=== PATIENT | male | born 1955 | race Caucasian/White ===

== ENCOUNTER 2018-04-05 23:41 | Inpatient (IN) ==
[2018-04-06] MEDS ORDERED: methylPREDNISolone 125 MG/2 ML VIAL IVP ONE
--- NOTE | 2018-04-06 00:08 | Emergency Department Note ---
Disposition Clinical Impression: Acute exacerbation of chronic obstructive airways disease Disposition: Admitted As Inpatient Condition: Serious Instructions: Chronic Obstructive Pulmonary Disease (ED) Referrals: Christiano Santacruz MD [Primary Care Provider] - Forms: ED Satisfaction Letter Time of Disposition: 01:20 SOB HPI - General Chief Complaint: ED Shortness of Breath/Dyspnea Stated Complaint: Sebas Time Seen by Provider: 04/05/18 23:52 Source: EMS Mode of arrival: EMS Limitations: physical limitation Nursing Notes Reviewed: Yes Vital Signs Reviewed: Yes - History of Present Illness Mr. Chase is a 62 yo male that presents for shortness of breath, brought in by EMS, with O2 saturation of 67% at home on room air. Improved to 98% on supplemental O2 and albuterol treatment. He notes worsening shortness of breath and increased mucus production for the past few weeks. Notes chills but denies checking for fever. Patient notes orthopnea with leaning back or attempting to lay down that has been worse the past few days. He notes in general he does not feel well. Notes history of COPD for which he takes inhalers. History of CHF, notes increased LE swelling, however states he is not on diuretics. States he has history of pneumonia a couple years ago. Denies vomiting, notes intermittent diarrhea, denies abdominal pain. Currently on nasal cannula saturation is in low 90's and patient tachypneic. - Related Data Home Medications Medication Instructions Recorded Confirmed Albuterol Neb [Proventil Neb] 2.5 mg IH Q4HR PRN 10/23/15 09/06/17 Atorvastatin [Lipitor] 40 mg PO DAILY 10/23/15 09/06/17 Carvedilol [Coreg] 6.25 mg PO BIDWM 10/23/15 09/06/17 Clopidogrel [Plavix] 75 mg PO DAILY 10/23/15 09/06/17 Insulin Glargine,Hum.rec.anlog 40 unit SQ DAILY 10/23/15 09/06/17 [Lantus Solostar] Insulin Glulisine [Apidra] 5 - 20 unit SQ TIDWM 10/23/15 09/06/17 Multivitamin [Multi-Day Vitamins] 1 each PO DAILY 10/23/15 09/06/17 Nitroglycerin [Nitrostat] 0.4 mg SL DAILY PRN 10/23/15 09/06/17 amLODIPine [Norvasc] 10 mg PO DAILY 10/23/15 09/06/17 Albuterol Sulfate [Ventolin Hfa] 2 puff IH Q4H PRN 04/05/17 09/06/17 Budesonide/Formoterol 160/4.5 2 puff IH BIDR 04/05/17 09/06/17 [Symbicort 160/4.5] Lidocaine 1 each TP DAILY 04/05/17 09/06/17 Acetaminophen [Non-Aspirin Extra 500 mg PO Q6HR PRN 04/22/17 09/06/17 Strength] Fluticasone Propionate Nasal 50 mcg NS DAILY PRN 04/22/17 09/06/17 [Flonase] [place]-3/Dha/Epa/Fish Oil [Fish Oil 1,000 mg PO DAILY 04/22/17 09/06/17 Conc 1,000 mg Softgel] Quinapril HCl [Accupril] 40 mg PO DAILY 04/22/17 09/06/17 Sertraline [Zoloft] 50 mg PO DAILY 04/22/17 09/06/17 OxyCODONE/APAP 5/325 [Percocet 1 tab PO BID PRN 09/06/17 09/06/17 5/325 MG] Allergies Allergy/AdvReac Type Severity Reaction Status Date / Time No Known Allergies Allergy Verified 09/06/17 10:09 All systems ED: reviewed and negative except as stated. Review of Systems: As Per HPI Constitutional: Reports: chills, weakness Eyes: Denies: vision change ENT ED: Reports: congestion Cardiovascular: Reports: orthopnea. Denies: chest pain Respiratory: Reports: cough, dyspnea, wheezes, sputum production. Denies: hemoptysis Gastrointestinal: Reports: diarrhea. Denies: abdominal pain, vomiting Genitourinary: Denies: dysuria Integumentary: Denies: rash Endocrine: Reports: fatigue Past Medical History - Past Medical History Attestation: Yes The following information was validated with the patient. Source: patient Medical history: Reports: COPD, coronary artery disease, diabetes, hyperlipidemia, hypertension, myocardial infarction Surgical history: Reports: angioplasty/stent, herniorrhaphy, vasectomy Psychiatric history: Reports: no psych history - Social History Smoking Status: Current every day smoker Smokeless Tobacco Status: No Alcohol use: Reports: occasionally Drug use: Reports: none Physical Exam - General Limitations: physical limitation General appearance: alert, in distress (tachypnea) - Head Head exam: atraumatic, normocephalic - Eye Eye exam: Present: normal appearance. Absent: scleral icterus, conjunctival injection - ENT ENT exam: normal exam, mucous membranes moist - Neck Neck exam: Present: normal inspection, full ROM - Chest Chest inspection: Present: normal inspection, symmetric chest wall rise - Respiratory Respiratory exam: Present: respiratory distress (tachypnea, requiring oxygen), wheezes (bilaterally) - Cardiovascular Cardiovascular exam: Present: regular rate, normal rhythm, +S1, +S2 - Abdominal Exam Abdominal exam: Present: soft, Non-Tender. Absent: guarding, rebound, rigidity - Extremities Exam Extremities exam: Present: pedal edema (2+ bilaterally). Absent: tenderness - Back Exam Back exam: Absent: tenderness - Neurological Exam Neurological exam: Present: alert, oriented X3 - Psychiatric Psychiatric exam: Present: agitated - Skin Skin exam: Present: warm, dry, intact, normal color. Absent: rash Course Vital Signs Temperature 98.8 F 04/05/18 23:45 Pulse Rate 81 04/05/18 23:45 Respiratory Rate 16 04/05/18 23:45 Blood Pressure 167/84 04/05/18 23:45 O2 Sat by Pulse Oximetry 91 04/05/18 23:45 Temperature 98.8 F 04/05/18 23:45 Pulse Rate 81 04/05/18 23:45 Respiratory Rate 16 04/05/18 23:45 Blood Pressure 167/84 04/05/18 23:45 O2 Sat by Pulse Oximetry 92 04/05/18 23:45 Oxygen Delivery Oxygen Delivery Nasal Cannula Shortness of Breath/Dyspnea - [facility] Narrative Medical decision making narrative: Patient with hypoxia and SEBAS without supplemental oxygen. Patient will likely need to be admitted as he is not on supplemental O2 at home and is currently requiring such. History of CHF, COPD. With response to albuterol by EMS and wheezing on exam, will treat with steroids. Check EKG, CXR, and labs. Overall labs normal. CXR read as negative, though not as well penetrated as previous CXR. Plan to admit for AECOPD. Spoke to hospitalist, Dr. Hansen, accepted patient and recommending starting patient on IV azithromycin. - Differential Diagnosis Likely: acute exacerbation of chronic obstructive airways disease, congestive heart failure, pneumonia - Medical Records Medical records reviewed: Yes I reviewed the patient's medical records. - Lab Data Lab results reviewed: Yes I reviewed the patient's lab results. Result diagrams: 04/06/18 00:22 04/06/18 00:04 Lab Results 04/06/18 04/06/18 04/06/18 Range/Units 00:04 00:22 00:22 WBC 9.5 (4.3-11.1) K/mcL RBC 5.66 H (4.19-5.50) M/mcL Hgb 15.2 (12.9-16.9) g/dL Hct 49.9 (37.5-50.1) % MCV 88.2 (83.0-100.0) fL MCH 26.9 L (28.0-33.3) pg MCHC 30.5 L (31.6-35.5) g/dL RDW 14.2 (11.5-14.5) % Plt Count 190 (140-400) K/mcL MPV 10.5 (9.4-12.4) fL Immature Gran % 0.5 (0-4) % Seg Neutrophils % 74.3 % Lymphocytes % 13.7 % Monocytes % 9.9 % Eosinophils % 1.2 % Basophils % 0.4 % Neutrophils # 7.1 (1.6-8.9) K/mcL Lymphocytes # 1.3 (0.6-4.6) K/mcL Monocytes # 0.9 (0.0-1.3) K/mcL Eosinophils # 0.1 (0.0-0.6) K/mcL Basophils # 0.0 (0.0-0.2) K/mcL Sodium 139 (136-145) mEq/L Potassium 4.4 (3.5-5.1) mEq/L Chloride 104 (98-107) mEq/L Carbon Dioxide 31 H (23-29) mEq/L BUN 17 (8-23) mg/dL Creatinine 1.06 (0.70-1.30) mg/dL Est GFR ( Amer) > 60 (> 60) Est GFR (Non-Af Amer) > 60 (> 60) BUN/Creatinine Ratio 16 (6-26) Glucose 179 H (70-105) mg/dL Calculated Osmolality 294 (280-300) Lactic Acid 0.6 (0.5-2.2) mmol/L Calcium 8.9 (8.6-10.3) mg/dL Troponin I < 0.03 (< 0.04) ng/mL - Radiology Data Radiology results reviewed: Yes I reviewed the patient's radiology results. - EKG Data EKG attestation: Yes I reviewed and interpreted this EKG. EKG shows normal: Reports: sinus rhythm Rate: Reports: normal Rhythm: Reports: NSR [place]/QRS: Reports: normal Interpretation: Reports: no acute changes. Denies: nonspecific ST-T wave changes
[2018-04-06 00:33] LABS: Basophils % 0.4 %; Eosinophils # 0.1 K/mcL (0.0-0.6); Eosinophils % 1.2 %; Hematocrit 49.9 % (37.5-50.1); Hemoglobin 15.2 g/dL (12.9-16.9); Immature Granulocytes % 0.5 % (0-4); Lymphocytes # 1.3 K/mcL (0.6-4.6); Lymphocytes % 13.7 %; Mean Corpuscular HGB Conc 30.5 g/dL (31.6-35.5); Mean Corpuscular Hemoglobin 26.9 pg (28.0-33.3); Mean Corpuscular Volume 88.2 fL (83.0-100.0); Mean Platelet Volume 10.5 fL (9.4-12.4); Monocytes # 0.9 K/mcL (0.0-1.3); Monocytes % 9.9 %; Neutrophils # 7.1 K/mcL (1.6-8.9); Platelet Count 190 K/mcL (140-400); Red Blood Count 5.66 M/mcL (4.19-5.50); Red Cell Distribution Width 14.2 % (11.5-14.5); Segmented Neutrophils % 74.3 %
[2018-04-06 00:37] LABS: BUN/Creatinine Ratio 16 (6-26); Blood Urea Nitrogen 17 mg/dL (8-23); Calcium 8.9 mg/dL (8.6-10.3); Carbon Dioxide 31 mEq/L (23-29); Chloride 104 mEq/L (98-107); Glucose 179 mg/dL (70-105); Osmolality,Calculated 294 (280-300); Potassium 4.4 mEq/L (3.5-5.1); Sodium 139 mEq/L (136-145); Troponin I < 0.03 ng/mL (< 0.04); eGFR For Non-African Americans > 60 (> 60)
--- NOTE | 2018-04-06 00:53 | Emergency Department Note ---
Disposition Clinical Impression: Acute exacerbation of chronic obstructive airways disease Disposition: Still a Patient Condition: Serious Forms: ED Satisfaction Letter SOB HPI - General Chief Complaint: ED Shortness of Breath/Dyspnea Stated Complaint: Sebas Time Seen by Provider: 04/05/18 23:52 Source: EMS Mode of arrival: EMS Limitations: physical limitation Nursing Notes Reviewed: Yes Vital Signs Reviewed: Yes - Related Data Home Medications Medication Instructions Recorded Confirmed Albuterol Neb [Proventil Neb] 2.5 mg IH Q4HR PRN 10/23/15 09/06/17 Atorvastatin [Lipitor] 40 mg PO DAILY 10/23/15 09/06/17 Carvedilol [Coreg] 6.25 mg PO BIDWM 10/23/15 09/06/17 Clopidogrel [Plavix] 75 mg PO DAILY 10/23/15 09/06/17 Insulin Glargine,Hum.rec.anlog 40 unit SQ DAILY 10/23/15 09/06/17 [Lantus Solostar] Insulin Glulisine [Apidra] 5 - 20 unit SQ TIDWM 10/23/15 09/06/17 Multivitamin [Multi-Day Vitamins] 1 each PO DAILY 10/23/15 09/06/17 Nitroglycerin [Nitrostat] 0.4 mg SL DAILY PRN 10/23/15 09/06/17 amLODIPine [Norvasc] 10 mg PO DAILY 10/23/15 09/06/17 Albuterol Sulfate [Ventolin Hfa] 2 puff IH Q4H PRN 04/05/17 09/06/17 Budesonide/Formoterol 160/4.5 2 puff IH BIDR 04/05/17 09/06/17 [Symbicort 160/4.5] Lidocaine 1 each TP DAILY 04/05/17 09/06/17 Acetaminophen [Non-Aspirin Extra 500 mg PO Q6HR PRN 04/22/17 09/06/17 Strength] Fluticasone Propionate Nasal 50 mcg NS DAILY PRN 04/22/17 09/06/17 [Flonase] [place]-3/Dha/Epa/Fish Oil [Fish Oil 1,000 mg PO DAILY 04/22/17 09/06/17 Conc 1,000 mg Softgel] Quinapril HCl [Accupril] 40 mg PO DAILY 04/22/17 09/06/17 Sertraline [Zoloft] 50 mg PO DAILY 04/22/17 09/06/17 OxyCODONE/APAP 5/325 [Percocet 1 tab PO BID PRN 09/06/17 09/06/17 5/325 MG] Allergies Allergy/AdvReac Type Severity Reaction Status Date / Time No Known Allergies Allergy Verified 09/06/17 10:09 Past Medical History - Past Medical History Medical history: Reports: COPD, coronary artery disease, diabetes, hyperlipidemia, hypertension, myocardial infarction Surgical history: Reports: angioplasty/stent, herniorrhaphy, vasectomy Psychiatric history: Reports: no psych history - Social History Smoking Status: Current every day smoker Smokeless Tobacco Status: No Alcohol use: Reports: occasionally Drug use: Reports: none Physical Exam - General Limitations: physical limitation General appearance: alert, in no apparent distress Course Vital Signs Temperature 98.8 F 04/05/18 23:45 Pulse Rate 81 04/05/18 23:45 Respiratory Rate 16 04/05/18 23:45 Blood Pressure 167/84 04/05/18 23:45 O2 Sat by Pulse Oximetry 91 04/05/18 23:45 Temperature 98.8 F 04/05/18 23:45 Pulse Rate 81 04/05/18 23:45 Respiratory Rate 16 04/05/18 23:45 Blood Pressure 167/84 04/05/18 23:45 O2 Sat by Pulse Oximetry 92 04/05/18 23:45 Oxygen Delivery Oxygen Delivery Nasal Cannula Shortness of Breath/Dyspnea - Lab Data Result diagrams: 04/06/18 00:22 04/06/18 00:04 Lab Results 04/06/18 04/06/18 04/06/18 Range/Units 00:04 00:22 00:22 WBC 9.5 (4.3-11.1) K/mcL RBC 5.66 H (4.19-5.50) M/mcL Hgb 15.2 (12.9-16.9) g/dL Hct 49.9 (37.5-50.1) % MCV 88.2 (83.0-100.0) fL MCH 26.9 L (28.0-33.3) pg MCHC 30.5 L (31.6-35.5) g/dL RDW 14.2 (11.5-14.5) % Plt Count 190 (140-400) K/mcL MPV 10.5 (9.4-12.4) fL Immature Gran % 0.5 (0-4) % Seg Neutrophils % 74.3 % Lymphocytes % 13.7 % Monocytes % 9.9 % Eosinophils % 1.2 % Basophils % 0.4 % Neutrophils # 7.1 (1.6-8.9) K/mcL Lymphocytes # 1.3 (0.6-4.6) K/mcL Monocytes # 0.9 (0.0-1.3) K/mcL Eosinophils # 0.1 (0.0-0.6) K/mcL Basophils # 0.0 (0.0-0.2) K/mcL Sodium 139 (136-145) mEq/L Potassium 4.4 (3.5-5.1) mEq/L Chloride 104 (98-107) mEq/L Carbon Dioxide 31 H (23-29) mEq/L BUN 17 (8-23) mg/dL Creatinine 1.06 (0.70-1.30) mg/dL Est GFR ( Amer) > 60 (> 60) Est GFR (Non-Af Amer) > 60 (> 60) BUN/Creatinine Ratio 16 (6-26) Glucose 179 H (70-105) mg/dL Calculated Osmolality 294 (280-300) Lactic Acid 0.6 (0.5-2.2) mmol/L Calcium 8.9 (8.6-10.3) mg/dL Troponin I < 0.03 (< 0.04) ng/mL Attestation Statement - Attestation Attestation: I, Shad Alcocer, examined this patient and my medical decision-making was reviewed with the BOX PRINTER/PA/Advanced Practice Nurse/Resident Physician. I agree with the documented findings, disposition and treatment plan as described except to the extent set forth below. 62-year-old male presents emergency Department with concerns of difficulty in breathing. Patient has a history of severe COPD exacerbation and congestive heart failure. Patient states his symptoms have been worsening over the past few weeks. Patient had an O2 saturation of 67% on EMS arrival. They gave her breathing treatment and put him on oxygen with significant improvement. Patient felt significantly improved after the administration of albuterol. Patient has wheezing the bilateral posterior lung clark. His symptoms are likely secondary to COPD exacerbation. We are pending a chest x-ray for further evaluation of possible pneumonia. Patient care will be transferred to Dr. Thompson pending chest x-ray, evaluation and disposition.
[2018-04-06] MEDS ORDERED: Azithromycin 500 MG in D5% in Water 250 ML IVPB ONE (01:10)
[2018-04-06] MEDS ORDERED: *HR* OxyCODONE/APAP 5/325 TABLET PO PRN ×2 (01:54→20:55)
[2018-04-06] MEDS ORDERED: Fluticasone Propionate Nasal 50 MCG/SPRAY BOTTLE NS PRN (01:54)
[2018-04-06] MEDS ORDERED: Furosemide 40 MG/4 ML VIAL IVP ONE (01:56)
[2018-04-06] MEDS ORDERED: Dextrose Gel 15 GM/37.5 ML TUBE PO PRN ×4 (01:56→21:17)
--- NOTE | 2018-04-06 02:34 | Internal Med History&Physical ---
Date of Encounter: 04/06/18 Time of Encounter: 02:00 Internal Medicine - H&P: HPI Chief complaint: SOB Admitted From: Home Plans for Post Hospital Care: Home History of present illness: Larry Chase is a 62 year old morbidly obese man with long-standing tobacco dependence with resultant severe COPD, hypertension, diabetes, hyperlipidemia, CAD s/p stent and currently being managed for bladder cancer s/ p transurethral resection in 2017. He continues to smoke about pack a day or less and now presents with severe difficulty breathing with excessive wheezing that has been worsening over the past weeks and on arrival was saturating 67%. He improved with supplemental oxygen therapy and nebulizer, going up to the high 80s. His exam was remarkable for wheezing in bilateral posterior lung clark. He received 125mg of methylprednisolone and is admitted for further care. On my assessment he states he feels better than before he came to the ER. He denies chest pain but states he has noticed increased pedal edema in addition to his shortness of breath. He smoked a few cigarettes before seeking EMS care. He reports that a few years ago he was admitted for pneumonia and was on oxygen for about 3 months at home but has been off ever since. He denies fever and chills but has an ongoing productive cough. Past Med Surg Social Fam HX - Past Medical History Medical history: COPD, coronary artery disease, diabetes, hyperlipidemia, hypertension, myocardial infarction Additional medical history: bladder tumor. STD's. CKD STAGE 3. NSTEMI. SMOKER Psychiatric history: no psych history - Past Surgical History Surgical History: angioplasty/stent, herniorrhaphy, vasectomy Additional surgical history: hernia stomach. bilateral carpal tunnel release - Social History Smoking Status: Current every day smoker Smokeless Tobacco Status: No Alcohol use: occasionally Drug use: none Internal Medicine - H&P: Meds Albuterol Neb [Proventil Neb] 2.5 mg IH Q4HR PRN 10/23/15 [History] Atorvastatin [Lipitor] 40 mg PO DAILY 10/23/15 [History] Carvedilol [Coreg] 6.25 mg PO BIDWM 10/23/15 [History] Clopidogrel [Plavix] 75 mg PO DAILY 10/23/15 [History] Insulin Glargine,Hum.rec.anlog [Lantus Solostar] 40 unit SQ DAILY 10/23/15 [ History] Insulin Glulisine [Apidra] 5 - 20 unit SQ TIDWM 10/23/15 [History] Multivitamin [Multi-Day Vitamins] 1 each PO DAILY 10/23/15 [History] Nitroglycerin [Nitrostat] 0.4 mg SL DAILY PRN 10/23/15 [History] amLODIPine [Norvasc] 10 mg PO DAILY 10/23/15 [History] Albuterol Sulfate [Ventolin Hfa] 2 puff IH Q4H PRN 04/05/17 [History] Budesonide/Formoterol 160/4.5 [Symbicort 160/4.5] 2 puff IH BIDR 04/05/17 [ History] Lidocaine 1 each TP DAILY 04/05/17 [History] Acetaminophen [Non-Aspirin Extra Strength] 500 mg PO Q6HR PRN 04/22/17 [History] Fluticasone Propionate Nasal [Flonase] 50 mcg NS DAILY PRN 04/22/17 [History] [place]-3/Dha/Epa/Fish Oil [Fish Oil Conc 1,000 mg Softgel] 1,000 mg PO DAILY [History] Quinapril HCl [Accupril] 40 mg PO DAILY 04/22/17 [History] Sertraline [Zoloft] 50 mg PO DAILY 04/22/17 [History] OxyCODONE/APAP 5/325 [Percocet 5/325 MG] 1 tab PO BID PRN 09/06/17 [History] 3 Allergy/AdvReac Type Severity Reaction Status Date / Time No Known Allergies Allergy Verified 09/06/17 10:09 All Systems PM: A 10-system review of systems was performed and is negative for pertinent findings except as documented above in the HPI. - Constitutional Vitals: Temp Pulse Resp BP Pulse Ox 98.8 F 90 16 146/76 90 04/05/18 23:45 04/06/18 01:16 04/06/18 01:58 04/06/18 01:58 04/06/18 01:16 Exam: Vitals: Reviewed General: Obese man, sitting up in bed, notable respiratory discomfort. Skin: Flushed face, no lesions or ulcers. HEENT: Moist mucous membranes. No conjunctivae pallor. Neck: No lymphadenopathy. No palpable thyroid. Chest: Diminished thoracic expansion. Reduced breath sounds bilaterally with scattered wheezes. Heart: Normal S1 & S2; rhythmic. Abdomen: distended, soft and non-tender to palpation. Extremities: (+) clubbing, 1+ pitting edema. Neurological: Awake, alert and oriented to person, place and time. No focal deficits. Psych: Affect appropriate. Internal Med - H&P Results - Labs CBC & Chem 7: 04/06/18 00:22 04/06/18 00:04 - Assessment and plan (1) Acute exacerbation of chronic obstructive airways disease Current Visit: Yes Status: Acute Assessment and plan: Old records reviewed: Spirometry shows very severe airway obstructive pattern Following Bronchodilator, there is significant improvement in FVC by 32%. Following Bronchodilator, there is significant improvement in FEV1 by 27%. MVV is decreased. Lung Volumes TLC is mildly reduced and there is increased in residual volume suggesting air-trapping. Diffusion Capacity is severely reduced. Flow Volume Loop: Obstructive. These findings are consistent with grade IV disease and currently has moderate to severe symptoms of acute exacerbation. Will check an ABG to ensure there is no CO2 retention; he is currently refusing Bipap to assist. Continue nebulizer therapy q4hrs. Azithromycin 500mg daily. Supplemental oxygen. (2) Acute respiratory failure with hypoxia Current Visit: Yes Status: Acute Assessment and plan: Likely due to COPD exacerbation. Will place on supplemental oxygen for now however he will need evaluation for home-oxygen use before he is discharged. Will administer 1 dose of furosemide and check a TTE to ensure heart failure/ cor pulmonale is not a contributing factor as his x-ray shows some vascular congestion on my evaluation. (3) CAD (coronary artery disease) Current Visit: Yes Status: Chronic Assessment and plan: Stable. Will continue antiplatelet therapy and statin. Qualifiers: Coronary Disease-Associated Artery/Lesion type: [place] artery [place] vs. transplanted heart: [place] heart Associated angina: without angina Qualified Code(s): I25.10 - Atherosclerotic heart disease of [place] coronary artery without angina pectoris (4) Obesity (BMI 30-39.9) Current Visit: Yes Status: Chronic Assessment and plan: Will benefit from gold leaf roller evaluation (5) Tobacco dependence due to cigarettes Current Visit: Yes Status: Chronic Assessment and plan: Counseled extensively on the need to quit; resources made available to assist. - Time Spent With Patient Total time spent is greater than 50% in coordination of care (as documented) at patient's floor/unit and/or counseling patient: Greater than 35 minutes
[2018-04-06 04:25] LABS: ABG Base Excess 3 mEq/L (-2 to 3); ABG HCO3 35 mEq/L (21-27); ABG Oxygen Saturation 84 % (95-98); ABG PCO2 86 mmHg (35-45); ABG PH 7.22 pH Units (7.32-7.45); ABG PO2 61 mmHg (85-104); ABG TCO2 38 mEq/L (20-26)
[2018-04-06] MEDS: Ipratropium/Albuterol Neb 3 ML IH SCH ×5 (04:33→23:46)
[2018-04-06] MEDS: *HR* Heparin 5,000 UNIT/ML VIAL SQ SCH ×2 (05:17→13:53)
[2018-04-06] MEDS ORDERED: *HR* Etomidate 40 MG/20 ML VIAL IVP ONE (07:01)
[2018-04-06] MEDS ORDERED: *HR* Midazolam HCl 2 MG/2 ML VIAL IV ONE (07:01)
[2018-04-06] MEDS ORDERED: *HR* Midazolam HCl 5 MG/5 ML VIAL IVP ONE ×2 (07:01→21:55)
[2018-04-06] MEDS: Insulin LISPRO 300 UNITS/3 ML VIAL SQ SCH ×4 (08:05→23:44)
[2018-04-06] MEDS: MethylPREDNISolone 40 MG/ML VIAL IVP SCH ×3 (08:05→23:44)
[2018-04-06] MEDS ORDERED: Furosemide 20 MG/2 ML VIAL IVP ONE (08:49)
[2018-04-06 08:54] LABS: ABG Base Excess 1 mEq/L (-2 to 3); ABG HCO3 37 mEq/L (21-27); ABG Oxygen Saturation 93 % (95-98); ABG PCO2 121 mmHg (35-45); ABG PH 7.09 pH Units (7.32-7.45); ABG PO2 98 mmHg (85-104); ABG TCO2 40 mEq/L (20-26); Blood Gas Modality avaps; Blood Gas PEEP 7 cm H2O; Blood Gas Respiration Rate 12; Blood Gas VT 500 cc
[2018-04-06] MEDS ORDERED: Perflutren Lipid Microsphere 1.3 ML in 0.9 % Sodium Chloride 8.7 ML IVP ONE ×3 (08:55→22:14)
[2018-04-06] MEDS ORDERED: Multivit/Ca/Min/Fe/FA 1 TAB TABLET PO SCH (09:00)
[2018-04-06] MEDS ORDERED: Lisinopril 20 MG TABLET PO SCH (09:00)
[2018-04-06] MEDS ORDERED: amLODIPine 5 MG TABLET PO SCH (09:00)
[2018-04-06] MEDS ORDERED: Aspirin 81 MG TAB.CHEW PO SCH (09:00)
--- NOTE | 2018-04-06 09:17 | Event Note ---
Date of Encounter: 04/06/18 Time of Encounter: 08:00 Called to bedside by nursing Patient difficult to arouse, , has minimal response to painful stimuli. Currently on Bipap Nursing reports that patient has been pulling at Bipap. ABG obtained which did reveal a pH of 7.09,pCo2 121 HCO3 37 . I did notify Dr Machado who did evaluate the patient advised to transfer to ICU. Spoke with ICU physician Dr Kelly and who did examine the patient at bedside, he was given IV lasix, we will check ABG in one hour . He will be transfered to ICU to closely monitored
[2018-04-06 10:41] LABS: ABG Base Excess 2 mEq/L (-2 to 3); ABG HCO3 37 mEq/L (21-27); ABG Oxygen Saturation 90 % (95-98); ABG PCO2 116 mmHg (35-45); ABG PH 7.11 pH Units (7.32-7.45); ABG PO2 84 mmHg (85-104); ABG TCO2 41 mEq/L (20-26); Blood Gas PEEP 7 cm H2O; Blood Gas Respiration Rate 12; Blood Gas VT 500 cc
--- NOTE | 2018-04-06 10:58 | Pulmonology Consult Note ---
<JesicaandriaYuliya S - Last Filed: 04/06/18 13:25> Date of Encounter: 04/06/18 Medications and Allergies Albuterol Neb [Proventil Neb] 2.5 mg IH Q4HR PRN 10/23/15 [History] Atorvastatin [Lipitor] 40 mg PO DAILY 10/23/15 [History] Carvedilol [Coreg] 6.25 mg PO BIDWM 10/23/15 [History] Clopidogrel [Plavix] 75 mg PO DAILY 10/23/15 [History] Insulin Glargine,Hum.rec.anlog [Lantus Solostar] 50 unit SQ DAILY 10/23/15 [ History] Multivitamin [Multi-Day Vitamins] 1 each PO DAILY 10/23/15 [History] Nitroglycerin [Nitrostat] 0.4 mg SL DAILY PRN 10/23/15 [History] amLODIPine [Norvasc] 10 mg PO DAILY 10/23/15 [History] Albuterol Sulfate [Ventolin Hfa] 2 puff IH Q4H PRN 04/05/17 [History] Budesonide/Formoterol 160/4.5 [Symbicort 160/4.5] 2 puff IH BIDR 04/05/17 [ History] Acetaminophen [Non-Aspirin Extra Strength] 500 mg PO Q6HR PRN 04/22/17 [History] Fluticasone Propionate Nasal [Flonase] 50 mcg NS DAILY PRN 04/22/17 [History] [place]-3/Dha/Epa/Fish Oil [Fish Oil Conc 1,000 mg Softgel] 1,000 mg PO DAILY [History] Sertraline [Zoloft] 50 mg PO DAILY 04/22/17 [History] OxyCODONE/APAP 5/325 [Percocet 5/325 MG] 1 tab PO BID PRN 09/06/17 [History] Cetirizine HCl [Zyrtec] 10 mg PO DAILY 04/06/18 [History] Insulin LISPRO [Humalog Kwikpen U-100] 15 - 20 unit SQ TID 04/06/18 [History] Lisinopril [Zestril] 40 mg PO DAILY 04/06/18 [History] Tiotropium [place] [Spiriva Respimat] 2 puff IH DAILY 04/06/18 [History] 3 Allergy/AdvReac Type Severity Reaction Status Date / Time No Known Allergies Allergy Verified 09/06/17 10:09 All Systems: The remainder of the systems were reviewed and are negative Physical Examination Vital Signs: Vital Signs, Last 4 Hours Temp Pulse Resp BP Pulse Ox 04/06/18 13:00 67 18 106/56 94 04/06/18 12:00 68 18 98/52 94 04/06/18 11:00 98 F 84 16 123/61 94 04/06/18 10:57 18 123/61 94 Results - Laboratory Findings CBC and BMP: 04/06/18 00:22 04/06/18 00:04 ABG ABG pH 7.11 pH Units (7.32-7.45) L* 04/06/18 10:36 ABG pCO2 116 mmHg (35-45) H* 04/06/18 10:36 ABG pO2 84 mmHg (85-104) L 04/06/18 10:36 ABG O2 Saturation 90 % (95-98) L 04/06/18 10:36 Abnormal lab findings: Abnormal lab results RBC 5.66 M/mcL (4.19-5.50) H 04/06/18 00:22 MCH 26.9 pg (28.0-33.3) L 04/06/18 00:22 MCHC 30.5 g/dL (31.6-35.5) L 04/06/18 00:22 ABG pH 7.11 pH Units (7.32-7.45) L* 04/06/18 10:36 ABG pCO2 116 mmHg (35-45) H* 04/06/18 10:36 ABG pO2 84 mmHg (85-104) L 04/06/18 10:36 ABG HCO3 37 mEq/L (21-27) H 04/06/18 10:36 ABG Total CO2 41 mEq/L (20-26) H 04/06/18 10:36 ABG O2 Saturation 90 % (95-98) L 04/06/18 10:36 Carbon Dioxide 31 mEq/L (23-29) H 04/06/18 00:04 Glucose 179 mg/dL (70-105) H 04/06/18 00:04 POC Glucose 337 mg/dL (70-99) H 04/06/18 11:20 - Clinical Findings Intake & Output: Intake & Output 04/05/18 04/06/18 04/06/18 23:59 07:59 15:59 Output Total 200 / 800 Balance -200 / -800 Consult Discharge Plan - Plan Instructions: Chronic Obstructive Pulmonary Disease (ED) Referrals: Christiano Santacruz MD [Primary Care Provider] - - Attending Attestation I saw and evaluated this patient and my medical decision-making was reviewed with the Resident Physician. I agree with the documented findings, disposition and treatment plan as described except to the extent set forth below. We independently had [id number] contact with the patient I spent 40 minutes of Critical Care time with this patient. It involved decision making of high complexity to assess, manipulate, and support vital organ system failure and/or to prevent further life threatening deterioration of the patient's condition. The time involved in the performance of separately reportable procedures was not counted toward critical care time. Patient seen and examined at bedside Labs, radiology, chart personally reviewed. Management was reviewed during multidisciplinary critical care rounds. 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 After initial treatment with AVAPS and adjusting the settings patient is more awake and following commands. Pulm: Patient has severe COPD looks like he presented with COPD exacerbation we will keep him on steroids, bronchodilators, IV antibiotics will put him on antipseudomonal penicillin. Cards: Patient has signs of fluid overload suspected diastolic dysfunction will get an echo and trend troponins patient has history of coronary artery disease. We will hold of diuresis as blood pressure is borderline . FEN-GI: Nothing by mouth for now Renal: As and output were reviewed ID: To continue antipseudomonal penicillin in the background of severe COPD Heme/Onc: Labs reviewed, patient should be on thromboprophylaxis Endo: Glucose Monitored Integ/MSK: Skin Care per routine ICU Nursing Protocol to prevent ulcers. Lines: All lines examined without evidence of infection : Dispo: Criticaly ill to remain ICU high chance of worsening respiratory failure CODE: Discussed with goals of care patient for now is Full Code <Justa Morales E - Last Filed: 04/06/18 17:48> Date of Encounter: 04/06/18 Time of Encounter: 10:57 Assessment and Plan (1) Acute and chronic respiratory failure with hypercapnia Current Visit: Yes Status: Acute Currently on BiPAP with ABGs improving This could be a result of his CHF He was given 40 of Lasix this morning and 20 on the floor prior to being brought to the ICU We will do an echo to assess his CHF, and trend troponins, for possible exacerbation of his chronic respiratory failure DuoNeb's every 4 as needed We will continue to follow (2) Acute exacerbation of chronic obstructive airways disease Current Visit: Yes Status: Acute Continue prednisolone therapy Zosyn added for Pseudomonas coverage Due to nebs every 4 hours as needed (3) Congestive heart failure Current Visit: Yes Status: Acute Is given 40 of Lasix is morning and 20 on the floor prior to arrival at the ICU We will to an echocardiogram We will trend troponins, second troponin stayed at <0.03 Qualifiers: Heart failure type: unspecified Heart failure chronicity: unspecified Qualified Code(s): I50.9 - Heart failure, unspecified History of Present Illness Consult date: 04/06/18 Requesting physician: Melyssa Jauregui Chief complaint: Respiratory Failure History of present illness: Mr. Chase is a 62 yowm with long-standing tobacco dependence with resultant severe COPD, hypertension, diabetes, hyperlipidemia, CAD post stent and currently being managed for bladder cancer with transurethral resection in 2017. Continues to smoke about half a pack a day or less, presented with difficulty breathing with excessive wheezing has worsened over the past few weeks and on arrival was saturating at 67%. Improvement supplemental oxygen and nebulizer, received 125 mg of methylprednisolone amended for further care. This morning had worsening mental status and hypercarbia. He has been on BiPAP since. Still difficult to awaken. Past Med Surg Social Fam HX - Past Medical History Medical history: COPD, coronary artery disease, diabetes, hyperlipidemia, hypertension, myocardial infarction Additional medical history: bladder tumor. STD's. CKD STAGE 3. NSTEMI. SMOKER Psychiatric history: no psych history - Past Surgical History Surgical History: angioplasty/stent, herniorrhaphy, vasectomy Additional surgical history: hernia stomach. bilateral carpal tunnel release - Social History Smoking Status: Current every day smoker Smokeless Tobacco Status: No Alcohol use: occasionally Drug use: none ROS unobtainable: due to mental status All Systems: The remainder of the systems were reviewed and are negative Physical Examination Vital Signs: Vital Signs, Last 4 Hours Temp Pulse Resp BP Pulse Ox 04/06/18 10:38 98 F 84 16 123/61 94 04/06/18 10:37 97.7 F 108 20 147/82 87 04/06/18 07:54 17 82 04/06/18 07:43 97.7 F 84 16 147/82 89 General appearance: other (Difficult to awaken, must be rubbed vigorously via sternum rub to awaken and then falls back asleep immediately.) Eyes: nonicteric ENT: oropharynx dry Neck: no lymphadenopathy Effort: mildly labored Auscultation: bilateral: diminished breath sounds (Lower lobes), wheezes ( Throughout) Cardiovascular: regular rate and rhythm Gastrointestinal: normoactive bowel sounds, soft, non-tender Extremities: no cyanosis, pink and warm, edema (1+ pitting) unable to assess due to mental status Ventilator Settings Ventilator Settings: Ventilator Settings, Last 8 Hours Ventilator Tidal Volume 500 Setting Ventilator Respiratory Rate 12 Setting Positive End Expiratory 7 Pressure Results - Laboratory Findings CBC and BMP: 04/06/18 00:22 04/06/18 00:04 ABG ABG pH 7.11 pH Units (7.32-7.45) L* 04/06/18 10:36 ABG pCO2 116 mmHg (35-45) H* 04/06/18 10:36 ABG pO2 84 mmHg (85-104) L 04/06/18 10:36 ABG O2 Saturation 90 % (95-98) L 04/06/18 10:36 Abnormal lab findings: Abnormal lab results RBC 5.66 M/mcL (4.19-5.50) H 04/06/18 00:22 MCH 26.9 pg (28.0-33.3) L 04/06/18 00:22 MCHC 30.5 g/dL (31.6-35.5) L 04/06/18 00:22 ABG pH 7.11 pH Units (7.32-7.45) L* 04/06/18 10:36 ABG pCO2 116 mmHg (35-45) H* 04/06/18 10:36 ABG pO2 84 mmHg (85-104) L 04/06/18 10:36 ABG HCO3 37 mEq/L (21-27) H 04/06/18 10:36 ABG Total CO2 41 mEq/L (20-26) H 04/06/18 10:36 ABG O2 Saturation 90 % (95-98) L 04/06/18 10:36 Carbon Dioxide 31 mEq/L (23-29) H 04/06/18 00:04 Glucose 179 mg/dL (70-105) H 04/06/18 00:04 POC Glucose 311 mg/dL (70-99) H 04/06/18 10:20 - Clinical Findings Intake & Output: Intake & Output 04/05/18 04/06/18 04/06/18 23:59 07:59 15:59 Intake Total 490 / 490 Output Total 600 / 600 Balance 490 / 490 -600 / -600 Weight 120.2 kg
[2018-04-06 14:05] LABS: ABG Base Excess 6 mEq/L (-2 to 3); ABG HCO3 38 mEq/L (21-27); ABG Oxygen Saturation 85 % (95-98); ABG PCO2 92 mmHg (35-45); ABG PH 7.22 pH Units (7.32-7.45); ABG PO2 63 mmHg (85-104); ABG TCO2 41 mEq/L (20-26); Blood Gas PEEP 7 cm H2O; Blood Gas Respiration Rate 18; Blood Gas VT 600 cc
[2018-04-06] MEDS ORDERED: Piperacillin/Tazobactam 3.375 GM in 0.9 % Sodium Chloride Mini Bag 100 ML IVPB SCH (16:00)
[2018-04-06] MEDS ORDERED: Dexmedetomidine HCl 400 MCG/100 ML MLS IVC SCH (16:15)
[2018-04-06] MEDS ORDERED: Dexmedetomidine HCl 400 MCG/100 ML MLS IVC ONE ×2 (16:24→19:58)
--- NOTE | 2018-04-06 17:35 | Electrocardiograph Report ---
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
[2018-04-06] MEDS: (Tiotropium Bromide [Spiriva Respimat] 2 PUFF) IH SCH (19:33)
--- NOTE | 2018-04-06 19:34 | Event Note ---
Date of Encounter: 04/06/18 Time of Encounter: 19:00 Notified by nursing at 18:58 that patient is very agitated, refusing treatment, trying to pull off Bipap, and physically and verbally abusive towards all staff despite Precedex drip. I immediately arrived at bedside to speak with Mr. Chase. He was wearing BiPAP at the time but remained very agitated, disoriented, not speaking coherently, and confused. He requested drinking some water and eating since he had been NPO for the past 36 hours. Patient was awake enough to protect his airway and was allowed to sip some water and eat a diabetic diet for dinner. He was placed on 1.5L daily fluid restrictions. At 21:09, I was notified by RN that patient is very verbally abusive, refusing to wear his supplemental oxygen or BiPAP, confused, and is very resistant to care. His SPO2 was hypoxic between 74 and 77% on room air. After discussion with the patient, he remained unwilling to comply with Bipap or supplemental oxygen recommendations and requested to speak with his daughter over the phone. At 21:16, RN spoke with his daughter Asuncion on the phone. Patient's current plan of care, altered mental status, and non-compliance with medical therapy was discussed with Asuncion. Patient's daughter confirmed the patient is full code status and would like to be intubated for respiratory support if clinically indicated. The patient was allowed to speak to his daughter for a minute and subsequently developed acute worsening of respiratory failure at 21: 25. Attending, Dr. Hansen was called to the room, and decision was made to rapidly intubate Mr. Chase secondary to acute on chronic hypoxic and hypercapnic respiratory failure, inability to protect his airway, and altered mental status. At 21:38, the patient was placed in a flat position and a time out was not performed due to the emergent nature of the procedure. Respiratory therapist, attending, and RN were at bedside. An oral airway was inserted. The patient was easily ventilated using an ambu bag and pre-oxygenated with SpO2 reaching up to 90s. Sedation was obtained using a total of Versed 12mg and Etomidate 30mg. The MAC 3 BLADE was used and inserted into the oropharynx at which time there was inadequate visualization of the vocal cords. The C-MAC with a d-blade was used to better visualize the oropharynx and vocal cords. Both I and the respiratory therapist each attempted one time to insert a 7.5-serbian endotracheal tube through the vocal cords, however, there was no colorimetric change visualized on the CO2 meter each time. At that time we paged anesthesiologist, Dr. Tabares, to bedside. Patient was suctioned periodically and continued to be easily ventilated using an ambu bag. Dr. Tabares successfully intubated the patient at 21 :58 using the C-MAC with a d-blade, colorimetric change was visualized on the CO2 meter, and breath sounds were heard in both lung clrak equally. An 8- serbian endotracheal tube was placed at 24 cm, measured at the teeth. Please see corresponding procedure note. An OG tube was inserted and CXR and KUB were ordered to confirm placement. The OG tube was advanced after the KUB was performed and placed on low intermittent suction to decompress the stomach. Patient remained on Precedex drip and was started on additional sedation with Propofol and Fentanyl. An ABG was performed later at 2312 which revealed improving hypercapnia with underlying primary respiratory acidosis and secondary metabolic alkalosis. 04/06/18 04/06/18 04/06/18 04:22 08:31 10:36 ABG pH 7.22 L 7.09 L* D 7.11 L* ABG pCO2 86 H* 121 H* D 116 H* ABG pO2 61 L 98 84 L ABG HCO3 35 H 37 H 37 H ABG Total CO2 38 H 40 H 41 H ABG O2 Saturation 84 L 93 L 90 L ABG Base Excess 3 1 2 04/06/18 04/06/18 13:58 23:12 ABG pH 7.22 L 7.29 L ABG pCO2 92 H* D 74 H* ABG pO2 63 L 67 L ABG HCO3 38 H 35 H ABG Total CO2 41 H 38 H ABG O2 Saturation 85 L 89 L ABG Base Excess 6 H 6 H Impressions Chest X-Ray 04/06/18 22:01 IMPRESSION: Endotracheal tube in place with tip 4.5 cm above the marva. Interval development of central pulmonary vascular congestion/mild edema. D/ / Gricelda Calderon Cha, MD / Gricelda Calderon Cha, MD Interpreting Provider: Gricelda Calderon Cha, MD X-Ray 04/06/18 22:01 IMPRESSION: Enteric tube with side hole at or just above the gastroesophageal junction. Ideally, the tube could be advanced by several cm. D/ / Gricelda Calderon Cha, MD / Gricelda Calderon Cha, MD Interpreting Provider: Gricelda Calderon Cha, MD
[2018-04-06] MEDS: Loratadine 10 MG TABLET PO SCH (20:20)
[2018-04-06] MEDS: Dexmedetomidine HCl 400 MCG/100 ML MLS IVC SCH (20:20)
[2018-04-06] MEDS ORDERED: Acetaminophen 325 MG TABLET PO PRN (20:42)
[2018-04-06] MEDS ORDERED: Albuterol 2.5 MG/3 ML NEBULIZER IH PRN (20:43)
[2018-04-06] MEDS ORDERED: Insulin LISPRO 300 UNITS/3 ML VIAL SQ SCH ×2 (21:00→22:30)
[2018-04-06] MEDS ORDERED: Naloxone 0.4 MG/ML INJ IVP PRN (21:04)
[2018-04-06] MEDS ORDERED: Ondansetron 4 MG/2 ML VIAL IVP PRN (21:04)
[2018-04-06] MEDS ORDERED: Sennosides/Docusate Sodium TABLET PO PRN (21:04)
[2018-04-06] MEDS ORDERED: D5% in Water 1,000 ML IVC PRN (21:17)
[2018-04-06] MEDS ORDERED: *HR* Dextrose 50 % in Water (Syg) 50 ML SYRINGE IVP PRN (21:17)
[2018-04-06] MEDS ORDERED: Artificial Tears SOLN 15 ML BOTTLE BOTH EYES PRN (21:25)
[2018-04-06] MEDS ORDERED: Insulin DETEMIR 100 UNIT/ML X5UNITS SQ SCH (21:30)
[2018-04-06] MEDS ORDERED: Azithromycin 500 MG in D5% in Water 250 ML IVPB SCH (22:00)
[2018-04-06] MEDS: Fluticasone Propionate Nasal 50 MCG/SPRAY BOTTLE NS SCH (22:45)
[2018-04-06] MEDS: FentaNYL (PF) 1,000 MCG in 0.9 % Sodium Chloride 80 ML IVC SCH (23:00)
[2018-04-06 23:15] LABS: ABG Base Excess 6 mEq/L (-2 to 3); ABG HCO3 35 mEq/L (21-27); ABG Oxygen Saturation 89 % (95-98); ABG PCO2 74 mmHg (35-45); ABG PH 7.29 pH Units (7.32-7.45); ABG PO2 67 mmHg (85-104); ABG TCO2 38 mEq/L (20-26); Blood Gas Modality PRVC; Blood Gas PEEP 5 cm H2O; Blood Gas Respiration Rate 16; Blood Gas VT 500 cc
[2018-04-06] MEDS: Artificial Tears SOLN 15 ML BOTTLE BOTH EYES SCH (23:44)
[2018-04-06] MEDS: Piperacillin/Tazobactam 3.375 GM in 0.9 % Sodium Chloride Mini Bag 100 ML IVPB SCH (23:45)
[2018-04-06] MEDS: Budesonide/Formoterol 160/4.5 1 PUFF INH IH SCH (23:46)
--- NOTE | 2018-04-06 23:51 | Anesthesia Procedures ---
Date of Encounter: 04/06/18 Time of Encounter: 21:30 Procedures: Anesthesia - Intubation Time out performed: No (Pt is respiratory failure, intubation attempts x2 prior to my arrival) Sedative: none Laryngoscope: video scope Laryngoscope Size: 3 Assist device used: video scope ET Tube Size: 8 ET tube uncuffed: No Tube secured depth (cm): 24 Tube secured location: teeth Tube Placement Confirmation: visualized tube passing through cords, equal breath sounds bilaterally, no breath sounds over epigastrium, confirmation by colorimetric device Patient tolerated procedure: well Intubation complications: none (called overhead stat to ICU, upon arrival pt in respiratory failure, intubation attempts x 2 prior to my arrival, Glidescope( small blade) used with easy identification of vocal cords, 8.0ETT placed 24cm at lips, positive color change, zay breath sound)
[2018-04-07] MEDS: Ipratropium/Albuterol Neb 3 ML IH SCH ×6 (03:10→23:27)
[2018-04-07 03:59] LABS: Basophils % 0.1 %; Hematocrit 43.4 % (37.5-50.1); Immature Granulocytes % 0.3 % (0-4); Lymphocytes # 0.8 K/mcL (0.6-4.6); Lymphocytes % 6.7 %; Mean Corpuscular Hemoglobin 26.1 pg (28.0-33.3); Mean Corpuscular Volume 87.1 fL (83.0-100.0); Mean Platelet Volume 10.7 fL (9.4-12.4); Monocytes # 0.6 K/mcL (0.0-1.3); Monocytes % 5.3 %; Neutrophils # 10.3 K/mcL (1.6-8.9); Platelet Count 183 K/mcL (140-400); Red Blood Count 4.98 M/mcL (4.19-5.50); Red Cell Distribution Width 14.4 % (11.5-14.5); Segmented Neutrophils % 87.6 %
[2018-04-07] MEDS: Artificial Tears SOLN 15 ML BOTTLE BOTH EYES SCH ×6 (04:17→23:40)
[2018-04-07] MEDS: Insulin LISPRO 300 UNITS/3 ML VIAL SQ SCH ×6 (04:17→23:40)
[2018-04-07 04:18] LABS: Calcium 8.4 mg/dL (8.6-10.3); Magnesium 1.9 mg/dL (1.6-2.6); Potassium 4.5 mEq/L (3.5-5.1)
[2018-04-07] MEDS ORDERED: 0.9 % Sodium Chloride 500 ML IVC ONE ×2 (05:14→09:52)
[2018-04-07 05:16] LABS: ABG Base Excess 4 mEq/L (-2 to 3); ABG HCO3 33 mEq/L (21-27); ABG Oxygen Saturation 92 % (95-98); ABG PCO2 63 mmHg (35-45); ABG PH 7.32 pH Units (7.32-7.45); ABG PO2 70 mmHg (85-104); ABG TCO2 34 mEq/L (20-26); Blood Gas Modality PRVC; Blood Gas PEEP 5 cm H2O; Blood Gas Respiration Rate 16; Blood Gas VT 500 cc
[2018-04-07] MEDS ORDERED: 0.9 % Sodium Chloride 500 ML ONE (05:17)
[2018-04-07] MEDS: Azithromycin 250 MG in D5% in Water 250 ML IVPB SCH (06:27)
[2018-04-07] MEDS ORDERED: Tiotropium 18 MCG inhalation IH SCH (07:00)
[2018-04-07] MEDS ORDERED: Insulin LISPRO 300 UNITS/3 ML VIAL SQ SCH ×3 (07:30→21:00)
--- NOTE | 2018-04-07 08:19 | Pulmonology Progress Note ---
<Amanda Fontanez Alf - Last Filed: 04/07/18 11:54> Date of Encounter: 04/07/18 Time of Encounter: 07:09 Assessment and Plan (1) Acute kidney injury Current Visit: Yes Status: Acute CrCl of 59, no renal dosing adjustments necessary for antibiotics. Hold lisinopril and CoReg. gentle hydration, gentle diuresis when pressures improve, continue to monitor (2) Hypotension Current Visit: Yes Status: Acute Hold CoReg & lisinopril today, gentle hydration, goal MAP >65, continue to monitor Qualifiers: Hypotension type: unspecified hypotension type Qualified Code(s): I95.9 - Hypotension, unspecified (3) Acute exacerbation of chronic obstructive airways disease Current Visit: Yes Status: Acute Pt presented with several weeks of increasing shortness of breath and change in sputum. Pt has hx of PNA, but currently has no evidence on imaging of consolidation or wheezes on exam. Azithromycin 250mg QD, Zosyn 3,375mg Q8 for pseudomonas coverage. - BC pending, de-escalate as cultures become available. - Continue Azithromycin until total of 10 days coverage achieved. - Currently on Methylprednisolone 40mg IVP Q8 - Continue to monitor with clinical status and chest xray. (4) Congestive heart failure Current Visit: Yes Status: Acute 1+ zay LE edema evident on exam with some blunting of costophrenic angles on imaging. Currently, no wheezes on exam. Improve MAP, begin gentle diuresis once BP improves or clinical status worsens. 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 Subjective Principal diagnosis: Acute exacerbation of COPD Interval history: Mr Chase is a 62M with PmHx of COPD, Stage 3 CKD, CHF, Bladder Ca, current 1/2ppd smoker that initially presented with IRMA to the [facility] ED on 04/06/18 and was admitted to the floor. He was difficult to arouse and was found to be hypercarbic, acidotic, and hypoxic so was transferred to the ICU. Overnight, the patient became increasingly agitated and was noncompliant with BiPAP and supplemental oxygen. Staff tried a number of interventions including anxiolytics , orientation, and comfort measures but ultimately, the patient desaturated into the 40's and needed an emergent intubation. Post intubation, the patient's saturation improved into the low 90's on Fi02 of 60, and pH improved from 7.11 to 7.32, with PCO2 improving from 121 to 63. Pt's blood pressures have been soft , in the 90's/50's, but he has signs of fluid overload including pedal edema, and some blunting of the costophrenic angles on CXR. Overnight, he received a bolus of 500mL, and will receive another today. His creatinine increased from 1.06 to 1.77, and while baseline ranges from 1.2-1.5, this increase may represent an NAV. Heart rate has been in the 60's, so CoReg will be held today. Patient is on Azithromycin and Zosyn to cover for psuedomonas and atypicals, with CrCl of 59 so renal dosing has not been initiated. We will plan for continued monitoring in the ICU with the goal of improving clinical status in order to extubate within the next day or so. Pt will likely require more intensive outpatient management and social work consult to ensure that proper supports are in place. Objective PUL Vital signs: Last Vital Signs Temp 97.8 F 04/07/18 04:00 Pulse 61 04/07/18 07:00 Resp 16 04/07/18 07:00 BP 97/57 04/07/18 07:00 Pulse Ox 94 04/07/18 07:00 General appearance: comatose Eyes: nonicteric ENT: oropharynx moist Effort: normal Auscultation: bilateral: clear Cardiovascular: regular rate and rhythm Gastrointestinal: normoactive bowel sounds, soft, non-distended Integumentary: normal Extremities: no cyanosis, pink and warm, no ischemia or petechiae, edema (zay LE 1+) unable to assess due to mental status Ventilator Settings Ventilator Settings: Ventilator Settings, Last 8 Hours Ventilator Tidal Volume 500 Setting Ventilator Tidal Volume 500 Setting Ventilator Tidal Volume 500 Setting Ventilator Tidal Volume 500 Setting Ventilator Tidal Volume 500 Setting Ventilator Tidal Volume 500 Setting Ventilator Tidal Volume 500 Setting Ventilator Tidal Volume 500 Setting Ventilator Tidal Volume 500 Setting Ventilator Tidal Volume 500 Setting Ventilator Tidal Volume 500 Setting Ventilator Tidal Volume 500 Setting Ventilator Tidal Volume 500 Setting Ventilator Tidal Volume 500 Setting Ventilator Respiratory Rate 16 Setting Ventilator Respiratory Rate 16 Setting Ventilator Respiratory Rate 16 Setting Ventilator Respiratory Rate 16 Setting Ventilator Respiratory Rate 16 Setting Ventilator Respiratory Rate 16 Setting Ventilator Respiratory Rate 16 Setting Ventilator Respiratory Rate 16 Setting Ventilator Respiratory Rate 16 Setting Ventilator Respiratory Rate 16 Setting Ventilator Respiratory Rate 16 Setting Ventilator Respiratory Rate 16 Setting Ventilator Respiratory Rate 16 Setting Ventilator Respiratory Rate 16 Setting Actual Respiratory Rate 16 Actual Respiratory Rate 16 Actual Respiratory Rate 16 Actual Respiratory Rate 16 Actual Respiratory Rate 16 Actual Respiratory Rate 16 Actual Respiratory Rate 16 Actual Respiratory Rate 16 Actual Respiratory Rate 16 Actual Respiratory Rate 16 Actual Respiratory Rate 16 Actual Respiratory Rate 16 Positive End Expiratory 5 Pressure Positive End Expiratory 5 Pressure Positive End Expiratory 5 Pressure Positive End Expiratory 5 Pressure Positive End Expiratory 5 Pressure Positive End Expiratory 5 Pressure Positive End Expiratory 5 Pressure Positive End Expiratory 5 Pressure Positive End Expiratory 5 Pressure Positive End Expiratory 5 Pressure Positive End Expiratory 5 Pressure Positive End Expiratory 5 Pressure Positive End Expiratory 5 Pressure Positive End Expiratory 5 Pressure Peak Inspiratory Airway 23 Pressure Peak Inspiratory Airway 23 Pressure Peak Inspiratory Airway 22 Pressure Peak Inspiratory Airway 24 Pressure Peak Inspiratory Airway 23 Pressure Peak Inspiratory Airway 23 Pressure Peak Inspiratory Airway 23 Pressure Peak Inspiratory Airway 23 Pressure Peak Inspiratory Airway 23 Pressure Peak Inspiratory Airway 23 Pressure Peak Inspiratory Airway 24 Pressure Peak Inspiratory Airway 26 Pressure Results - Laboratory Findings CBC and BMP: 04/07/18 03:42 04/07/18 03:42 ABG ABG pH 7.32 pH Units (7.32-7.45) 04/07/18 05:12 ABG pCO2 63 mmHg (35-45) H 04/07/18 05:12 ABG pO2 70 mmHg (85-104) L 04/07/18 05:12 ABG O2 Saturation 92 % (95-98) L 04/07/18 05:12 Abnormal lab findings: Abnormal lab results WBC 11.8 K/mcL (4.3-11.1) H 04/07/18 03:42 MCH 26.1 pg (28.0-33.3) L 04/07/18 03:42 MCHC 30.0 g/dL (31.6-35.5) L 04/07/18 03:42 Neutrophils # 10.3 K/mcL (1.6-8.9) H 04/07/18 03:42 ABG pCO2 63 mmHg (35-45) H 04/07/18 05:12 ABG pO2 70 mmHg (85-104) L 04/07/18 05:12 ABG HCO3 33 mEq/L (21-27) H 04/07/18 05:12 ABG Total CO2 34 mEq/L (20-26) H 04/07/18 05:12 ABG O2 Saturation 92 % (95-98) L 04/07/18 05:12 ABG Base Excess 4 mEq/L (-2 to 3) H 04/07/18 05:12 Carbon Dioxide 30 mEq/L (23-29) H 04/07/18 03:42 BUN 34 mg/dL (8-23) H 04/07/18 03:42 Creatinine 1.77 mg/dL (0.70-1.30) H 04/07/18 03:42 Est GFR ( Amer) 47 (> 60) L 04/07/18 03:42 Est GFR (Non-Af Amer) 39 (> 60) L 04/07/18 03:42 Glucose 281 mg/dL (70-105) H 04/07/18 03:42 POC Glucose 265 mg/dL (70-99) H 04/07/18 03:59 Calculated Osmolality 308 (280-300) H 04/07/18 03:42 Calcium 8.4 mg/dL (8.6-10.3) L 04/07/18 03:42 Albumin 3.2 g/dL (3.5-5.7) L 04/07/18 03:42 - Microbiology Findings Microbiology Findings: Microbiology, Last 48 Hours 04/07/18 03:42 Blood Culture - Preliminary Peripheral Venipuncture Culture is incubating and being continuously monitored for growth. Final report to follow. 04/07/18 03:42 Blood Culture - Preliminary Peripheral Venipuncture Culture is incubating and being continuously monitored for growth. Final report to follow. - Diagnostic Findings Chest x-ray: report reviewed, image reviewed - Clinical Findings Intake & Output: Intake & Output 04/06/18 04/06/18 04/07/18 15:59 23:59 07:59 Intake Total 725 / 725 800 / 800 Output Total 400 / 1000 175 / 175 145 / 145 Balance -400 / -1000 550 / 550 655 / 655 Weight 118.4 kg - VTE Documentation of Mechanical Device: Intermittent pneumatic compression device Consult Discharge Plan - Plan Instructions: Chronic Obstructive Pulmonary Disease (ED) Referrals: Christiano Santacruz MD [Primary Care Provider] - <Arash Cottrelljose [email or web address] S - Last Filed: 04/07/18 14:55> Date of Encounter: 04/07/18 Objective PUL Vital signs: Last Vital Signs Temp 98.7 F 04/07/18 12:00 Pulse 60 04/07/18 14:00 Resp 16 04/07/18 14:00 BP 96/54 04/07/18 14:00 Pulse Ox 94 04/07/18 14:00 Ventilator Settings Ventilator Settings: Ventilator Settings, Last 8 Hours Ventilator Tidal Volume 500 Setting Ventilator Tidal Volume 500 Setting Ventilator Tidal Volume 500 Setting Ventilator Tidal Volume 500 Setting Ventilator Tidal Volume 500 Setting Ventilator Tidal Volume 500 Setting Ventilator Tidal Volume 500 Setting Ventilator Tidal Volume 500 Setting Ventilator Tidal Volume 500 Setting Ventilator Tidal Volume 500 Setting Ventilator Tidal Volume 500 Setting Ventilator Tidal Volume 500 Setting Ventilator Respiratory Rate 16 Setting Ventilator Respiratory Rate 16 Setting Ventilator Respiratory Rate 16 Setting Ventilator Respiratory Rate 16 Setting Ventilator Respiratory Rate 16 Setting Ventilator Respiratory Rate 16 Setting Ventilator Respiratory Rate 16 Setting Ventilator Respiratory Rate 16 Setting Ventilator Respiratory Rate 16 Setting Ventilator Respiratory Rate 16 Setting Ventilator Respiratory Rate 16 Setting Ventilator Respiratory Rate 16 Setting Actual Respiratory Rate 16 Actual Respiratory Rate 16 Actual Respiratory Rate 16 Actual Respiratory Rate 16 Actual Respiratory Rate 16 Actual Respiratory Rate 16 Actual Respiratory Rate 16 Actual Respiratory Rate 16 Actual Respiratory Rate 16 Actual Respiratory Rate 16 Actual Respiratory Rate 16 Actual Respiratory Rate 16 Positive End Expiratory 5 Pressure Positive End Expiratory 8 Pressure Positive End Expiratory 5 Pressure Positive End Expiratory 5 Pressure Positive End Expiratory 5 Pressure Positive End Expiratory 5 Pressure Positive End Expiratory 5 Pressure Positive End Expiratory 5 Pressure Positive End Expiratory 5 Pressure Positive End Expiratory 5 Pressure Positive End Expiratory 5 Pressure Positive End Expiratory 5 Pressure Peak Inspiratory Airway 23 Pressure Peak Inspiratory Airway 24 Pressure Peak Inspiratory Airway 23 Pressure Peak Inspiratory Airway 23 Pressure Peak Inspiratory Airway 27 Pressure Peak Inspiratory Airway 23 Pressure Peak Inspiratory Airway 23 Pressure Peak Inspiratory Airway 24 Pressure Peak Inspiratory Airway 23 Pressure Peak Inspiratory Airway 23 Pressure Peak Inspiratory Airway 23 Pressure Peak Inspiratory Airway 23 Pressure Results - Laboratory Findings CBC and BMP: 04/07/18 03:42 04/07/18 03:42 ABG ABG pH 7.32 pH Units (7.32-7.45) 04/07/18 05:12 ABG pCO2 63 mmHg (35-45) H 04/07/18 05:12 ABG pO2 70 mmHg (85-104) L 04/07/18 05:12 ABG O2 Saturation 92 % (95-98) L 04/07/18 05:12 Abnormal lab findings: Abnormal lab results WBC 11.8 K/mcL (4.3-11.1) H 04/07/18 03:42 MCH 26.1 pg (28.0-33.3) L 04/07/18 03:42 MCHC 30.0 g/dL (31.6-35.5) L 04/07/18 03:42 Neutrophils # 10.3 K/mcL (1.6-8.9) H 04/07/18 03:42 ABG pCO2 63 mmHg (35-45) H 04/07/18 05:12 ABG pO2 70 mmHg (85-104) L 04/07/18 05:12 ABG HCO3 33 mEq/L (21-27) H 04/07/18 05:12 ABG Total CO2 34 mEq/L (20-26) H 04/07/18 05:12 ABG O2 Saturation 92 % (95-98) L 04/07/18 05:12 ABG Base Excess 4 mEq/L (-2 to 3) H 04/07/18 05:12 Carbon Dioxide 30 mEq/L (23-29) H 04/07/18 03:42 BUN 34 mg/dL (8-23) H 04/07/18 03:42 Creatinine 1.77 mg/dL (0.70-1.30) H 04/07/18 03:42 Est GFR ( Amer) 47 (> 60) L 04/07/18 03:42 Est GFR (Non-Af Amer) 39 (> 60) L 04/07/18 03:42 Glucose 281 mg/dL (70-105) H 04/07/18 03:42 POC Glucose 235 mg/dL (70-99) H 04/07/18 11:24 Calculated Osmolality 308 (280-300) H 04/07/18 03:42 Calcium 8.4 mg/dL (8.6-10.3) L 04/07/18 03:42 Albumin 3.2 g/dL (3.5-5.7) L 04/07/18 03:42 - Microbiology Findings Microbiology Findings: Microbiology, Last 48 Hours 04/07/18 03:42 Blood Culture - Preliminary Peripheral Venipuncture Culture is incubating and being continuously monitored for growth. Final report to follow. 04/07/18 03:42 Blood Culture - Preliminary Peripheral Venipuncture Culture is incubating and being continuously monitored for growth. Final report to follow. - Clinical Findings Intake & Output: Intake & Output 04/06/18 04/07/18 04/07/18 23:59 07:59 15:59 Intake Total 725 / 725 1050 / 1050 300 / 300 Output Total 175 / 175 145 / 145 225 / 225 Balance 550 / 550 905 / 905 75 / 75 Weight 118.4 kg - Attending Attestation Attending Attestation I saw and evaluated this patient and my medical decision-making was reviewed with the Resident Physician. I agree with the documented findings, disposition and treatment plan as described except to the extent set forth below. We independently had [id number] contact with the patient I spent 45 minutes of Critical Care time with this patient. It involved decision making of high complexity to assess, manipulate, and support vital organ system failure and/or to prevent further life threatening deterioration of the patient's condition. The time involved in the performance of separately reportable procedures was not counted toward critical care time. Patient seen and examined at bedside Labs, radiology, chart personally reviewed. Management was reviewed during multidisciplinary critical care rounds. 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 After initial treatment with AVAPS and adjusting the settings patient is more awake and following commands. 04/07 patient became progressively altered became combative did not want to use BiPAP noninvasive ventilatory support patient was sedated and intubated. Patient is arousable to verbal commands He also follows commands. Pulm: Patient has severe COPD looks like he presented with COPD exacerbation we will keep him on steroids, bronchodilators, IV antibiotics will put him on antipseudomonal penicillin. 04/07 Patient has acceptable oxygenation and ventilation with low tidal volume strategy to bring down the FiO2 if unsuccessful will increase the PEEP. To continue bronchodilators and steroids. Cards: Patient has signs of fluid overload suspected diastolic dysfunction will get an echo and trend troponins patient has history of coronary artery disease. We will hold of diuresis as blood pressure is borderline . 04/07 patient blood pressure is borderline will hold off any diuresis or any other blood pressure medication echo shows mild diastolic dysfunction with preserved ejection fraction and normal right ventricular function. FEN-GI: Nothing by mouth for now Renal: As and output were reviewed ID: To continue antipseudomonal penicillin in the background of severe COPD Heme/Onc: Labs reviewed, patient is on thromboprophylaxis Endo: Glucose Monitored Integ/MSK: Skin Care per routine ICU Nursing Protocol to prevent ulcers. Lines: All lines examined without evidence of infection : Dispo: Criticaly ill. CODE: Full Code
[2018-04-07] MEDS: FentaNYL (PF) 1,000 MCG in 0.9 % Sodium Chloride 80 ML IVC SCH ×2 (08:28→17:55)
[2018-04-07] MEDS: Pantoprazole 40 MG VIAL IVP SCH (08:40)
[2018-04-07] MEDS: Aspirin 81 MG TAB.CHEW PO SCH (08:40)
[2018-04-07] MEDS: Multivit/Ca/Min/Fe/FA 1 TAB TABLET PO SCH (08:40)
[2018-04-07] MEDS: Chlorhexidine Rinse 15 ML MOUTHWASH MM SCH ×2 (08:40→19:52)
[2018-04-07] MEDS: MethylPREDNISolone 40 MG/ML VIAL IVP SCH ×3 (08:40→23:40)
[2018-04-07] MEDS: Piperacillin/Tazobactam 3.375 GM in 0.9 % Sodium Chloride Mini Bag 100 ML IVPB SCH ×3 (08:41→23:41)
[2018-04-07] MEDS: Fluticasone Propionate Nasal 50 MCG/SPRAY BOTTLE NS SCH (08:42)
[2018-04-07] MEDS: Loratadine 10 MG TABLET PO SCH (08:50)
[2018-04-07] MEDS ORDERED: FISH OIL 1000 MG PO SCH (09:00)
[2018-04-07] MEDS ORDERED: Lisinopril 20 MG TABLET PO SCH (09:00)
[2018-04-07] MEDS: (Tiotropium Bromide [Spiriva Respimat] 2 PUFF) IH SCH (09:55)
[2018-04-07] MEDS: Budesonide/Formoterol 160/4.5 1 PUFF INH IH SCH ×2 (11:37→19:31)
[2018-04-07] MEDS: Dexmedetomidine HCl 400 MCG/100 ML MLS IVC SCH (12:10)
[2018-04-07] MEDS: *HR* Heparin 5,000 UNIT/ML VIAL SQ SCH ×2 (14:35→22:28)
[2018-04-07 16:33] LABS: Adenovirus Not Detected (Not Detect); Bordetella Pertussis Not Detected (Not Detect); Chlamydophila pneumoniae Not Detected (Not Detect); Coronavirus 229E Not Detected (Not Detect); Coronavirus HKU1 Not Detected (Not Detect); Coronavirus NL63 Not Detected (Not Detect); Coronavirus OC43 Not Detected (Not Detect); Human Metapneumovirus Not Detected (Not Detect); Human Rhinovirus/Enterovirus DETECTED (Not Detect); Influenza A Subtype 2009 H1 Not Detected (Not Detect); Influenza A Untypeable Not Detected (Not Detect); Influenza B Not Detected (Not Detect); Mycoplasma pneumoniae Not Detected (Not Detect); Parainfluenza Virus 1 Not Detected (Not Detect); Parainfluenza Virus 2 Not Detected (Not Detect); Parainfluenza Virus 3 Not Detected (Not Detect); Parainfluenza Virus 4 Not Detected (Not Detect); Respiratory Syncytial Virus Not Detected (Not Detect)
[2018-04-07] MEDS ORDERED: Insulin DETEMIR 100 UNIT/ML X5UNITS SQ SCH (21:00)
[2018-04-08] MEDS: FentaNYL (PF) 1,000 MCG in 0.9 % Sodium Chloride 80 ML IVC SCH ×2 (02:08→10:10)
[2018-04-08] MEDS: Ipratropium/Albuterol Neb 3 ML IH SCH ×6 (03:23→23:56)
[2018-04-08] MEDS: Artificial Tears SOLN 15 ML BOTTLE BOTH EYES SCH ×5 (03:47→19:40)
[2018-04-08] MEDS: Insulin LISPRO 300 UNITS/3 ML VIAL SQ SCH ×4 (03:48→16:17)
[2018-04-08 04:05] LABS: Basophils % 0.1 %; Hematocrit 44.9 % (37.5-50.1); Hemoglobin 13.5 g/dL (12.9-16.9); Immature Granulocytes % 0.3 % (0-4); Lymphocytes # 0.4 K/mcL (0.6-4.6); Lymphocytes % 3.2 %; Mean Corpuscular HGB Conc 30.1 g/dL (31.6-35.5); Mean Corpuscular Hemoglobin 26.6 pg (28.0-33.3); Mean Corpuscular Volume 88.4 fL (83.0-100.0); Mean Platelet Volume 10.2 fL (9.4-12.4); Monocytes # 0.4 K/mcL (0.0-1.3); Monocytes % 3.1 %; Neutrophils # 10.7 K/mcL (1.6-8.9); Platelet Count 206 K/mcL (140-400); Red Blood Count 5.08 M/mcL (4.19-5.50); Red Cell Distribution Width 14.6 % (11.5-14.5); Segmented Neutrophils % 93.3 %
[2018-04-08] MEDS: Dexmedetomidine HCl 400 MCG/100 ML MLS IVC SCH ×2 (04:14→22:39)
[2018-04-08 04:27] LABS: Calcium 8.4 mg/dL (8.6-10.3); Magnesium 2.3 mg/dL (1.6-2.6); Phosphorous 3.9 mg/dL (2.7-4.5); Potassium 4.3 mEq/L (3.5-5.1)
[2018-04-08 05:35] LABS: ABG Base Excess 4 mEq/L (-2 to 3); ABG HCO3 35 mEq/L (21-27); ABG Oxygen Saturation 92 % (95-98); ABG PCO2 83 mmHg (35-45); ABG PH 7.23 pH Units (7.32-7.45); ABG PO2 78 mmHg (85-104); ABG TCO2 38 mEq/L (20-26); Blood Gas Modality PRVC; Blood Gas PEEP 8 cm H2O; Blood Gas Respiration Rate 16; Blood Gas VT 500 cc
[2018-04-08] MEDS: Azithromycin 250 MG in D5% in Water 250 ML IVPB SCH (06:29)
[2018-04-08] MEDS: *HR* Heparin 5,000 UNIT/ML VIAL SQ SCH ×3 (06:29→21:30)
[2018-04-08] MEDS ORDERED: Dexamethasone 4 MG/ML VIAL IVP ONE (07:20)
[2018-04-08] MEDS: Budesonide/Formoterol 160/4.5 1 PUFF INH IH SCH ×2 (07:33→21:00)
[2018-04-08] MEDS: Piperacillin/Tazobactam 3.375 GM in 0.9 % Sodium Chloride Mini Bag 100 ML IVPB SCH ×2 (08:33→16:16)
[2018-04-08] MEDS: Dexamethasone 4 MG/ML VIAL IVP SCH ×2 (08:34→16:17)
[2018-04-08] MEDS: Multivit/Ca/Min/Fe/FA 1 TAB TABLET PO SCH (08:34)
[2018-04-08] MEDS: Loratadine 10 MG TABLET PO SCH (08:34)
[2018-04-08] MEDS: Aspirin 81 MG TAB.CHEW PO SCH (08:34)
[2018-04-08] MEDS: Pantoprazole 40 MG VIAL IVP SCH (08:34)
[2018-04-08] MEDS: Chlorhexidine Rinse 15 ML MOUTHWASH MM SCH ×2 (08:34→19:39)
[2018-04-08] MEDS: Fluticasone Propionate Nasal 50 MCG/SPRAY BOTTLE NS SCH (08:35)
--- NOTE | 2018-04-08 09:11 | Pulmonology Progress Note ---
<Amanda Fontanez Alf - Last Filed: 04/08/18 09:23> Date of Encounter: 04/08/18 Time of Encounter: 08:54 Assessment and Plan (1) Acute kidney injury Current Visit: Yes Status: Acute Cr 1.81 today, up from 1.77 yesterday. Hold lisinopril and CoReg. gentle hydration, gentle diuresis when pressures improve, continue to monitor (2) Hypotension Current Visit: Yes Status: Resolved Continue to hold Hypertensive medications. MAP improved to 75. Currently resolved. Qualifiers: Hypotension type: unspecified hypotension type Qualified Code(s): I95.9 - Hypotension, unspecified (3) Acute exacerbation of chronic obstructive airways disease Current Visit: Yes Status: Acute Pt presented with several weeks of increasing shortness of breath and change in sputum. Pt has hx of PNA, but currently has no evidence on imaging of consolidation. Swab positive for rhinovirus. Azithromycin 250mg QD, Zosyn 3, 375mg Q8 for pseudomonas coverage. - BC pending, de-escalate as cultures become available. - Continue Azithromycin until total of 10 days coverage achieved. - Currently on Methylprednisolone 40mg IVP Q12 - Dexamethasone 4mg Q8 x 3 doses - Continue to monitor with clinical status and chest xray. (4) Congestive heart failure Current Visit: Yes Status: Acute 1+ zay LE edema evident on exam with some blunting of costophrenic angles on imaging. Currently, mild wheezes on exam. MAP improved to 75. - 40 mg Lasix today - CXR in AM - Continue to monitor Qualifiers: Heart failure type: diastolic Heart failure chronicity: acute on chronic Qualified Code(s): I50.33 - Acute on chronic diastolic (congestive) heart failure (5) Diabetes Current Visit: Yes Status: Chronic High dose insulin coverage in the setting of steroid administration Qualifiers: Diabetes mellitus type: other specified (including JADEN) Diabetes mellitus fci insulin use: unspecified fci insulin use status Diabetes mellitus complication status: without complication Qualified Code(s): E13.9 - Other specified diabetes mellitus without complications (6) DVT prophylaxis Current Visit: Yes Status: Acute SCDs in place, home dosage of Plavix continued, low dose heparin Subjective Principal diagnosis: Acute exacerbation of COPD Interval history: Mr Chase is a 62M with PmHx of COPD, Stage 3 CKD, CHF, Bladder Ca, current 1/2ppd smoker that initially presented with IRMA to the [facility] ED on 04/06/18 and was admitted to the floor. He was difficult to arouse and was found to be hypercarbic, acidotic, and hypoxic so was transferred to the ICU. Overnight, the patient had no acute events. Respiratory swab done yesterday which came back positive for rhinovirus so he will be given a one-day course of dexamethasone 4mg Q8H to help with the inflammation evident when the pt was intubated. Hypertensive medications were held yesterday and pressures have improved, can start diuresis as long as pressures continue to hold. Echo showed EF 55% and mild diastolic dysfunction without evidence of valvular dysfunction. No evidence of focal consolidation on CXR, but he has mild wheezing on exam. Likely AECOPD in the setting of rhinovirus. Will continue Methylprednisolone, but will decrease from Q8 to Q12. Plan for extubation Wednesday. Objective PUL Vital signs: Last Vital Signs Temp 98.0 F 04/08/18 03:49 Pulse 76 04/08/18 06:00 Resp 18 04/08/18 06:00 BP 107/54 04/08/18 06:00 Pulse Ox 93 04/08/18 06:00 General appearance: no acute distress, agitated, other (arouses to voice, does not follow commands) Eyes: nonicteric ENT: oropharynx moist Auscultation: bilateral: wheezes Cardiovascular: regular rate and rhythm Gastrointestinal: normoactive bowel sounds Integumentary: normal Extremities: no cyanosis, pink and warm, edema (1+ zay LE) Musculoskeletal: no deformities Ventilator Settings Ventilator Settings: Ventilator Settings, Last 8 Hours Ventilator Tidal Volume 500 Setting Ventilator Tidal Volume 500 Setting Ventilator Tidal Volume 500 Setting Ventilator Tidal Volume 500 Setting Ventilator Tidal Volume 500 Setting Ventilator Tidal Volume 500 Setting Ventilator Tidal Volume 500 Setting Ventilator Tidal Volume 500 Setting Ventilator Tidal Volume 500 Setting Ventilator Respiratory Rate 16 Setting Ventilator Respiratory Rate 16 Setting Ventilator Respiratory Rate 16 Setting Ventilator Respiratory Rate 16 Setting Ventilator Respiratory Rate 16 Setting Ventilator Respiratory Rate 16 Setting Ventilator Respiratory Rate 16 Setting Ventilator Respiratory Rate 16 Setting Ventilator Respiratory Rate 16 Setting Actual Respiratory Rate 16 Actual Respiratory Rate 16 Actual Respiratory Rate 16 Actual Respiratory Rate 16 Actual Respiratory Rate 16 Actual Respiratory Rate 16 Actual Respiratory Rate 16 Actual Respiratory Rate 16 Positive End Expiratory 8 Pressure Positive End Expiratory 8 Pressure Positive End Expiratory 8 Pressure Positive End Expiratory 8 Pressure Positive End Expiratory 8 Pressure Positive End Expiratory 8 Pressure Positive End Expiratory 8 Pressure Positive End Expiratory 8 Pressure Positive End Expiratory 8 Pressure Peak Inspiratory Airway 24 Pressure Peak Inspiratory Airway 23 Pressure Peak Inspiratory Airway 22 Pressure Peak Inspiratory Airway 26 Pressure Peak Inspiratory Airway 25 Pressure Peak Inspiratory Airway 25 Pressure Peak Inspiratory Airway 25 Pressure Peak Inspiratory Airway 25 Pressure Results - Laboratory Findings CBC and BMP: 04/08/18 03:48 04/08/18 03:48 ABG ABG pH 7.23 pH Units (7.32-7.45) L 04/08/18 05:32 ABG pCO2 83 mmHg (35-45) H* 04/08/18 05:32 ABG pO2 78 mmHg (85-104) L 04/08/18 05:32 ABG O2 Saturation 92 % (95-98) L 04/08/18 05:32 Abnormal lab findings: Abnormal lab results WBC 11.5 K/mcL (4.3-11.1) H 04/08/18 03:48 MCH 26.6 pg (28.0-33.3) L 04/08/18 03:48 MCHC 30.1 g/dL (31.6-35.5) L 04/08/18 03:48 RDW 14.6 % (11.5-14.5) H 04/08/18 03:48 Neutrophils # 10.7 K/mcL (1.6-8.9) H 04/08/18 03:48 Lymphocytes # 0.4 K/mcL (0.6-4.6) L 04/08/18 03:48 ABG pH 7.23 pH Units (7.32-7.45) L 04/08/18 05:32 ABG pCO2 83 mmHg (35-45) H* 04/08/18 05:32 ABG pO2 78 mmHg (85-104) L 04/08/18 05:32 ABG HCO3 35 mEq/L (21-27) H 04/08/18 05:32 ABG Total CO2 38 mEq/L (20-26) H 04/08/18 05:32 ABG O2 Saturation 92 % (95-98) L 04/08/18 05:32 ABG Base Excess 4 mEq/L (-2 to 3) H 04/08/18 05:32 BUN 42 mg/dL (8-23) H 04/08/18 03:48 Creatinine 1.81 mg/dL (0.70-1.30) H 04/08/18 03:48 Est GFR ( Amer) 46 (> 60) L 04/08/18 03:48 Est GFR (Non-Af Amer) 38 (> 60) L 04/08/18 03:48 Glucose 238 mg/dL (70-105) H 04/08/18 03:48 POC Glucose 305 mg/dL (70-99) H 04/08/18 07:59 Calculated Osmolality 312 (280-300) H 04/08/18 03:48 Calcium 8.4 mg/dL (8.6-10.3) L 04/08/18 03:48 Albumin 3.2 g/dL (3.5-5.7) L 04/07/18 03:42 Entero/Rhino (PCR) DETECTED (Not Detect) A 04/07/18 15:03 - Microbiology Findings Microbiology Findings: Microbiology, Last 48 Hours 04/07/18 03:42 Blood Culture - Preliminary Peripheral Venipuncture Culture is incubating and being continuously monitored for growth. Final report to follow. 04/07/18 03:42 Blood Culture - Preliminary Peripheral Venipuncture Culture is incubating and being continuously monitored for growth. Final report to follow. - Clinical Findings Intake & Output: Intake & Output 04/07/18 04/08/18 04/08/18 23:59 07:59 15:59 Intake Total 890 / 890 676 / 676 Output Total 125 / 125 475 / 475 Balance 765 / 765 201 / 201 Weight 120.4 kg - VTE Documentation of Mechanical Device: Intermittent pneumatic compression device Consult Discharge Plan - Plan Instructions: Chronic Obstructive Pulmonary Disease (ED) Referrals: Christiano Santacruz MD [Primary Care Provider] - <Yuliya Cottrell - Last Filed: 04/08/18 23:08> Date of Encounter: 04/08/18 Objective PUL Vital signs: Last Vital Signs Temp 98.7 F 04/08/18 20:20 Pulse 72 04/08/18 22:00 Resp 18 04/08/18 22:00 BP 130/69 04/08/18 22:00 Pulse Ox 92 04/08/18 22:00 Ventilator Settings Ventilator Settings: Ventilator Settings, Last 8 Hours Ventilator Tidal Volume 550 Setting Ventilator Tidal Volume 550 Setting Ventilator Tidal Volume 550 Setting Ventilator Tidal Volume 550 Setting Ventilator Tidal Volume 550 Setting Ventilator Tidal Volume 550 Setting Ventilator Tidal Volume 550 Setting Ventilator Tidal Volume 550 Setting Ventilator Respiratory Rate 18 Setting Ventilator Respiratory Rate 18 Setting Ventilator Respiratory Rate 18 Setting Ventilator Respiratory Rate 18 Setting Ventilator Respiratory Rate 18 Setting Ventilator Respiratory Rate 18 Setting Ventilator Respiratory Rate 18 Setting Ventilator Respiratory Rate 18 Setting Actual Respiratory Rate 18 Actual Respiratory Rate 18 Actual Respiratory Rate 18 Actual Respiratory Rate 18 Actual Respiratory Rate 18 Actual Respiratory Rate 18 Actual Respiratory Rate 18 Actual Respiratory Rate 18 Positive End Expiratory 8 Pressure Positive End Expiratory 8 Pressure Positive End Expiratory 8 Pressure Positive End Expiratory 8 Pressure Positive End Expiratory 8 Pressure Positive End Expiratory 8 Pressure Positive End Expiratory 8 Pressure Positive End Expiratory 8 Pressure Peak Inspiratory Airway 28 Pressure Peak Inspiratory Airway 29 Pressure Peak Inspiratory Airway 27 Pressure Peak Inspiratory Airway 27 Pressure Peak Inspiratory Airway 27 Pressure Peak Inspiratory Airway 27 Pressure Peak Inspiratory Airway 29 Pressure Peak Inspiratory Airway 28 Pressure Results - Laboratory Findings CBC and BMP: 04/08/18 03:48 04/08/18 03:48 ABG ABG pH 7.23 pH Units (7.32-7.45) L 04/08/18 05:32 ABG pCO2 83 mmHg (35-45) H* 04/08/18 05:32 ABG pO2 78 mmHg (85-104) L 04/08/18 05:32 ABG O2 Saturation 92 % (95-98) L 04/08/18 05:32 Abnormal lab findings: Abnormal lab results WBC 11.5 K/mcL (4.3-11.1) H 04/08/18 03:48 MCH 26.6 pg (28.0-33.3) L 04/08/18 03:48 MCHC 30.1 g/dL (31.6-35.5) L 04/08/18 03:48 RDW 14.6 % (11.5-14.5) H 04/08/18 03:48 Neutrophils # 10.7 K/mcL (1.6-8.9) H 04/08/18 03:48 Lymphocytes # 0.4 K/mcL (0.6-4.6) L 04/08/18 03:48 ABG pH 7.23 pH Units (7.32-7.45) L 04/08/18 05:32 ABG pCO2 83 mmHg (35-45) H* 04/08/18 05:32 ABG pO2 78 mmHg (85-104) L 04/08/18 05:32 ABG HCO3 35 mEq/L (21-27) H 04/08/18 05:32 ABG Total CO2 38 mEq/L (20-26) H 04/08/18 05:32 ABG O2 Saturation 92 % (95-98) L 04/08/18 05:32 ABG Base Excess 4 mEq/L (-2 to 3) H 04/08/18 05:32 BUN 42 mg/dL (8-23) H 04/08/18 03:48 Creatinine 1.81 mg/dL (0.70-1.30) H 04/08/18 03:48 Est GFR ( Amer) 46 (> 60) L 04/08/18 03:48 Est GFR (Non-Af Amer) 38 (> 60) L 04/08/18 03:48 Glucose 238 mg/dL (70-105) H 04/08/18 03:48 POC Glucose 195 mg/dL (70-99) H 04/08/18 22:03 Calculated Osmolality 312 (280-300) H 04/08/18 03:48 Calcium 8.4 mg/dL (8.6-10.3) L 04/08/18 03:48 Albumin 3.2 g/dL (3.5-5.7) L 04/07/18 03:42 Entero/Rhino (PCR) DETECTED (Not Detect) A 04/07/18 15:03 - Microbiology Findings Microbiology Findings: Microbiology, Last 48 Hours 04/07/18 03:42 Blood Culture - Preliminary Peripheral Venipuncture Culture is incubating and being continuously monitored for growth. Final report to follow. 04/07/18 03:42 Blood Culture - Preliminary Peripheral Venipuncture Culture is incubating and being continuously monitored for growth. Final report to follow. - Clinical Findings Intake & Output: Intake & Output 04/08/18 04/08/18 04/08/18 07:59 15:59 23:59 Intake Total 676 / 676 1407 / 1407 946 / 946 Output Total 475 / 475 2250 / 2250 450 / 450 Balance 201 / 201 -843 / -843 496 / 496 Weight 120.4 kg - Attending Attestation Attending Attestation I saw and evaluated this patient and my medical decision-making was reviewed with the Resident Physician. I agree with the documented findings, disposition and treatment plan as described except to the extent set forth below. We independently had [id number] contact with the patient I spent 33 minutes of Critical Care time with this patient. It involved decision making of high complexity to assess, manipulate, and support vital organ system failure and/or to prevent further life threatening deterioration of the patient's condition. The time involved in the performance of separately reportable procedures was not counted toward critical care time. Patient seen and examined at bedside Labs, radiology, chart personally reviewed. Management was reviewed during multidisciplinary critical care rounds. 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 After initial treatment with AVAPS and adjusting the settings patient is more awake and following commands. 04/07 patient became progressively altered became combative did not want to use BiPAP noninvasive ventilatory support patient was sedated and intubated. Patient is arousable to verbal commands He also follows commands. 04/08 patient is waking up following commands. Pulm: Patient has severe COPD looks like he presented with COPD exacerbation we will keep him on steroids, bronchodilators, IV antibiotics will put him on antipseudomonal penicillin. 04/07 Patient has acceptable oxygenation and ventilation with low tidal volume strategy to bring down the FiO2 if unsuccessful will increase the PEEP. To continue bronchodilators and steroids. 04/08 : Patient is slightly hypercarbic adjusted the ventilator settings to ensure adequate minute ventilation. Cards: Patient has signs of fluid overload suspected diastolic dysfunction will get an echo and trend troponins patient has history of coronary artery disease. We will hold of diuresis as blood pressure is borderline . 04/07 patient blood pressure is borderline will hold off any diuresis or any other blood pressure medication echo shows mild diastolic dysfunction with preserved ejection fraction and normal right ventricular function. 04/08 patient has mild diastolic dysfunction will attempt some gentle diuresis as hemodynamics tolerates FEN-GI: Nothing by mouth for now. Advance diet as per dietary Renal: Labs and output were reviewed ID: To continue antipseudomonal penicillin in the background of severe COPD Heme/Onc: Labs reviewed, patient is on thromboprophylaxis Endo: Glucose Monitored Integ/MSK: Skin Care per routine ICU Nursing Protocol to prevent ulcers. Lines: All lines examined without evidence of infection : Dispo: Criticaly ill. CODE: Full Code
[2018-04-08] MEDS: MethylPREDNISolone 40 MG/ML VIAL IVP SCH ×2 (09:15→17:48)
[2018-04-08] MEDS ORDERED: Furosemide 40 MG/4 ML VIAL IVP ONE (09:21)
[2018-04-08] MEDS ORDERED: *HR* Dextrose 50 % in Water (Syg) 50 ML SYRINGE IVP PRN (15:50)
[2018-04-08] MEDS: FentaNYL (PF) 2,500 MCG in EMPTY BAG 1 EACH IVC SCH (16:16)
[2018-04-08] MEDS: Insulin Human Regular 100 UNIT in 0.9 % Sodium Chloride 100 ML IVC SCH ×2 (16:36→23:25)
[2018-04-09] MEDS: Artificial Tears SOLN 15 ML BOTTLE BOTH EYES SCH ×6 (00:32→20:00)
[2018-04-09] MEDS: Dexamethasone 4 MG/ML VIAL IVP SCH ×2 (00:33→07:44)
[2018-04-09] MEDS: Piperacillin/Tazobactam 3.375 GM in 0.9 % Sodium Chloride Mini Bag 100 ML IVPB SCH ×3 (00:33→15:50)
[2018-04-09] MEDS: FentaNYL (PF) 2,500 MCG in EMPTY BAG 1 EACH IVC SCH ×2 (02:44→15:09)
[2018-04-09] MEDS: Ipratropium/Albuterol Neb 3 ML IH SCH ×6 (03:50→23:20)
[2018-04-09 04:58] LABS: Blood Gas PEEP 8 cm H2O; Blood Gas Respiration Rate 18; Blood Gas VT 550 cc; VBG HCO3 31 mEq/L (21-27); VBG PCO2 53 mmHg (41-51); VBG PH 7.37 pH Units (7.32-7.42); VBG PO2 63 mmHg (25-50)
[2018-04-09] MEDS: MethylPREDNISolone 40 MG/ML VIAL IVP SCH ×2 (06:10→16:58)
[2018-04-09] MEDS: *HR* Heparin 5,000 UNIT/ML VIAL SQ SCH ×3 (06:10→21:42)
[2018-04-09] MEDS: Azithromycin 250 MG in D5% in Water 250 ML IVPB SCH (06:14)
[2018-04-09] MEDS: Insulin Human Regular 100 UNIT in 0.9 % Sodium Chloride 100 ML IVC SCH ×3 (06:49→21:00)
[2018-04-09 07:11] LABS: VBG Ionized Calcium 1.08 mmol/L (1.15-1.35)
[2018-04-09 07:25] LABS: Hemoglobin 12.6 g/dL (12.9-16.9); Immature Granulocytes % 0.6 % (0-4); Lymphocytes # 0.4 K/mcL (0.6-4.6); Lymphocytes % 4.1 %; Mean Corpuscular HGB Conc 30.7 g/dL (31.6-35.5); Mean Corpuscular Hemoglobin 26.1 pg (28.0-33.3); Mean Corpuscular Volume 85.1 fL (83.0-100.0); Monocytes # 0.5 K/mcL (0.0-1.3); Neutrophils # 7.6 K/mcL (1.6-8.9); Platelet Count 196 K/mcL (140-400); Red Blood Count 4.82 M/mcL (4.19-5.50); Red Cell Distribution Width 14.9 % (11.5-14.5); Segmented Neutrophils % 89.3 %
[2018-04-09 07:34] LABS: BUN/Creatinine Ratio 30 (6-26); Blood Urea Nitrogen 43 mg/dL (8-23); Calcium 8.6 mg/dL (8.6-10.3); Carbon Dioxide 28 mEq/L (23-29); Chloride 103 mEq/L (98-107); Glucose 190 mg/dL (70-105); Magnesium 2.4 mg/dL (1.6-2.6); Osmolality,Calculated 308 (280-300); Phosphorous 3.5 mg/dL (2.7-4.5); Sodium 141 mEq/L (136-145); eGFR For Non-African Americans 50 (> 60)
[2018-04-09] MEDS: Pantoprazole 40 MG VIAL IVP SCH (07:44)
[2018-04-09] MEDS: Multivit/Ca/Min/Fe/FA 1 TAB TABLET PO SCH (07:44)
[2018-04-09] MEDS: Loratadine 10 MG TABLET PO SCH (07:44)
[2018-04-09] MEDS: Aspirin 81 MG TAB.CHEW PO SCH (07:45)
[2018-04-09] MEDS: Fluticasone Propionate Nasal 50 MCG/SPRAY BOTTLE NS SCH (07:47)
[2018-04-09] MEDS: Chlorhexidine Rinse 15 ML MOUTHWASH MM SCH ×2 (07:47→20:00)
[2018-04-09] MEDS: Budesonide/Formoterol 160/4.5 1 PUFF INH IH SCH ×2 (08:07→20:17)
[2018-04-09] MEDS: Furosemide 40 MG/4 ML VIAL IVP SCH ×2 (09:00→20:00)
--- NOTE | 2018-04-09 12:32 | Pulmonology Progress Note ---
Date of Encounter: 04/09/18 Time of Encounter: 10:00 Assessment and Plan (1) Acute exacerbation of chronic obstructive airways disease Current Visit: Yes Status: Acute Patient presented with viral induced exacerbation of COPD to continue bronchodilators and steroids (2) Acute respiratory failure with hypoxia Current Visit: Yes Status: Acute secondary to COPD exacerbation and due to Acute on chronic diastolic heart failure (3) Acute and chronic respiratory failure with hypercapnia Current Visit: Yes Status: Acute secondary to COPD exacerbation (4) Congestive heart failure Current Visit: Yes Status: Acute Patient presenting with acute on chronic diastolic heart failure . To increase diuresis Qualifiers: Heart failure type: diastolic Heart failure chronicity: acute on chronic Qualified Code(s): I50.33 - Acute on chronic diastolic (congestive) heart failure (5) Acute kidney injury Current Visit: Yes Status: Acute Patient sr .creatinine is trending down (6) DVT prophylaxis Current Visit: Yes Status: Acute To continue Thromboprophylaxis Subjective Principal diagnosis: Acute exacerbation of COPD Interval history: Patient did not have any acute events overnight Objective PUL Vital signs: Last Vital Signs Temp 98.5 F 04/09/18 08:00 Pulse 76 04/09/18 12:00 Resp 18 04/09/18 12:06 BP 127/68 04/09/18 12:06 Pulse Ox 91 04/09/18 12:06 Auscultation: bilateral: diminished breath sounds (basilar diminished breadth sounds ), wheezes (some scattered wheezes) Extremities: edema unable to assess due to mental status (becuase of sedation and ventilation) Ventilator Settings Ventilator Settings: Ventilator Settings, Last 8 Hours Ventilator Tidal Volume 550 Setting Ventilator Tidal Volume 550 Setting Ventilator Tidal Volume 550 Setting Ventilator Tidal Volume 550 Setting Ventilator Tidal Volume 550 Setting Ventilator Tidal Volume 550 Setting Ventilator Tidal Volume 550 Setting Ventilator Tidal Volume 550 Setting Ventilator Tidal Volume 550 Setting Ventilator Tidal Volume 550 Setting Ventilator Tidal Volume 550 Setting Ventilator Tidal Volume 550 Setting Ventilator Tidal Volume 550 Setting Ventilator Respiratory Rate 18 Setting Ventilator Respiratory Rate 18 Setting Ventilator Respiratory Rate 18 Setting Ventilator Respiratory Rate 18 Setting Ventilator Respiratory Rate 18 Setting Ventilator Respiratory Rate 18 Setting Ventilator Respiratory Rate 18 Setting Ventilator Respiratory Rate 18 Setting Ventilator Respiratory Rate 18 Setting Ventilator Respiratory Rate 18 Setting Ventilator Respiratory Rate 18 Setting Ventilator Respiratory Rate 18 Setting Ventilator Respiratory Rate 18 Setting Actual Respiratory Rate 18 Actual Respiratory Rate 18 Actual Respiratory Rate 18 Actual Respiratory Rate 18 Actual Respiratory Rate 18 Actual Respiratory Rate 18 Actual Respiratory Rate 18 Actual Respiratory Rate 18 Actual Respiratory Rate 18 Actual Respiratory Rate 18 Actual Respiratory Rate 18 Actual Respiratory Rate 18 Positive End Expiratory 8 Pressure Positive End Expiratory 8 Pressure Positive End Expiratory 8 Pressure Positive End Expiratory 8 Pressure Positive End Expiratory 8 Pressure Positive End Expiratory 8 Pressure Positive End Expiratory 8 Pressure Positive End Expiratory 8 Pressure Positive End Expiratory 8 Pressure Positive End Expiratory 8 Pressure Positive End Expiratory 8 Pressure Positive End Expiratory 8 Pressure Positive End Expiratory 8 Pressure Peak Inspiratory Airway 31 Pressure Peak Inspiratory Airway 39 Pressure Peak Inspiratory Airway 39 Pressure Peak Inspiratory Airway 39 Pressure Peak Inspiratory Airway 31 Pressure Peak Inspiratory Airway 39 Pressure Peak Inspiratory Airway 29 Pressure Peak Inspiratory Airway 39 Pressure Peak Inspiratory Airway 35 Pressure Peak Inspiratory Airway 27 Pressure Peak Inspiratory Airway 29 Pressure Peak Inspiratory Airway 29 Pressure Results - Laboratory Findings CBC and BMP: 04/09/18 06:53 04/09/18 06:53 ABG ABG pH 7.23 pH Units (7.32-7.45) L 04/08/18 05:32 ABG pCO2 83 mmHg (35-45) H* 04/08/18 05:32 ABG pO2 78 mmHg (85-104) L 04/08/18 05:32 ABG O2 Saturation 92 % (95-98) L 04/08/18 05:32 Abnormal lab findings: Abnormal lab results Hgb 12.6 g/dL (12.9-16.9) L 04/09/18 06:53 MCH 26.1 pg (28.0-33.3) L 04/09/18 06:53 MCHC 30.7 g/dL (31.6-35.5) L 04/09/18 06:53 RDW 14.9 % (11.5-14.5) H 04/09/18 06:53 Lymphocytes # 0.4 K/mcL (0.6-4.6) L 04/09/18 06:53 ABG pH 7.23 pH Units (7.32-7.45) L 04/08/18 05:32 ABG pCO2 83 mmHg (35-45) H* 04/08/18 05:32 ABG pO2 78 mmHg (85-104) L 04/08/18 05:32 ABG HCO3 35 mEq/L (21-27) H 04/08/18 05:32 ABG Total CO2 38 mEq/L (20-26) H 04/08/18 05:32 ABG O2 Saturation 92 % (95-98) L 04/08/18 05:32 ABG Base Excess 4 mEq/L (-2 to 3) H 04/08/18 05:32 VBG pCO2 53 mmHg (41-51) H 04/09/18 04:54 VBG pO2 63 mmHg (25-50) H 04/09/18 04:54 VBG HCO3 31 mEq/L (21-27) H 04/09/18 04:54 BUN 43 mg/dL (8-23) H 04/09/18 06:53 Creatinine 1.42 mg/dL (0.70-1.30) H 04/09/18 06:53 Est GFR (Non-Af Amer) 50 (> 60) L 04/09/18 06:53 BUN/Creatinine Ratio 30 (6-26) H 04/09/18 06:53 Glucose 190 mg/dL (70-105) H 04/09/18 06:53 POC Glucose 146 mg/dL (70-99) H 04/09/18 12:13 Calculated Osmolality 308 (280-300) H 04/09/18 06:53 Venous Ioniz Calcium 1.08 mmol/L (1.15-1.35) L 04/09/18 07:08 Albumin 3.2 g/dL (3.5-5.7) L 04/07/18 03:42 Entero/Rhino (PCR) DETECTED (Not Detect) A 04/07/18 15:03 - Clinical Findings Intake & Output: Intake & Output 04/08/18 04/09/18 04/09/18 23:59 07:59 15:59 Intake Total 1022 / 1022 1101 / 1101 300 / 300 Output Total 450 / 450 575 / 575 1100 / 1100 Balance 572 / 572 526 / 526 -800 / -800 Weight 120.7 kg - VTE Documentation of Mechanical Device: Intermittent pneumatic compression device Consult Discharge Plan - Plan Instructions: Chronic Obstructive Pulmonary Disease (ED) Referrals: Christiano Santacruz MD [Primary Care Provider] -
[2018-04-09] MEDS: Dexmedetomidine HCl 400 MCG/100 ML MLS IVC SCH (14:08)
[2018-04-10] MEDS: Piperacillin/Tazobactam 3.375 GM in 0.9 % Sodium Chloride Mini Bag 100 ML IVPB SCH ×4 (00:32→23:09)
[2018-04-10] MEDS: Artificial Tears SOLN 15 ML BOTTLE BOTH EYES SCH ×7 (00:33→23:10)
[2018-04-10] MEDS: Ipratropium/Albuterol Neb 3 ML IH SCH ×6 (03:17→23:34)
[2018-04-10 04:06] LABS: VBG Ionized Calcium 1.01 mmol/L (1.15-1.35)
[2018-04-10 04:21] LABS: Hematocrit 44.4 % (37.5-50.1); Hemoglobin 13.7 g/dL (12.9-16.9); Mean Corpuscular HGB Conc 30.9 g/dL (31.6-35.5); Mean Corpuscular Hemoglobin 26.6 pg (28.0-33.3); Red Blood Count 5.16 M/mcL (4.19-5.50); Red Cell Distribution Width 14.9 % (11.5-14.5)
[2018-04-10 04:21] LABS: BUN/Creatinine Ratio 30 (6-26); Blood Urea Nitrogen 43 mg/dL (8-23); Calcium 8.4 mg/dL (8.6-10.3); Carbon Dioxide 32 mEq/L (23-29); Chloride 101 mEq/L (98-107); Glucose 134 mg/dL (70-105); Magnesium 2.4 mg/dL (1.6-2.6); Osmolality,Calculated 307 (280-300); Phosphorous 4.4 mg/dL (2.7-4.5); Potassium 4.5 mEq/L (3.5-5.1); Sodium 142 mEq/L (136-145); eGFR For Non-African Americans 50 (> 60)
[2018-04-10 04:22] LABS: Basophils % 0.1 %; Immature Granulocytes % 0.7 % (0-4); Lymphocytes # 0.9 K/mcL (0.6-4.6); Lymphocytes % 8.9 %; Mean Platelet Volume 10.7 fL (9.4-12.4); Monocytes # 0.7 K/mcL (0.0-1.3); Monocytes % 7.4 %; Platelet Count 194 K/mcL (140-400); Segmented Neutrophils % 82.9 %
[2018-04-10] MEDS: FentaNYL (PF) 2,500 MCG in EMPTY BAG 1 EACH IVC SCH ×2 (04:23→14:22)
[2018-04-10] MEDS: *HR* Heparin 5,000 UNIT/ML VIAL SQ SCH ×3 (06:14→19:25)
[2018-04-10] MEDS: MethylPREDNISolone 40 MG/ML VIAL IVP SCH ×2 (06:14→17:20)
[2018-04-10] MEDS: Azithromycin 250 MG in D5% in Water 250 ML IVPB SCH (06:14)
--- NOTE | 2018-04-10 07:18 | Pulmonology Progress Note ---
<Jared Morrison Gloria - Last Filed: 04/10/18 10:38> Date of Encounter: 04/10/18 Time of Encounter: 07:00 Assessment and Plan (1) Acute exacerbation of chronic obstructive airways disease Current Visit: Yes Status: Acute Likely viral exacerbation of COPD. PCR pos rhinovirus. Continue bronchodilators and steroids. (2) Acute respiratory failure with hypoxia Current Visit: Yes Status: Acute 2/2 COPD exacerbation. Continue bronchodilators and steroids. ABG improved pH 7.38, paco2 67, po2 77, fio2 50%. Continue to wean sedation as tolerated. SBT today and try to wean vent. (3) Acute and chronic respiratory failure with hypercapnia Current Visit: Yes Status: Acute 2/2 COPD exacerbation. ABG improved today. (4) Congestive heart failure Current Visit: Yes Status: Acute Hx of diastolic HF. Improved with diuresis. Will continue diuresis and monitor renal function in the setting of NAV. Qualifiers: Heart failure type: diastolic Heart failure chronicity: acute on chronic Qualified Code(s): I50.33 - Acute on chronic diastolic (congestive) heart failure (5) Acute kidney injury Current Visit: Yes Status: Acute Cr 1.42 today. No change from yst. Will trend Cr. (6) Diabetes Current Visit: Yes Status: Chronic On tube feeds. Will dc insulin infusion and start medium SSI. Qualifiers: Diabetes mellitus type: other specified (including JADEN) Diabetes mellitus group home insulin use: unspecified group home insulin use status Diabetes mellitus complication status: without complication Qualified Code(s): E13.9 - Other specified diabetes mellitus without complications (7) Obesity (BMI 30-39.9) Current Visit: Yes Status: Chronic Recommend lifestyle modifications upon dc. (8) DVT prophylaxis Current Visit: Yes Status: Acute Chemical prophylaxis. Subjective Principal diagnosis: Acute exacerbation of COPD Interval history: No acute events overnight. Intubated and sedated. Objective PUL Vital signs: Last Vital Signs Temp 98.2 F 04/10/18 03:50 Pulse 65 04/10/18 07:00 Resp 18 04/10/18 07:00 BP 125/67 04/10/18 07:00 Pulse Ox 93 04/10/18 07:00 General appearance: no acute distress, asleep (sedated on vent) Eyes: nonicteric ENT: oropharynx moist Auscultation: bilateral: diminished breath sounds (>bibasilar) Cardiovascular: regular rate and rhythm Gastrointestinal: normoactive bowel sounds, soft, non-tender Extremities: no cyanosis, no edema other (Intubated and sedated ) Ventilator Settings Ventilator Settings: Ventilator Settings, Last 8 Hours Ventilator Tidal Volume 550 Setting Ventilator Tidal Volume 550 Setting Ventilator Tidal Volume 550 Setting Ventilator Tidal Volume 550 Setting Ventilator Tidal Volume 550 Setting Ventilator Tidal Volume 550 Setting Ventilator Tidal Volume 550 Setting Ventilator Tidal Volume 550 Setting Ventilator Tidal Volume 550 Setting Ventilator Tidal Volume 550 Setting Ventilator Tidal Volume 550 Setting Ventilator Tidal Volume 550 Setting Ventilator Respiratory Rate 18 Setting Ventilator Respiratory Rate 18 Setting Ventilator Respiratory Rate 18 Setting Ventilator Respiratory Rate 18 Setting Ventilator Respiratory Rate 18 Setting Ventilator Respiratory Rate 18 Setting Ventilator Respiratory Rate 18 Setting Ventilator Respiratory Rate 18 Setting Ventilator Respiratory Rate 18 Setting Ventilator Respiratory Rate 18 Setting Ventilator Respiratory Rate 18 Setting Ventilator Respiratory Rate 18 Setting Actual Respiratory Rate 18 Actual Respiratory Rate 18 Actual Respiratory Rate 18 Actual Respiratory Rate 18 Actual Respiratory Rate 18 Actual Respiratory Rate 18 Actual Respiratory Rate 18 Actual Respiratory Rate 18 Actual Respiratory Rate 18 Actual Respiratory Rate 18 Actual Respiratory Rate 18 Actual Respiratory Rate 18 Positive End Expiratory 10 Pressure Positive End Expiratory 10 Pressure Positive End Expiratory 10 Pressure Positive End Expiratory 10 Pressure Positive End Expiratory 10 Pressure Positive End Expiratory 10 Pressure Positive End Expiratory 10 Pressure Positive End Expiratory 10 Pressure Positive End Expiratory 10 Pressure Positive End Expiratory 10 Pressure Positive End Expiratory 10 Pressure Positive End Expiratory 10 Pressure Peak Inspiratory Airway 34 Pressure Peak Inspiratory Airway 34 Pressure Peak Inspiratory Airway 34 Pressure Peak Inspiratory Airway 33 Pressure Peak Inspiratory Airway 33 Pressure Peak Inspiratory Airway 33 Pressure Peak Inspiratory Airway 31 Pressure Peak Inspiratory Airway 31 Pressure Peak Inspiratory Airway 31 Pressure Peak Inspiratory Airway 31 Pressure Peak Inspiratory Airway 32 Pressure Peak Inspiratory Airway 30 Pressure Results - Laboratory Findings CBC and BMP: 04/10/18 03:54 04/10/18 03:53 ABG ABG pH 7.23 pH Units (7.32-7.45) L 04/08/18 05:32 ABG pCO2 83 mmHg (35-45) H* 04/08/18 05:32 ABG pO2 78 mmHg (85-104) L 04/08/18 05:32 ABG O2 Saturation 92 % (95-98) L 04/08/18 05:32 Abnormal lab findings: Abnormal lab results MCH 26.6 pg (28.0-33.3) L 04/10/18 03:54 MCHC 30.9 g/dL (31.6-35.5) L 04/10/18 03:54 RDW 14.9 % (11.5-14.5) H 04/10/18 03:54 ABG pH 7.23 pH Units (7.32-7.45) L 04/08/18 05:32 ABG pCO2 83 mmHg (35-45) H* 04/08/18 05:32 ABG pO2 78 mmHg (85-104) L 04/08/18 05:32 ABG HCO3 35 mEq/L (21-27) H 04/08/18 05:32 ABG Total CO2 38 mEq/L (20-26) H 04/08/18 05:32 ABG O2 Saturation 92 % (95-98) L 04/08/18 05:32 ABG Base Excess 4 mEq/L (-2 to 3) H 04/08/18 05:32 VBG pCO2 53 mmHg (41-51) H 04/09/18 04:54 VBG pO2 63 mmHg (25-50) H 04/09/18 04:54 VBG HCO3 31 mEq/L (21-27) H 04/09/18 04:54 Carbon Dioxide 32 mEq/L (23-29) H 04/10/18 03:53 BUN 43 mg/dL (8-23) H 04/10/18 03:53 Creatinine 1.42 mg/dL (0.70-1.30) H 04/10/18 03:53 Est GFR (Non-Af Amer) 50 (> 60) L 04/10/18 03:53 BUN/Creatinine Ratio 30 (6-26) H 04/10/18 03:53 Glucose 134 mg/dL (70-105) H 04/10/18 03:53 POC Glucose 162 mg/dL (70-99) H 04/10/18 06:44 Calculated Osmolality 307 (280-300) H 04/10/18 03:53 Calcium 8.4 mg/dL (8.6-10.3) L 04/10/18 03:53 Venous Ioniz Calcium 1.01 mmol/L (1.15-1.35) L 04/10/18 04:02 Albumin 3.2 g/dL (3.5-5.7) L 04/07/18 03:42 Entero/Rhino (PCR) DETECTED (Not Detect) A 04/07/18 15:03 - Clinical Findings Intake & Output: Intake & Output 04/09/18 04/09/18 04/10/18 15:59 23:59 07:59 Intake Total 650 / 650 721 / 721 2622 / 2622 Output Total 2049 550 / 550 Balance -1400 / -1400 -1279 / -1279 2071 / 2071 Weight 120.9 kg - VTE Documentation of Mechanical Device: Intermittent pneumatic compression device Consult Discharge Plan - Plan Instructions: Chronic Obstructive Pulmonary Disease (ED) Referrals: Christiano Santacruz MD [Primary Care Provider] - <Yuliya Cottrell S - Last Filed: 04/10/18 22:27> Date of Encounter: 04/10/18 Assessment and Plan (1) Acute exacerbation of chronic obstructive airways disease Current Visit: Yes Status: Acute (2) Acute respiratory failure with hypoxia Current Visit: Yes Status: Acute (3) Acute and chronic respiratory failure with hypercapnia Current Visit: Yes Status: Acute (4) Congestive heart failure Current Visit: Yes Status: Acute Qualifiers: Heart failure type: diastolic Heart failure chronicity: acute on chronic Qualified Code(s): I50.33 - Acute on chronic diastolic (congestive) heart failure (5) Acute kidney injury Current Visit: Yes Status: Acute (6) DVT prophylaxis Current Visit: Yes Status: Acute Objective PUL Vital signs: Last Vital Signs Temp 100.0 F H 04/10/18 19:49 Pulse 68 04/10/18 20:00 Resp 18 04/10/18 20:00 BP 133/72 04/10/18 20:00 Pulse Ox 90 04/10/18 20:00 Ventilator Settings Ventilator Settings: Ventilator Settings, Last 8 Hours Ventilator Tidal Volume 550 Setting Ventilator Tidal Volume 550 Setting Ventilator Tidal Volume 550 Setting Ventilator Tidal Volume 550 Setting Ventilator Tidal Volume 550 Setting Ventilator Tidal Volume 550 Setting Ventilator Tidal Volume 550 Setting Ventilator Tidal Volume 550 Setting Ventilator Tidal Volume 550 Setting Ventilator Respiratory Rate 18 Setting Ventilator Respiratory Rate 18 Setting Ventilator Respiratory Rate 18 Setting Ventilator Respiratory Rate 18 Setting Ventilator Respiratory Rate 18 Setting Ventilator Respiratory Rate 18 Setting Ventilator Respiratory Rate 18 Setting Ventilator Respiratory Rate 18 Setting Ventilator Respiratory Rate 18 Setting Actual Respiratory Rate 18 Actual Respiratory Rate 19 Actual Respiratory Rate 19 Actual Respiratory Rate 18 Actual Respiratory Rate 18 Actual Respiratory Rate 18 Actual Respiratory Rate 18 Actual Respiratory Rate 18 Actual Respiratory Rate 18 Positive End Expiratory 10 Pressure Positive End Expiratory 10 Pressure Positive End Expiratory 10 Pressure Positive End Expiratory 10 Pressure Positive End Expiratory 10 Pressure Positive End Expiratory 10 Pressure Positive End Expiratory 10 Pressure Positive End Expiratory 10 Pressure Positive End Expiratory 10 Pressure Peak Inspiratory Airway 27 Pressure Peak Inspiratory Airway 28 Pressure Peak Inspiratory Airway 27 Pressure Peak Inspiratory Airway 32 Pressure Peak Inspiratory Airway 33 Pressure Peak Inspiratory Airway 32 Pressure Peak Inspiratory Airway 32 Pressure Peak Inspiratory Airway 37 Pressure Peak Inspiratory Airway 32 Pressure Results - Laboratory Findings CBC and BMP: 04/10/18 03:54 04/10/18 03:53 ABG ABG pH 7.38 pH Units (7.32-7.45) 04/10/18 09:43 ABG pCO2 67 mmHg (35-45) H 04/10/18 09:43 ABG pO2 77 mmHg (85-104) L 04/10/18 09:43 ABG O2 Saturation 94 % (95-98) L 04/10/18 09:43 Abnormal lab findings: Abnormal lab results MCH 26.6 pg (28.0-33.3) L 04/10/18 03:54 MCHC 30.9 g/dL (31.6-35.5) L 04/10/18 03:54 RDW 14.9 % (11.5-14.5) H 04/10/18 03:54 ABG pCO2 67 mmHg (35-45) H 04/10/18 09:43 ABG pO2 77 mmHg (85-104) L 04/10/18 09:43 ABG HCO3 39 mEq/L (21-27) H 04/10/18 09:43 ABG Total CO2 41 mEq/L (20-26) H 04/10/18 09:43 ABG O2 Saturation 94 % (95-98) L 04/10/18 09:43 ABG Base Excess 11 mEq/L (-2 to 3) H 04/10/18 09:43 VBG pCO2 53 mmHg (41-51) H 04/09/18 04:54 VBG pO2 63 mmHg (25-50) H 04/09/18 04:54 VBG HCO3 31 mEq/L (21-27) H 04/09/18 04:54 Carbon Dioxide 32 mEq/L (23-29) H 04/10/18 03:53 BUN 43 mg/dL (8-23) H 04/10/18 03:53 Creatinine 1.42 mg/dL (0.70-1.30) H 04/10/18 03:53 Est GFR (Non-Af Amer) 50 (> 60) L 04/10/18 03:53 BUN/Creatinine Ratio 30 (6-26) H 04/10/18 03:53 Glucose 134 mg/dL (70-105) H 04/10/18 03:53 POC Glucose 270 mg/dL (70-99) H 04/10/18 17:14 Calculated Osmolality 307 (280-300) H 04/10/18 03:53 Calcium 8.4 mg/dL (8.6-10.3) L 04/10/18 03:53 Venous Ioniz Calcium 1.01 mmol/L (1.15-1.35) L 04/10/18 04:02 Albumin 3.2 g/dL (3.5-5.7) L 04/07/18 03:42 Entero/Rhino (PCR) DETECTED (Not Detect) A 04/07/18 15:03 - Clinical Findings Intake & Output: Intake & Output 04/10/18 04/10/18 04/10/18 07:59 15:59 23:59 Intake Total 2822 / 2822 690 / 690 185 / 185 Output Total 550 / 550 2600 / 2600 400 / 400 Balance 2272 / 2272 -1910 / -1910 -215 / -215 - Attending Attestation Attending Attestation I saw and evaluated this patient and my medical decision-making was reviewed with the Resident Physician. I agree with the documented findings, disposition and treatment plan as described except to the extent set forth below. We independently had [id number] contact with the patient I spent 33 minutes of Critical Care time with this patient. It involved decision making of high complexity to assess, manipulate, and support vital organ system failure and/or to prevent further life threatening deterioration of the patient's condition. The time involved in the performance of separately reportable procedures was not counted toward critical care time. Patient seen and examined at bedside Labs, radiology, chart personally reviewed. Management was reviewed during multidisciplinary critical care rounds. CARGO ROUTER: Patient is arousable following commands , need to liberate sedation to SBT on Precedex and fentanyl. Pulm: Patient presented with Severe COPD exacerbation due to Rhinovirus infection sometime it takes long timer to recover the V/Q mismatch is worsened by acute on chronic diastolic dysfunction. To continue diuresis Cards: Patient has signs of fluid overload acute on chronic diastolic dysfunction to continue diuresis FEN-GI: Diet according to nutrition Renal: Labs and output were reviewed ID: To continue antipseudomonal penicillin in the background of severe COPD Heme/Onc: Labs reviewed, patient is on thromboprophylaxis Endo: Glucose Monitored Integ/MSK: Skin Care per routine ICU Nursing Protocol to prevent ulcers. Lines: All lines examined without evidence of infection : Dispo: Criticaly ill. CODE: Full Code
[2018-04-10] MEDS: Insulin Human Regular 100 UNIT in 0.9 % Sodium Chloride 100 ML IVC SCH (07:19)
[2018-04-10] MEDS: Multivit/Ca/Min/Fe/FA 1 TAB TABLET PO SCH (07:44)
[2018-04-10] MEDS: Pantoprazole 40 MG VIAL IVP SCH (07:44)
[2018-04-10] MEDS: Furosemide 40 MG/4 ML VIAL IVP SCH ×2 (07:44→19:23)
[2018-04-10] MEDS: Chlorhexidine Rinse 15 ML MOUTHWASH MM SCH ×2 (07:44→19:25)
[2018-04-10] MEDS: Loratadine 10 MG TABLET PO SCH (07:44)
[2018-04-10] MEDS: Aspirin 81 MG TAB.CHEW PO SCH (07:44)
[2018-04-10] MEDS: Fluticasone Propionate Nasal 50 MCG/SPRAY BOTTLE NS SCH (07:45)
[2018-04-10] MEDS: Dexmedetomidine HCl 400 MCG/100 ML MLS IVC SCH ×5 (07:46→23:07)
[2018-04-10] MEDS: Budesonide/Formoterol 160/4.5 1 PUFF INH IH SCH ×2 (08:10→19:47)
[2018-04-10] MEDS ORDERED: Haloperidol Lactate 5 MG/ML VIAL IVP PRN (09:51)
[2018-04-10] MEDS: Nicotine 7 MG PATCH.TD24 TD SCH (09:58)
[2018-04-10 10:35] LABS: ABG Base Excess 11 mEq/L (-2 to 3); ABG HCO3 39 mEq/L (21-27); ABG Oxygen Saturation 94 % (95-98); ABG PCO2 67 mmHg (35-45); ABG PH 7.38 pH Units (7.32-7.45); ABG PO2 77 mmHg (85-104); ABG TCO2 41 mEq/L (20-26); Blood Gas Modality ASSIST CONTROL; Blood Gas VT 5 cc
[2018-04-10] MEDS: Insulin LISPRO 300 UNITS/3 ML VIAL SQ SCH ×3 (11:23→23:10)
[2018-04-10] MEDS ORDERED: *HR* Labetalol 20 MG/4 ML SYRINGE IVP ONE (14:34)
[2018-04-10] MEDS: niCARdipine 40 MG/200 ML MLS IVC SCH (16:04)
[2018-04-11] MEDS: Dexmedetomidine HCl 400 MCG/100 ML MLS IVC SCH ×5 (03:23→23:51)
[2018-04-11] MEDS: Artificial Tears SOLN 15 ML BOTTLE BOTH EYES SCH ×6 (03:24→23:32)
[2018-04-11] MEDS: Ipratropium/Albuterol Neb 3 ML IH SCH ×6 (03:29→23:36)
[2018-04-11 03:41] LABS: Hematocrit 48.4 % (37.5-50.1); Hemoglobin 15.1 g/dL (12.9-16.9); Immature Granulocytes % 0.5 % (0-4); Lymphocytes % 9.2 %; Mean Corpuscular HGB Conc 31.2 g/dL (31.6-35.5); Mean Corpuscular Hemoglobin 26.4 pg (28.0-33.3); Mean Corpuscular Volume 84.8 fL (83.0-100.0); Mean Platelet Volume 10.5 fL (9.4-12.4); Monocytes % 8.5 %; Platelet Count 170 K/mcL (140-400); Red Blood Count 5.71 M/mcL (4.19-5.50); Red Cell Distribution Width 14.6 % (11.5-14.5); Segmented Neutrophils % 81.7 %
[2018-04-11 03:42] LABS: Basophils % 0.1 %; Lymphocytes # 0.9 K/mcL (0.6-4.6); Monocytes # 0.8 K/mcL (0.0-1.3); Neutrophils # 7.5 K/mcL (1.6-8.9)
[2018-04-11 04:01] LABS: Calcium 8.8 mg/dL (8.6-10.3); Magnesium 2.5 mg/dL (1.6-2.6); Phosphorous 4.3 mg/dL (2.7-4.5); Potassium 5.2 mEq/L (3.5-5.1)
[2018-04-11 04:44] LABS: ABG Base Excess 13 mEq/L (-2 to 3); ABG HCO3 39 mEq/L (21-27); ABG Oxygen Saturation 92 % (95-98); ABG PCO2 52 mmHg (35-45); ABG PH 7.48 pH Units (7.32-7.45); ABG PO2 61 mmHg (85-104); ABG TCO2 40 mEq/L (20-26)
[2018-04-11] MEDS ORDERED: Insulin LISPRO 300 UNITS/3 ML VIAL SQ SCH (05:50)
[2018-04-11] MEDS ORDERED: Insulin DETEMIR 100 UNIT/ML X5UNITS SQ SCH (06:00)
[2018-04-11] MEDS: niCARdipine 40 MG/200 ML MLS IVC SCH ×4 (06:08→21:33)
[2018-04-11] MEDS: MethylPREDNISolone 40 MG/ML VIAL IVP SCH ×2 (06:08→18:20)
[2018-04-11] MEDS: *HR* Heparin 5,000 UNIT/ML VIAL SQ SCH ×3 (06:08→19:48)
[2018-04-11] MEDS: Budesonide/Formoterol 160/4.5 1 PUFF INH IH SCH ×2 (07:29→19:27)
--- NOTE | 2018-04-11 08:05 | Pulmonology Progress Note ---
<Amanda Fontanze Alf - Last Filed: 04/11/18 09:01> Date of Encounter: 04/11/18 Time of Encounter: 07:31 Assessment and Plan (1) Acute kidney injury Current Visit: Yes Status: Acute Cr 1.48 today, trending down from high of 1.81. Gentle diuresis, gentle hydration, continue to monitor. (2) Hypotension Current Visit: Yes Status: Resolved Currently resolved. Qualifiers: Hypotension type: unspecified hypotension type Qualified Code(s): I95.9 - Hypotension, unspecified (3) Acute exacerbation of chronic obstructive airways disease Current Visit: Yes Status: Acute Pt presented with several weeks of increasing shortness of breath and change in sputum. Pt has hx of PNA, but currently has no evidence on imaging of consolidation. Swab positive for rhinovirus. - BC from 04/08/18, no growth, final results pending, but micro confirms that pseudomonas would show up within 24 hours - Zosyn 3,375mg Q8 for pseudomonas coverage, currently on day 5 of tx, can be d/ c'd - Albuterol/ipratropium 3mL IH Q4 - Currently on Methylprednisolone 40mg IVP Q12, currently on day 5 - Last ABG showed pH 7.48 with CO2 52, 02 61, and bicarb 39 - Will need to evaluate readiness for ventilation liberation (4) Congestive heart failure Current Visit: Yes Status: Acute 1+ zay LE edema evident on exam with some blunting of costophrenic angles on imaging. Currently, mild bibasilar wheezes on exam - Takes 10mg Amlodipine at home - Has been getting 40mg lasix BID here, current K 5.2, continue current dose - Continue to monitor Qualifiers: Heart failure type: diastolic Heart failure chronicity: acute on chronic Qualified Code(s): I50.33 - Acute on chronic diastolic (congestive) heart failure (5) Diabetes Current Visit: Yes Status: Chronic Pt takes 50mg Glargine and home, on 10mg BID Levemir here. Glucose in the 300' s. Increase levemir to 20mg BID, keep high dose sliding scale, keep sugars on Q4 Qualifiers: Diabetes mellitus type: other specified (including JADEN) Diabetes mellitus moth exterminator insulin use: unspecified moth exterminator insulin use status Diabetes mellitus complication status: without complication Qualified Code(s): E13.9 - Other specified diabetes mellitus without complications (6) DVT prophylaxis Current Visit: Yes Status: Acute SCDs in place, home dosage of Plavix continued, low dose heparin Subjective Principal diagnosis: Acute exacerbation of COPD Interval history: Mr Chase is a 62M with PmHx of COPD, Stage 3 CKD, CHF, Bladder Ca, current 1/2ppd smoker that initially presented with IRMA to the [facility] ED on 04/06/18 and was admitted to the floor. He was difficult to arouse and was found to be hypercarbic, acidotic, and hypoxic so was intubated and transferred to the ICU. Pt is now ICU day 4. Overnight, the patient had no acute events. Echo showed EF 55% and mild diastolic dysfunction without evidence of valvular dysfunction. No evidence of focal consolidation on CXR, but does show bibasilar opacities likely due to pulmonary edema, will need diuresis. Pt's current RR is 26 with backup rate of 12. Pt has been hyperglycemic and hypertensive, with creatinine back to baseline. Coreg will be restarted, high dose sliding scale and 10mg BID levemir will be restarted. Continue to hold lisinopril in the setting of active diuresis. Maintain blood sugar <180, SBP <180. Evaluate readiness for extubation. Objective PUL Vital signs: Last Vital Signs Temp 98.7 F 04/10/18 23:55 Pulse 65 04/11/18 06:00 Resp 18 04/11/18 06:00 BP 152/76 04/11/18 06:00 Pulse Ox 91 04/11/18 06:00 General appearance: agitated (Pt more active but can be redirected) Eyes: nonicteric ENT: oropharynx dry Effort: normal Auscultation: bilateral: wheezes (bibasilar) Cardiovascular: regular rate and rhythm Gastrointestinal: normoactive bowel sounds Integumentary: normal Extremities: no cyanosis, edema (left hand swollen, peripheral IV removed shortly after) Ventilator Settings Ventilator Settings: Ventilator Settings, Last 8 Hours Ventilator Tidal Volume 550 Setting Ventilator Tidal Volume 550 Setting Ventilator Tidal Volume 550 Setting Ventilator Tidal Volume 550 Setting Ventilator Tidal Volume 550 Setting Ventilator Tidal Volume 550 Setting Ventilator Tidal Volume 550 Setting Ventilator Tidal Volume 550 Setting Ventilator Tidal Volume 550 Setting Ventilator Tidal Volume 550 Setting Ventilator Tidal Volume 550 Setting Ventilator Respiratory Rate 18 Setting Ventilator Respiratory Rate 18 Setting Ventilator Respiratory Rate 18 Setting Ventilator Respiratory Rate 18 Setting Ventilator Respiratory Rate 18 Setting Ventilator Respiratory Rate 18 Setting Ventilator Respiratory Rate 18 Setting Ventilator Respiratory Rate 18 Setting Ventilator Respiratory Rate 18 Setting Ventilator Respiratory Rate 18 Setting Ventilator Respiratory Rate 18 Setting Actual Respiratory Rate 18 Actual Respiratory Rate 18 Actual Respiratory Rate 18 Actual Respiratory Rate 18 Actual Respiratory Rate 18 Actual Respiratory Rate 18 Actual Respiratory Rate 18 Actual Respiratory Rate 18 Actual Respiratory Rate 18 Actual Respiratory Rate 18 Positive End Expiratory 10 Pressure Positive End Expiratory 10 Pressure Positive End Expiratory 10 Pressure Positive End Expiratory 10 Pressure Positive End Expiratory 10 Pressure Positive End Expiratory 10 Pressure Positive End Expiratory 10 Pressure Positive End Expiratory 10 Pressure Positive End Expiratory 10 Pressure Positive End Expiratory 10 Pressure Positive End Expiratory 10 Pressure Peak Inspiratory Airway 32 Pressure Peak Inspiratory Airway 31 Pressure Peak Inspiratory Airway 32 Pressure Peak Inspiratory Airway 32 Pressure Peak Inspiratory Airway 32 Pressure Peak Inspiratory Airway 31 Pressure Peak Inspiratory Airway 31 Pressure Peak Inspiratory Airway 31 Pressure Peak Inspiratory Airway 32 Pressure Peak Inspiratory Airway 32 Pressure Results - Laboratory Findings CBC and BMP: 04/11/18 03:20 04/11/18 03:20 ABG ABG pH 7.48 pH Units (7.32-7.45) H 04/11/18 04:34 ABG pCO2 52 mmHg (35-45) H 04/11/18 04:34 ABG pO2 61 mmHg (85-104) L 04/11/18 04:34 ABG O2 Saturation 92 % (95-98) L 04/11/18 04:34 Abnormal lab findings: Abnormal lab results RBC 5.71 M/mcL (4.19-5.50) H 04/11/18 03:20 MCH 26.4 pg (28.0-33.3) L 04/11/18 03:20 MCHC 31.2 g/dL (31.6-35.5) L 04/11/18 03:20 RDW 14.6 % (11.5-14.5) H 04/11/18 03:20 ABG pH 7.48 pH Units (7.32-7.45) H 04/11/18 04:34 ABG pCO2 52 mmHg (35-45) H 04/11/18 04:34 ABG pO2 61 mmHg (85-104) L 04/11/18 04:34 ABG HCO3 39 mEq/L (21-27) H 04/11/18 04:34 ABG Total CO2 40 mEq/L (20-26) H 04/11/18 04:34 ABG O2 Saturation 92 % (95-98) L 04/11/18 04:34 ABG Base Excess 13 mEq/L (-2 to 3) H 04/11/18 04:34 VBG pCO2 53 mmHg (41-51) H 04/09/18 04:54 VBG pO2 63 mmHg (25-50) H 04/09/18 04:54 VBG HCO3 31 mEq/L (21-27) H 04/09/18 04:54 Potassium 5.2 mEq/L (3.5-5.1) H 04/11/18 03:20 Chloride 94 mEq/L (98-107) L 04/11/18 03:20 Carbon Dioxide 34 mEq/L (23-29) H 04/11/18 03:20 BUN 54 mg/dL (8-23) H 04/11/18 03:20 Creatinine 1.48 mg/dL (0.70-1.30) H 04/11/18 03:20 Est GFR ( Amer) 58 (> 60) L 04/11/18 03:20 Est GFR (Non-Af Amer) 48 (> 60) L 04/11/18 03:20 BUN/Creatinine Ratio 36 (6-26) H 04/11/18 03:20 Glucose 370 mg/dL (70-105) H 04/11/18 03:20 POC Glucose 337 mg/dL (70-99) H 04/10/18 23:05 Calculated Osmolality 312 (280-300) H 04/11/18 03:20 Venous Ioniz Calcium 1.01 mmol/L (1.15-1.35) L 04/10/18 04:02 Albumin 3.2 g/dL (3.5-5.7) L 04/07/18 03:42 Entero/Rhino (PCR) DETECTED (Not Detect) A 04/07/18 15:03 - Diagnostic Findings Chest x-ray: report reviewed, image reviewed - Clinical Findings Intake & Output: Intake & Output 04/10/18 04/10/18 04/11/18 15:59 23:59 07:59 Intake Total 690 / 690 1637 / 1637 682 / 682 Output Total 2600 / 2600 2700 / 2700 Balance -1910 / -1910 -1063 / -1063 682 / 682 Weight 119.6 kg - VTE Documentation of Mechanical Device: Intermittent pneumatic compression device Consult Discharge Plan - Plan Instructions: Chronic Obstructive Pulmonary Disease (ED) Referrals: Christiano Santacruz MD [Primary Care Provider] - <Tani Johansen W - Last Filed: 04/11/18 10:36> Date of Encounter: 04/11/18 Objective PUL Vital signs: Last Vital Signs Temp 98.7 F 04/10/18 23:55 Pulse 65 04/11/18 06:00 Resp 18 04/11/18 06:00 BP 152/76 04/11/18 06:00 Pulse Ox 91 04/11/18 06:00 Ventilator Settings Ventilator Settings: Ventilator Settings, Last 8 Hours Ventilator Tidal Volume 550 Setting Ventilator Tidal Volume 550 Setting Ventilator Tidal Volume 550 Setting Ventilator Tidal Volume 550 Setting Ventilator Tidal Volume 550 Setting Ventilator Tidal Volume 550 Setting Ventilator Tidal Volume 550 Setting Ventilator Tidal Volume 550 Setting Ventilator Tidal Volume 550 Setting Ventilator Respiratory Rate 18 Setting Ventilator Respiratory Rate 18 Setting Ventilator Respiratory Rate 18 Setting Ventilator Respiratory Rate 18 Setting Ventilator Respiratory Rate 18 Setting Ventilator Respiratory Rate 18 Setting Ventilator Respiratory Rate 18 Setting Ventilator Respiratory Rate 18 Setting Ventilator Respiratory Rate 18 Setting Actual Respiratory Rate 18 Actual Respiratory Rate 18 Actual Respiratory Rate 18 Actual Respiratory Rate 18 Actual Respiratory Rate 18 Actual Respiratory Rate 18 Actual Respiratory Rate 18 Actual Respiratory Rate 18 Positive End Expiratory 10 Pressure Positive End Expiratory 10 Pressure Positive End Expiratory 10 Pressure Positive End Expiratory 10 Pressure Positive End Expiratory 10 Pressure Positive End Expiratory 10 Pressure Positive End Expiratory 10 Pressure Positive End Expiratory 10 Pressure Positive End Expiratory 10 Pressure Peak Inspiratory Airway 32 Pressure Peak Inspiratory Airway 31 Pressure Peak Inspiratory Airway 32 Pressure Peak Inspiratory Airway 32 Pressure Peak Inspiratory Airway 32 Pressure Peak Inspiratory Airway 31 Pressure Peak Inspiratory Airway 31 Pressure Peak Inspiratory Airway 31 Pressure Results - Laboratory Findings CBC and BMP: 04/11/18 03:20 04/11/18 03:20 ABG ABG pH 7.48 pH Units (7.32-7.45) H 04/11/18 04:34 ABG pCO2 52 mmHg (35-45) H 04/11/18 04:34 ABG pO2 61 mmHg (85-104) L 04/11/18 04:34 ABG O2 Saturation 92 % (95-98) L 04/11/18 04:34 Abnormal lab findings: Abnormal lab results RBC 5.71 M/mcL (4.19-5.50) H 04/11/18 03:20 MCH 26.4 pg (28.0-33.3) L 04/11/18 03:20 MCHC 31.2 g/dL (31.6-35.5) L 04/11/18 03:20 RDW 14.6 % (11.5-14.5) H 04/11/18 03:20 ABG pH 7.48 pH Units (7.32-7.45) H 04/11/18 04:34 ABG pCO2 52 mmHg (35-45) H 04/11/18 04:34 ABG pO2 61 mmHg (85-104) L 04/11/18 04:34 ABG HCO3 39 mEq/L (21-27) H 04/11/18 04:34 ABG Total CO2 40 mEq/L (20-26) H 04/11/18 04:34 ABG O2 Saturation 92 % (95-98) L 04/11/18 04:34 ABG Base Excess 13 mEq/L (-2 to 3) H 04/11/18 04:34 VBG pCO2 53 mmHg (41-51) H 04/09/18 04:54 VBG pO2 63 mmHg (25-50) H 04/09/18 04:54 VBG HCO3 31 mEq/L (21-27) H 04/09/18 04:54 Potassium 5.2 mEq/L (3.5-5.1) H 04/11/18 03:20 Chloride 94 mEq/L (98-107) L 04/11/18 03:20 Carbon Dioxide 34 mEq/L (23-29) H 04/11/18 03:20 BUN 54 mg/dL (8-23) H 04/11/18 03:20 Creatinine 1.48 mg/dL (0.70-1.30) H 04/11/18 03:20 Est GFR ( Amer) 58 (> 60) L 04/11/18 03:20 Est GFR (Non-Af Amer) 48 (> 60) L 04/11/18 03:20 BUN/Creatinine Ratio 36 (6-26) H 04/11/18 03:20 Glucose 370 mg/dL (70-105) H 04/11/18 03:20 POC Glucose 337 mg/dL (70-99) H 04/10/18 23:05 Calculated Osmolality 312 (280-300) H 04/11/18 03:20 Venous Ioniz Calcium 1.01 mmol/L (1.15-1.35) L 04/10/18 04:02 Albumin 3.2 g/dL (3.5-5.7) L 04/07/18 03:42 Entero/Rhino (PCR) DETECTED (Not Detect) A 04/07/18 15:03 - Clinical Findings Intake & Output: Intake & Output 04/10/18 04/11/18 04/11/18 23:59 07:59 15:59 Intake Total 1637 / 1637 682 / 682 Output Total 2700 / 2700 Balance -1063 / -1063 682 / 682 Weight 119.6 kg - Attending Attestation I examined this patient and my medical decision-making was reviewed with the Resident Physician. I agree with the documented findings, disposition and treatment plan as described except to the extent set forth below. We independently had [id number] contact with the patient I spent 33min of Critical Care time with this patient. It involved decision making of high complexity to assess, manipulate, and support vital organ system failure and/or to prevent further life threatening deterioration of the patient' s condition. The time involved in the performance of separately reportable procedures was not counted toward critical care time. Patient seen and examined at bedside Labs, radiology, chart personally reviewed. Management was reviewed during multidisciplinary critical care rounds. 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 I also adjusted his ventilator settings by decreasing tidal volume and rate because of relative respiratory alkalosis and decreased PEEP. Continue bronchodilators as scheduled steroids Cards: Heart failure with preserved ejection fraction volume overload and remains hypertensive on nicardipine starting long-acting nitrate and hydralazine cont active diuresis plan to stop nicardipine today as tolerated by blood pressure GI: Continue ppi prophylaxis Nutrition: Continue enteral nutrition per dietary recommendations Renal: Mild hyperkalemia UOP Monitored, Cont to Trend sCr and monitor Electrolytes. ID: Treating for PNA with zosyn day / white count has normalized he also has acute infection with rhinovirus Heme/Onc: DVT prophylaxis given Endo: Glucose Monitored plan to stop insulin infusion today and titrate basal bolus dosing schedule Integ/MSK: Skin Care per routine ICU Nursing Protocol to prevent ulcers. Lines: All lines examined without evidence of infection : Dispo: Remain in ICU for critical illness CODE: Full
[2018-04-11] MEDS: Furosemide 40 MG/4 ML VIAL IVP SCH (09:20)
[2018-04-11] MEDS: Pantoprazole 40 MG VIAL IVP SCH (09:20)
[2018-04-11] MEDS: Chlorhexidine Rinse 15 ML MOUTHWASH MM SCH ×2 (09:20→19:48)
[2018-04-11] MEDS: Nicotine 7 MG PATCH.TD24 TD SCH (09:21)
[2018-04-11] MEDS: Piperacillin/Tazobactam 3.375 GM in 0.9 % Sodium Chloride Mini Bag 100 ML IVPB SCH ×3 (09:21→23:50)
[2018-04-11] MEDS: Fluticasone Propionate Nasal 50 MCG/SPRAY BOTTLE NS SCH (09:22)
[2018-04-11] MEDS: Insulin LISPRO 300 UNITS/3 ML VIAL SQ SCH ×5 (09:22→23:49)
[2018-04-11] MEDS: Aspirin 81 MG TAB.CHEW PO SCH (09:23)
[2018-04-11] MEDS: Loratadine 10 MG TABLET PO SCH (09:23)
[2018-04-11] MEDS: Multivit/Ca/Min/Fe/FA 1 TAB TABLET PO SCH (09:23)
[2018-04-11] MEDS: Isosorbide MONOnitrate (24 HR) 30 MG TAB.ER.24H PO SCH (09:23)
[2018-04-11] MEDS: Insulin DETEMIR 100 UNIT/ML X5UNITS SQ SCH ×2 (09:44→19:48)
[2018-04-11 09:48] LABS: VBG Ionized Calcium 1.08 mmol/L (1.15-1.35)
[2018-04-11 10:58] LABS: ABG Base Excess 8 mEq/L (-2 to 3); ABG HCO3 34 mEq/L (21-27); ABG Oxygen Saturation 95 % (95-98); ABG PCO2 50 mmHg (35-45); ABG PH 7.44 pH Units (7.32-7.45); ABG PO2 77 mmHg (85-104); ABG TCO2 36 mEq/L (20-26); Blood Gas Modality VC; Blood Gas PEEP 8 cm H2O; Blood Gas Respiration Rate 12; Blood Gas VT 500 cc
[2018-04-11] MEDS: hydrALAZINE 10 MG TABLET PO SCH ×3 (12:23→23:50)
[2018-04-11 15:02] LABS: Calcium 8.5 mg/dL (8.6-10.3); Potassium 5.2 mEq/L (3.5-5.1)
[2018-04-12] MEDS: Artificial Tears SOLN 15 ML BOTTLE BOTH EYES SCH ×6 (03:10→23:51)
[2018-04-12] MEDS: Insulin LISPRO 300 UNITS/3 ML VIAL SQ SCH ×6 (03:14→23:50)
[2018-04-12] MEDS: Ipratropium/Albuterol Neb 3 ML IH SCH ×6 (03:17→23:40)
[2018-04-12 04:40] LABS: ABG Base Excess 10 mEq/L (-2 to 3); ABG HCO3 38 mEq/L (21-27); ABG Oxygen Saturation 93 % (95-98); ABG PCO2 62 mmHg (35-45); ABG PO2 70 mmHg (85-104); ABG TCO2 40 mEq/L (20-26); Blood Gas Modality PRVC; Blood Gas PEEP 8 cm H2O; Blood Gas Respiration Rate 12; Blood Gas VT 500 cc
[2018-04-12 04:45] LABS: Basophils % 0.2 %; Eosinophils % 0.1 %; Hematocrit 45.2 % (37.5-50.1); Immature Granulocytes % 0.6 % (0-4); Lymphocytes # 0.9 K/mcL (0.6-4.6); Lymphocytes % 7.5 %; Mean Corpuscular Hemoglobin 26.1 pg (28.0-33.3); Mean Corpuscular Volume 84.3 fL (83.0-100.0); Mean Platelet Volume 10.4 fL (9.4-12.4); Monocytes # 0.9 K/mcL (0.0-1.3); Monocytes % 7.8 %; Neutrophils # 9.8 K/mcL (1.6-8.9); Platelet Count 168 K/mcL (140-400); Red Blood Count 5.36 M/mcL (4.19-5.50); Red Cell Distribution Width 14.6 % (11.5-14.5); Segmented Neutrophils % 83.8 %
[2018-04-12 05:21] LABS: Albumin 3.2 g/dL (3.5-5.7); BUN/Creatinine Ratio 39 (6-26); Blood Urea Nitrogen 53 mg/dL (8-23); Calcium 8.3 mg/dL (8.6-10.3); Carbon Dioxide 26 mEq/L (23-29); Chloride 98 mEq/L (98-107); Glucose 320 mg/dL (70-105); Magnesium 2.5 mg/dL (1.6-2.6); Osmolality,Calculated 309 (280-300); Phosphorous 4.3 mg/dL (2.7-4.5); Potassium 5.5 mEq/L (3.5-5.1); Sodium 136 mEq/L (136-145); eGFR For Non-African Americans 53 (> 60)
[2018-04-12] MEDS: *HR* Heparin 5,000 UNIT/ML VIAL SQ SCH ×3 (05:32→20:25)
[2018-04-12] MEDS: MethylPREDNISolone 40 MG/ML VIAL IVP SCH ×2 (05:32→17:52)
[2018-04-12] MEDS: hydrALAZINE 10 MG TABLET PO SCH ×4 (05:32→23:50)
[2018-04-12] MEDS: niCARdipine 40 MG/200 ML MLS IVC SCH ×3 (05:33→20:25)
[2018-04-12] MEDS: Dexmedetomidine HCl 400 MCG/100 ML MLS IVC SCH ×4 (05:43→20:16)
--- NOTE | 2018-04-12 06:04 | Pulmonology Progress Note ---
Date of Encounter: 04/12/18 Assessment and Plan (1) Acute exacerbation of chronic obstructive airways disease Current Visit: Yes Status: Acute Likely viral exacerbation of COPD. PCR pos rhinovirus. Continue bronchodilators and steroids. (2) Acute respiratory failure with hypoxia Current Visit: Yes Status: Acute 2/2 COPD exacerbation. Continue bronchodilators and steroids. ABG improved pH 7.38, paco2 67, po2 77, fio2 50%. Continue to wean sedation as tolerated. SBT today and try to wean vent. (3) Acute and chronic respiratory failure with hypercapnia Current Visit: Yes Status: Acute 2/2 COPD exacerbation. ABG improved today. (4) Congestive heart failure Current Visit: Yes Status: Acute Hx of diastolic HF. Improved with diuresis. Will continue diuresis and monitor renal function in the setting of NAV. Qualifiers: Heart failure type: diastolic Heart failure chronicity: acute on chronic Qualified Code(s): I50.33 - Acute on chronic diastolic (congestive) heart failure (5) Acute kidney injury Current Visit: Yes Status: Acute Cr 1.42 today. No change from yst. Will trend Cr. (6) Diabetes Current Visit: Yes Status: Chronic On tube feeds. Will dc insulin infusion and start medium SSI. Qualifiers: Diabetes mellitus type: other specified (including JADEN) Diabetes mellitus extermination supervisor insulin use: unspecified extermination supervisor insulin use status Diabetes mellitus complication status: without complication Qualified Code(s): E13.9 - Other specified diabetes mellitus without complications (7) Obesity (BMI 30-39.9) Current Visit: Yes Status: Chronic Recommend lifestyle modifications upon dc. (8) DVT prophylaxis Current Visit: Yes Status: Acute Chemical prophylaxis. Subjective Principal diagnosis: Acute exacerbation of COPD Interval history: No acute events overnight. Intubated and sedated. Objective PUL Vital signs: Last Vital Signs Temp 99.1 F 04/12/18 04:00 Pulse 68 04/12/18 05:00 Resp 16 04/12/18 05:25 BP 123/64 04/12/18 05:25 Pulse Ox 94 04/12/18 05:25 Ventilator Settings Ventilator Settings: Ventilator Settings, Last 8 Hours Ventilator Tidal Volume 500 Setting Ventilator Tidal Volume 500 Setting Ventilator Tidal Volume 500 Setting Ventilator Tidal Volume 500 Setting Ventilator Tidal Volume 500 Setting Ventilator Tidal Volume 500 Setting Ventilator Tidal Volume 500 Setting Ventilator Tidal Volume 500 Setting Ventilator Tidal Volume 500 Setting Ventilator Tidal Volume 500 Setting Ventilator Tidal Volume 500 Setting Ventilator Tidal Volume 500 Setting Ventilator Respiratory Rate 12 Setting Ventilator Respiratory Rate 12 Setting Ventilator Respiratory Rate 12 Setting Ventilator Respiratory Rate 12 Setting Ventilator Respiratory Rate 12 Setting Ventilator Respiratory Rate 12 Setting Ventilator Respiratory Rate 12 Setting Ventilator Respiratory Rate 12 Setting Ventilator Respiratory Rate 17 Setting Ventilator Respiratory Rate 12 Setting Ventilator Respiratory Rate 12 Setting Ventilator Respiratory Rate 12 Setting Actual Respiratory Rate 17 Actual Respiratory Rate 16 Actual Respiratory Rate 16 Actual Respiratory Rate 16 Actual Respiratory Rate 16 Actual Respiratory Rate 17 Actual Respiratory Rate 18 Actual Respiratory Rate 16 Actual Respiratory Rate 17 Actual Respiratory Rate 16 Actual Respiratory Rate 18 Positive End Expiratory 8 Pressure Positive End Expiratory 8 Pressure Positive End Expiratory 8 Pressure Positive End Expiratory 8 Pressure Positive End Expiratory 8 Pressure Positive End Expiratory 8 Pressure Positive End Expiratory 8 Pressure Positive End Expiratory 8 Pressure Positive End Expiratory 8 Pressure Positive End Expiratory 8 Pressure Positive End Expiratory 8 Pressure Positive End Expiratory 8 Pressure Peak Inspiratory Airway 22 Pressure Peak Inspiratory Airway 23 Pressure Peak Inspiratory Airway 25 Pressure Peak Inspiratory Airway 22 Pressure Peak Inspiratory Airway 22 Pressure Peak Inspiratory Airway 23 Pressure Peak Inspiratory Airway 22 Pressure Peak Inspiratory Airway 24 Pressure Peak Inspiratory Airway 23 Pressure Peak Inspiratory Airway 26 Pressure Peak Inspiratory Airway 24 Pressure Results - Laboratory Findings CBC and BMP: 04/12/18 04:25 04/12/18 04:25 ABG ABG pH 7.40 pH Units (7.32-7.45) 04/12/18 04:36 ABG pCO2 62 mmHg (35-45) H 04/12/18 04:36 ABG pO2 70 mmHg (85-104) L 04/12/18 04:36 ABG O2 Saturation 93 % (95-98) L 04/12/18 04:36 Abnormal lab findings: Abnormal lab results WBC 11.7 K/mcL (4.3-11.1) H 04/12/18 04:25 MCH 26.1 pg (28.0-33.3) L 04/12/18 04:25 MCHC 31.0 g/dL (31.6-35.5) L 04/12/18 04:25 RDW 14.6 % (11.5-14.5) H 04/12/18 04:25 Neutrophils # 9.8 K/mcL (1.6-8.9) H 04/12/18 04:25 ABG pCO2 62 mmHg (35-45) H 04/12/18 04:36 ABG pO2 70 mmHg (85-104) L 04/12/18 04:36 ABG HCO3 38 mEq/L (21-27) H 04/12/18 04:36 ABG Total CO2 40 mEq/L (20-26) H 04/12/18 04:36 ABG O2 Saturation 93 % (95-98) L 04/12/18 04:36 ABG Base Excess 10 mEq/L (-2 to 3) H 04/12/18 04:36 VBG pCO2 53 mmHg (41-51) H 04/09/18 04:54 VBG pO2 63 mmHg (25-50) H 04/09/18 04:54 VBG HCO3 31 mEq/L (21-27) H 04/09/18 04:54 Potassium 5.5 mEq/L (3.5-5.1) H 04/12/18 04:25 BUN 53 mg/dL (8-23) H 04/12/18 04:25 Creatinine 1.35 mg/dL (0.70-1.30) H 04/12/18 04:25 Est GFR (Non-Af Amer) 53 (> 60) L 04/12/18 04:25 BUN/Creatinine Ratio 39 (6-26) H 04/12/18 04:25 Glucose 320 mg/dL (70-105) H 04/12/18 04:25 POC Glucose 304 mg/dL (70-99) H 04/12/18 03:12 Calculated Osmolality 309 (280-300) H 04/12/18 04:25 Calcium 8.3 mg/dL (8.6-10.3) L 04/12/18 04:25 Venous Ioniz Calcium 1.01 mmol/L (1.15-1.35) L 04/10/18 04:02 Albumin 3.2 g/dL (3.5-5.7) L 04/12/18 04:25 Entero/Rhino (PCR) DETECTED (Not Detect) A 04/07/18 15:03 - Clinical Findings Intake & Output: Intake & Output 04/11/18 04/11/18 04/12/18 15:59 23:59 07:59 Intake Total 1087 / 1087 1213 / 1213 200 / 200 Output Total 2750 / 2750 950 / 950 500 / 500 Balance -1663 / -1663 263 / 263 -300 / -300 - VTE Documentation of Mechanical Device: Intermittent pneumatic compression device Consult Discharge Plan - Plan Instructions: Chronic Obstructive Pulmonary Disease (ED) Referrals: Christiano Santacruz MD [Primary Care Provider] -
--- NOTE | 2018-04-12 07:21 | Pulmonology Progress Note ---
Date of Encounter: 04/12/18 Time of Encounter: 07:21 Assessment and Plan (1) Acute respiratory failure with hypoxia Current Visit: Yes Status: Acute I I spent 33min of Critical Care time with this patient. It involved decision making of high complexity to assess, manipulate, and support vital organ system failure and/or to prevent further life threatening deterioration of the patient' s condition. The time involved in the performance of separately reportable procedures was not counted toward critical care time. Patient seen and examined at bedside Labs, radiology, chart personally reviewed. Management was reviewed during multidisciplinary critical care rounds. 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 Goal [place] 2 Pulm: Acute on chronic hypoxic hypercapnic respiratory failure secondary to COPD exacerbation. Likely complicated by pneumonia and heart failure. Acceptable gas exchange today patient failed CPAP trial after 15 minutes will continue to diurese and try again tomorrow Cards: Acute on chronic heart failure with preserved ejection fraction remains volume overloaded restart diuresis today blood pressure better controlled but still can be optimized will increase dose of long-acting nitrate today and likely can increase afterload reduction with hydralazine continue beta jose GI: GI prophylaxis given Nutrition: Given enteral nutrition per dietary recommendations Renal: Acute kidney injury is resolving is mild hyperkalemia which is likely related to hyperglycemia and will correct with correction of this. UOP Monitored, Cont to Trend sCr and monitor Electrolytes. ID: He will finish a course of antibiotics for presumed pneumonia today. Cultures thus far negative Heme/Onc: DVT prophylaxis given H&H and platelets monitored and stable Endo: Glucose Monitored Persistently hyperglycemic we will increase basal bolus dosing of insulin today for this reason Integ/MSK: Skin Care per routine ICU Nursing Protocol to prevent ulcers. Lines: All lines examined without evidence of infection : Dispo: Remains critically ill CODE: Full (2) Hypertension Current Visit: Yes Status: Acute Qualifiers: Hypertension type: essential hypertension Qualified Code(s): I10 - Essential (primary) hypertension (3) (HFpEF) heart failure with preserved ejection fraction Current Visit: Yes Status: Acute (4) Acute exacerbation of chronic obstructive airways disease Current Visit: Yes Status: Acute (5) CAD (coronary artery disease) Current Visit: Yes Status: Chronic Qualifiers: Coronary Disease-Associated Artery/Lesion type: [place] artery [place] vs. transplanted heart: [place] heart Associated angina: without angina Qualified Code(s): I25.10 - Atherosclerotic heart disease of [place] coronary artery without angina pectoris (6) Tobacco dependence due to cigarettes Current Visit: Yes Status: Chronic (7) Acute and chronic respiratory failure with hypercapnia Current Visit: Yes Status: Acute (8) Acute kidney injury Current Visit: Yes Status: Acute (9) DVT prophylaxis Current Visit: Yes Status: Acute Subjective Principal diagnosis: Acute exacerbation of COPD Interval history: Per nursing staff no acute events overnight his less agitated and unable to more consistently follow commands although when sedation has been lifted he continues to display features of hyperactive delirium. Otherwise hemodynamically stable nicardipine infusion has been weaned off and blood pressure is within acceptable Objective PUL Vital signs: Last Vital Signs Temp 99.1 F 04/12/18 04:00 Pulse 72 04/12/18 06:00 Resp 19 04/12/18 06:00 BP 140/69 04/12/18 06:00 Pulse Ox 100 04/12/18 06:00 General appearance: no acute distress, other (Patient does make eye contact with me and is able to follow simple commands but is easily distracted) Eyes: nonicteric ENT: other (Endotracheal tube noted in satisfactory position) Neck: supple Effort: normal Auscultation: bilateral: rales Cardiovascular: regular rate and rhythm Gastrointestinal: normoactive bowel sounds, soft, non-tender Integumentary: normal Extremities: pink and warm, pulses normal, no ischemia or petechiae, edema ( Bilateral lower extremity edema) non-focal exam, pupils equal and round other (Calm appearing during examination) Ventilator Settings Ventilator Settings: Ventilator Settings, Last 8 Hours Ventilator Tidal Volume 500 Setting Ventilator Tidal Volume 500 Setting Ventilator Tidal Volume 500 Setting Ventilator Tidal Volume 500 Setting Ventilator Tidal Volume 500 Setting Ventilator Tidal Volume 500 Setting Ventilator Tidal Volume 500 Setting Ventilator Tidal Volume 500 Setting Ventilator Tidal Volume 500 Setting Ventilator Tidal Volume 500 Setting Ventilator Tidal Volume 500 Setting Ventilator Tidal Volume 500 Setting Ventilator Respiratory Rate 12 Setting Ventilator Respiratory Rate 12 Setting Ventilator Respiratory Rate 12 Setting Ventilator Respiratory Rate 12 Setting Ventilator Respiratory Rate 12 Setting Ventilator Respiratory Rate 12 Setting Ventilator Respiratory Rate 12 Setting Ventilator Respiratory Rate 12 Setting Ventilator Respiratory Rate 12 Setting Ventilator Respiratory Rate 17 Setting Ventilator Respiratory Rate 12 Setting Ventilator Respiratory Rate 12 Setting Actual Respiratory Rate 19 Actual Respiratory Rate 19 Actual Respiratory Rate 17 Actual Respiratory Rate 16 Actual Respiratory Rate 16 Actual Respiratory Rate 16 Actual Respiratory Rate 16 Actual Respiratory Rate 17 Actual Respiratory Rate 18 Actual Respiratory Rate 16 Actual Respiratory Rate 17 Actual Respiratory Rate 16 Positive End Expiratory 8 Pressure Positive End Expiratory 8 Pressure Positive End Expiratory 8 Pressure Positive End Expiratory 8 Pressure Positive End Expiratory 8 Pressure Positive End Expiratory 8 Pressure Positive End Expiratory 8 Pressure Positive End Expiratory 8 Pressure Positive End Expiratory 8 Pressure Positive End Expiratory 8 Pressure Positive End Expiratory 8 Pressure Positive End Expiratory 8 Pressure Positive End Expiratory 8 Pressure Peak Inspiratory Airway 15 Pressure Peak Inspiratory Airway 15 Pressure Peak Inspiratory Airway 22 Pressure Peak Inspiratory Airway 23 Pressure Peak Inspiratory Airway 25 Pressure Peak Inspiratory Airway 22 Pressure Peak Inspiratory Airway 22 Pressure Peak Inspiratory Airway 23 Pressure Peak Inspiratory Airway 22 Pressure Peak Inspiratory Airway 24 Pressure Peak Inspiratory Airway 23 Pressure Peak Inspiratory Airway 26 Pressure Results - Laboratory Findings CBC and BMP: 04/12/18 04:25 04/12/18 04:25 ABG ABG pH 7.40 pH Units (7.32-7.45) 04/12/18 04:36 ABG pCO2 62 mmHg (35-45) H 04/12/18 04:36 ABG pO2 70 mmHg (85-104) L 04/12/18 04:36 ABG O2 Saturation 93 % (95-98) L 04/12/18 04:36 Abnormal lab findings: Abnormal lab results WBC 11.7 K/mcL (4.3-11.1) H 04/12/18 04:25 MCH 26.1 pg (28.0-33.3) L 04/12/18 04:25 MCHC 31.0 g/dL (31.6-35.5) L 04/12/18 04:25 RDW 14.6 % (11.5-14.5) H 04/12/18 04:25 Neutrophils # 9.8 K/mcL (1.6-8.9) H 04/12/18 04:25 ABG pCO2 62 mmHg (35-45) H 04/12/18 04:36 ABG pO2 70 mmHg (85-104) L 04/12/18 04:36 ABG HCO3 38 mEq/L (21-27) H 04/12/18 04:36 ABG Total CO2 40 mEq/L (20-26) H 04/12/18 04:36 ABG O2 Saturation 93 % (95-98) L 04/12/18 04:36 ABG Base Excess 10 mEq/L (-2 to 3) H 04/12/18 04:36 VBG pCO2 53 mmHg (41-51) H 04/09/18 04:54 VBG pO2 63 mmHg (25-50) H 04/09/18 04:54 VBG HCO3 31 mEq/L (21-27) H 04/09/18 04:54 Potassium 5.5 mEq/L (3.5-5.1) H 04/12/18 04:25 BUN 53 mg/dL (8-23) H 04/12/18 04:25 Creatinine 1.35 mg/dL (0.70-1.30) H 04/12/18 04:25 Est GFR (Non-Af Amer) 53 (> 60) L 04/12/18 04:25 BUN/Creatinine Ratio 39 (6-26) H 04/12/18 04:25 Glucose 320 mg/dL (70-105) H 04/12/18 04:25 POC Glucose 304 mg/dL (70-99) H 04/12/18 03:12 Calculated Osmolality 309 (280-300) H 04/12/18 04:25 Calcium 8.3 mg/dL (8.6-10.3) L 04/12/18 04:25 Venous Ioniz Calcium 1.01 mmol/L (1.15-1.35) L 04/10/18 04:02 Albumin 3.2 g/dL (3.5-5.7) L 04/12/18 04:25 Entero/Rhino (PCR) DETECTED (Not Detect) A 04/07/18 15:03 - Microbiology Findings Microbiology Findings: Microbiology, Last 48 Hours 04/07/18 03:42 Blood Culture - Final Peripheral Venipuncture No growth. Final report. 04/07/18 03:42 Blood Culture - Final Peripheral Venipuncture No growth. Final report. - Clinical Findings Intake & Output: Intake & Output 04/11/18 04/11/18 04/12/18 15:59 23:59 07:59 Intake Total 1087 / 1087 1213 / 1213 400 / 400 Output Total 2750 / 2750 950 / 950 500 / 500 Balance -1663 / -1663 263 / 263 -100 / -100 - VTE Documentation of Mechanical Device: Intermittent pneumatic compression device Consult Discharge Plan - Plan Instructions: Chronic Obstructive Pulmonary Disease (ED) Referrals: Christiano Santacruz MD [Primary Care Provider] -
[2018-04-12] MEDS: Piperacillin/Tazobactam 3.375 GM in 0.9 % Sodium Chloride Mini Bag 100 ML IVPB SCH ×2 (07:43→15:53)
[2018-04-12] MEDS: Loratadine 10 MG TABLET PO SCH (07:44)
[2018-04-12] MEDS: Aspirin 81 MG TAB.CHEW PO SCH (07:44)
[2018-04-12] MEDS: Isosorbide MONOnitrate (24 HR) 30 MG TAB.ER.24H PO SCH (07:44)
[2018-04-12] MEDS: Multivit/Ca/Min/Fe/FA 1 TAB TABLET PO SCH (07:44)
[2018-04-12] MEDS: amLODIPine 5 MG TABLET PO SCH (07:44)
[2018-04-12] MEDS: Pantoprazole 40 MG VIAL IVP SCH (07:45)
[2018-04-12] MEDS: Chlorhexidine Rinse 15 ML MOUTHWASH MM SCH ×2 (07:45→20:16)
[2018-04-12] MEDS: Nicotine 7 MG PATCH.TD24 TD SCH (07:47)
[2018-04-12] MEDS: Fluticasone Propionate Nasal 50 MCG/SPRAY BOTTLE NS SCH (07:48)
[2018-04-12] MEDS: Budesonide/Formoterol 160/4.5 1 PUFF INH IH SCH ×2 (07:48→20:06)
[2018-04-12] MEDS: Insulin DETEMIR 100 UNIT/ML X5UNITS SQ SCH ×2 (08:09→20:24)
[2018-04-12] MEDS ORDERED: Insulin DETEMIR 100 UNIT/ML X5UNITS SQ SCH ×2 (09:00→21:00)
[2018-04-12] MEDS ORDERED: Insulin DETEMIR 100 UNIT/ML X5UNITS SQ ONE (09:15)
[2018-04-12] MEDS ORDERED: Isosorbide MONOnitrate (24 HR) 30 MG TAB.ER.24H PO ONE (09:15)
[2018-04-12] MEDS: Furosemide 40 MG/4 ML VIAL IVP SCH (09:36)
[2018-04-12 14:43] LABS: Calcium 8.5 mg/dL (8.6-10.3); Potassium 5.6 mEq/L (3.5-5.1)
--- NOTE | 2018-04-12 17:49 | Electrocardiograph Report ---
[address] [place], [place] [address] Test Date: 2018-04-10 Pat Name: Larry Chase Department: 112 Room: 12 Gender: M [employer]: : 1955 Requested By: Jared Morrison Order Number: [id number] Reading MD: Cydney Givens Measurements Intervals [place] Rate: 81 P: 91 AL: 154 QRS: -20 QRSD: 107 T: 69 QT: 366 QTc: 404 Interpretive Statements SINUS RHYTHM Electronically Signed On 04-12-2018 17:47:39 EDT by Cydney Givens
[2018-04-12] MEDS: FentaNYL (PF) 2,500 MCG in EMPTY BAG 1 EACH IVC SCH (21:51)
[2018-04-13] MEDS: Dexmedetomidine HCl 400 MCG/100 ML MLS IVC SCH ×6 (00:52→22:23)
[2018-04-13] MEDS: Insulin LISPRO 300 UNITS/3 ML VIAL SQ SCH ×2 (03:31→08:51)
[2018-04-13] MEDS: Artificial Tears SOLN 15 ML BOTTLE BOTH EYES SCH ×5 (03:31→20:30)
[2018-04-13] MEDS: Ipratropium/Albuterol Neb 3 ML IH SCH ×5 (03:39→19:35)
[2018-04-13 04:45] LABS: Basophils % 0.1 %; Eosinophils % 0.1 %; Hematocrit 47.4 % (37.5-50.1); Hemoglobin 14.5 g/dL (12.9-16.9); Immature Granulocytes % 0.7 % (0-4); Lymphocytes % 6.5 %; Mean Corpuscular HGB Conc 30.6 g/dL (31.6-35.5); Mean Corpuscular Hemoglobin 26.1 pg (28.0-33.3); Mean Corpuscular Volume 85.4 fL (83.0-100.0); Mean Platelet Volume 10.4 fL (9.4-12.4); Monocytes # 1.1 K/mcL (0.0-1.3); Monocytes % 7.7 %; Neutrophils # 12.5 K/mcL (1.6-8.9); Platelet Count 159 K/mcL (140-400); Red Blood Count 5.55 M/mcL (4.19-5.50); Red Cell Distribution Width 14.3 % (11.5-14.5); Segmented Neutrophils % 84.9 %
[2018-04-13 04:54] LABS: VBG HCO3 37 mEq/L (21-27); VBG Ionized Calcium 0.99 mmol/L (1.15-1.35); VBG PCO2 61 mmHg (41-51); VBG PH 7.39 pH Units (7.32-7.42); VBG PO2 89 mmHg (25-50)
[2018-04-13 04:56] LABS: ABG Base Excess 9 mEq/L (-2 to 3); ABG HCO3 38 mEq/L (21-27); ABG Oxygen Saturation 93 % (95-98); ABG PCO2 66 mmHg (35-45); ABG PH 7.36 pH Units (7.32-7.45); ABG PO2 74 mmHg (85-104); ABG TCO2 40 mEq/L (20-26); Blood Gas Modality PRVC; Blood Gas PEEP 8 cm H2O; Blood Gas Respiration Rate 12; Blood Gas VT 500 cc
[2018-04-13] MEDS: MethylPREDNISolone 40 MG/ML VIAL IVP SCH (05:12)
[2018-04-13] MEDS: *HR* Heparin 5,000 UNIT/ML VIAL SQ SCH ×3 (05:12→22:23)
[2018-04-13] MEDS: hydrALAZINE 10 MG TABLET PO SCH ×3 (05:13→16:19)
[2018-04-13 07:26] LABS: Albumin 3.5 g/dL (3.5-5.7); BUN/Creatinine Ratio 46 (6-26); Blood Urea Nitrogen 64 mg/dL (8-23); Calcium 8.3 mg/dL (8.6-10.3); Carbon Dioxide 33 mEq/L (23-29); Chloride 97 mEq/L (98-107); Glucose 294 mg/dL (70-105); Magnesium 2.6 mg/dL (1.6-2.6); Osmolality,Calculated 315 (280-300); Phosphorous 4.6 mg/dL (2.7-4.5); Potassium 5.1 mEq/L (3.5-5.1); Sodium 138 mEq/L (136-145); eGFR For Non-African Americans 52 (> 60)
--- NOTE | 2018-04-13 07:28 | Pulmonology Progress Note ---
Date of Encounter: 04/13/18 Time of Encounter: 07:28 Assessment and Plan (1) Acute respiratory failure with hypoxia Current Visit: Yes Status: Acute I spent 35 min of Critical Care time with this patient. It involved decision making of high complexity to assess, manipulate, and support vital organ system failure and/or to prevent further life threatening deterioration of the patient' s condition. The time involved in the performance of separately reportable procedures was not counted toward critical care time. Patient seen and examined at bedside Labs, radiology, chart personally reviewed. Management was reviewed during multidisciplinary critical care rounds. 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 Goal [place] 2 Pulm: Acute on chronic hypoxic hypercapnic respiratory failure secondary to COPD exacerbation. Acceptable gas exchange today but still remains on 50% FiO2 and 8 of PEEP Likely complicated by pneumonia and heart failure. Given evidence of infectious process overnight and still significant encephalopathy not an ideal candidate for spontaneous breathing trial today Cards: Acute on chronic heart failure with preserved ejection fraction remains volume overloaded cont diuresis today blood pressure better controlled; CAD cont DAPT. GI: GI prophylaxis given Nutrition: Given enteral nutrition per dietary recommendations- we will discuss with that service regarding adjustment of enteral nutrition source that is less hyperglycemic Renal: Acute kidney injury stable mild hyperkalemia which is likely related to hyperglycemia and will correct with correction of this. UOP Monitored, Cont to Trend sCr and monitor Electrolytes. ID: Patient recultured started empiric antimicrobials for possible VAP Heme/Onc: DVT prophylaxis given H&H and platelets monitored and stable Endo: Glucose Monitored Persistently hyperglycemic stop the IV glucocorticoids today we will increase dose of basal bolus insulin again if no improvement likely would need insulin infusion. Integ/MSK: Skin Care per routine ICU Nursing Protocol to prevent ulcers. Lines: All lines examined without evidence of infection : Dispo: Remains critically ill CODE: Full - updated CLAUDIA Roland updated on the phone and I explained that father's prognosis remains guarded as he has multiple medical comorbidities and advanced emphysema and remains on ventilator for approximately a week (2) Hypertension Current Visit: Yes Status: Acute Qualifiers: Hypertension type: essential hypertension Qualified Code(s): I10 - Essential (primary) hypertension (3) (HFpEF) heart failure with preserved ejection fraction Current Visit: Yes Status: Acute (4) Acute exacerbation of chronic obstructive airways disease Current Visit: Yes Status: Acute (5) CAD (coronary artery disease) Current Visit: Yes Status: Chronic Qualifiers: Coronary Disease-Associated Artery/Lesion type: [place] artery [place] vs. transplanted heart: [place] heart Associated angina: without angina Qualified Code(s): I25.10 - Atherosclerotic heart disease of [place] coronary artery without angina pectoris (6) Tobacco dependence due to cigarettes Current Visit: Yes Status: Chronic (7) Acute and chronic respiratory failure with hypercapnia Current Visit: Yes Status: Acute (8) Acute kidney injury Current Visit: Yes Status: Acute (9) DVT prophylaxis Current Visit: Yes Status: Acute Subjective Principal diagnosis: Acute exacerbation of COPD Interval history: Patient has evidence of hyperkalemia and was medically treated overnight this was fairly mild in nature. Otherwise remained hemodynamically stable also has hyperglycemia difficult to control. Spiked a fever to greater than 101 overnight lynn cultured and chest x-ray obtained antibiotics were broadened. He is comfortable on low dose continuous infusion of sedative when this was lifted he becomes extremely agitated and is a threat to remove his endotracheal tube Objective PUL Vital signs: Last Vital Signs Temp 101.1 F H 04/13/18 04:00 Pulse 66 04/13/18 06:00 Resp 16 04/13/18 06:00 BP 125/72 04/13/18 06:00 Pulse Ox 94 04/13/18 06:00 General appearance: other (Comfortable when examined on sedation to his name is able to open his eyes and follow (intermittently) simple commands) Auscultation: bilateral: wheezes (Faint expiratory wheezes predominantly in anterior lung clark), rhonchi (Scattered rhonchi but predominantly in the lung bases) Cardiovascular: regular rate and rhythm Gastrointestinal: normoactive bowel sounds, soft, non-tender Integumentary: normal Extremities: no cyanosis, pink and warm, pulses normal, edema (Trace lower extremity edema) Musculoskeletal: no deformities pupils equal and round, other (He does move all extremities to command there is no evidence of a focal weakness) other (Generally comfortable on sedation) Ventilator Settings Ventilator Settings: Ventilator Settings, Last 8 Hours Ventilator Tidal Volume 500 Setting Ventilator Tidal Volume 500 Setting Ventilator Tidal Volume 500 Setting Ventilator Tidal Volume 500 Setting Ventilator Tidal Volume 500 Setting Ventilator Tidal Volume 500 Setting Ventilator Tidal Volume 500 Setting Ventilator Tidal Volume 500 Setting Ventilator Tidal Volume 500 Setting Ventilator Tidal Volume 500 Setting Ventilator Tidal Volume 500 Setting Ventilator Tidal Volume 500 Setting Ventilator Respiratory Rate 12 Setting Ventilator Respiratory Rate 12 Setting Ventilator Respiratory Rate 12 Setting Ventilator Respiratory Rate 12 Setting Ventilator Respiratory Rate 12 Setting Ventilator Respiratory Rate 12 Setting Ventilator Respiratory Rate 12 Setting Ventilator Respiratory Rate 12 Setting Ventilator Respiratory Rate 12 Setting Ventilator Respiratory Rate 12 Setting Ventilator Respiratory Rate 12 Setting Ventilator Respiratory Rate 12 Setting Actual Respiratory Rate 16 Actual Respiratory Rate 16 Actual Respiratory Rate 16 Actual Respiratory Rate 14 Actual Respiratory Rate 14 Actual Respiratory Rate 15 Actual Respiratory Rate 16 Actual Respiratory Rate 16 Actual Respiratory Rate 15 Actual Respiratory Rate 17 Actual Respiratory Rate 16 Positive End Expiratory 8 Pressure Positive End Expiratory 8 Pressure Positive End Expiratory 8 Pressure Positive End Expiratory 8 Pressure Positive End Expiratory 8 Pressure Positive End Expiratory 8 Pressure Positive End Expiratory 8 Pressure Positive End Expiratory 8 Pressure Positive End Expiratory 8 Pressure Positive End Expiratory 8 Pressure Positive End Expiratory 8 Pressure Positive End Expiratory 8 Pressure Peak Inspiratory Airway 24 Pressure Peak Inspiratory Airway 23 Pressure Peak Inspiratory Airway 22 Pressure Peak Inspiratory Airway 23 Pressure Peak Inspiratory Airway 28 Pressure Peak Inspiratory Airway 24 Pressure Peak Inspiratory Airway 23 Pressure Peak Inspiratory Airway 22 Pressure Peak Inspiratory Airway 23 Pressure Peak Inspiratory Airway 26 Pressure Peak Inspiratory Airway 23 Pressure Results - Laboratory Findings CBC and BMP: 04/13/18 04:35 04/13/18 04:35 ABG ABG pH 7.36 pH Units (7.32-7.45) 04/13/18 04:52 ABG pCO2 66 mmHg (35-45) H 04/13/18 04:52 ABG pO2 74 mmHg (85-104) L 04/13/18 04:52 ABG O2 Saturation 93 % (95-98) L 04/13/18 04:52 Abnormal lab findings: Abnormal lab results WBC 14.7 K/mcL (4.3-11.1) H 04/13/18 04:35 RBC 5.55 M/mcL (4.19-5.50) H 04/13/18 04:35 MCH 26.1 pg (28.0-33.3) L 04/13/18 04:35 MCHC 30.6 g/dL (31.6-35.5) L 04/13/18 04:35 Neutrophils # 12.5 K/mcL (1.6-8.9) H 04/13/18 04:35 ABG pCO2 66 mmHg (35-45) H 04/13/18 04:52 ABG pO2 74 mmHg (85-104) L 04/13/18 04:52 ABG HCO3 38 mEq/L (21-27) H 04/13/18 04:52 ABG Total CO2 40 mEq/L (20-26) H 04/13/18 04:52 ABG O2 Saturation 93 % (95-98) L 04/13/18 04:52 ABG Base Excess 9 mEq/L (-2 to 3) H 04/13/18 04:52 VBG pCO2 61 mmHg (41-51) H 04/13/18 04:50 VBG pO2 89 mmHg (25-50) H 04/13/18 04:50 VBG HCO3 37 mEq/L (21-27) H 04/13/18 04:50 Chloride 97 mEq/L (98-107) L 04/13/18 04:35 Carbon Dioxide 33 mEq/L (23-29) H 04/13/18 04:35 BUN 64 mg/dL (8-23) H 04/13/18 04:35 Creatinine 1.38 mg/dL (0.70-1.30) H 04/13/18 04:35 Est GFR (Non-Af Amer) 52 (> 60) L 04/13/18 04:35 BUN/Creatinine Ratio 46 (6-26) H 04/13/18 04:35 Glucose 294 mg/dL (70-105) H 04/13/18 04:35 POC Glucose 302 mg/dL (70-99) H 04/13/18 03:30 Calculated Osmolality 315 (280-300) H 04/13/18 04:35 Calcium 8.3 mg/dL (8.6-10.3) L 04/13/18 04:35 Venous Ioniz Calcium 0.99 mmol/L (1.15-1.35) L 04/13/18 04:50 Phosphorus 4.6 mg/dL (2.7-4.5) H 04/13/18 04:35 Entero/Rhino (PCR) DETECTED (Not Detect) A 04/07/18 15:03 - Microbiology Findings Microbiology Findings: Microbiology, Last 48 Hours 04/07/18 03:42 Blood Culture - Final Peripheral Venipuncture No growth. Final report. 04/07/18 03:42 Blood Culture - Final Peripheral Venipuncture No growth. Final report. - Diagnostic Findings Chest x-ray: report reviewed, image reviewed - Clinical Findings Intake & Output: Intake & Output 04/12/18 04/12/18 04/13/18 15:59 23:59 07:59 Intake Total 520 / 520 1785 / 1785 665 / 665 Output Total 3150 / 3150 1625 / 1625 300 / 300 Balance -2630 / -2630 160 / 160 365 / 365 - VTE Documentation of Mechanical Device: Intermittent pneumatic compression device Consult Discharge Plan - Plan Instructions: Chronic Obstructive Pulmonary Disease (ED) Referrals: Christiano Santacruz MD [Primary Care Provider] -
[2018-04-13] MEDS: Budesonide/Formoterol 160/4.5 1 PUFF INH IH SCH ×2 (08:15→19:35)
[2018-04-13] MEDS: Isosorbide MONOnitrate (24 HR) 60 MG TAB.ER.24H PO SCH (08:47)
[2018-04-13] MEDS: Fluticasone Propionate Nasal 50 MCG/SPRAY BOTTLE NS SCH (08:47)
[2018-04-13] MEDS: Furosemide 40 MG/4 ML VIAL IVP SCH (08:48)
[2018-04-13] MEDS: Multivit/Ca/Min/Fe/FA 1 TAB TABLET PO SCH (08:48)
[2018-04-13] MEDS: Pantoprazole 40 MG VIAL IVP SCH (08:48)
[2018-04-13] MEDS: Loratadine 10 MG TABLET PO SCH (08:48)
[2018-04-13] MEDS: Aspirin 81 MG TAB.CHEW PO SCH (08:49)
[2018-04-13] MEDS: amLODIPine 5 MG TABLET PO SCH (08:49)
[2018-04-13] MEDS: Nicotine 7 MG PATCH.TD24 TD SCH (08:49)
[2018-04-13] MEDS: Nicotine 21 MG PATCH.TD24 TD SCH (08:50)
[2018-04-13] MEDS: Chlorhexidine Rinse 15 ML MOUTHWASH MM SCH ×2 (08:50→20:28)
[2018-04-13] MEDS: Cefepime HCl 2,000 MG in 0.9 % Sodium Chloride Mini Bag 100 ML IVPB SCH ×2 (08:51→20:32)
[2018-04-13] MEDS: Insulin DETEMIR 100 UNIT/ML X5UNITS SQ SCH (08:53)
[2018-04-13] MEDS: Insulin Human Regular 100 UNIT in 0.9 % Sodium Chloride 100 ML IVC SCH (11:00)
[2018-04-13] MEDS: FentaNYL (PF) 2,500 MCG in EMPTY BAG 1 EACH IVC SCH (14:09)
[2018-04-14] MEDS: Ipratropium/Albuterol Neb 3 ML IH SCH ×7 (00:11→23:14)
[2018-04-14] MEDS: Artificial Tears SOLN 15 ML BOTTLE BOTH EYES SCH ×6 (00:22→20:23)
[2018-04-14] MEDS: hydrALAZINE 10 MG TABLET PO SCH ×4 (00:22→17:14)
[2018-04-14] MEDS ORDERED: Acetaminophen IV 1,000 MG/100 ML INFUS..BTL IVPB ONE (00:31)
[2018-04-14 02:05] LABS: Basophils % 0.2 %; Eosinophils # 0.2 K/mcL (0.0-0.6); Eosinophils % 1.2 %; Hematocrit 50.5 % (37.5-50.1); Hemoglobin 15.1 g/dL (12.9-16.9); Immature Granulocytes % 0.9 % (0-4); Lymphocytes # 1.5 K/mcL (0.6-4.6); Lymphocytes % 10.5 %; Mean Corpuscular HGB Conc 29.9 g/dL (31.6-35.5); Mean Corpuscular Hemoglobin 26.4 pg (28.0-33.3); Mean Corpuscular Volume 88.4 fL (83.0-100.0); Mean Platelet Volume 11.9 fL (9.4-12.4); Monocytes # 1.7 K/mcL (0.0-1.3); Monocytes % 12.3 %; Neutrophils # 10.4 K/mcL (1.6-8.9); Platelet Count 149 K/mcL (140-400); Red Blood Count 5.71 M/mcL (4.19-5.50); Segmented Neutrophils % 74.9 %
[2018-04-14 02:41] LABS: Bilirubin,Urine Negative (Negative); Blood,Urine Negative (Negative); Clarity,Urine Clear (Clear); Color,Urine Yellow (Yellow); Glucose,Urine (UA) Normal (Normal); Ketones,Urine Negative (Negative); Leukocyte Esterase,Urine Negative (Negative); Nitrite,Urine Negative (Negative); PH,Urine 5.5 pH Units (5.0-8.0); Protein,Urine 30 mg/dL (Neg-Trace); Specific Gravity,Urine 1.022 (1.010-1.025); Urobilinogen,Urine Normal (Normal)
[2018-04-14 02:43] LABS: Bacteria,Urine None Seen per hpf (None-Few); Hyaline Casts,Urine None Seen per lpf (None-Few); RBC,Urine 0-3 per hpf (0-3); Squamous Epithelial Cell,Urine Many per lpf (None-Few)
[2018-04-14] MEDS: Dexmedetomidine HCl 400 MCG/100 ML MLS IVC SCH ×4 (03:10→23:05)
[2018-04-14] MEDS: Insulin Human Regular 100 UNIT in 0.9 % Sodium Chloride 100 ML IVC SCH (03:17)
[2018-04-14 04:16] LABS: BUN/Creatinine Ratio 50 (6-26); Blood Urea Nitrogen 72 mg/dL (8-23); Calcium 8.3 mg/dL (8.6-10.3); Carbon Dioxide 35 mEq/L (23-29); Chloride 98 mEq/L (98-107); Glucose 144 mg/dL (70-105); Magnesium 2.6 mg/dL (1.6-2.6); Osmolality,Calculated 316 (280-300); Phosphorous 4.6 mg/dL (2.7-4.5); Potassium 4.9 mEq/L (3.5-5.1); Sodium 141 mEq/L (136-145); eGFR For Non-African Americans 50 (> 60)
[2018-04-14 04:44] LABS: ABG Base Excess 10 mEq/L (-2 to 3); ABG HCO3 39 mEq/L (21-27); ABG Oxygen Saturation 91 % (95-98); ABG PCO2 69 mmHg (35-45); ABG PH 7.37 pH Units (7.32-7.45); ABG PO2 66 mmHg (85-104); ABG TCO2 41 mEq/L (20-26); Blood Gas Modality ASSIST CONTROL; Blood Gas PEEP 8 cm H2O; Blood Gas Respiration Rate 12; Blood Gas VT 500 cc
[2018-04-14] MEDS: *HR* Heparin 5,000 UNIT/ML VIAL SQ SCH ×3 (05:58→21:58)
[2018-04-14] MEDS: FentaNYL (PF) 2,500 MCG in EMPTY BAG 1 EACH IVC SCH ×2 (06:22→17:22)
--- NOTE | 2018-04-14 06:46 | Pulmonology Progress Note ---
<Tnai Johansen W - Last Filed: 04/14/18 09:10> Date of Encounter: 04/14/18 Assessment and Plan (1) Acute respiratory failure with hypoxia Current Visit: Yes Status: Acute (2) Hypertension Current Visit: Yes Status: Acute Qualifiers: Hypertension type: essential hypertension Qualified Code(s): I10 - Essential (primary) hypertension (3) (HFpEF) heart failure with preserved ejection fraction Current Visit: Yes Status: Acute (4) Acute exacerbation of chronic obstructive airways disease Current Visit: Yes Status: Acute (5) CAD (coronary artery disease) Current Visit: Yes Status: Chronic Qualifiers: Coronary Disease-Associated Artery/Lesion type: [place] artery [place] vs. transplanted heart: [place] heart Associated angina: without angina Qualified Code(s): I25.10 - Atherosclerotic heart disease of [place] coronary artery without angina pectoris (6) Tobacco dependence due to cigarettes Current Visit: Yes Status: Chronic (7) Acute and chronic respiratory failure with hypercapnia Current Visit: Yes Status: Acute (8) Acute kidney injury Current Visit: Yes Status: Acute (9) DVT prophylaxis Current Visit: Yes Status: Acute Objective PUL Vital signs: Last Vital Signs Temp 100.8 F H 04/14/18 04:00 Pulse 64 04/14/18 07:00 Resp 13 04/14/18 07:34 BP 97/56 04/14/18 07:00 Pulse Ox 92 04/14/18 07:34 Ventilator Settings Ventilator Settings: Ventilator Settings, Last 8 Hours Ventilator Tidal Volume 500 Setting Ventilator Tidal Volume 500 Setting Ventilator Tidal Volume 500 Setting Ventilator Tidal Volume 500 Setting Ventilator Tidal Volume 500 Setting Ventilator Respiratory Rate 12 Setting Ventilator Respiratory Rate 12 Setting Ventilator Respiratory Rate 12 Setting Ventilator Respiratory Rate 12 Setting Ventilator Respiratory Rate 12 Setting Actual Respiratory Rate 13 Actual Respiratory Rate 13 Actual Respiratory Rate 14 Actual Respiratory Rate 12 Positive End Expiratory 8 Pressure Positive End Expiratory 8 Pressure Positive End Expiratory 8 Pressure Positive End Expiratory 5 Pressure Positive End Expiratory 5 Pressure Peak Inspiratory Airway 27 Pressure Peak Inspiratory Airway 22 Pressure Peak Inspiratory Airway 23 Pressure Peak Inspiratory Airway 26 Pressure Results - Laboratory Findings CBC and BMP: 04/14/18 01:49 04/14/18 03:27 ABG ABG pH 7.37 pH Units (7.32-7.45) 04/14/18 04:40 ABG pCO2 69 mmHg (35-45) H 04/14/18 04:40 ABG pO2 66 mmHg (85-104) L 04/14/18 04:40 ABG O2 Saturation 91 % (95-98) L 04/14/18 04:40 Abnormal lab findings: Abnormal lab results WBC 13.9 K/mcL (4.3-11.1) H 04/14/18 01:49 RBC 5.71 M/mcL (4.19-5.50) H 04/14/18 01:49 Hct 50.5 % (37.5-50.1) H 04/14/18 01:49 MCH 26.4 pg (28.0-33.3) L 04/14/18 01:49 MCHC 29.9 g/dL (31.6-35.5) L 04/14/18 01:49 Neutrophils # 10.4 K/mcL (1.6-8.9) H 04/14/18 01:49 Monocytes # 1.7 K/mcL (0.0-1.3) H 04/14/18 01:49 ABG pCO2 69 mmHg (35-45) H 04/14/18 04:40 ABG pO2 66 mmHg (85-104) L 04/14/18 04:40 ABG HCO3 39 mEq/L (21-27) H 04/14/18 04:40 ABG Total CO2 41 mEq/L (20-26) H 04/14/18 04:40 ABG O2 Saturation 91 % (95-98) L 04/14/18 04:40 ABG Base Excess 10 mEq/L (-2 to 3) H 04/14/18 04:40 VBG pCO2 61 mmHg (41-51) H 04/13/18 04:50 VBG pO2 89 mmHg (25-50) H 04/13/18 04:50 VBG HCO3 37 mEq/L (21-27) H 04/13/18 04:50 Carbon Dioxide 35 mEq/L (23-29) H 04/14/18 03:27 BUN 72 mg/dL (8-23) H 04/14/18 03:27 Creatinine 1.44 mg/dL (0.70-1.30) H 04/14/18 03:27 Est GFR (Non-Af Amer) 50 (> 60) L 04/14/18 03:27 BUN/Creatinine Ratio 50 (6-26) H 04/14/18 03:27 Glucose 144 mg/dL (70-105) H 04/14/18 03:27 POC Glucose 206 mg/dL (70-99) H 04/14/18 09:05 Calculated Osmolality 316 (280-300) H 04/14/18 03:27 Calcium 8.3 mg/dL (8.6-10.3) L 04/14/18 03:27 Venous Ioniz Calcium 0.99 mmol/L (1.15-1.35) L 04/13/18 04:50 Phosphorus 4.6 mg/dL (2.7-4.5) H 04/14/18 03:27 Urine Protein 30 mg/dL (Neg-Trace) H 04/14/18 02:25 Urine Microscopic WBC 3-5 per hpf (0-3) H 04/14/18 02:25 Ur Squamous Epith Cells Many per lpf (None-Few) H 04/14/18 02:25 Entero/Rhino (PCR) DETECTED (Not Detect) A 04/07/18 15:03 - Microbiology Findings Microbiology Findings: Microbiology, Last 48 Hours 04/13/18 07:14 Blood Culture - Preliminary Peripheral Venipuncture Culture is incubating and being continuously monitored for growth. Final report to follow. 04/13/18 07:14 Blood Culture - Preliminary Peripheral Venipuncture Culture is incubating and being continuously monitored for growth. Final report to follow. 04/07/18 03:42 Blood Culture - Final Peripheral Venipuncture No growth. Final report. 04/07/18 03:42 Blood Culture - Final Peripheral Venipuncture No growth. Final report. - Clinical Findings Intake & Output: Intake & Output 04/13/18 04/14/18 04/14/18 23:59 07:59 15:59 Intake Total 708.4 / 708.4 1484.8 / 1484.8 Output Total 425 / 425 450 / 450 Balance 283.4 / 283.4 1034.8 / 1034.8 Consult Discharge Plan - Plan Instructions: Chronic Obstructive Pulmonary Disease (ED) Referrals: Christiano Santacruz MD [Primary Care Provider] - - Attending Attestation I examined this patient and my medical decision-making was reviewed with the Resident Physician. I agree with the documented findings, disposition and treatment plan as described except to the extent set forth below. We independently had [id number] contact with the patient I spent 34min of Critical Care time with this patient. It involved decision making of high complexity to assess, manipulate, and support vital organ system failure and/or to prevent further life threatening deterioration of the patient' s condition. The time involved in the performance of separately reportable procedures was not counted toward critical care time. Patient seen and examined at bedside Labs, radiology, chart personally reviewed. Management was reviewed during multidisciplinary critical care rounds. 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 becomes very agitated and disrupts care no clear evidence of focal neurological deficit Pulm: Acute on chronic hypoxic hypercapnic respiratory failure worsening gas exchange in last 24 hours which I suspect is a manifestation of underlying sepsis/pneumonia I have adjusted his ventilator to accommodate for this including increasing FiO2 increasing PEEP and increasing respiratory rate continue bronchodilators for COPD were holding steroids for COPD exacerbation because of the hyperglycemia these may need to be restarted Cards: Heart failure with preserved ejection fraction with evidence of volume hydrostatic pulmonary edema increase Lasix diuresis to twice a day GI: GI prophylaxis given Nutrition: Continue enteral nutrition per dietary recommendations Renal: Stable renal function UOP Monitored, Cont to Trend sCr and monitor Electrolytes. ID: Patient has been spiking fevers or last 48 hours I suspect underlying pneumonia pending cultures he is on broad-spectrum antibiotics for hospital associated pathogens. Planned to de-escalate based upon clinical course and microbiological sensitivity; we have started treatment for thrush with fluconazole Heme/Onc: DVT prophylaxis given Endo: Glucose Monitored Integ/MSK: Skin Care per routine ICU Nursing Protocol to prevent ulcers. Lines: All lines examined without evidence of infection : Dispo: Remain in ICU for critical illness CODE: Prognosis guarded full code <Amanda Fontanez - Last Filed: 04/14/18 12:29> Date of Encounter: 04/14/18 Time of Encounter: 06:46 Assessment and Plan (1) Acute kidney injury Current Visit: Yes Status: Acute Cr 1.44 today, trending down from high of 1.81. Gentle diuresis, gentle hydration, continue to monitor. (2) Hypotension Current Visit: Yes Status: Resolved Currently resolved. Qualifiers: Hypotension type: unspecified hypotension type Qualified Code(s): I95.9 - Hypotension, unspecified (3) Acute exacerbation of chronic obstructive airways disease Current Visit: Yes Status: Acute Pt presented with several weeks of increasing shortness of breath and change in sputum. Pt has hx of PNA, but currently has no evidence on imaging of consolidation. Swab positive for rhinovirus. - BC from 04/08/18, no growth, repeat cultures from 04/13/18 pending - Vancomycin 1,250mg Q12 - Albuterol/ipratropium 3mL IH Q4 - Last ABG showed pH 7.37, CP2 69, O2 66, bicarb 39 - Pt remains critically ill and is not a candidate for SBT at this time (4) Congestive heart failure Current Visit: Yes Status: Acute 1+ zay LE edema evident on exam with some blunting of costophrenic angles on imaging. Currently, mild bibasilar wheezes on exam - Takes 10mg Amlodipine at home - Has been getting 40mg lasix BID here, current K 4.9, continue current dose - Continue to monitor Qualifiers: Heart failure type: diastolic Heart failure chronicity: acute on chronic Qualified Code(s): I50.33 - Acute on chronic diastolic (congestive) heart failure (5) Diabetes Current Visit: Yes Status: Chronic Pt takes 50mg Glargine and home, on 10mg BID Levemir here. Insulin drip restarted. BSG has been in low 100's. Pt has gone on and off insulin drip during his admission. Steroids have been d/c'd for now. Talk with dietary and discuss lower sugar tube feeds. Qualifiers: Diabetes mellitus type: other specified (including JADEN) Diabetes mellitus gambling box person insulin use: unspecified gambling box person insulin use status Diabetes mellitus complication status: without complication Qualified Code(s): E13.9 - Other specified diabetes mellitus without complications (6) Candidiasis of mouth Current Visit: Yes Status: Acute Fluconazole 400mg IV QD (7) DVT prophylaxis Current Visit: Yes Status: Acute SCDs in place, home dosage of Plavix continued, low dose heparin (8) Acute respiratory failure with hypoxia Current Visit: Yes Status: Acute Pt is intubated and ventilated on respirator. Despite Fi02 of 65%, PEEP of 12, adequate TV, and RR, he remains hypoxic with worsening ABGs. Pt has a long hx of COPD, continued smoking, and noncompliance with therapy. Family is aware that patient's condition remains guarded with poor prognosis. (9) CAD (coronary artery disease) Current Visit: Yes Status: Chronic Maintain SBP <180 Qualifiers: Coronary Disease-Associated Artery/Lesion type: [place] artery [place] vs. transplanted heart: [place] heart Associated angina: without angina Qualified Code(s): I25.10 - Atherosclerotic heart disease of [place] coronary artery without angina pectoris (10) Tobacco dependence due to cigarettes Current Visit: Yes Status: Chronic Once patient is extubated, provide counseling and resources for smoking cessation (11) Acute and chronic respiratory failure with hypercapnia Current Visit: Yes Status: Acute Pt is ventilated on respirator. Continue to monitor ABGs, adjust ventilator settings to maintain Pa02 >60. Subjective Principal diagnosis: Acute exacerbation of COPD Interval history: Mr Chase is a 62M with PmHx of COPD, Stage 3 CKD, CHF, Bladder Ca, current 1/2ppd smoker that initially presented with IRMA to the [facility] ED on 04/06/18 and was admitted to the floor. Pt was noncompliant with NC and BiPAP and had clinical deterioration, so was xferred to ICU. Pt is now ICU day 7. No acute events overnight, but night resident noted that he had evidence of candidia in his oral cavity, and has not had a bowel movement in a few days. Dulcolax suppository will be given, and senna PRN will be changed to [place] scheduled. Fluconazole will be started for ericks[place]. QT was 290 on EKG last week, despite several medications that prolong QT at that time. Pt is not a good candidate for SBT at this time as he remains critically ill, requiring Fi02 65% and PEEP 8 to maintain PaO2 66. The ICU team spoke with family yesterday and cautioned that his condition remains guarded at this time. Objective PUL Vital signs: Last Vital Signs Temp 100.8 F H 04/14/18 04:00 Pulse 63 04/14/18 06:00 Resp 16 04/14/18 06:00 BP 102/58 04/14/18 06:00 Pulse Ox 92 04/14/18 06:00 General appearance: asleep Eyes: nonicteric ENT: oropharynx dry Effort: other (intubated and ventilated) Auscultation: left: clear, right: other (coarse breath sounds RUL/RLL) Cardiovascular: regular rate and rhythm Gastrointestinal: normoactive bowel sounds Integumentary: normal Extremities: no cyanosis, edema (1+ zay LE) Ventilator Settings Ventilator Settings: Ventilator Settings, Last 8 Hours Ventilator Tidal Volume 500 Setting Ventilator Tidal Volume 500 Setting Ventilator Tidal Volume 500 Setting Ventilator Tidal Volume 500 Setting Ventilator Tidal Volume 500 Setting Ventilator Tidal Volume 500 Setting Ventilator Respiratory Rate 12 Setting Ventilator Respiratory Rate 12 Setting Ventilator Respiratory Rate 12 Setting Ventilator Respiratory Rate 12 Setting Ventilator Respiratory Rate 12 Setting Ventilator Respiratory Rate 12 Setting Actual Respiratory Rate 13 Actual Respiratory Rate 14 Actual Respiratory Rate 12 Actual Respiratory Rate 15 Actual Respiratory Rate 16 Positive End Expiratory 8 Pressure Positive End Expiratory 8 Pressure Positive End Expiratory 5 Pressure Positive End Expiratory 5 Pressure Positive End Expiratory 5 Pressure Positive End Expiratory 5 Pressure Peak Inspiratory Airway 22 Pressure Peak Inspiratory Airway 23 Pressure Peak Inspiratory Airway 26 Pressure Peak Inspiratory Airway 26 Pressure Peak Inspiratory Airway 26 Pressure Results - Laboratory Findings CBC and BMP: 04/14/18 01:49 04/14/18 03:27 ABG ABG pH 7.37 pH Units (7.32-7.45) 04/14/18 04:40 ABG pCO2 69 mmHg (35-45) H 04/14/18 04:40 ABG pO2 66 mmHg (85-104) L 04/14/18 04:40 ABG O2 Saturation 91 % (95-98) L 04/14/18 04:40 Abnormal lab findings: Abnormal lab results WBC 13.9 K/mcL (4.3-11.1) H 04/14/18 01:49 RBC 5.71 M/mcL (4.19-5.50) H 04/14/18 01:49 Hct 50.5 % (37.5-50.1) H 04/14/18 01:49 MCH 26.4 pg (28.0-33.3) L 04/14/18 01:49 MCHC 29.9 g/dL (31.6-35.5) L 04/14/18 01:49 Neutrophils # 10.4 K/mcL (1.6-8.9) H 04/14/18 01:49 Monocytes # 1.7 K/mcL (0.0-1.3) H 04/14/18 01:49 ABG pCO2 69 mmHg (35-45) H 04/14/18 04:40 ABG pO2 66 mmHg (85-104) L 04/14/18 04:40 ABG HCO3 39 mEq/L (21-27) H 04/14/18 04:40 ABG Total CO2 41 mEq/L (20-26) H 04/14/18 04:40 ABG O2 Saturation 91 % (95-98) L 04/14/18 04:40 ABG Base Excess 10 mEq/L (-2 to 3) H 04/14/18 04:40 VBG pCO2 61 mmHg (41-51) H 04/13/18 04:50 VBG pO2 89 mmHg (25-50) H 04/13/18 04:50 VBG HCO3 37 mEq/L (21-27) H 04/13/18 04:50 Carbon Dioxide 35 mEq/L (23-29) H 04/14/18 03:27 BUN 72 mg/dL (8-23) H 04/14/18 03:27 Creatinine 1.44 mg/dL (0.70-1.30) H 04/14/18 03:27 Est GFR (Non-Af Amer) 50 (> 60) L 04/14/18 03:27 BUN/Creatinine Ratio 50 (6-26) H 04/14/18 03:27 Glucose 144 mg/dL (70-105) H 04/14/18 03:27 POC Glucose 114 mg/dL (70-99) H 04/14/18 05:56 Calculated Osmolality 316 (280-300) H 04/14/18 03:27 Calcium 8.3 mg/dL (8.6-10.3) L 04/14/18 03:27 Venous Ioniz Calcium 0.99 mmol/L (1.15-1.35) L 04/13/18 04:50 Phosphorus 4.6 mg/dL (2.7-4.5) H 04/14/18 03:27 Urine Protein 30 mg/dL (Neg-Trace) H 04/14/18 02:25 Urine Microscopic WBC 3-5 per hpf (0-3) H 04/14/18 02:25 Ur Squamous Epith Cells Many per lpf (None-Few) H 04/14/18 02:25 Entero/Rhino (PCR) DETECTED (Not Detect) A 04/07/18 15:03 - Microbiology Findings Microbiology Findings: Microbiology, Last 48 Hours 04/13/18 07:14 Blood Culture - Preliminary Peripheral Venipuncture Culture is incubating and being continuously monitored for growth. Final report to follow. 04/13/18 07:14 Blood Culture - Preliminary Peripheral Venipuncture Culture is incubating and being continuously monitored for growth. Final report to follow. 04/07/18 03:42 Blood Culture - Final Peripheral Venipuncture No growth. Final report. 04/07/18 03:42 Blood Culture - Final Peripheral Venipuncture No growth. Final report. - Clinical Findings Intake & Output: Intake & Output 04/13/18 04/13/18 04/14/18 15:59 23:59 07:59 Intake Total 650 / 650 708.4 / 708.4 1484.8 / 1484.8 Output Total 2200 / 2200 425 / 425 450 / 450 Balance -1550 / -1550 283.4 / 283.4 1034.8 / 1034.8 - VTE Documentation of Mechanical Device: Intermittent pneumatic compression device
[2018-04-14] MEDS: Budesonide/Formoterol 160/4.5 1 PUFF INH IH SCH ×2 (07:32→19:42)
[2018-04-14] MEDS ORDERED: *HR* Rocuronium Bromide 50 MG/5 ML VIAL IVC ONE (08:15)
[2018-04-14] MEDS: Cefepime HCl 2,000 MG in 0.9 % Sodium Chloride Mini Bag 100 ML IVPB SCH ×2 (09:22→20:21)
[2018-04-14] MEDS: Chlorhexidine Rinse 15 ML MOUTHWASH MM SCH ×2 (09:22→20:23)
[2018-04-14] MEDS: Multivit/Ca/Min/Fe/FA 1 TAB TABLET PO SCH (09:23)
[2018-04-14] MEDS: Pantoprazole 40 MG VIAL IVP SCH (09:23)
[2018-04-14] MEDS: Furosemide 40 MG/4 ML VIAL IVP SCH (09:23)
[2018-04-14] MEDS: Bisacodyl 10 MG RECTAL SUPPOSITORY RC SCH (09:23)
[2018-04-14] MEDS: Loratadine 10 MG TABLET PO SCH (09:23)
[2018-04-14] MEDS: Fluconazole 400 MG/200 ML 400 MG/200 ML BAG IVPB SCH (09:23)
[2018-04-14] MEDS: Sennosides/Docusate Sodium TABLET PO SCH ×2 (09:24→20:24)
[2018-04-14] MEDS: Nicotine 21 MG PATCH.TD24 TD SCH (09:24)
[2018-04-14] MEDS: Isosorbide MONOnitrate (24 HR) 60 MG TAB.ER.24H PO SCH (09:24)
[2018-04-14] MEDS: Aspirin 81 MG TAB.CHEW PO SCH (09:24)
[2018-04-14] MEDS: amLODIPine 5 MG TABLET PO SCH (09:25)
[2018-04-14] MEDS: Fluticasone Propionate Nasal 50 MCG/SPRAY BOTTLE NS SCH (09:25)
[2018-04-14] MEDS: Nicotine 7 MG PATCH.TD24 TD SCH (10:02)
[2018-04-14] MEDS: niCARdipine 40 MG/200 ML MLS IVC SCH (12:26)
[2018-04-14 17:14] LABS: Basophils % 0.2 %; Eosinophils # 0.3 K/mcL (0.0-0.6); Eosinophils % 2.1 %; Hematocrit 45.1 % (37.5-50.1); Immature Granulocytes % 1.5 % (0-4); Lymphocytes # 1.5 K/mcL (0.6-4.6); Lymphocytes % 10.8 %; Mean Corpuscular HGB Conc 29.7 g/dL (31.6-35.5); Mean Corpuscular Volume 87.6 fL (83.0-100.0); Mean Platelet Volume 11.9 fL (9.4-12.4); Monocytes # 1.9 K/mcL (0.0-1.3); Monocytes % 13.8 %; Platelet Count 122 K/mcL (140-400); Red Blood Count 5.15 M/mcL (4.19-5.50); Red Cell Distribution Width 14.2 % (11.5-14.5); Segmented Neutrophils % 71.6 %
[2018-04-14 17:15] LABS: Hemoglobin 13.4 g/dL (12.9-16.9)
[2018-04-14 17:24] LABS: Albumin 3.1 g/dL (3.5-5.7); Albumin/Globulin Ratio 1.2 (1.1-2.2); Bilirubin,Total 0.4 mg/dL (0.3-1.0); Calcium 8.4 mg/dL (8.6-10.3); Globulin 2.5 g/dL (2.4-3.5); Magnesium 2.7 mg/dL (1.6-2.6); Phosphorous 6.3 mg/dL (2.7-4.5); Potassium 5.1 mEq/L (3.5-5.1); Total Protein 5.6 g/dL (6.4-8.9)
[2018-04-15] MEDS: hydrALAZINE 10 MG TABLET PO SCH ×4 (00:21→17:05)
[2018-04-15] MEDS: Artificial Tears SOLN 15 ML BOTTLE BOTH EYES SCH ×6 (00:21→20:21)
[2018-04-15] MEDS: Ipratropium/Albuterol Neb 3 ML IH SCH ×5 (03:44→20:05)
[2018-04-15] MEDS: Insulin Human Regular 100 UNIT in 0.9 % Sodium Chloride 100 ML IVC SCH (04:01)
[2018-04-15 05:05] LABS: ABG Base Excess 9 mEq/L (-2 to 3); ABG HCO3 37 mEq/L (21-27); ABG Oxygen Saturation 96 % (95-98); ABG PCO2 61 mmHg (35-45); ABG PH 7.39 pH Units (7.32-7.45); ABG PO2 86 mmHg (85-104); ABG TCO2 39 mEq/L (20-26); Blood Gas Modality PRVC; Blood Gas PEEP 12 cm H2O; Blood Gas Respiration Rate 14; Blood Gas VT 500 cc
[2018-04-15] MEDS: FentaNYL (PF) 2,500 MCG in EMPTY BAG 1 EACH IVC SCH ×2 (05:06→17:24)
[2018-04-15] MEDS: *HR* Heparin 5,000 UNIT/ML VIAL SQ SCH ×3 (05:09→20:23)
[2018-04-15] MEDS: Budesonide/Formoterol 160/4.5 1 PUFF INH IH SCH ×2 (07:22→20:05)
[2018-04-15 07:28] LABS: Basophils % 0.2 %; Eosinophils # 0.3 K/mcL (0.0-0.6); Hematocrit 44.6 % (37.5-50.1); Hemoglobin 13.5 g/dL (12.9-16.9); Lymphocytes # 1.4 K/mcL (0.6-4.6); Lymphocytes % 9.6 %; Mean Corpuscular HGB Conc 30.3 g/dL (31.6-35.5); Mean Corpuscular Hemoglobin 26.7 pg (28.0-33.3); Mean Corpuscular Volume 88.3 fL (83.0-100.0); Mean Platelet Volume 12.7 fL (9.4-12.4); Monocytes # 1.5 K/mcL (0.0-1.3); Monocytes % 10.3 %; Neutrophils # 10.9 K/mcL (1.6-8.9); Platelet Count 123 K/mcL (140-400); Red Blood Count 5.05 M/mcL (4.19-5.50); Red Cell Distribution Width 14.3 % (11.5-14.5); Segmented Neutrophils % 76.9 %
--- NOTE | 2018-04-15 07:28 | Pulmonology Progress Note ---
<Tani Johansen W - Last Filed: 04/15/18 08:27> Date of Encounter: 04/15/18 Assessment and Plan (1) Acute respiratory failure with hypoxia Current Visit: Yes Status: Acute (2) Hypertension Current Visit: Yes Status: Acute Qualifiers: Hypertension type: essential hypertension Qualified Code(s): I10 - Essential (primary) hypertension (3) (HFpEF) heart failure with preserved ejection fraction Current Visit: Yes Status: Acute (4) Acute exacerbation of chronic obstructive airways disease Current Visit: Yes Status: Acute (5) CAD (coronary artery disease) Current Visit: Yes Status: Chronic Qualifiers: Coronary Disease-Associated Artery/Lesion type: [place] artery [place] vs. transplanted heart: [place] heart Associated angina: without angina Qualified Code(s): I25.10 - Atherosclerotic heart disease of [place] coronary artery without angina pectoris (6) Tobacco dependence due to cigarettes Current Visit: Yes Status: Chronic (7) Acute and chronic respiratory failure with hypercapnia Current Visit: Yes Status: Acute (8) Acute kidney injury Current Visit: Yes Status: Acute (9) DVT prophylaxis Current Visit: Yes Status: Acute Objective PUL Vital signs: Last Vital Signs Temp 97.2 F L 04/15/18 08:19 Pulse 64 04/15/18 06:00 Resp 19 04/15/18 07:24 BP 117/66 04/15/18 06:00 Pulse Ox 94 04/15/18 07:24 Ventilator Settings Ventilator Settings: Ventilator Settings, Last 8 Hours Ventilator Tidal Volume 500 Setting Ventilator Tidal Volume 500 Setting Ventilator Tidal Volume 500 Setting Ventilator Tidal Volume 500 Setting Ventilator Tidal Volume 500 Setting Ventilator Tidal Volume 500 Setting Ventilator Tidal Volume 500 Setting Ventilator Tidal Volume 500 Setting Ventilator Tidal Volume 500 Setting Ventilator Tidal Volume 500 Setting Ventilator Respiratory Rate 14 Setting Ventilator Respiratory Rate 14 Setting Ventilator Respiratory Rate 14 Setting Ventilator Respiratory Rate 14 Setting Ventilator Respiratory Rate 14 Setting Ventilator Respiratory Rate 14 Setting Ventilator Respiratory Rate 14 Setting Ventilator Respiratory Rate 14 Setting Ventilator Respiratory Rate 14 Setting Ventilator Respiratory Rate 14 Setting Actual Respiratory Rate 14 Actual Respiratory Rate 14 Actual Respiratory Rate 14 Actual Respiratory Rate 16 Actual Respiratory Rate 18 Actual Respiratory Rate 20 Actual Respiratory Rate 14 Actual Respiratory Rate 14 Actual Respiratory Rate 14 Actual Respiratory Rate 15 Positive End Expiratory 12 Pressure Positive End Expiratory 12 Pressure Positive End Expiratory 12 Pressure Positive End Expiratory 12 Pressure Positive End Expiratory 12 Pressure Positive End Expiratory 12 Pressure Positive End Expiratory 12 Pressure Positive End Expiratory 12 Pressure Positive End Expiratory 12 Pressure Positive End Expiratory 12 Pressure Peak Inspiratory Airway 27 Pressure Peak Inspiratory Airway 27 Pressure Peak Inspiratory Airway 28 Pressure Peak Inspiratory Airway 28 Pressure Peak Inspiratory Airway 29 Pressure Peak Inspiratory Airway 34 Pressure Peak Inspiratory Airway 28 Pressure Peak Inspiratory Airway 28 Pressure Peak Inspiratory Airway 28 Pressure Peak Inspiratory Airway 29 Pressure Results - Laboratory Findings CBC and BMP: 04/15/18 06:52 04/15/18 06:52 ABG ABG pH 7.39 pH Units (7.32-7.45) 04/15/18 05:02 ABG pCO2 61 mmHg (35-45) H 04/15/18 05:02 ABG pO2 86 mmHg (85-104) 04/15/18 05:02 ABG O2 Saturation 96 % (95-98) 04/15/18 05:02 Abnormal lab findings: Abnormal lab results WBC 14.2 K/mcL (4.3-11.1) H 04/15/18 06:52 MCH 26.7 pg (28.0-33.3) L 04/15/18 06:52 MCHC 30.3 g/dL (31.6-35.5) L 04/15/18 06:52 Plt Count 123 K/mcL (140-400) L 04/15/18 06:52 MPV 12.7 fL (9.4-12.4) H 04/15/18 06:52 Neutrophils # 10.9 K/mcL (1.6-8.9) H 04/15/18 06:52 Monocytes # 1.5 K/mcL (0.0-1.3) H 04/15/18 06:52 ABG pCO2 61 mmHg (35-45) H 04/15/18 05:02 ABG HCO3 37 mEq/L (21-27) H 04/15/18 05:02 ABG Total CO2 39 mEq/L (20-26) H 04/15/18 05:02 ABG Base Excess 9 mEq/L (-2 to 3) H 04/15/18 05:02 VBG pCO2 61 mmHg (41-51) H 04/13/18 04:50 VBG pO2 89 mmHg (25-50) H 04/13/18 04:50 VBG HCO3 37 mEq/L (21-27) H 04/13/18 04:50 Carbon Dioxide 35 mEq/L (23-29) H 04/15/18 06:52 BUN 73 mg/dL (8-23) H 04/15/18 06:52 Est GFR (Non-Af Amer) 58 (> 60) L 04/15/18 06:52 BUN/Creatinine Ratio 58 (6-26) H 04/15/18 06:52 Glucose 135 mg/dL (70-105) H 04/15/18 06:52 POC Glucose 136 mg/dL (70-99) H 04/15/18 08:08 Calculated Osmolality 316 (280-300) H 04/15/18 06:52 Venous Ioniz Calcium 1.10 mmol/L (1.15-1.35) L 04/15/18 07:33 Phosphorus 5.3 mg/dL (2.7-4.5) H 04/15/18 06:52 Magnesium 2.8 mg/dL (1.6-2.6) H 04/15/18 06:52 Serum Total Protein 5.6 g/dL (6.4-8.9) L 04/14/18 16:49 Albumin 3.1 g/dL (3.5-5.7) L 04/14/18 16:49 Urine Protein 30 mg/dL (Neg-Trace) H 04/14/18 02:25 Urine Microscopic WBC 3-5 per hpf (0-3) H 04/14/18 02:25 Ur Squamous Epith Cells Many per lpf (None-Few) H 04/14/18 02:25 Entero/Rhino (PCR) DETECTED (Not Detect) A 04/07/18 15:03 - Microbiology Findings Microbiology Findings: Microbiology, Last 48 Hours 04/14/18 19:50 Sputum Culture - Preliminary Aspirate 04/13/18 07:14 Blood Culture - Preliminary Peripheral Venipuncture Culture is incubating and being continuously monitored for growth. Final report to follow. 04/13/18 07:14 Blood Culture - Preliminary Peripheral Venipuncture Culture is incubating and being continuously monitored for growth. Final report to follow. - Clinical Findings Intake & Output: Intake & Output 04/14/18 04/15/18 04/15/18 23:59 07:59 15:59 Intake Total 583.5 / 583.5 422.5 / 422.5 Output Total 525 / 525 375 / 375 250 / 250 Balance 58.5 / 58.5 47.5 / 47.5 -250 / -250 Consult Discharge Plan - Plan Instructions: Chronic Obstructive Pulmonary Disease (ED) Referrals: Christiano Santacruz MD [Primary Care Provider] - - Attending Attestation I examined this patient and my medical decision-making was reviewed with the Resident Physician. I agree with the documented findings, disposition and treatment plan as described except to the extent set forth below. We independently had [id number] contact with the patient I spent 33min of Critical Care time with this patient. It involved decision making of high complexity to assess, manipulate, and support vital organ system failure and/or to prevent further life threatening deterioration of the patient' s condition. The time involved in the performance of separately reportable procedures was not counted toward critical care time. Patient seen and examined at bedside Labs, radiology, chart personally reviewed. Management was reviewed during multidisciplinary critical care rounds. 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 He remains on a low dose infusion of propofol and Precedex along with fentanyl which we are trying to decrease his much as possible Pulm: Acute on chronic hypoxic hypercarbic respiratory failure patient remains on the ventilator with FiO2 greater than 60% and PEEP greater than 10 he is not a candidate for spontaneous breathing trial today. Acceptable gas exchange an ABG yesterday his endotracheal tube was advanced deeper into the trachea he is a very torturous upper airway and trachea which has made problematic for endotracheal intubation as well as advancement of endotracheal tube; he has a COPD exacerbation for which she is being treated with bronchodilators he is received a course of steroids already. Cards: Heart failure with preserved ejection fraction blood pressure control actually on the lower side yesterday monitoring kidney function but would likely hold further aggressive diuresis today GI: GI prophylaxis given patient had a Bowel movement yesterday continue to titrate bowel regimen while on narcotic Nutrition: Continue enteral nutrition per dietary recommendations are on hold yesterday evening because of high residuals likely related to ileus status post bowel movement we will restart today Renal: UOP Monitored, Cont to Trend sCr and monitor Electrolytes. ID: Fever curve trending down unclear etiology of infection possibly pneumonia he is on broad-spectrum antibiotics with planned to de-escalate these are to cover hospital associated pathogens. Heme/Onc: DVT prophylaxis given Endo: Continue insulin infusion for hyperglycemia Glucose Monitored Integ/MSK: Skin Care per routine ICU Nursing Protocol to prevent ulcers. Lines: All lines examined without evidence of infection : Dispo: Remain in ICU for critical illness CODE: Full code guarded prognosis palliative care consult to address goals of care will also update daughter Asuncion <Amanda Fontanez - Last Filed: 04/15/18 10:43> Date of Encounter: 04/15/18 Time of Encounter: 07:28 Assessment and Plan (1) Acute kidney injury Current Visit: Yes Status: Acute Cr 1.25 today, trending down from high of 1.81. Gentle diuresis, gentle hydration, continue to monitor. (2) Hypotension Current Visit: Yes Status: Resolved Currently resolved. Qualifiers: Hypotension type: unspecified hypotension type Qualified Code(s): I95.9 - Hypotension, unspecified (3) Acute exacerbation of chronic obstructive airways disease Current Visit: Yes Status: Acute Pt presented with several weeks of increasing shortness of breath and change in sputum. Pt has hx of PNA, but currently has no evidence on imaging of consolidation. Swab positive for rhinovirus. - BC from 04/08/18, no growth, repeat cultures from 04/13/18 pending - Vancomycin 1,250mg Q12 - Albuterol/ipratropium 3mL IH Q4 - Last ABG showed pH 7.39, CO2 61, O2 86, bicarb 37 - Fi02 at 60% with PEEP of 12, pt is not a candidate for SBT at this time - Consult palliative, call family, discuss possibility of tracheostomy (4) Congestive heart failure Current Visit: Yes Status: Acute 1+ zay LE edema evident on exam with some blunting of costophrenic angles on imaging. Currently, mild bibasilar wheezes on exam - Takes 10mg Amlodipine at home - Has been getting 40mg lasix BID here, current K 4.8, continue current dose - Continue to monitor Qualifiers: Heart failure type: diastolic Heart failure chronicity: acute on chronic Qualified Code(s): I50.33 - Acute on chronic diastolic (congestive) heart failure (5) Diabetes Current Visit: Yes Status: Chronic Pt takes 50mg Glargine and home, on 10mg BID Levemir here. Insulin drip restarted. BSG has been in low 100's. Pt has gone on and off insulin drip during his admission. Steroids have been d/c'd for now. Tube feeds were held yesterday for increased residuals, restart today and continue insulin drip. 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 Despite Fi02 of 60%, PEEP of 12, adequate TV, and RR, he remains hypoxic with worsening ABGs. Pt has a long hx of COPD, continued smoking, and noncompliance with therapy. Family is aware that patient's condition remains guarded with poor prognosis. (8) CAD (coronary artery disease) Current Visit: Yes Status: Chronic Maintain SBP <180 Qualifiers: Coronary Disease-Associated Artery/Lesion type: [place] artery [place] vs. transplanted heart: [place] heart Associated angina: without angina Qualified Code(s): I25.10 - Atherosclerotic heart disease of [place] coronary artery without angina pectoris (9) Tobacco dependence due to cigarettes Current Visit: Yes Status: Chronic Once patient is extubated, provide counseling and resources for smoking cessation (10) Acute and chronic respiratory failure with hypercapnia Current Visit: Yes Status: Acute Pt is ventilated on respirator. Continue to monitor ABGs, adjust ventilator settings to maintain Pa02 >60. (11) DVT prophylaxis Current Visit: Yes Status: Acute SCDs in place, home dosage of Plavix continued, low dose heparin Subjective Principal diagnosis: Acute exacerbation of COPD Interval history: Mr Chase is a 62M with PmHx of COPD, Stage 3 CKD, CHF, Bladder Ca, current 1/2ppd smoker that initially presented with IRMA to the [facility] ED on 04/06/18 and was admitted to the floor. Pt was noncompliant with NC and BiPAP and had clinical deterioration, so was xferred to ICU. Pt is now ICU day 8. Pt was started on fluconazole yesterday for mucosal erickson, started on a bowel regimen and had a large liquid bowel movement last evening. ETT was repositioned yesterday afternoon and is shown as 4cm above the marva on CXR. No acute events overnight. CXR this AM also shows evidence of increased vascular congestion as compared to film from previous day. BP has been stable, pt has been normothermic. Oxygen saturation ~ 90% on FiO2 60%, PEEP 12. Pt more awake and alert today, plan to consult palliative and solicit family to come in to discuss possibility of tracheostomy. Objective PUL Vital signs: Last Vital Signs Temp 97.5 F L 04/15/18 04:34 Pulse 64 04/15/18 06:00 Resp 19 04/15/18 07:24 BP 117/66 04/15/18 06:00 Pulse Ox 94 04/15/18 07:24 General appearance: no acute distress Eyes: nonicteric ENT: oropharynx dry, other (white film on tongue) Effort: other (intubated and ventilated) Auscultation: bilateral: clear Cardiovascular: regular rate and rhythm Gastrointestinal: normoactive bowel sounds Integumentary: normal Extremities: no cyanosis, no edema Ventilator Settings Ventilator Settings: Ventilator Settings, Last 8 Hours Ventilator Tidal Volume 500 Setting Ventilator Tidal Volume 500 Setting Ventilator Tidal Volume 500 Setting Ventilator Tidal Volume 500 Setting Ventilator Tidal Volume 500 Setting Ventilator Tidal Volume 500 Setting Ventilator Tidal Volume 500 Setting Ventilator Tidal Volume 500 Setting Ventilator Tidal Volume 500 Setting Ventilator Tidal Volume 500 Setting Ventilator Tidal Volume 500 Setting Ventilator Respiratory Rate 14 Setting Ventilator Respiratory Rate 14 Setting Ventilator Respiratory Rate 14 Setting Ventilator Respiratory Rate 14 Setting Ventilator Respiratory Rate 14 Setting Ventilator Respiratory Rate 14 Setting Ventilator Respiratory Rate 14 Setting Ventilator Respiratory Rate 14 Setting Ventilator Respiratory Rate 14 Setting Ventilator Respiratory Rate 14 Setting Ventilator Respiratory Rate 14 Setting Actual Respiratory Rate 14 Actual Respiratory Rate 14 Actual Respiratory Rate 14 Actual Respiratory Rate 16 Actual Respiratory Rate 18 Actual Respiratory Rate 20 Actual Respiratory Rate 14 Actual Respiratory Rate 14 Actual Respiratory Rate 14 Actual Respiratory Rate 15 Actual Respiratory Rate 14 Positive End Expiratory 12 Pressure Positive End Expiratory 12 Pressure Positive End Expiratory 12 Pressure Positive End Expiratory 12 Pressure Positive End Expiratory 12 Pressure Positive End Expiratory 12 Pressure Positive End Expiratory 12 Pressure Positive End Expiratory 12 Pressure Positive End Expiratory 12 Pressure Positive End Expiratory 12 Pressure Positive End Expiratory 12 Pressure Peak Inspiratory Airway 27 Pressure Peak Inspiratory Airway 27 Pressure Peak Inspiratory Airway 28 Pressure Peak Inspiratory Airway 28 Pressure Peak Inspiratory Airway 29 Pressure Peak Inspiratory Airway 34 Pressure Peak Inspiratory Airway 28 Pressure Peak Inspiratory Airway 28 Pressure Peak Inspiratory Airway 28 Pressure Peak Inspiratory Airway 29 Pressure Peak Inspiratory Airway 29 Pressure Results - Laboratory Findings CBC and BMP: 04/15/18 06:52 04/15/18 06:52 ABG ABG pH 7.39 pH Units (7.32-7.45) 04/15/18 05:02 ABG pCO2 61 mmHg (35-45) H 04/15/18 05:02 ABG pO2 86 mmHg (85-104) 04/15/18 05:02 ABG O2 Saturation 96 % (95-98) 04/15/18 05:02 Abnormal lab findings: Abnormal lab results WBC 14.0 K/mcL (4.3-11.1) H 04/14/18 16:49 MCH 26.0 pg (28.0-33.3) L 04/14/18 16:49 MCHC 29.7 g/dL (31.6-35.5) L 04/14/18 16:49 Plt Count 122 K/mcL (140-400) L 04/14/18 16:49 Neutrophils # 10.0 K/mcL (1.6-8.9) H 04/14/18 16:49 Monocytes # 1.9 K/mcL (0.0-1.3) H 04/14/18 16:49 ABG pCO2 61 mmHg (35-45) H 04/15/18 05:02 ABG HCO3 37 mEq/L (21-27) H 04/15/18 05:02 ABG Total CO2 39 mEq/L (20-26) H 04/15/18 05:02 ABG Base Excess 9 mEq/L (-2 to 3) H 04/15/18 05:02 VBG pCO2 61 mmHg (41-51) H 04/13/18 04:50 VBG pO2 89 mmHg (25-50) H 04/13/18 04:50 VBG HCO3 37 mEq/L (21-27) H 04/13/18 04:50 Carbon Dioxide 36 mEq/L (23-29) H 04/14/18 16:49 BUN 74 mg/dL (8-23) H 04/14/18 16:49 Creatinine 1.56 mg/dL (0.70-1.30) H 04/14/18 16:49 Est GFR ( Amer) 55 (> 60) L 04/14/18 16:49 Est GFR (Non-Af Amer) 45 (> 60) L 04/14/18 16:49 BUN/Creatinine Ratio 47 (6-26) H 04/14/18 16:49 Glucose 132 mg/dL (70-105) H 04/14/18 16:49 POC Glucose 126 mg/dL (70-99) H 04/15/18 07:12 Calculated Osmolality 316 (280-300) H 04/14/18 16:49 Calcium 8.4 mg/dL (8.6-10.3) L 04/14/18 16:49 Venous Ioniz Calcium 1.00 mmol/L (1.15-1.35) L 04/14/18 17:40 Phosphorus 6.3 mg/dL (2.7-4.5) H 04/14/18 16:49 Magnesium 2.7 mg/dL (1.6-2.6) H 04/14/18 16:49 Serum Total Protein 5.6 g/dL (6.4-8.9) L 04/14/18 16:49 Albumin 3.1 g/dL (3.5-5.7) L 04/14/18 16:49 Urine Protein 30 mg/dL (Neg-Trace) H 04/14/18 02:25 Urine Microscopic WBC 3-5 per hpf (0-3) H 04/14/18 02:25 Ur Squamous Epith Cells Many per lpf (None-Few) H 04/14/18 02:25 Entero/Rhino (PCR) DETECTED (Not Detect) A 04/07/18 15:03 - Microbiology Findings Microbiology Findings: Microbiology, Last 48 Hours 04/14/18 19:50 Sputum Culture - Preliminary Aspirate 04/13/18 07:14 Blood Culture - Preliminary Peripheral Venipuncture Culture is incubating and being continuously monitored for growth. Final report to follow. 04/13/18 07:14 Blood Culture - Preliminary Peripheral Venipuncture Culture is incubating and being continuously monitored for growth. Final report to follow. - Diagnostic Findings Chest x-ray: report reviewed, image reviewed - Clinical Findings Intake & Output: Intake & Output 04/14/18 04/14/18 04/15/18 15:59 23:59 07:59 Intake Total 2027.5 / 2027.5 583.5 / 583.5 422.5 / 422.5 Output Total 950 / 950 525 / 525 375 / 375 Balance 1077.5 / 1077.5 58.5 / 58.5 47.5 / 47.5 - VTE Documentation of Mechanical Device: Intermittent pneumatic compression device
[2018-04-15 07:55] LABS: BUN/Creatinine Ratio 58 (6-26); Blood Urea Nitrogen 73 mg/dL (8-23); Calcium 8.6 mg/dL (8.6-10.3); Carbon Dioxide 35 mEq/L (23-29); Chloride 100 mEq/L (98-107); Glucose 135 mg/dL (70-105); Magnesium 2.8 mg/dL (1.6-2.6); Osmolality,Calculated 316 (280-300); Phosphorous 5.3 mg/dL (2.7-4.5); Potassium 4.8 mEq/L (3.5-5.1); Sodium 141 mEq/L (136-145); eGFR For Non-African Americans 58 (> 60)
[2018-04-15] MEDS: Cefepime HCl 2,000 MG in 0.9 % Sodium Chloride Mini Bag 100 ML IVPB SCH ×2 (09:22→20:21)
[2018-04-15] MEDS: Fluconazole 400 MG/200 ML 400 MG/200 ML BAG IVPB SCH (09:23)
[2018-04-15] MEDS: Nicotine 21 MG PATCH.TD24 TD SCH (09:23)
[2018-04-15] MEDS: Chlorhexidine Rinse 15 ML MOUTHWASH MM SCH ×2 (09:24→20:22)
[2018-04-15] MEDS: Pantoprazole 40 MG VIAL IVP SCH (09:24)
[2018-04-15] MEDS: Sennosides/Docusate Sodium TABLET PO SCH ×2 (09:24→20:22)
[2018-04-15] MEDS: Furosemide 40 MG/4 ML VIAL IVP SCH (09:24)
[2018-04-15] MEDS: Fluticasone Propionate Nasal 50 MCG/SPRAY BOTTLE NS SCH (09:25)
[2018-04-15] MEDS: amLODIPine 5 MG TABLET PO SCH (09:25)
[2018-04-15] MEDS: Aspirin 81 MG TAB.CHEW PO SCH (09:25)
[2018-04-15] MEDS: Isosorbide MONOnitrate (24 HR) 60 MG TAB.ER.24H PO SCH (09:25)
[2018-04-15] MEDS: Multivit/Ca/Min/Fe/FA 1 TAB TABLET PO SCH (09:25)
[2018-04-15] MEDS: Loratadine 10 MG TABLET PO SCH (09:25)
[2018-04-15] MEDS: Bisacodyl 10 MG RECTAL SUPPOSITORY RC SCH (09:25)
[2018-04-15] MEDS: Nicotine 7 MG PATCH.TD24 TD SCH (09:26)
[2018-04-15] MEDS: Dexmedetomidine HCl 400 MCG/100 ML MLS IVC SCH ×2 (12:19→23:47)
--- NOTE | 2018-04-15 14:19 | Palliative - Consult Note ---
Date of Encounter: 04/15/18 Time of Encounter: 14:20 - Assessment and Plan (1) Generalized pain Current Visit: Yes Status: Acute (2) Anxiety Current Visit: Yes Status: Acute (3) Goals of care, counseling/discussion Current Visit: Yes Status: Acute Assessment and plan: Spoke with daughter Asuncion, pt only child via telephone. Updated on clinical status. Patient has no established advanced directives and no known power of patent attorney. Asuncion is nurse and working Wednesday-Wednesday, so is unable to visit during the day. Discuss goals of care at length. She is knowledgeable regarding decisions that will possible be made including trach and possible PEG. We discussed She realized that she will be responsible for making decisions for her dad, and they have not had the best relationship, so is struggling a bit. Provided emotional support. She desires to take the to think about his condition and decisions, and will contact me on Wednesday for further discussion, either by phone, or come in to meet. D/W Dr. Fontanez and pt primary nurse [place]. Will f/u Wednesday. Thank you for the consult. (4) Acute and chronic respiratory failure with hypercapnia Current Visit: Yes Status: Acute (5) Acute exacerbation of chronic obstructive airways disease Current Visit: Yes Status: Acute Palliative-CN HPI - Data of Consult Consult date: 04/15/18 Requesting Physician: Jer Hansen MD Primary Care Provider: Christiano Santacruz MD - Consult Narrative History of present illness: Mr. Chase is a 62 year old male who called EMS with c/o shortness of breath and was found hypoxic at home when squad arrived. He is intubated currently and cannot provide history, so information retrieved via chart review as well as discussion with other providers. He as history of severe COPD, tobacco abuse hypertension, diabetes, hyperlipidemia, CAD post stent, and bladder cancer resection in 2017. Continues to smoke about half a pack a day or less. He was maintained on bipap for a short period of time, and mentation did not improve and he was hypercarbic with CO2 greater than 100, so was transferred to ICU and intubated. He has been treated for COPD exacerbation with acute on chronic respiratory failure, pneumonia, and CHF. He also had acute kidney injury identified, however, this has gradually improved. He has been difficult to wean and still requiring 60-80% FIO2 and PEEP of 12 . Upon my visit, he is resting with eyes closed, but responds to name and can follow a few simple commands. No family is present. Appears in no distress. Palliative care was consulted to assist with goals of care discussion with this pt who has had several days intubation, and still requiring vent support. CC: Jer Hansen MD - Time Spent with Patient Time: Total time spent is greater than 50% in coordination of care (as documented) at patient's floor/unit and/or counseling patient: Past Med Surg Social Fam HX - Past Medical History Medical history: COPD, coronary artery disease, diabetes, hyperlipidemia, hypertension, myocardial infarction Additional medical history: bladder tumor. STD's. CKD STAGE 3. NSTEMI. SMOKER Psychiatric history: no psych history - Past Surgical History Surgical History: angioplasty/stent, herniorrhaphy, vasectomy Additional surgical history: hernia stomach. bilateral carpal tunnel release - Social History Smoking Status: Current every day smoker Smokeless Tobacco Status: No Alcohol use: occasionally Drug use: none Medications and Allergies Albuterol Neb [Proventil Neb] 2.5 mg IH Q4HR PRN 10/23/15 [History] Atorvastatin [Lipitor] 40 mg PO DAILY 10/23/15 [History] Carvedilol [Coreg] 6.25 mg PO BIDWM 10/23/15 [History] Clopidogrel [Plavix] 75 mg PO DAILY 10/23/15 [History] Insulin Glargine,Hum.rec.anlog [Lantus Solostar] 50 unit SQ DAILY 10/23/15 [ History] Multivitamin [Multi-Day Vitamins] 1 each PO DAILY 10/23/15 [History] Nitroglycerin [Nitrostat] 0.4 mg SL DAILY PRN 10/23/15 [History] amLODIPine [Norvasc] 10 mg PO DAILY 10/23/15 [History] Albuterol Sulfate [Ventolin Hfa] 2 puff IH Q4H PRN 04/05/17 [History] Budesonide/Formoterol 160/4.5 [Symbicort 160/4.5] 2 puff IH BIDR 04/05/17 [ History] Acetaminophen [Non-Aspirin Extra Strength] 500 mg PO Q6HR PRN 04/22/17 [History] Fluticasone Propionate Nasal [Flonase] 50 mcg NS DAILY PRN 04/22/17 [History] [place]-3/Dha/Epa/Fish Oil [Fish Oil Conc 1,000 mg Softgel] 1,000 mg PO DAILY [History] Sertraline [Zoloft] 50 mg PO DAILY 04/22/17 [History] OxyCODONE/APAP 5/325 [Percocet 5/325 MG] 1 tab PO BID PRN 09/06/17 [History] Cetirizine HCl [Zyrtec] 10 mg PO DAILY 04/06/18 [History] Insulin LISPRO [Humalog Kwikpen U-100] 15 - 20 unit SQ TID 04/06/18 [History] Lisinopril [Zestril] 40 mg PO DAILY 04/06/18 [History] Tiotropium [place]ato [Spiriva Respimat] 2 puff IH DAILY 04/06/18 [History] 3 Allergy/AdvReac Type Severity Reaction Status Date / Time No Known Allergies Allergy Verified 09/06/17 10:09 ROS unobtainable: due to endotracheal tube Palliative Care-Exam - Constitutional Vitals: Temp Pulse Resp BP Pulse Ox 98.5 F 79 14 122/63 94 04/15/18 11:00 04/15/18 13:00 04/15/18 13:00 04/15/18 13:00 04/15/18 13:00 General appearance: Present: no acute distress - Head Head Exam: Present: normal inspection, normocephalic - Eye Eye exam: Present: normal appearance, PERRL - Respiratory Respiratory exam: Present: decreased breath sounds Additional comments: Faint expiratory wheezes noted anteriorally. - Cardiovascular Cardiovascular exam: Present: +S1, +S2 - GI/Abdominal Exam GI/Abdominal exam: Present: diminished bowel sounds, distended - Catheter Type: Urethral ([place]) - Extremities Exam Extremities exam: Present: normal capillary refill, normal inspection - Neurological Exam Neurological exam: Present: alert Additional comments: Remains on some sedation - awake and able to follow simple commands - Skin Skin exam: Present: dry, warm Internal Medicine - CN: Reslt - Labs CBC & Chem 7: 04/15/18 06:52 04/15/18 06:52 Labs: Short CBC 04/14/18 04/15/18 Range/Units 16:49 06:52 WBC 14.0 H 14.2 H (4.3-11.1) K/mcL Hgb 13.4 D 13.5 (12.9-16.9) g/dL Hct 45.1 44.6 (37.5-50.1) % Plt Count 122 L 123 L (140-400) K/mcL Neutrophils # 10.0 H 10.9 H (1.6-8.9) K/mcL BMP 04/14/18 04/15/18 16:49 06:52 Sodium 141 141 Potassium 5.1 4.8 Chloride 100 100 Carbon Dioxide 36 H 35 H BUN 74 H 73 H Creatinine 1.56 H 1.25 Glucose 132 H 135 H Calcium 8.4 L 8.6 Liver Function 04/14/18 Range/Units 16:49 Total Bilirubin 0.4 (0.3-1.0) mg/dL AST 20 (13-39) Units/L ALT 23 (7-52) Units/L Alkaline Phosphatase 42 (34-104) Units/L Albumin 3.1 L (3.5-5.7) g/dL - ABG Interpretation ABG results: ABG ABG pH 7.39 pH Units (7.32-7.45) 04/15/18 05:02 ABG pCO2 61 mmHg (35-45) H 04/15/18 05:02 ABG pO2 86 mmHg (85-104) 04/15/18 05:02 ABG O2 Saturation 96 % (95-98) 04/15/18 05:02 - Impressions Impressions KUB X-Ray 04/14/18 17:27 IMPRESSION: Enteric tube is been placed with the tip within the stomach. D/ / 04/14/2018 18:01:16 Kolby Welch MD / [email or web address] Interpreting Provider: Kolby Welch MD Chest X-Ray 04/15/18 07:21 IMPRESSION: Persistent small left pleural effusion with left basilar atelectasis. D/ / 04/15/2018 08:05:12 Benigno Burnett MD / [facility] Interpreting Provider: Benigno Burnett MD Consult Discharge Plan - Plan Instructions: Chronic Obstructive Pulmonary Disease (ED) Referrals: Christiano Santacruz MD [Primary Care Provider] - Palliative Quality Palliative Quality: Screen for Code Status: Yes, Screen for Goals of Care: Yes, Screen for Pain: Yes, If Pain Regimen Started, Initiate Bowel Regimen: NA, Screen for Nausea/Vomitting: Yes
[2018-04-16] MEDS: Ipratropium/Albuterol Neb 3 ML IH SCH ×7 (00:04→23:54)
[2018-04-16] MEDS: Artificial Tears SOLN 15 ML BOTTLE BOTH EYES SCH ×6 (00:07→20:06)
[2018-04-16] MEDS: hydrALAZINE 10 MG TABLET PO SCH ×4 (00:08→17:47)
[2018-04-16 04:22] LABS: Basophils % 0.1 %; Eosinophils # 0.3 K/mcL (0.0-0.6); Hematocrit 43.4 % (37.5-50.1); Hemoglobin 12.9 g/dL (12.9-16.9); Lymphocytes # 1.1 K/mcL (0.6-4.6); Lymphocytes % 7.8 %; Mean Corpuscular HGB Conc 29.7 g/dL (31.6-35.5); Mean Corpuscular Hemoglobin 26.6 pg (28.0-33.3); Mean Corpuscular Volume 89.5 fL (83.0-100.0); Mean Platelet Volume 12.8 fL (9.4-12.4); Monocytes # 1.2 K/mcL (0.0-1.3); Monocytes % 8.4 %; Neutrophils # 11.1 K/mcL (1.6-8.9); Platelet Count 127 K/mcL (140-400); Red Blood Count 4.85 M/mcL (4.19-5.50); Red Cell Distribution Width 14.6 % (11.5-14.5); Segmented Neutrophils % 80.7 %
[2018-04-16 04:28] LABS: VBG Ionized Calcium 1.07 mmol/L (1.15-1.35)
[2018-04-16 04:44] LABS: BUN/Creatinine Ratio 52 (6-26); Blood Urea Nitrogen 65 mg/dL (8-23); Calcium 8.7 mg/dL (8.6-10.3); Carbon Dioxide 33 mEq/L (23-29); Chloride 101 mEq/L (98-107); Glucose 187 mg/dL (70-105); Magnesium 2.7 mg/dL (1.6-2.6); Osmolality,Calculated 314 (280-300); Phosphorous 4.1 mg/dL (2.7-4.5); Potassium 4.9 mEq/L (3.5-5.1); Sodium 140 mEq/L (136-145); eGFR For Non-African Americans 58 (> 60)
[2018-04-16] MEDS: Dexmedetomidine HCl 400 MCG/100 ML MLS IVC SCH ×4 (04:52→21:00)
[2018-04-16] MEDS: FentaNYL (PF) 2,500 MCG in EMPTY BAG 1 EACH IVC SCH ×2 (04:53→18:51)
[2018-04-16] MEDS: *HR* Heparin 5,000 UNIT/ML VIAL SQ SCH ×3 (06:09→20:08)
--- NOTE | 2018-04-16 06:47 | Pulmonology Progress Note ---
Date of Encounter: 04/16/18 Time of Encounter: 06:47 Assessment and Plan (1) Acute respiratory failure with hypoxia Current Visit: Yes Status: Acute I spent 32 min of Critical Care time with this patient. It involved decision making of high complexity to assess, manipulate, and support vital organ system failure and/or to prevent further life threatening deterioration of the patient' s condition. The time involved in the performance of separately reportable procedures was not counted toward critical care time. Patient seen and examined at bedside Labs, radiology, chart personally reviewed. Management was reviewed during multidisciplinary critical care rounds. Below reflects my systems based assessment and plan LIFE COACH: Remains delirious no focal deficits continue to decrease sedation and daily sedation holiday as tolerated. Goal Nidia 2-3 Pulm: Acute on chronic hypoxic hypercapnic respiratory failure secondary to COPD exacerbation. Acceptable gas exchange today but still remains on 70% FiO2 (which can be decreased to 60%) and 12 of PEEP Likely complicated by pneumonia and heart failure. Currently not candidate for spontaneous breathing trial because of amount of ventilator support. Continue bronchodilators for COPD exacerbation Cards: Acute on chronic heart failure with preserved ejection fraction ont diuresis today, blood pressure controlled; CAD cont DAPT. GI: GI prophylaxis given; suspected ileus we will obtain CT scan of the abdomen today with oral contrast; we will attempt to mitigate the effects of chronic narcotic use in this patient by decreasing dose to try to eliminate it entirely if possible once CT scan back we will advance bowel regimen as well. May need a dose of Relistor Nutrition: Holding enteral nutrition because of ileus with high residuals Renal: Acute kidney injury has resolved UOP Monitored, Cont to Trend sCr and monitor Electrolytes. ID: Patient has evidence of persistent leukocytosis and with degree of ventilator requirement I suspect partially treated pneumonia CT scan of the chest abdomen pelvis will help us delineate if there is a occult infection. Cont Vanc and Cefepime for hospital-acquired pathogens. Also treating oral thrush with fluconazole. Heme/Onc: DVT prophylaxis given H&H and platelets monitored and stable Endo: Glucose Monitored Persistently hyperglycemic continue insulin infusion Integ/MSK: Skin Care per routine ICU Nursing Protocol to prevent ulcers. Lines: All lines examined without evidence of infection : Dispo: Remains critically ill CODE: Full - updated JONIK Asuncion updated in the ICU she is ambivalent about goals of care going forward regarding tracheostomy if needed versus palliative measures appreciate palliative care evaluation of this case we will continue to update family overall prognosis remains guarded to poor (2) Hypertension Current Visit: Yes Status: Acute Qualifiers: Hypertension type: essential hypertension Qualified Code(s): I10 - Essential (primary) hypertension (3) (HFpEF) heart failure with preserved ejection fraction Current Visit: Yes Status: Acute (4) Acute exacerbation of chronic obstructive airways disease Current Visit: Yes Status: Acute (5) CAD (coronary artery disease) Current Visit: Yes Status: Chronic Qualifiers: Coronary Disease-Associated Artery/Lesion type: [place] artery [place] vs. transplanted heart: [place] heart Associated angina: without angina Qualified Code(s): I25.10 - Atherosclerotic heart disease of [place] coronary artery without angina pectoris (6) Tobacco dependence due to cigarettes Current Visit: Yes Status: Chronic (7) Acute and chronic respiratory failure with hypercapnia Current Visit: Yes Status: Acute (8) Acute kidney injury Current Visit: Yes Status: Acute (9) DVT prophylaxis Current Visit: Yes Status: Acute Subjective Principal diagnosis: Acute exacerbation of COPD Interval history: Mr. Chase remained hemodynamically stable overnight. In the last 24 hours the palliative care team was consulted to address goals of care I have spoken with his daughter as well. Unfortunately white count is persistently elevated although fever curve is improving. Still on significant ventilator support had to go up to 70% FiO2 overnight and remains at 12 of PEEP. Tube feeds are on hold because of high residual related to suspected ileus Objective PUL Vital signs: Last Vital Signs Temp 98.7 F 04/16/18 03:00 Pulse 60 04/16/18 06:00 Resp 14 04/16/18 06:00 BP 117/68 04/16/18 06:00 Pulse Ox 95 04/16/18 06:00 General appearance: lethargic (Patient does open his eyes to voice command he still demonstrating periods of significant agitation requiring constant sedation although yesterday he was much more arousable than today) Eyes: nonicteric Effort: normal Auscultation: bilateral: diminished breath sounds (In the lung bases), rhonchi ( Scattered) Cardiovascular: regular rate and rhythm Gastrointestinal: hypoactive bowel sounds, soft (Distended), non-tender Integumentary: normal Extremities: no cyanosis, no edema, no clubbing, pink and warm, no ischemia or petechiae Musculoskeletal: no deformities pupils equal and round, other (Patient noted to move all extremities spontaneously without evidence of focal deficit) other (Is currently calm while on sedation) Ventilator Settings Ventilator Settings: Ventilator Settings, Last 8 Hours Ventilator Tidal Volume 500 Setting Ventilator Tidal Volume 500 Setting Ventilator Tidal Volume 500 Setting Ventilator Tidal Volume 500 Setting Ventilator Tidal Volume 500 Setting Ventilator Tidal Volume 500 Setting Ventilator Tidal Volume 500 Setting Ventilator Tidal Volume 500 Setting Ventilator Tidal Volume 500 Setting Ventilator Tidal Volume 500 Setting Ventilator Tidal Volume 500 Setting Ventilator Respiratory Rate 14 Setting Ventilator Respiratory Rate 14 Setting Ventilator Respiratory Rate 14 Setting Ventilator Respiratory Rate 14 Setting Ventilator Respiratory Rate 14 Setting Ventilator Respiratory Rate 14 Setting Ventilator Respiratory Rate 14 Setting Ventilator Respiratory Rate 14 Setting Ventilator Respiratory Rate 14 Setting Ventilator Respiratory Rate 14 Setting Ventilator Respiratory Rate 14 Setting Actual Respiratory Rate 14 Actual Respiratory Rate 14 Actual Respiratory Rate 14 Actual Respiratory Rate 14 Actual Respiratory Rate 14 Actual Respiratory Rate 14 Actual Respiratory Rate 14 Actual Respiratory Rate 14 Actual Respiratory Rate 14 Actual Respiratory Rate 14 Actual Respiratory Rate 14 Positive End Expiratory 12 Pressure Positive End Expiratory 12 Pressure Positive End Expiratory 12 Pressure Positive End Expiratory 12 Pressure Positive End Expiratory 12 Pressure Positive End Expiratory 12 Pressure Positive End Expiratory 12 Pressure Positive End Expiratory 12 Pressure Positive End Expiratory 12 Pressure Positive End Expiratory 12 Pressure Positive End Expiratory 12 Pressure Peak Inspiratory Airway 30 Pressure Peak Inspiratory Airway 27 Pressure Peak Inspiratory Airway 27 Pressure Peak Inspiratory Airway 28 Pressure Peak Inspiratory Airway 28 Pressure Peak Inspiratory Airway 29 Pressure Peak Inspiratory Airway 29 Pressure Peak Inspiratory Airway 28 Pressure Peak Inspiratory Airway 30 Pressure Peak Inspiratory Airway 29 Pressure Peak Inspiratory Airway 28 Pressure Results - Laboratory Findings CBC and BMP: 04/16/18 03:52 04/16/18 03:52 ABG ABG pH 7.39 pH Units (7.32-7.45) 04/15/18 05:02 ABG pCO2 61 mmHg (35-45) H 04/15/18 05:02 ABG pO2 86 mmHg (85-104) 04/15/18 05:02 ABG O2 Saturation 96 % (95-98) 04/15/18 05:02 Abnormal lab findings: Abnormal lab results WBC 13.8 K/mcL (4.3-11.1) H 04/16/18 03:52 MCH 26.6 pg (28.0-33.3) L 04/16/18 03:52 MCHC 29.7 g/dL (31.6-35.5) L 04/16/18 03:52 RDW 14.6 % (11.5-14.5) H 04/16/18 03:52 Plt Count 127 K/mcL (140-400) L 04/16/18 03:52 MPV 12.8 fL (9.4-12.4) H 04/16/18 03:52 Neutrophils # 11.1 K/mcL (1.6-8.9) H 04/16/18 03:52 ABG pCO2 61 mmHg (35-45) H 04/15/18 05:02 ABG HCO3 37 mEq/L (21-27) H 04/15/18 05:02 ABG Total CO2 39 mEq/L (20-26) H 04/15/18 05:02 ABG Base Excess 9 mEq/L (-2 to 3) H 04/15/18 05:02 VBG pCO2 61 mmHg (41-51) H 04/13/18 04:50 VBG pO2 89 mmHg (25-50) H 04/13/18 04:50 VBG HCO3 37 mEq/L (21-27) H 04/13/18 04:50 Carbon Dioxide 33 mEq/L (23-29) H 04/16/18 03:52 BUN 65 mg/dL (8-23) H 04/16/18 03:52 Est GFR (Non-Af Amer) 58 (> 60) L 04/16/18 03:52 BUN/Creatinine Ratio 52 (6-26) H 04/16/18 03:52 Glucose 187 mg/dL (70-105) H 04/16/18 03:52 POC Glucose 194 mg/dL (70-99) H 04/16/18 06:13 Calculated Osmolality 314 (280-300) H 04/16/18 03:52 Venous Ioniz Calcium 1.07 mmol/L (1.15-1.35) L 04/16/18 04:24 Magnesium 2.7 mg/dL (1.6-2.6) H 04/16/18 03:52 Serum Total Protein 5.6 g/dL (6.4-8.9) L 04/14/18 16:49 Albumin 3.1 g/dL (3.5-5.7) L 04/14/18 16:49 Urine Protein 30 mg/dL (Neg-Trace) H 04/14/18 02:25 Urine Microscopic WBC 3-5 per hpf (0-3) H 04/14/18 02:25 Ur Squamous Epith Cells Many per lpf (None-Few) H 04/14/18 02:25 Entero/Rhino (PCR) DETECTED (Not Detect) A 04/07/18 15:03 - Microbiology Findings Microbiology Findings: Microbiology, Last 48 Hours 04/14/18 02:25 Urine Culture - Preliminary Urine,Catheterized No growth. 04/14/18 19:50 Sputum Culture - Preliminary Aspirate - Clinical Findings Intake & Output: Intake & Output 04/15/18 04/15/18 04/16/18 15:59 23:59 07:59 Intake Total 700 / 700 1159.5 / 1159.5 574.6 / 574.6 Output Total 1450 / 1450 950 / 950 350 / 350 Balance -750 / -750 209.5 / 209.5 224.6 / 224.6 Weight 113.8 kg - VTE Documentation of Mechanical Device: Intermittent pneumatic compression device Consult Discharge Plan - Plan Instructions: Chronic Obstructive Pulmonary Disease (ED) Referrals: Christiano Santacruz MD [Primary Care Provider] -
[2018-04-16] MEDS: Budesonide/Formoterol 160/4.5 1 PUFF INH IH SCH ×2 (08:08→20:36)
[2018-04-16 08:30] LABS: ABG Base Excess 10 mEq/L (-2 to 3); ABG HCO3 37 mEq/L (21-27); ABG Oxygen Saturation 96 % (95-98); ABG PCO2 60 mmHg (35-45); ABG PO2 82 mmHg (85-104); ABG TCO2 39 mEq/L (20-26); Blood Gas Modality AF; Blood Gas PEEP 12 cm H2O; Blood Gas Respiration Rate 14; Blood Gas VT 500 cc
[2018-04-16] MEDS: Loratadine 10 MG TABLET PO SCH (09:00)
[2018-04-16] MEDS: Isosorbide MONOnitrate (24 HR) 60 MG TAB.ER.24H PO SCH (09:00)
[2018-04-16] MEDS: Aspirin 81 MG TAB.CHEW PO SCH (09:00)
[2018-04-16] MEDS: Sennosides/Docusate Sodium TABLET PO SCH ×2 (09:01→20:07)
[2018-04-16] MEDS: Multivit/Ca/Min/Fe/FA 1 TAB TABLET PO SCH (09:01)
[2018-04-16] MEDS: amLODIPine 5 MG TABLET PO SCH (09:01)
[2018-04-16] MEDS: Chlorhexidine Rinse 15 ML MOUTHWASH MM SCH ×2 (09:09→20:07)
[2018-04-16] MEDS: Cefepime HCl 2,000 MG in 0.9 % Sodium Chloride Mini Bag 100 ML IVPB SCH ×2 (09:09→20:06)
[2018-04-16] MEDS: Nicotine 21 MG PATCH.TD24 TD SCH (09:09)
[2018-04-16] MEDS: Furosemide 40 MG/4 ML VIAL IVP SCH (09:09)
[2018-04-16] MEDS: Pantoprazole 40 MG VIAL IVP SCH (09:09)
[2018-04-16] MEDS: Fluconazole 400 MG/200 ML 400 MG/200 ML BAG IVPB SCH (09:10)
[2018-04-16] MEDS: Fluticasone Propionate Nasal 50 MCG/SPRAY BOTTLE NS SCH (09:10)
[2018-04-16] MEDS: Bisacodyl 10 MG RECTAL SUPPOSITORY RC SCH (09:10)
[2018-04-16] MEDS: Insulin Human Regular 100 UNIT in 0.9 % Sodium Chloride 100 ML IVC SCH (18:50)
[2018-04-17] MEDS: Artificial Tears SOLN 15 ML BOTTLE BOTH EYES SCH ×6 (00:44→20:13)
[2018-04-17] MEDS: hydrALAZINE 10 MG TABLET PO SCH ×4 (00:44→18:36)
[2018-04-17] MEDS: Dexmedetomidine HCl 400 MCG/100 ML MLS IVC SCH ×5 (02:48→21:01)
[2018-04-17] MEDS: Ipratropium/Albuterol Neb 3 ML IH SCH ×5 (04:15→20:18)
[2018-04-17 04:43] LABS: Basophils % 0.2 %; Eosinophils # 0.2 K/mcL (0.0-0.6); Eosinophils % 1.1 %; Hematocrit 43.4 % (37.5-50.1); Immature Granulocytes % 1.5 % (0-4); Lymphocytes # 1.4 K/mcL (0.6-4.6); Lymphocytes % 7.9 %; Mean Corpuscular Hemoglobin 26.5 pg (28.0-33.3); Mean Corpuscular Volume 88.6 fL (83.0-100.0); Mean Platelet Volume 12.6 fL (9.4-12.4); Monocytes # 1.5 K/mcL (0.0-1.3); Monocytes % 8.9 %; Neutrophils # 13.9 K/mcL (1.6-8.9); Platelet Count 159 K/mcL (140-400); Red Cell Distribution Width 14.7 % (11.5-14.5); Segmented Neutrophils % 80.4 %
[2018-04-17 04:49] LABS: INR 1.2
[2018-04-17 05:12] LABS: BUN/Creatinine Ratio 45 (6-26); Blood Urea Nitrogen 55 mg/dL (8-23); Calcium 8.8 mg/dL (8.6-10.3); Carbon Dioxide 32 mEq/L (23-29); Chloride 100 mEq/L (98-107); Glucose 165 mg/dL (70-105); Magnesium 2.5 mg/dL (1.6-2.6); Osmolality,Calculated 309 (280-300); Phosphorous 3.1 mg/dL (2.7-4.5); Potassium 4.4 mEq/L (3.5-5.1); Sodium 140 mEq/L (136-145); eGFR For Non-African Americans > 60 (> 60)
[2018-04-17 05:17] LABS: ABG Base Excess 8 mEq/L (-2 to 3); ABG HCO3 34 mEq/L (21-27); ABG Oxygen Saturation 93 % (95-98); ABG PCO2 52 mmHg (35-45); ABG PH 7.43 pH Units (7.32-7.45); ABG PO2 66 mmHg (85-104); ABG TCO2 36 mEq/L (20-26); Blood Gas Modality ASSIST CONTROL; Blood Gas PEEP 12 cm H2O; Blood Gas Respiration Rate 14; Blood Gas VT 500 cc
[2018-04-17] MEDS: *HR* Heparin 5,000 UNIT/ML VIAL SQ SCH ×3 (05:45→20:20)
--- NOTE | 2018-04-17 07:10 | Pulmonology Progress Note ---
<Jared Morrison - Last Filed: 04/17/18 09:30> Date of Encounter: 04/17/18 Time of Encounter: 07:50 Assessment and Plan (1) Acute on chronic respiratory failure with hypoxia and hypercapnia Current Visit: Yes Status: Acute -Most likely 2/2 COPD exacerbation. -Intubated on 04/06/18 -Has been requiring increased amounts FiO2, currently 60% but will decrease to 50% today -ABG on 60% FiO2 pH 7.43, PaCO2 52, PaO2 66. -Will CPAP today with possible extubation to BiPAP. (2) Acute exacerbation of chronic obstructive airways disease Current Visit: Yes Status: Acute Pt presented with several weeks of increasing shortness of breath and change in sputum. Pt has hx of PNA, but currently has no evidence on imaging of consolidation. - BC from 04/08/18, no growth, repeat cultures from 04/13/18 ngtd - PCR pos for rhinovirus - Will lynn culture today with persistent leukocytosis thats up to 17.3 today. - Continue vancomycin and cefepime. Will widen out to include meropenem today. - Albuterol/ipratropium 3mL IH Q4 - Last ABG showed pH 7.43, CO2 52, O2 66 - Fi02 at 60% with PEEP of 12, will decrease FiO2 to 50% and PEEP to 8. - Will SBT today and possibly extubate to BiPAP (3) Congestive heart failure Current Visit: Yes Status: Acute -ECHO on 04/06/18 EF 55%, mild LV diastolic dysfunction -Continuing IV lasix 40mg -Renal function stable Qualifiers: Heart failure type: diastolic Heart failure chronicity: acute on chronic Qualified Code(s): I50.33 - Acute on chronic diastolic (congestive) heart failure (4) Acute kidney injury Current Visit: Yes Status: Acute -Resolved -Cr 1.21 today, down from high of 1.81. -UOP good -Will continue gentle diuresis while trending Cr, uop, electrolytes and replacing as indicated. (5) Candidiasis of mouth Current Visit: Yes Status: Acute -Improved -Continue fluconazole. (6) Diabetes Current Visit: Yes Status: Chronic -Glucose trending in 150-170's mostly. -Continue insulin infusion Qualifiers: Diabetes mellitus type: other specified (including JADEN) Diabetes mellitus fdc insulin use: unspecified fdc insulin use status Diabetes mellitus complication status: without complication Qualified Code(s): E13.9 - Other specified diabetes mellitus without complications (7) Obesity (BMI 30-39.9) Current Visit: Yes Status: Chronic Recommend lifestyle modifications upon dc (8) Tobacco dependence due to cigarettes Current Visit: Yes Status: Chronic Nicotine patch (9) DVT prophylaxis Current Visit: Yes Status: Acute mechanical and chemical prophylaxis Subjective Principal diagnosis: Acute exacerbation of COPD Interval history: No acute events overnight. Had high residuals at 450 and tube feeds stopped. Arousable today with following of simple commands. Objective PUL Vital signs: Last Vital Signs Temp 100.6 F H 04/17/18 03:23 Pulse 62 04/17/18 06:00 Resp 14 04/17/18 06:00 BP 138/78 04/17/18 06:00 Pulse Ox 93 04/17/18 06:00 General appearance: no acute distress, asleep (intubated and sedated but arrousable) Eyes: nonicteric ENT: oropharynx dry Effort: other (on vent) Auscultation: bilateral: diminished breath sounds Cardiovascular: regular rate and rhythm Gastrointestinal: hypoactive bowel sounds, soft Extremities: no cyanosis, edema other (intubated and sedated) Ventilator Settings Ventilator Settings: Ventilator Settings, Last 8 Hours Ventilator Tidal Volume 500 Setting Ventilator Tidal Volume 500 Setting Ventilator Tidal Volume 500 Setting Ventilator Tidal Volume 500 Setting Ventilator Tidal Volume 500 Setting Ventilator Tidal Volume 500 Setting Ventilator Tidal Volume 500 Setting Ventilator Tidal Volume 500 Setting Ventilator Tidal Volume 500 Setting Ventilator Tidal Volume 500 Setting Ventilator Tidal Volume 500 Setting Ventilator Tidal Volume 500 Setting Ventilator Respiratory Rate 14 Setting Ventilator Respiratory Rate 14 Setting Ventilator Respiratory Rate 14 Setting Ventilator Respiratory Rate 14 Setting Ventilator Respiratory Rate 14 Setting Ventilator Respiratory Rate 14 Setting Ventilator Respiratory Rate 14 Setting Ventilator Respiratory Rate 14 Setting Ventilator Respiratory Rate 14 Setting Ventilator Respiratory Rate 14 Setting Ventilator Respiratory Rate 14 Setting Ventilator Respiratory Rate 14 Setting Actual Respiratory Rate 14 Actual Respiratory Rate 14 Actual Respiratory Rate 14 Actual Respiratory Rate 14 Actual Respiratory Rate 14 Actual Respiratory Rate 15 Actual Respiratory Rate 17 Actual Respiratory Rate 17 Actual Respiratory Rate 15 Actual Respiratory Rate 22 Actual Respiratory Rate 16 Positive End Expiratory 12 Pressure Positive End Expiratory 12 Pressure Positive End Expiratory 12 Pressure Positive End Expiratory 12 Pressure Positive End Expiratory 12 Pressure Positive End Expiratory 12 Pressure Positive End Expiratory 12 Pressure Positive End Expiratory 12 Pressure Positive End Expiratory 12 Pressure Positive End Expiratory 12 Pressure Positive End Expiratory 12 Pressure Positive End Expiratory 12 Pressure Peak Inspiratory Airway 28 Pressure Peak Inspiratory Airway 28 Pressure Peak Inspiratory Airway 33 Pressure Peak Inspiratory Airway 27 Pressure Peak Inspiratory Airway 27 Pressure Peak Inspiratory Airway 28 Pressure Peak Inspiratory Airway 28 Pressure Peak Inspiratory Airway 33 Pressure Peak Inspiratory Airway 30 Pressure Peak Inspiratory Airway 34 Pressure Peak Inspiratory Airway 31 Pressure Results - Laboratory Findings CBC and BMP: 04/17/18 04:00 04/17/18 04:00 ABG ABG pH 7.43 pH Units (7.32-7.45) 04/17/18 05:12 ABG pCO2 52 mmHg (35-45) H 04/17/18 05:12 ABG pO2 66 mmHg (85-104) L 04/17/18 05:12 ABG O2 Saturation 93 % (95-98) L 04/17/18 05:12 PT/INR, D-dimer PT 13.0 Seconds (9.4-12.1) H 04/17/18 04:00 Abnormal lab findings: Abnormal lab results WBC 17.3 K/mcL (4.3-11.1) H 04/17/18 04:00 MCH 26.5 pg (28.0-33.3) L 04/17/18 04:00 MCHC 30.0 g/dL (31.6-35.5) L 04/17/18 04:00 RDW 14.7 % (11.5-14.5) H 04/17/18 04:00 MPV 12.6 fL (9.4-12.4) H 04/17/18 04:00 Neutrophils # 13.9 K/mcL (1.6-8.9) H 04/17/18 04:00 Monocytes # 1.5 K/mcL (0.0-1.3) H 04/17/18 04:00 PT 13.0 Seconds (9.4-12.1) H 04/17/18 04:00 ABG pCO2 52 mmHg (35-45) H 04/17/18 05:12 ABG pO2 66 mmHg (85-104) L 04/17/18 05:12 ABG HCO3 34 mEq/L (21-27) H 04/17/18 05:12 ABG Total CO2 36 mEq/L (20-26) H 04/17/18 05:12 ABG O2 Saturation 93 % (95-98) L 04/17/18 05:12 ABG Base Excess 8 mEq/L (-2 to 3) H 04/17/18 05:12 VBG pCO2 61 mmHg (41-51) H 04/13/18 04:50 VBG pO2 89 mmHg (25-50) H 04/13/18 04:50 VBG HCO3 37 mEq/L (21-27) H 04/13/18 04:50 Carbon Dioxide 32 mEq/L (23-29) H 04/17/18 04:00 BUN 55 mg/dL (8-23) H 04/17/18 04:00 BUN/Creatinine Ratio 45 (6-26) H 04/17/18 04:00 Glucose 165 mg/dL (70-105) H 04/17/18 04:00 POC Glucose 178 mg/dL (70-99) H 04/17/18 06:27 Calculated Osmolality 309 (280-300) H 04/17/18 04:00 Venous Ioniz Calcium 1.07 mmol/L (1.15-1.35) L 04/16/18 04:24 Serum Total Protein 5.6 g/dL (6.4-8.9) L 04/14/18 16:49 Albumin 3.1 g/dL (3.5-5.7) L 04/14/18 16:49 Urine Protein 30 mg/dL (Neg-Trace) H 04/14/18 02:25 Urine Microscopic WBC 3-5 per hpf (0-3) H 04/14/18 02:25 Ur Squamous Epith Cells Many per lpf (None-Few) H 04/14/18 02:25 Entero/Rhino (PCR) DETECTED (Not Detect) A 04/07/18 15:03 - Microbiology Findings Microbiology Findings: Microbiology, Last 48 Hours 04/14/18 02:25 Urine Culture - Final Urine,Catheterized No growth. 04/14/18 19:50 Sputum Culture - Preliminary Aspirate - Clinical Findings Intake & Output: Intake & Output 04/16/18 04/16/18 04/17/18 15:59 23:59 07:59 Intake Total 2720 / 2720 992.5 / 992.5 1004.6 / 1004.6 Output Total 1650 / 1650 300 / 300 275 / 275 Balance 1070 / 1070 692.5 / 692.5 729.6 / 729.6 Weight 113.9 kg - VTE Documentation of Mechanical Device: Intermittent pneumatic compression device Consult Discharge Plan - Plan Instructions: Chronic Obstructive Pulmonary Disease (ED) Referrals: Christiano Santacruz MD [Primary Care Provider] - <Tani Johansen W - Last Filed: 04/17/18 10:38> Date of Encounter: 04/17/18 Assessment and Plan (1) Acute respiratory failure with hypoxia Current Visit: Yes Status: Acute (2) Hypertension Current Visit: Yes Status: Acute Qualifiers: Hypertension type: essential hypertension Qualified Code(s): I10 - Essential (primary) hypertension (3) (HFpEF) heart failure with preserved ejection fraction Current Visit: Yes Status: Acute (4) Acute exacerbation of chronic obstructive airways disease Current Visit: Yes Status: Acute (5) CAD (coronary artery disease) Current Visit: Yes Status: Chronic Qualifiers: Coronary Disease-Associated Artery/Lesion type: [place] artery [place] vs. transplanted heart: [place] heart Associated angina: without angina Qualified Code(s): I25.10 - Atherosclerotic heart disease of [place] coronary artery without angina pectoris (6) Tobacco dependence due to cigarettes Current Visit: Yes Status: Chronic (7) Acute and chronic respiratory failure with hypercapnia Current Visit: Yes Status: Acute (8) Acute kidney injury Current Visit: Yes Status: Acute (9) DVT prophylaxis Current Visit: Yes Status: Acute Objective PUL Vital signs: Last Vital Signs Temp 98.9 F 04/17/18 08:00 Pulse 58 04/17/18 10:00 Resp 14 04/17/18 10:00 BP 124/70 04/17/18 10:00 Pulse Ox 92 04/17/18 10:00 Ventilator Settings Ventilator Settings: Ventilator Settings, Last 8 Hours Ventilator Tidal Volume 500 Setting Ventilator Tidal Volume 500 Setting Ventilator Tidal Volume 500 Setting Ventilator Tidal Volume 500 Setting Ventilator Tidal Volume 500 Setting Ventilator Tidal Volume 500 Setting Ventilator Tidal Volume 500 Setting Ventilator Tidal Volume 500 Setting Ventilator Tidal Volume 500 Setting Ventilator Tidal Volume 500 Setting Ventilator Tidal Volume 500 Setting Ventilator Tidal Volume 500 Setting Ventilator Respiratory Rate 14 Setting Ventilator Respiratory Rate 14 Setting Ventilator Respiratory Rate 14 Setting Ventilator Respiratory Rate 14 Setting Ventilator Respiratory Rate 14 Setting Ventilator Respiratory Rate 14 Setting Ventilator Respiratory Rate 14 Setting Ventilator Respiratory Rate 14 Setting Ventilator Respiratory Rate 14 Setting Ventilator Respiratory Rate 14 Setting Ventilator Respiratory Rate 14 Setting Ventilator Respiratory Rate 14 Setting Actual Respiratory Rate 14 Actual Respiratory Rate 16 Actual Respiratory Rate 16 Actual Respiratory Rate 14 Actual Respiratory Rate 14 Actual Respiratory Rate 14 Actual Respiratory Rate 14 Actual Respiratory Rate 14 Actual Respiratory Rate 14 Actual Respiratory Rate 14 Actual Respiratory Rate 15 Positive End Expiratory 8 Pressure Positive End Expiratory 8 Pressure Positive End Expiratory 8 Pressure Positive End Expiratory 8 Pressure Positive End Expiratory 8 Pressure Positive End Expiratory 12 Pressure Positive End Expiratory 12 Pressure Positive End Expiratory 12 Pressure Positive End Expiratory 12 Pressure Positive End Expiratory 12 Pressure Positive End Expiratory 12 Pressure Positive End Expiratory 12 Pressure Peak Inspiratory Airway 25 Pressure Peak Inspiratory Airway 45 Pressure Peak Inspiratory Airway 26 Pressure Peak Inspiratory Airway 26 Pressure Peak Inspiratory Airway 24 Pressure Peak Inspiratory Airway 28 Pressure Peak Inspiratory Airway 28 Pressure Peak Inspiratory Airway 33 Pressure Peak Inspiratory Airway 27 Pressure Peak Inspiratory Airway 27 Pressure Peak Inspiratory Airway 28 Pressure Results - Laboratory Findings CBC and BMP: 04/17/18 04:00 04/17/18 04:00 ABG ABG pH 7.43 pH Units (7.32-7.45) 04/17/18 05:12 ABG pCO2 52 mmHg (35-45) H 04/17/18 05:12 ABG pO2 66 mmHg (85-104) L 04/17/18 05:12 ABG O2 Saturation 93 % (95-98) L 04/17/18 05:12 PT/INR, D-dimer PT 13.0 Seconds (9.4-12.1) H 04/17/18 04:00 Abnormal lab findings: Abnormal lab results WBC 17.3 K/mcL (4.3-11.1) H 04/17/18 04:00 MCH 26.5 pg (28.0-33.3) L 04/17/18 04:00 MCHC 30.0 g/dL (31.6-35.5) L 04/17/18 04:00 RDW 14.7 % (11.5-14.5) H 04/17/18 04:00 MPV 12.6 fL (9.4-12.4) H 04/17/18 04:00 Neutrophils # 13.9 K/mcL (1.6-8.9) H 04/17/18 04:00 Monocytes # 1.5 K/mcL (0.0-1.3) H 04/17/18 04:00 PT 13.0 Seconds (9.4-12.1) H 04/17/18 04:00 ABG pCO2 52 mmHg (35-45) H 04/17/18 05:12 ABG pO2 66 mmHg (85-104) L 04/17/18 05:12 ABG HCO3 34 mEq/L (21-27) H 04/17/18 05:12 ABG Total CO2 36 mEq/L (20-26) H 04/17/18 05:12 ABG O2 Saturation 93 % (95-98) L 04/17/18 05:12 ABG Base Excess 8 mEq/L (-2 to 3) H 04/17/18 05:12 VBG pCO2 61 mmHg (41-51) H 04/13/18 04:50 VBG pO2 89 mmHg (25-50) H 04/13/18 04:50 VBG HCO3 37 mEq/L (21-27) H 04/13/18 04:50 Carbon Dioxide 32 mEq/L (23-29) H 04/17/18 04:00 BUN 55 mg/dL (8-23) H 04/17/18 04:00 BUN/Creatinine Ratio 45 (6-26) H 04/17/18 04:00 Glucose 165 mg/dL (70-105) H 04/17/18 04:00 POC Glucose 146 mg/dL (70-99) H 04/17/18 10:04 Calculated Osmolality 309 (280-300) H 04/17/18 04:00 Venous Ioniz Calcium 1.07 mmol/L (1.15-1.35) L 04/16/18 04:24 Serum Total Protein 5.6 g/dL (6.4-8.9) L 04/14/18 16:49 Albumin 3.1 g/dL (3.5-5.7) L 04/14/18 16:49 Urine Protein 30 mg/dL (Neg-Trace) H 04/14/18 02:25 Urine Microscopic WBC 3-5 per hpf (0-3) H 04/14/18 02:25 Ur Squamous Epith Cells Many per lpf (None-Few) H 04/14/18 02:25 Entero/Rhino (PCR) DETECTED (Not Detect) A 04/07/18 15:03 - Microbiology Findings Microbiology Findings: Microbiology, Last 48 Hours 04/14/18 19:50 Sputum Culture - Final Aspirate 04/14/18 02:25 Urine Culture - Final Urine,Catheterized No growth. - Clinical Findings Intake & Output: Intake & Output 04/16/18 04/17/18 04/17/18 23:59 07:59 15:59 Intake Total 992.5 / 992.5 1054.6 / 1054.6 300 / 300 Output Total 300 / 300 625 / 625 Balance 692.5 / 692.5 429.6 / 429.6 300 / 300 Weight 113.9 kg - Attending Attestation I examined this patient and my medical decision-making was reviewed with the Resident Physician. I agree with the documented findings, disposition and treatment plan as described except to the extent set forth below. We independently had [id number] contact with the patient Patient seen and examined at bedside Labs, radiology, chart personally reviewed. Management was reviewed during multidisciplinary critical care rounds. GATE CUTTER: Patient more awake today able to follow some simple commands he does appear very agitated at times Pulm: Acute on chronic hypoxic hypercapnic respiratory failure acceptable gas exchange he was able to decrease his FiO2 to 50% and PEEP to 8 spontaneous breathing trial planned Cards: Hemodynamically stable continue telemetry monitoring. Blood pressure controlled and heart rate is controlled continue diuresis for hydrostatic pulmonary edema secondary to heart failure with preserved ejection fraction GI: GI prophylaxis given Nutrition: He has evidence of ileus enteral nutrition's on hold advancing bowel regimen today no evidence of obstruction on CT scan Renal: Stable urine output continue diuresis UOP Monitored, Cont to Trend sCr and monitor Electrolytes. ID: Unfortunately leukocytosis continues to worsen and he has low-grade fever reculturing the patient today we will broaden out his antimicrobials CT chest abdomen and pelvis without clear evidence of infectious process except in his long which could be consistent with pneumonia is possible that he has a resistant organisms that is currently not being treated. We will continue vancomycin and meropenem for this reason. May need infectious disease consultation Heme/Onc: DVT prophylaxis given Endo: Glucose Monitored Integ/MSK: Skin Care per routine ICU Nursing Protocol to prevent ulcers. Lines: All lines examined without evidence of infection : Dispo: ICU CODE: Full
[2018-04-17] MEDS ORDERED: Lactulose Oral Soln 20 GM/30 ML UDC PO ONE (07:19)
[2018-04-17] MEDS: Budesonide/Formoterol 160/4.5 1 PUFF INH IH SCH ×2 (07:31→20:18)
[2018-04-17] MEDS ORDERED: Aminoglycoside Consult 1 EACH MC ONE (08:17)
[2018-04-17] MEDS: Furosemide 40 MG/4 ML VIAL IVP SCH (08:46)
[2018-04-17] MEDS: Fluticasone Propionate Nasal 50 MCG/SPRAY BOTTLE NS SCH (08:46)
[2018-04-17] MEDS: Pantoprazole 40 MG VIAL IVP SCH (08:47)
[2018-04-17] MEDS: Cefepime HCl 2,000 MG in 0.9 % Sodium Chloride Mini Bag 100 ML IVPB SCH ×2 (08:47→20:12)
[2018-04-17] MEDS: Chlorhexidine Rinse 15 ML MOUTHWASH MM SCH ×2 (08:47→20:12)
[2018-04-17] MEDS: Fluconazole 400 MG/200 ML 400 MG/200 ML BAG IVPB SCH (08:47)
[2018-04-17] MEDS: amLODIPine 5 MG TABLET PO SCH (08:48)
[2018-04-17] MEDS: FentaNYL (PF) 2,500 MCG in EMPTY BAG 1 EACH IVC SCH ×2 (08:48→16:50)
[2018-04-17] MEDS: Nicotine 21 MG PATCH.TD24 TD SCH (08:48)
[2018-04-17] MEDS: Sennosides/Docusate Sodium TABLET PO SCH ×2 (08:49→20:13)
[2018-04-17] MEDS: Loratadine 10 MG TABLET PO SCH (08:49)
[2018-04-17] MEDS: Aspirin 81 MG TAB.CHEW PO SCH (08:49)
[2018-04-17] MEDS: Isosorbide MONOnitrate (24 HR) 60 MG TAB.ER.24H PO SCH (08:49)
[2018-04-17] MEDS: Multivit/Ca/Min/Fe/FA 1 TAB TABLET PO SCH (08:49)
[2018-04-17] MEDS: Bisacodyl 10 MG RECTAL SUPPOSITORY RC SCH (08:50)
[2018-04-17] MEDS: Meropenem 1,000 MG in Water for inj. (sterile) 20 ML 10 ML IVP SCH (16:16)
[2018-04-18] MEDS: Ipratropium/Albuterol Neb 3 ML IH SCH ×6 (00:20→20:15)
[2018-04-18] MEDS: Meropenem 1,000 MG in Water for inj. (sterile) 20 ML 10 ML IVP SCH ×2 (00:44→09:15)
[2018-04-18] MEDS: hydrALAZINE 10 MG TABLET PO SCH ×4 (00:46→17:09)
[2018-04-18] MEDS: Artificial Tears SOLN 15 ML BOTTLE BOTH EYES SCH ×6 (00:46→20:02)
[2018-04-18] MEDS: Insulin Human Regular 100 UNIT in 0.9 % Sodium Chloride 100 ML IVC SCH (04:00)
[2018-04-18 04:12] LABS: Basophils % 0.2 %; Eosinophils # 0.3 K/mcL (0.0-0.6); Eosinophils % 1.4 %; Hematocrit 41.7 % (37.5-50.1); Hemoglobin 12.4 g/dL (12.9-16.9); Immature Granulocytes % 1.9 % (0-4); Lymphocytes # 1.2 K/mcL (0.6-4.6); Lymphocytes % 7.1 %; Mean Corpuscular HGB Conc 29.7 g/dL (31.6-35.5); Mean Corpuscular Hemoglobin 26.5 pg (28.0-33.3); Mean Corpuscular Volume 89.1 fL (83.0-100.0); Mean Platelet Volume 12.2 fL (9.4-12.4); Monocytes # 1.2 K/mcL (0.0-1.3); Monocytes % 6.8 %; Neutrophils # 14.4 K/mcL (1.6-8.9); Platelet Count 178 K/mcL (140-400); Red Blood Count 4.68 M/mcL (4.19-5.50); Red Cell Distribution Width 14.6 % (11.5-14.5); Segmented Neutrophils % 82.6 %
[2018-04-18] MEDS: FentaNYL (PF) 2,500 MCG in EMPTY BAG 1 EACH IVC SCH (04:30)
[2018-04-18] MEDS: Dexmedetomidine HCl 400 MCG/100 ML MLS IVC SCH ×6 (04:30→23:25)
[2018-04-18 04:33] LABS: BUN/Creatinine Ratio 46 (6-26); Blood Urea Nitrogen 50 mg/dL (8-23); Calcium 8.7 mg/dL (8.6-10.3); Carbon Dioxide 30 mEq/L (23-29); Chloride 101 mEq/L (98-107); Glucose 156 mg/dL (70-105); Magnesium 2.3 mg/dL (1.6-2.6); Osmolality,Calculated 307 (280-300); Phosphorous 3.6 mg/dL (2.7-4.5); Potassium 4.1 mEq/L (3.5-5.1); Sodium 140 mEq/L (136-145); eGFR For Non-African Americans > 60 (> 60)
[2018-04-18 05:24] LABS: ABG Base Excess 7 mEq/L (-2 to 3); ABG HCO3 33 mEq/L (21-27); ABG Oxygen Saturation 90 % (95-98); ABG PCO2 55 mmHg (35-45); ABG PH 7.39 pH Units (7.32-7.45); ABG PO2 60 mmHg (85-104); ABG TCO2 35 mEq/L (20-26); Blood Gas Modality ASSIST CONTROL; Blood Gas PEEP 8 cm H2O; Blood Gas Respiration Rate 14; Blood Gas VT 500 cc
[2018-04-18] MEDS: *HR* Heparin 5,000 UNIT/ML VIAL SQ SCH ×3 (06:21→21:34)
[2018-04-18] MEDS: Budesonide/Formoterol 160/4.5 1 PUFF INH IH SCH ×2 (08:15→20:17)
[2018-04-18] MEDS: Fluconazole 400 MG/200 ML 400 MG/200 ML BAG IVPB SCH (09:06)
[2018-04-18] MEDS: Aspirin 81 MG TAB.CHEW PO SCH (09:07)
[2018-04-18] MEDS: Chlorhexidine Rinse 15 ML MOUTHWASH MM SCH ×2 (09:07→20:02)
[2018-04-18] MEDS: amLODIPine 5 MG TABLET PO SCH (09:07)
[2018-04-18] MEDS: Isosorbide MONOnitrate (24 HR) 60 MG TAB.ER.24H PO SCH (09:08)
[2018-04-18] MEDS: Furosemide 40 MG/4 ML VIAL IVP SCH (09:08)
[2018-04-18] MEDS: Loratadine 10 MG TABLET PO SCH (09:08)
[2018-04-18] MEDS: Pantoprazole 40 MG VIAL IVP SCH (09:08)
[2018-04-18] MEDS: Sennosides/Docusate Sodium TABLET PO SCH ×2 (09:08→20:03)
[2018-04-18] MEDS: Nicotine 21 MG PATCH.TD24 TD SCH (09:09)
[2018-04-18] MEDS: Fluticasone Propionate Nasal 50 MCG/SPRAY BOTTLE NS SCH (09:10)
[2018-04-18] MEDS: Multivit/Ca/Min/Fe/FA 1 TAB TABLET PO SCH (09:16)
[2018-04-18] MEDS: Cefepime HCl 2,000 MG in 0.9 % Sodium Chloride Mini Bag 100 ML IVPB SCH (09:19)
--- NOTE | 2018-04-18 09:49 | Pulmonology Progress Note ---
<LidiaTlluis M - Last Filed: 04/18/18 10:19> Date of Encounter: 04/18/18 Objective PUL Vital signs: Last Vital Signs Temp 98.6 F 04/18/18 08:00 Pulse 76 04/18/18 10:00 Resp 28 04/18/18 10:00 BP 173/83 04/18/18 10:00 Pulse Ox 93 04/18/18 10:00 Ventilator Settings Ventilator Settings: Ventilator Settings, Last 8 Hours Ventilator Tidal Volume 500 Setting Ventilator Tidal Volume 500 Setting Ventilator Tidal Volume 500 Setting Ventilator Tidal Volume 500 Setting Ventilator Tidal Volume 500 Setting Ventilator Tidal Volume 500 Setting Ventilator Tidal Volume 500 Setting Ventilator Respiratory Rate 14 Setting Ventilator Respiratory Rate 14 Setting Ventilator Respiratory Rate 14 Setting Ventilator Respiratory Rate 14 Setting Ventilator Respiratory Rate 14 Setting Ventilator Respiratory Rate 14 Setting Ventilator Respiratory Rate 14 Setting Actual Respiratory Rate 26 Actual Respiratory Rate 16 Actual Respiratory Rate 16 Actual Respiratory Rate 22 Actual Respiratory Rate 14 Actual Respiratory Rate 14 Actual Respiratory Rate 14 Positive End Expiratory 8 Pressure Positive End Expiratory 8 Pressure Positive End Expiratory 8 Pressure Positive End Expiratory 8 Pressure Positive End Expiratory 8 Pressure Positive End Expiratory 8 Pressure Positive End Expiratory 8 Pressure Positive End Expiratory 8 Pressure Peak Inspiratory Airway 21 Pressure Peak Inspiratory Airway 26 Pressure Peak Inspiratory Airway 26 Pressure Peak Inspiratory Airway 32 Pressure Peak Inspiratory Airway 24 Pressure Peak Inspiratory Airway 22 Pressure Peak Inspiratory Airway 26 Pressure Results - Laboratory Findings CBC and BMP: 04/18/18 03:17 04/18/18 03:17 ABG ABG pH 7.39 pH Units (7.32-7.45) 04/18/18 05:20 ABG pCO2 55 mmHg (35-45) H 04/18/18 05:20 ABG pO2 60 mmHg (85-104) L 04/18/18 05:20 ABG O2 Saturation 90 % (95-98) L 04/18/18 05:20 PT/INR, D-dimer PT 13.0 Seconds (9.4-12.1) H 04/17/18 04:00 Abnormal lab findings: Abnormal lab results WBC 17.4 K/mcL (4.3-11.1) H 04/18/18 03:17 Hgb 12.4 g/dL (12.9-16.9) L 04/18/18 03:17 MCH 26.5 pg (28.0-33.3) L 04/18/18 03:17 MCHC 29.7 g/dL (31.6-35.5) L 04/18/18 03:17 RDW 14.6 % (11.5-14.5) H 04/18/18 03:17 Neutrophils # 14.4 K/mcL (1.6-8.9) H 04/18/18 03:17 PT 13.0 Seconds (9.4-12.1) H 04/17/18 04:00 ABG pCO2 55 mmHg (35-45) H 04/18/18 05:20 ABG pO2 60 mmHg (85-104) L 04/18/18 05:20 ABG HCO3 33 mEq/L (21-27) H 04/18/18 05:20 ABG Total CO2 35 mEq/L (20-26) H 04/18/18 05:20 ABG O2 Saturation 90 % (95-98) L 04/18/18 05:20 ABG Base Excess 7 mEq/L (-2 to 3) H 04/18/18 05:20 VBG pCO2 61 mmHg (41-51) H 04/13/18 04:50 VBG pO2 89 mmHg (25-50) H 04/13/18 04:50 VBG HCO3 37 mEq/L (21-27) H 04/13/18 04:50 Carbon Dioxide 30 mEq/L (23-29) H 04/18/18 03:17 BUN 50 mg/dL (8-23) H 04/18/18 03:17 BUN/Creatinine Ratio 46 (6-26) H 04/18/18 03:17 Glucose 156 mg/dL (70-105) H 04/18/18 03:17 POC Glucose 155 mg/dL (70-99) H 04/18/18 10:07 Calculated Osmolality 307 (280-300) H 04/18/18 03:17 Venous Ioniz Calcium 1.07 mmol/L (1.15-1.35) L 04/16/18 04:24 Serum Total Protein 5.6 g/dL (6.4-8.9) L 04/14/18 16:49 Albumin 3.1 g/dL (3.5-5.7) L 04/14/18 16:49 Urine Protein 30 mg/dL (Neg-Trace) H 04/14/18 02:25 Urine Microscopic WBC 3-5 per hpf (0-3) H 04/14/18 02:25 Ur Squamous Epith Cells Many per lpf (None-Few) H 04/14/18 02:25 Vancomycin Trough 11 mcg/mL (5-10) H 04/17/18 19:50 Entero/Rhino (PCR) DETECTED (Not Detect) A 04/07/18 15:03 - Microbiology Findings Microbiology Findings: Microbiology, Last 48 Hours 04/13/18 07:14 Blood Culture - Final Peripheral Venipuncture No growth. Final report. 04/13/18 07:14 Blood Culture - Final Peripheral Venipuncture No growth. Final report. 04/18/18 00:00 Blood Culture - Preliminary Peripheral Venipuncture Culture is incubating and being continuously monitored for growth. Final report to follow. 04/17/18 23:59 Blood Culture - Preliminary Peripheral Venipuncture Culture is incubating and being continuously monitored for growth. Final report to follow. 04/17/18 20:26 Sputum Culture - Preliminary Sputum 04/14/18 19:50 Sputum Culture - Final Aspirate 04/14/18 02:25 Urine Culture - Final Urine,Catheterized No growth. - Clinical Findings Intake & Output: Intake & Output 04/17/18 04/18/18 04/18/18 23:59 07:59 15:59 Intake Total 1096.8 / 1096.8 415.1 / 415.1 169.9 / 169.9 Output Total 75 / 75 450 / 450 250 / 250 Balance 1021.8 / 1021.8 -34.9 / -34.9 -80.1 / -80.1 Consult Discharge Plan - Plan Instructions: Chronic Obstructive Pulmonary Disease (ED) Referrals: Christiano Santacruz MD [Primary Care Provider] - - Attending Attestation I examined this patient and my medical decision-making was reviewed with the Resident Physician. I agree with the documented findings, disposition and treatment plan as described except to the extent set forth below. Patient seen and examined. Labs, radiology, chart personally reviewed. 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 Patient was changed to pressure support and he did better and will extubate to BiPAP. Patient is on sedation and anxiety control will be important. Palliative care consult. Cardiovascular:stable GI: Nutrition per dietary and GI prophylaxis per routine Heme: DVT prophylaxis per routine ID: Continue antibiotics and plan to de-escalation Renal; urine out put and renal funtion reviewed Endorcine: blood glucose is monitored Lines: all lines checked and no evidence of infections Skin: skin care to prevent pressure ulcers per nursing routine care Overall prognosis is poor. <Jaret Green - Last Filed: 04/18/18 14:21> Date of Encounter: 04/18/18 Time of Encounter: 08:00 Assessment and Plan (1) Acute exacerbation of chronic obstructive airways disease Current Visit: Yes Status: Acute Patient was extubated to BIPAP this AM Saturating at 94% on FiO2 of 50 Small BL pleural effusions on CT may be 2/2 PNA ABG shows pH 7.39, pCO2 55, PO2 60, HCO3 33 Repeat blood culture shows no growth to date Sputum culture shows no growth Duonebs Started IV levaquin - 1st dose tomorrow (04/19) Discontinued vacomycin, cefepime, meropenem (2) Acute on chronic respiratory failure with hypoxia and hypercapnia Current Visit: Yes Status: Acute Likely 2/2 COPD exacerbation Patient extubated this AM (04/18) Patient on BIPAP of 50 FiO2 saturating at 94% (3) Congestive heart failure Current Visit: Yes Status: Acute Echo on 04/06/18 showed EF of 55% with mild LV diastolic dysfunction Continue IV lasix 40 mg daily Renal function is stable Qualifiers: Heart failure type: diastolic Heart failure chronicity: acute on chronic Qualified Code(s): I50.33 - Acute on chronic diastolic (congestive) heart failure (4) Acute kidney injury Current Visit: Yes Status: Resolved Resolved Creatinine 1.08 today (5) Diabetes Current Visit: Yes Status: Chronic Glucose 156 today Discontinued IV insulin Started 25 units insulin levemir at night Started high dose insulin sliding scale Qualifiers: Diabetes mellitus type: other specified (including JADEN) Diabetes mellitus terminal carman insulin use: unspecified terminal carman insulin use status Diabetes mellitus complication status: without complication Qualified Code(s): E13.9 - Other specified diabetes mellitus without complications (6) Candidiasis of mouth Current Visit: Yes Status: Acute Discontinued fluconazole Started nystatin rinse BID for 5 days (7) Tobacco dependence due to cigarettes Current Visit: Yes Status: Chronic Nicotine patch (8) DVT prophylaxis Current Visit: Yes Status: Acute Subcutaneous heparin and SCDs Subjective Principal diagnosis: Acute exacerbation of COPD Interval history: 62 male with PMHx of COPD, CHF, HTN presents to ICU with acute respiratory failure with hypoxia and hypercapnia. Patient intubated this AM. He is awake but drowsy. He responds to some commands. Patient's daughter is coming to discuss goals of care today. It is difficult to elicit any history from the patient. Objective PUL Vital signs: Last Vital Signs Temp 98.6 F 04/18/18 08:00 Pulse 69 04/18/18 08:42 Resp 32 04/18/18 08:18 BP 167/90 04/18/18 08:18 Pulse Ox 94 04/18/18 08:18 General appearance: lethargic (intubated) Eyes: nonicteric Effort: other (on vent) Auscultation: bilateral: diminished breath sounds Cardiovascular: regular rate and rhythm Gastrointestinal: soft, non-tender Extremities: no cyanosis (SCDs) Ventilator Settings Ventilator Settings: Ventilator Settings, Last 8 Hours Ventilator Tidal Volume 500 Setting Ventilator Tidal Volume 500 Setting Ventilator Tidal Volume 500 Setting Ventilator Tidal Volume 500 Setting Ventilator Tidal Volume 500 Setting Ventilator Tidal Volume 500 Setting Ventilator Tidal Volume 500 Setting Ventilator Tidal Volume 500 Setting Ventilator Respiratory Rate 14 Setting Ventilator Respiratory Rate 14 Setting Ventilator Respiratory Rate 14 Setting Ventilator Respiratory Rate 14 Setting Ventilator Respiratory Rate 14 Setting Ventilator Respiratory Rate 14 Setting Ventilator Respiratory Rate 14 Setting Ventilator Respiratory Rate 14 Setting Actual Respiratory Rate 26 Actual Respiratory Rate 16 Actual Respiratory Rate 16 Actual Respiratory Rate 22 Actual Respiratory Rate 14 Actual Respiratory Rate 14 Actual Respiratory Rate 14 Actual Respiratory Rate 14 Positive End Expiratory 8 Pressure Positive End Expiratory 8 Pressure Positive End Expiratory 8 Pressure Positive End Expiratory 8 Pressure Positive End Expiratory 8 Pressure Positive End Expiratory 8 Pressure Positive End Expiratory 8 Pressure Positive End Expiratory 8 Pressure Positive End Expiratory 8 Pressure Peak Inspiratory Airway 21 Pressure Peak Inspiratory Airway 26 Pressure Peak Inspiratory Airway 26 Pressure Peak Inspiratory Airway 32 Pressure Peak Inspiratory Airway 24 Pressure Peak Inspiratory Airway 22 Pressure Peak Inspiratory Airway 26 Pressure Peak Inspiratory Airway 25 Pressure Results - Laboratory Findings CBC and BMP: 04/18/18 03:17 04/18/18 03:17 ABG ABG pH 7.39 pH Units (7.32-7.45) 04/18/18 05:20 ABG pCO2 55 mmHg (35-45) H 04/18/18 05:20 ABG pO2 60 mmHg (85-104) L 04/18/18 05:20 ABG O2 Saturation 90 % (95-98) L 04/18/18 05:20 PT/INR, D-dimer PT 13.0 Seconds (9.4-12.1) H 04/17/18 04:00 Abnormal lab findings: Abnormal lab results WBC 17.4 K/mcL (4.3-11.1) H 04/18/18 03:17 Hgb 12.4 g/dL (12.9-16.9) L 04/18/18 03:17 MCH 26.5 pg (28.0-33.3) L 04/18/18 03:17 MCHC 29.7 g/dL (31.6-35.5) L 04/18/18 03:17 RDW 14.6 % (11.5-14.5) H 04/18/18 03:17 Neutrophils # 14.4 K/mcL (1.6-8.9) H 04/18/18 03:17 PT 13.0 Seconds (9.4-12.1) H 04/17/18 04:00 ABG pCO2 55 mmHg (35-45) H 04/18/18 05:20 ABG pO2 60 mmHg (85-104) L 04/18/18 05:20 ABG HCO3 33 mEq/L (21-27) H 04/18/18 05:20 ABG Total CO2 35 mEq/L (20-26) H 04/18/18 05:20 ABG O2 Saturation 90 % (95-98) L 04/18/18 05:20 ABG Base Excess 7 mEq/L (-2 to 3) H 04/18/18 05:20 VBG pCO2 61 mmHg (41-51) H 04/13/18 04:50 VBG pO2 89 mmHg (25-50) H 04/13/18 04:50 VBG HCO3 37 mEq/L (21-27) H 04/13/18 04:50 Carbon Dioxide 30 mEq/L (23-29) H 04/18/18 03:17 BUN 50 mg/dL (8-23) H 04/18/18 03:17 BUN/Creatinine Ratio 46 (6-26) H 04/18/18 03:17 Glucose 156 mg/dL (70-105) H 04/18/18 03:17 POC Glucose 136 mg/dL (70-99) H 04/18/18 07:49 Calculated Osmolality 307 (280-300) H 04/18/18 03:17 Venous Ioniz Calcium 1.07 mmol/L (1.15-1.35) L 04/16/18 04:24 Serum Total Protein 5.6 g/dL (6.4-8.9) L 04/14/18 16:49 Albumin 3.1 g/dL (3.5-5.7) L 04/14/18 16:49 Urine Protein 30 mg/dL (Neg-Trace) H 04/14/18 02:25 Urine Microscopic WBC 3-5 per hpf (0-3) H 04/14/18 02:25 Ur Squamous Epith Cells Many per lpf (None-Few) H 04/14/18 02:25 Vancomycin Trough 11 mcg/mL (5-10) H 04/17/18 19:50 Entero/Rhino (PCR) DETECTED (Not Detect) A 04/07/18 15:03 - Microbiology Findings Microbiology Findings: Microbiology, Last 48 Hours 04/13/18 07:14 Blood Culture - Final Peripheral Venipuncture No growth. Final report. 04/13/18 07:14 Blood Culture - Final Peripheral Venipuncture No growth. Final report. 04/18/18 00:00 Blood Culture - Preliminary Peripheral Venipuncture Culture is incubating and being continuously monitored for growth. Final report to follow. 04/17/18 23:59 Blood Culture - Preliminary Peripheral Venipuncture Culture is incubating and being continuously monitored for growth. Final report to follow. 04/17/18 20:26 Sputum Culture - Preliminary Sputum 04/14/18 19:50 Sputum Culture - Final Aspirate 04/14/18 02:25 Urine Culture - Final Urine,Catheterized No growth. - Diagnostic Findings Chest x-ray: report reviewed, image reviewed - Clinical Findings Intake & Output: Intake & Output 04/17/18 04/18/18 04/18/18 23:59 07:59 15:59 Intake Total 1096.8 / 1096.8 415.1 / 415.1 169.9 / 169.9 Output Total 75 / 75 450 / 450 250 / 250 Balance 1021.8 / 1021.8 -34.9 / -34.9 -80.1 / -80.1 - VTE Documentation of Mechanical Device: Intermittent pneumatic compression device
[2018-04-18] MEDS ORDERED: D5% in Water 1,000 ML IVC PRN (11:15)
[2018-04-18] MEDS ORDERED: Dextrose Gel 15 GM/37.5 ML TUBE PO PRN ×2 (11:15)
[2018-04-18] MEDS ORDERED: *HR* Dextrose 50 % in Water (Syg) 50 ML SYRINGE IVP PRN (11:15)
--- NOTE | 2018-04-18 11:50 | Palliative Progress Note ---
Date of Encounter: 04/18/18 Time of Encounter: 11:00 - Assessment and plan (1) Generalized pain Current Visit: Yes Status: Acute Assessment and plan: Remains on Fentanyl per ICU protocol. Monitor (2) Anxiety Current Visit: Yes Status: Acute Assessment and plan: Remains on Precedex per ICU protocol. MOnitor (3) Goals of care, counseling/discussion Current Visit: Yes Status: Acute Assessment and plan: Patient has been extubated - having difficult with speaking. I spoke with daughter Asuncion, who will be in later this afternoon and will attempt goals of care discussion. Patient was notified. Will f/u this afternoon. Afternoon meeting - patient daughter Asuncion at bedside. Patient is difficult to understand with bipap and speaking in whisper. He becomes frustrated easily and is stating he is going home and keeps waving "bye" to us. He does express he does not desire re-intubation. He does desire to keep bipap on. When addressing CPR/code status, he does not appear to comprehend this conversation. Daughter at bedside believes that if he is adamant he does not want reintubated - she is nurse and is aware that resuscitation for cardiac arrest would be that he would be reintubated. Daughter did change code status to DNRCCA/DNI. If patient improves and is able to discuss later in stay, will readdress. (4) Acute and chronic respiratory failure with hypercapnia Current Visit: Yes Status: Acute (5) Acute exacerbation of chronic obstructive airways disease Current Visit: Yes Status: Acute - Time Spent With Patient Total time spent is greater than 50% in coordination of care (as documented) at patient's floor/unit and/or counseling patient: - Subjective Interval history: Patient has been recently extubated. Currently on bipap. He is extremely hoarse and having a difficult time communicating. Assisted to reposition in bed. Denies pain or anxiety at this time. - Constitutional Vitals: Abnormal lab results WBC 17.4 K/mcL (4.3-11.1) H 04/18/18 03:17 Hgb 12.4 g/dL (12.9-16.9) L 04/18/18 03:17 MCH 26.5 pg (28.0-33.3) L 04/18/18 03:17 MCHC 29.7 g/dL (31.6-35.5) L 04/18/18 03:17 RDW 14.6 % (11.5-14.5) H 04/18/18 03:17 Neutrophils # 14.4 K/mcL (1.6-8.9) H 04/18/18 03:17 PT 13.0 Seconds (9.4-12.1) H 04/17/18 04:00 ABG pCO2 55 mmHg (35-45) H 04/18/18 05:20 ABG pO2 60 mmHg (85-104) L 04/18/18 05:20 ABG HCO3 33 mEq/L (21-27) H 04/18/18 05:20 ABG Total CO2 35 mEq/L (20-26) H 04/18/18 05:20 ABG O2 Saturation 90 % (95-98) L 04/18/18 05:20 ABG Base Excess 7 mEq/L (-2 to 3) H 04/18/18 05:20 VBG pCO2 61 mmHg (41-51) H 04/13/18 04:50 VBG pO2 89 mmHg (25-50) H 04/13/18 04:50 VBG HCO3 37 mEq/L (21-27) H 04/13/18 04:50 Carbon Dioxide 30 mEq/L (23-29) H 04/18/18 03:17 BUN 50 mg/dL (8-23) H 04/18/18 03:17 BUN/Creatinine Ratio 46 (6-26) H 04/18/18 03:17 Glucose 156 mg/dL (70-105) H 04/18/18 03:17 POC Glucose 155 mg/dL (70-99) H 04/18/18 10:07 Calculated Osmolality 307 (280-300) H 04/18/18 03:17 Venous Ioniz Calcium 1.07 mmol/L (1.15-1.35) L 04/16/18 04:24 Serum Total Protein 5.6 g/dL (6.4-8.9) L 04/14/18 16:49 Albumin 3.1 g/dL (3.5-5.7) L 04/14/18 16:49 Urine Protein 30 mg/dL (Neg-Trace) H 04/14/18 02:25 Urine Microscopic WBC 3-5 per hpf (0-3) H 04/14/18 02:25 Ur Squamous Epith Cells Many per lpf (None-Few) H 04/14/18 02:25 Vancomycin Trough 11 mcg/mL (5-10) H 04/17/18 19:50 Entero/Rhino (PCR) DETECTED (Not Detect) A 04/07/18 15:03 General appearance: Present: no acute distress - Respiratory Respiratory exam: Present: decreased breath sounds Additional comments: Remains on bipap. Expiratory wheezes noted throughout - Cardiovascular Cardiovascular exam: Present: +S1, +S2 - GI/Abdominal GI/Abdominal exam: Present: distended, normal bowel sounds, soft - Extremities Exam Extremities exam: Present: normal capillary refill, normal inspection - Neurological Exam Neurological exam: Present: alert, oriented X3, strengths equal and symetr throughout - Skin Skin exam: Present: dry, warm Palliative Quality Palliative Quality: Screen for Code Status: Yes, Screen for Goals of Care: Yes, Screen for Pain: Yes, If Pain Regimen Started, Initiate Bowel Regimen: NA, Screen for Nausea/Vomitting: Yes - Labs CBC & Chem 7: 04/18/18 03:17 04/18/18 03:17 Labs: Laboratory Results - last 24 hr 04/17/18 04/17/18 04/17/18 13:07 15:09 17:18 WBC RBC Hgb Hct MCV MCH MCHC RDW Plt Count MPV Immature Gran % Seg Neutrophils % Lymphocytes % Monocytes % Eosinophils % Basophils % Neutrophils # Lymphocytes # Monocytes # Eosinophils # Basophils # Sample Site ABG pH ABG pCO2 ABG pO2 ABG HCO3 ABG Total CO2 ABG O2 Saturation ABG Base Excess [place] Test Respiration Rate O2 Delivery Device Blood Gas Modality Inspired O2 Tidal Volume PEEP Sodium Potassium Chloride Carbon Dioxide BUN Creatinine Est GFR ( Amer) Est GFR (Non-Af Amer) BUN/Creatinine Ratio Glucose POC Glucose 140 H 139 H 130 H Calculated Osmolality Calcium Phosphorus Magnesium Vancomycin Trough 04/17/18 04/17/18 04/17/18 19:09 19:50 20:15 WBC RBC Hgb Hct MCV MCH MCHC RDW Plt Count MPV Immature Gran % Seg Neutrophils % Lymphocytes % Monocytes % Eosinophils % Basophils % Neutrophils # Lymphocytes # Monocytes # Eosinophils # Basophils # Sample Site ABG pH ABG pCO2 ABG pO2 ABG HCO3 ABG Total CO2 ABG O2 Saturation ABG Base Excess [place] Test Respiration Rate O2 Delivery Device Blood Gas Modality Inspired O2 Tidal Volume PEEP Sodium Potassium Chloride Carbon Dioxide BUN Creatinine Est GFR ( Amer) Est GFR (Non-Af Amer) BUN/Creatinine Ratio Glucose POC Glucose 174 H 174 H Calculated Osmolality Calcium Phosphorus Magnesium Vancomycin Trough 11 H 04/17/18 04/17/18 04/17/18 21:11 22:06 23:09 WBC RBC Hgb Hct MCV MCH MCHC RDW Plt Count MPV Immature Gran % Seg Neutrophils % Lymphocytes % Monocytes % Eosinophils % Basophils % Neutrophils # Lymphocytes # Monocytes # Eosinophils # Basophils # Sample Site ABG pH ABG pCO2 ABG pO2 ABG HCO3 ABG Total CO2 ABG O2 Saturation ABG Base Excess [place] Test Respiration Rate O2 Delivery Device Blood Gas Modality Inspired O2 Tidal Volume PEEP Sodium Potassium Chloride Carbon Dioxide BUN Creatinine Est GFR ( Amer) Est GFR (Non-Af Amer) BUN/Creatinine Ratio Glucose POC Glucose 189 H 174 H 175 H Calculated Osmolality Calcium Phosphorus Magnesium Vancomycin Trough 04/17/18 04/18/18 04/18/18 23:56 00:54 01:55 WBC RBC Hgb Hct MCV MCH MCHC RDW Plt Count MPV Immature Gran % Seg Neutrophils % Lymphocytes % Monocytes % Eosinophils % Basophils % Neutrophils # Lymphocytes # Monocytes # Eosinophils # Basophils # Sample Site ABG pH ABG pCO2 ABG pO2 ABG HCO3 ABG Total CO2 ABG O2 Saturation ABG Base Excess [place] Test Respiration Rate O2 Delivery Device Blood Gas Modality Inspired O2 Tidal Volume PEEP Sodium Potassium Chloride Carbon Dioxide BUN Creatinine Est GFR ( Amer) Est GFR (Non-Af Amer) BUN/Creatinine Ratio Glucose POC Glucose 144 H 158 H 134 H Calculated Osmolality Calcium Phosphorus Magnesium Vancomycin Trough 04/18/18 04/18/18 04/18/18 03:01 03:17 03:17 WBC 17.4 H RBC 4.68 Hgb 12.4 L Hct 41.7 MCV 89.1 MCH 26.5 L MCHC 29.7 L RDW 14.6 H Plt Count 178 MPV 12.2 Immature Gran % 1.9 Seg Neutrophils % 82.6 Lymphocytes % 7.1 Monocytes % 6.8 Eosinophils % 1.4 Basophils % 0.2 Neutrophils # 14.4 H Lymphocytes # 1.2 Monocytes # 1.2 Eosinophils # 0.3 Basophils # 0.0 Sample Site ABG pH ABG pCO2 ABG pO2 ABG HCO3 ABG Total CO2 ABG O2 Saturation ABG Base Excess [place] Test Respiration Rate O2 Delivery Device Blood Gas Modality Inspired O2 Tidal Volume PEEP Sodium 140 Potassium 4.1 Chloride 101 Carbon Dioxide 30 H BUN 50 H Creatinine 1.08 Est GFR ( Amer) > 60 Est GFR (Non-Af Amer) > 60 BUN/Creatinine Ratio 46 H Glucose 156 H POC Glucose 151 H Calculated Osmolality 307 H Calcium 8.7 Phosphorus 3.6 Magnesium 2.3 Vancomycin Trough 04/18/18 04/18/18 04/18/18 04:05 05:03 05:20 WBC RBC Hgb Hct MCV MCH MCHC RDW Plt Count MPV Immature Gran % Seg Neutrophils % Lymphocytes % Monocytes % Eosinophils % Basophils % Neutrophils # Lymphocytes # Monocytes # Eosinophils # Basophils # Sample Site L Radial ABG pH 7.39 ABG pCO2 55 H ABG pO2 60 L ABG HCO3 33 H ABG Total CO2 35 H ABG O2 Saturation 90 L ABG Base Excess 7 H [place] Test N/A Respiration Rate 14 O2 Delivery Device Adult Vent Blood Gas Modality ASSIST CONTROL Inspired O2 50.0 Tidal Volume 500 PEEP 8 Sodium Potassium Chloride Carbon Dioxide BUN Creatinine Est GFR ( Amer) Est GFR (Non-Af Amer) BUN/Creatinine Ratio Glucose POC Glucose 141 H 148 H Calculated Osmolality Calcium Phosphorus Magnesium Vancomycin Trough 04/18/18 04/18/18 04/18/18 06:02 06:55 07:49 WBC RBC Hgb Hct MCV MCH MCHC RDW Plt Count MPV Immature Gran % Seg Neutrophils % Lymphocytes % Monocytes % Eosinophils % Basophils % Neutrophils # Lymphocytes # Monocytes # Eosinophils # Basophils # Sample Site ABG pH ABG pCO2 ABG pO2 ABG HCO3 ABG Total CO2 ABG O2 Saturation ABG Base Excess [place] Test Respiration Rate O2 Delivery Device Blood Gas Modality Inspired O2 Tidal Volume PEEP Sodium Potassium Chloride Carbon Dioxide BUN Creatinine Est GFR ( Amer) Est GFR (Non-Af Amer) BUN/Creatinine Ratio Glucose POC Glucose 161 H 171 H 136 H Calculated Osmolality Calcium Phosphorus Magnesium Vancomycin Trough 04/18/18 10:07 WBC RBC Hgb Hct MCV MCH MCHC RDW Plt Count MPV Immature Gran % Seg Neutrophils % Lymphocytes % Monocytes % Eosinophils % Basophils % Neutrophils # Lymphocytes # Monocytes # Eosinophils # Basophils # Sample Site ABG pH ABG pCO2 ABG pO2 ABG HCO3 ABG Total CO2 ABG O2 Saturation ABG Base Excess [place] Test Respiration Rate O2 Delivery Device Blood Gas Modality Inspired O2 Tidal Volume PEEP Sodium Potassium Chloride Carbon Dioxide BUN Creatinine Est GFR ( Amer) Est GFR (Non-Af Amer) BUN/Creatinine Ratio Glucose POC Glucose 155 H Calculated Osmolality Calcium Phosphorus Magnesium Vancomycin Trough - ABG Interpretation ABG results: ABG ABG pH 7.39 pH Units (7.32-7.45) 04/18/18 05:20 ABG pCO2 55 mmHg (35-45) H 04/18/18 05:20 ABG pO2 60 mmHg (85-104) L 04/18/18 05:20 ABG O2 Saturation 90 % (95-98) L 04/18/18 05:20 PT/INR, D-dimer PT 13.0 Seconds (9.4-12.1) H 04/17/18 04:00 Consult Discharge Plan - Plan Instructions: Chronic Obstructive Pulmonary Disease (ED) Referrals: Christiano Santacruz MD [Primary Care Provider] -
[2018-04-18] MEDS: Bisacodyl 10 MG RECTAL SUPPOSITORY RC SCH (12:56)
[2018-04-18] MEDS: Insulin LISPRO 300 UNITS/3 ML VIAL SQ SCH ×2 (13:23→17:12)
[2018-04-18] MEDS: Levofloxacin 750 MG/150 ML 750 MG/150 ML BAG IVPB SCH (13:30)
[2018-04-18] MEDS: Nystatin SUSP 5 ML UD.LIQ PO SCH (20:03)
[2018-04-18] MEDS ORDERED: Insulin DETEMIR 100 UNIT/ML X5UNITS SQ SCH (21:00)
[2018-04-18] MEDS ORDERED: Insulin LISPRO 300 UNITS/3 ML VIAL SQ SCH (21:00)
[2018-04-19] MEDS: Ipratropium/Albuterol Neb 3 ML IH SCH ×7 (00:14→23:54)
[2018-04-19] MEDS: Artificial Tears SOLN 15 ML BOTTLE BOTH EYES SCH ×5 (00:19→19:39)
[2018-04-19] MEDS: hydrALAZINE 10 MG TABLET PO SCH ×5 (00:19→21:53)
[2018-04-19] MEDS: Dexmedetomidine HCl 400 MCG/100 ML MLS IVC SCH (02:45)
[2018-04-19 04:50] LABS: Basophils # 0.1 K/mcL (0.0-0.2); Basophils % 0.5 %; Eosinophils # 0.2 K/mcL (0.0-0.6); Eosinophils % 1.2 %; Hematocrit 47.1 % (37.5-50.1); Immature Granulocytes % 2.1 % (0-4); Lymphocytes # 1.4 K/mcL (0.6-4.6); Lymphocytes % 7.9 %; Mean Corpuscular HGB Conc 30.6 g/dL (31.6-35.5); Mean Corpuscular Hemoglobin 26.5 pg (28.0-33.3); Mean Corpuscular Volume 86.6 fL (83.0-100.0); Mean Platelet Volume 11.8 fL (9.4-12.4); Monocytes # 1.2 K/mcL (0.0-1.3); Monocytes % 6.5 %; Neutrophils # 14.9 K/mcL (1.6-8.9); Platelet Count 214 K/mcL (140-400); Red Blood Count 5.44 M/mcL (4.19-5.50); Red Cell Distribution Width 14.3 % (11.5-14.5); Segmented Neutrophils % 81.8 %
[2018-04-19 04:54] LABS: Hemoglobin 14.4 g/dL (12.9-16.9)
[2018-04-19 05:09] LABS: BUN/Creatinine Ratio 33 (6-26); Blood Urea Nitrogen 35 mg/dL (8-23); Calcium 9.7 mg/dL (8.6-10.3); Carbon Dioxide 29 mEq/L (23-29); Chloride 101 mEq/L (98-107); Glucose 177 mg/dL (70-105); Osmolality,Calculated 306 (280-300); Potassium 3.6 mEq/L (3.5-5.1); Sodium 142 mEq/L (136-145); eGFR For Non-African Americans > 60 (> 60)
[2018-04-19] MEDS: *HR* Heparin 5,000 UNIT/ML VIAL SQ SCH ×3 (06:17→21:56)
[2018-04-19] MEDS: Budesonide/Formoterol 160/4.5 1 PUFF INH IH SCH ×2 (07:50→19:22)
[2018-04-19] MEDS: Levofloxacin 750 MG/150 ML 750 MG/150 ML BAG IVPB SCH (07:54)
[2018-04-19] MEDS: Furosemide 40 MG/4 ML VIAL IVP SCH (07:54)
[2018-04-19] MEDS: Loratadine 10 MG TABLET PO SCH (07:55)
[2018-04-19] MEDS: Isosorbide MONOnitrate (24 HR) 60 MG TAB.ER.24H PO SCH (07:55)
[2018-04-19] MEDS: Multivit/Ca/Min/Fe/FA 1 TAB TABLET PO SCH (07:55)
[2018-04-19] MEDS: Chlorhexidine Rinse 15 ML MOUTHWASH MM SCH (07:55)
[2018-04-19] MEDS: Nystatin SUSP 5 ML UD.LIQ PO SCH ×2 (07:55→21:54)
[2018-04-19] MEDS: Aspirin 81 MG TAB.CHEW PO SCH (07:56)
[2018-04-19] MEDS: Nicotine 21 MG PATCH.TD24 TD SCH (07:56)
[2018-04-19] MEDS: amLODIPine 5 MG TABLET PO SCH (07:56)
[2018-04-19] MEDS: Sennosides/Docusate Sodium TABLET PO SCH ×2 (07:56→21:55)
[2018-04-19] MEDS: Bisacodyl 10 MG RECTAL SUPPOSITORY RC SCH (07:57)
[2018-04-19] MEDS: Pantoprazole 40 MG VIAL IVP SCH (07:57)
[2018-04-19] MEDS: Fluticasone Propionate Nasal 50 MCG/SPRAY BOTTLE NS SCH (07:57)
[2018-04-19] MEDS: Insulin LISPRO 300 UNITS/3 ML VIAL SQ SCH ×4 (08:12→21:58)
[2018-04-19] MEDS ORDERED: *HR* LORazepam 2 MG/ML VIAL IVP PRN ×2 (08:13→16:11)
[2018-04-19] MEDS ORDERED: risperiDONE 0.25 MG TABLET PO SCH (09:00)
--- NOTE | 2018-04-19 09:04 | Pulmonology Progress Note ---
<Megan Murillo M - Last Filed: 04/19/18 10:48> Date of Encounter: 04/19/18 Objective PUL Vital signs: Last Vital Signs Temp 98.3 F 04/19/18 08:00 Pulse 94 04/19/18 10:00 Resp 17 04/19/18 10:00 BP 159/87 04/19/18 10:00 Pulse Ox 94 04/19/18 10:00 Results - Laboratory Findings CBC and BMP: 04/19/18 04:00 04/19/18 04:00 ABG ABG pH 7.39 pH Units (7.32-7.45) 04/18/18 05:20 ABG pCO2 55 mmHg (35-45) H 04/18/18 05:20 ABG pO2 60 mmHg (85-104) L 04/18/18 05:20 ABG O2 Saturation 90 % (95-98) L 04/18/18 05:20 PT/INR, D-dimer PT 13.0 Seconds (9.4-12.1) H 04/17/18 04:00 Abnormal lab findings: Abnormal lab results WBC 18.2 K/mcL (4.3-11.1) H 04/19/18 04:00 MCH 26.5 pg (28.0-33.3) L 04/19/18 04:00 MCHC 30.6 g/dL (31.6-35.5) L 04/19/18 04:00 Neutrophils # 14.9 K/mcL (1.6-8.9) H 04/19/18 04:00 PT 13.0 Seconds (9.4-12.1) H 04/17/18 04:00 ABG pCO2 55 mmHg (35-45) H 04/18/18 05:20 ABG pO2 60 mmHg (85-104) L 04/18/18 05:20 ABG HCO3 33 mEq/L (21-27) H 04/18/18 05:20 ABG Total CO2 35 mEq/L (20-26) H 04/18/18 05:20 ABG O2 Saturation 90 % (95-98) L 04/18/18 05:20 ABG Base Excess 7 mEq/L (-2 to 3) H 04/18/18 05:20 VBG pCO2 61 mmHg (41-51) H 04/13/18 04:50 VBG pO2 89 mmHg (25-50) H 04/13/18 04:50 VBG HCO3 37 mEq/L (21-27) H 04/13/18 04:50 BUN 35 mg/dL (8-23) H 04/19/18 04:00 BUN/Creatinine Ratio 33 (6-26) H 04/19/18 04:00 Glucose 177 mg/dL (70-105) H 04/19/18 04:00 POC Glucose 153 mg/dL (70-99) H 04/19/18 07:44 Calculated Osmolality 306 (280-300) H 04/19/18 04:00 Venous Ioniz Calcium 1.07 mmol/L (1.15-1.35) L 04/16/18 04:24 Serum Total Protein 5.6 g/dL (6.4-8.9) L 04/14/18 16:49 Albumin 3.1 g/dL (3.5-5.7) L 04/14/18 16:49 Urine Protein 30 mg/dL (Neg-Trace) H 04/14/18 02:25 Urine Microscopic WBC 3-5 per hpf (0-3) H 04/14/18 02:25 Ur Squamous Epith Cells Many per lpf (None-Few) H 04/14/18 02:25 Vancomycin Trough 11 mcg/mL (5-10) H 04/17/18 19:50 Entero/Rhino (PCR) DETECTED (Not Detect) A 04/07/18 15:03 - Microbiology Findings Microbiology Findings: Microbiology, Last 48 Hours 04/17/18 16:54 Urine Culture - Preliminary Urine,Catheterized No growth. 04/17/18 20:26 Sputum Culture - Preliminary Sputum Gram Negative Vinnie 04/13/18 07:14 Blood Culture - Final Peripheral Venipuncture No growth. Final report. 04/13/18 07:14 Blood Culture - Final Peripheral Venipuncture No growth. Final report. 04/18/18 00:00 Blood Culture - Preliminary Peripheral Venipuncture Culture is incubating and being continuously monitored for growth. Final report to follow. 04/17/18 23:59 Blood Culture - Preliminary Peripheral Venipuncture Culture is incubating and being continuously monitored for growth. Final report to follow. 04/14/18 19:50 Sputum Culture - Final Aspirate - Clinical Findings Intake & Output: Intake & Output 04/18/18 04/19/18 04/19/18 23:59 07:59 15:59 Intake Total 300 / 300 181.3 / 181.3 Output Total 725 / 725 1175 / 1175 300 / 300 Balance -425 / -425 -993.7 / -993.7 -300 / -300 Weight 108.5 kg Consult Discharge Plan - Plan Instructions: Chronic Obstructive Pulmonary Disease (ED) Referrals: Christiano Santacruz MD [Primary Care Provider] - - Attending Attestation I examined this patient and my medical decision-making was reviewed with the Resident Physician. I agree with the documented findings, disposition and treatment plan as described except to the extent set forth below. Patient seen and examined. Labs, radiology, chart personally reviewed. Agree with resident's history and physical, assessment, plan with following comments: COATER HAND: Patient follows commands, Patient is agitated and will need some antipsychotic medication and try to get him off Precedex. Pulmonary: Acceptable oxygenation and ventilation and still needing NIV, but patient refuse and not compliant. Palliative is seeing patient and he is candidate for hospice. Cardiovascular: GI: Nutrition per dietary and GI prophylaxis per routine. Speech eval. ID: Continue antibiotics and plan to de-escalation. Renal; urine out put and renal funtion reviewed. Endorcine: blood glucose is monitored Lines: all lines checked and no evidence of infections Skin: skin care to prevent pressure ulcers per nursing routine care Overall prognosis is poor and palliative will follow up with family. <Jaret Green - Last Filed: 04/19/18 13:52> Date of Encounter: 04/19/18 Time of Encounter: 07:45 Assessment and Plan (1) Acute exacerbation of chronic obstructive airways disease Current Visit: Yes Status: Acute Patient was extubated to BIPAP yesterday Saturating at 94% on FiO2 of 50% Small BL pleural effusions on CT may be 2/2 PNA ABG on 04/18 shows pH 7.39, pCO2 55, PO2 60, HCO3 33 Repeat blood culture shows no growth to date Sputum culture shows no growth Duonebs and fluticasone Started IV levaquin - 1st dose today (04/19) Discontinued vacomycin, cefepime, meropenem Will transfer patient to floor (2) Acute on chronic respiratory failure with hypoxia and hypercapnia Current Visit: Yes Status: Acute Likely 2/2 COPD exacerbation Patient extubated yesterday (04/18) Patient on BIPAP with FiO2 of 50%, saturating at 94% Continue duonebs Continue fluticasone (3) Congestive heart failure Current Visit: Yes Status: Acute Echo on 04/06/18 showed EF of 55% with mild LV diastolic dysfunction Continue IV lasix 40 mg daily Renal function is stable Qualifiers: Heart failure type: diastolic Heart failure chronicity: acute on chronic Qualified Code(s): I50.33 - Acute on chronic diastolic (congestive) heart failure (4) Acute kidney injury Current Visit: Yes Status: Resolved Resolved Creatinine 1.08 today (5) Diabetes Current Visit: Yes Status: Chronic Glucose 156 today Discontinued IV insulin Started 25 units insulin levemir at night Started high dose insulin sliding scale Qualifiers: Diabetes mellitus type: other specified (including JADEN) 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: unspecified shelter insulin use status Diabetes mellitus complication status: without complication Qualified Code(s): E13.9 - Other specified diabetes mellitus without complications (6) Candidiasis of mouth Current Visit: Yes Status: Acute Discontinued fluconazole Started nystatin rinse BID for 5 days (7) Tobacco dependence due to cigarettes Current Visit: Yes Status: Chronic Nicotine patch (8) Hypertension Current Visit: Yes Status: Acute BP is 150s/80s Seems to become hypertensive when he gets agitated Currently on norvasc, carvedilol, hydralazine, and lisinopril Qualifiers: Hypertension type: essential hypertension Qualified Code(s): I10 - Essential (primary) hypertension (9) Anxiety Current Visit: Yes Status: Acute Patient weaned off precedex, fentanyl, and propofol Currently on IV ativan 1 mg Q6hr PRN and PO seroquel 25 mg BID (10) DVT prophylaxis Current Visit: Yes Status: Acute Subcutaneous heparin and SCDs Subjective Principal diagnosis: Acute exacerbation of COPD Interval history: 62 male with PMHx of COPD, CHF, HTN presents to ICU with acute respiratory failure with hypoxia and hypercapnia. Patient was extubated yesterday. He refused BIPAP overnight and became unresponsive and hypoxic. He was bagged and placed back on BIPAP. Patient is drowsy but agitated this AM. Talked with patient's daughter yesterday, and patient has decided to be DNR/DNI comfort care. Patient has been weaned off fentanyl, precedex, and propofol. He's currently taking IV ativan PRN and PO seroquel BID for anxiety. It is difficult to elicit history from the patient as he is very hoarse and is on BIPAP Objective PUL Vital signs: Last Vital Signs Temp 98.3 F 04/19/18 08:00 Pulse 88 04/19/18 06:00 Resp 20 04/19/18 07:51 BP 150/82 04/19/18 06:00 Pulse Ox 96 04/19/18 07:51 General appearance: lethargic, agitated Eyes: nonicteric, injected Auscultation: bilateral: clear, diminished breath sounds Cardiovascular: regular rate and rhythm Gastrointestinal: soft, non-tender Extremities: no cyanosis (SCDs), no edema, pulses normal anxious Results - Laboratory Findings CBC and BMP: 04/19/18 04:00 04/19/18 04:00 ABG ABG pH 7.39 pH Units (7.32-7.45) 04/18/18 05:20 ABG pCO2 55 mmHg (35-45) H 04/18/18 05:20 ABG pO2 60 mmHg (85-104) L 04/18/18 05:20 ABG O2 Saturation 90 % (95-98) L 04/18/18 05:20 PT/INR, D-dimer PT 13.0 Seconds (9.4-12.1) H 04/17/18 04:00 Abnormal lab findings: Abnormal lab results WBC 18.2 K/mcL (4.3-11.1) H 04/19/18 04:00 MCH 26.5 pg (28.0-33.3) L 04/19/18 04:00 MCHC 30.6 g/dL (31.6-35.5) L 04/19/18 04:00 Neutrophils # 14.9 K/mcL (1.6-8.9) H 04/19/18 04:00 PT 13.0 Seconds (9.4-12.1) H 04/17/18 04:00 ABG pCO2 55 mmHg (35-45) H 04/18/18 05:20 ABG pO2 60 mmHg (85-104) L 04/18/18 05:20 ABG HCO3 33 mEq/L (21-27) H 04/18/18 05:20 ABG Total CO2 35 mEq/L (20-26) H 04/18/18 05:20 ABG O2 Saturation 90 % (95-98) L 04/18/18 05:20 ABG Base Excess 7 mEq/L (-2 to 3) H 04/18/18 05:20 VBG pCO2 61 mmHg (41-51) H 04/13/18 04:50 VBG pO2 89 mmHg (25-50) H 04/13/18 04:50 VBG HCO3 37 mEq/L (21-27) H 04/13/18 04:50 BUN 35 mg/dL (8-23) H 04/19/18 04:00 BUN/Creatinine Ratio 33 (6-26) H 04/19/18 04:00 Glucose 177 mg/dL (70-105) H 04/19/18 04:00 POC Glucose 153 mg/dL (70-99) H 04/19/18 07:44 Calculated Osmolality 306 (280-300) H 04/19/18 04:00 Venous Ioniz Calcium 1.07 mmol/L (1.15-1.35) L 04/16/18 04:24 Serum Total Protein 5.6 g/dL (6.4-8.9) L 04/14/18 16:49 Albumin 3.1 g/dL (3.5-5.7) L 04/14/18 16:49 Urine Protein 30 mg/dL (Neg-Trace) H 04/14/18 02:25 Urine Microscopic WBC 3-5 per hpf (0-3) H 04/14/18 02:25 Ur Squamous Epith Cells Many per lpf (None-Few) H 04/14/18 02:25 Vancomycin Trough 11 mcg/mL (5-10) H 04/17/18 19:50 Entero/Rhino (PCR) DETECTED (Not Detect) A 04/07/18 15:03 - Microbiology Findings Microbiology Findings: Microbiology, Last 48 Hours 04/17/18 16:54 Urine Culture - Preliminary Urine,Catheterized No growth. 04/17/18 20:26 Sputum Culture - Preliminary Sputum Gram Negative Vinnie 04/13/18 07:14 Blood Culture - Final Peripheral Venipuncture No growth. Final report. 04/13/18 07:14 Blood Culture - Final Peripheral Venipuncture No growth. Final report. 04/18/18 00:00 Blood Culture - Preliminary Peripheral Venipuncture Culture is incubating and being continuously monitored for growth. Final report to follow. 04/17/18 23:59 Blood Culture - Preliminary Peripheral Venipuncture Culture is incubating and being continuously monitored for growth. Final report to follow. 04/14/18 19:50 Sputum Culture - Final Aspirate - Diagnostic Findings Chest x-ray: report reviewed, image reviewed - Clinical Findings Intake & Output: Intake & Output 04/18/18 04/19/18 04/19/18 23:59 07:59 15:59 Intake Total 300 / 300 181.3 / 181.3 Output Total 725 / 725 1175 / 1175 300 / 300 Balance -425 / -425 -993.7 / -993.7 -300 / -300 Weight 108.5 kg - VTE Documentation of Mechanical Device: Intermittent pneumatic compression device
[2018-04-19] MEDS ORDERED: Lisinopril 20 MG TABLET PO SCH (09:34)
--- NOTE | 2018-04-19 11:43 | Palliative Progress Note ---
Date of Encounter: 04/19/18 Time of Encounter: 11:30 - Assessment and plan (1) Generalized pain Current Visit: Yes Status: Acute Assessment and plan: Remains on Fentanyl infusion. (2) Anxiety Current Visit: Yes Status: Acute Assessment and plan: Precedex to be weaned today. IV Lorazepam has been started as well. MOnitor When able to take po meds, Sertraline will need restarted. (3) Goals of care, counseling/discussion Current Visit: Yes Status: Acute Assessment and plan: Patient becomes agitated very easily. He was angry about not getting to eat or drink. Discussed that if he is aspirating, could lead to further respiratory compromise and even . Confirmed that he doesn't want back on vent. Attempted to discuss his lung disease, and what his desired goals are, and he becomes angry and states "we will discuss tomorrow". I did call daughter and update her on clinical condition. She states that he became more angry the longer she was there yesterday, and wanted her to take him home. She cannot provide care for him, and she states that he rents a small room in a house with others, but there is no care provider. Asked ICU to place social service consult. Will continue to follow. May be difficult discharge plan as he is likely to refuse any type of assistance or placement. (4) Acute and chronic respiratory failure with hypercapnia Current Visit: Yes Status: Acute (5) Acute exacerbation of chronic obstructive airways disease Current Visit: Yes Status: Acute - Time Spent With Patient Total time spent is greater than 50% in coordination of care (as documented) at patient's floor/unit and/or counseling patient: Greater than 35 minutes - Subjective Interval history: Patient awake and alert, demanding water and angry that he has not had food yet. Explained rationale of waiting on speech consult, he did verbalize understanding. Did remove bipap last night and was found unresponsive during the night - was bagged and placed back on bipap. On nasal cannula this am and able to converse and follow commands. He becomes agitated very easily. He is weak and was unable to hold a cup to take a drink. - Constitutional Vitals: Abnormal lab results WBC 18.2 K/mcL (4.3-11.1) H 04/19/18 04:00 MCH 26.5 pg (28.0-33.3) L 04/19/18 04:00 MCHC 30.6 g/dL (31.6-35.5) L 04/19/18 04:00 Neutrophils # 14.9 K/mcL (1.6-8.9) H 04/19/18 04:00 PT 13.0 Seconds (9.4-12.1) H 04/17/18 04:00 ABG pCO2 55 mmHg (35-45) H 04/18/18 05:20 ABG pO2 60 mmHg (85-104) L 04/18/18 05:20 ABG HCO3 33 mEq/L (21-27) H 04/18/18 05:20 ABG Total CO2 35 mEq/L (20-26) H 04/18/18 05:20 ABG O2 Saturation 90 % (95-98) L 04/18/18 05:20 ABG Base Excess 7 mEq/L (-2 to 3) H 04/18/18 05:20 VBG pCO2 61 mmHg (41-51) H 04/13/18 04:50 VBG pO2 89 mmHg (25-50) H 04/13/18 04:50 VBG HCO3 37 mEq/L (21-27) H 04/13/18 04:50 BUN 35 mg/dL (8-23) H 04/19/18 04:00 BUN/Creatinine Ratio 33 (6-26) H 04/19/18 04:00 Glucose 177 mg/dL (70-105) H 04/19/18 04:00 POC Glucose 153 mg/dL (70-99) H 04/19/18 07:44 Calculated Osmolality 306 (280-300) H 04/19/18 04:00 Venous Ioniz Calcium 1.07 mmol/L (1.15-1.35) L 04/16/18 04:24 Serum Total Protein 5.6 g/dL (6.4-8.9) L 04/14/18 16:49 Albumin 3.1 g/dL (3.5-5.7) L 04/14/18 16:49 Urine Protein 30 mg/dL (Neg-Trace) H 04/14/18 02:25 Urine Microscopic WBC 3-5 per hpf (0-3) H 04/14/18 02:25 Ur Squamous Epith Cells Many per lpf (None-Few) H 04/14/18 02:25 Vancomycin Trough 11 mcg/mL (5-10) H 04/17/18 19:50 Entero/Rhino (PCR) DETECTED (Not Detect) A 04/07/18 15:03 General appearance: Present: no acute distress - Respiratory Respiratory exam: Present: decreased breath sounds Additional comments: Faint expiratory wheezes. Remains on high flow oxygen. - Cardiovascular Cardiovascular exam: Present: +S1, +S2, tachycardia - GI/Abdominal GI/Abdominal exam: Present: normal bowel sounds, soft - Extremities Exam Extremities exam: Present: normal capillary refill, normal inspection - Neurological Exam Neurological exam: Present: alert, oriented X3, strengths equal and symetr throughout Additional comments: Generalized weakness - Skin Skin exam: Present: dry, pallor, warm Palliative Quality Palliative Quality: Screen for Code Status: Yes, Screen for Goals of Care: Yes, Screen for Pain: Yes, If Pain Regimen Started, Initiate Bowel Regimen: NA, Screen for Nausea/Vomitting: Yes Code Status: 04/18/18 15:00 DNR [Resuscitation Status: Active] [RES] Routine Comment: Resuscitation Status: [id number] - Labs CBC & Chem 7: 04/19/18 04:00 04/19/18 04:00 Labs: Laboratory Results - last 24 hr 04/18/18 04/19/18 04/19/18 20:33 04:00 04:00 WBC 18.2 H RBC 5.44 Hgb 14.4 D Hct 47.1 MCV 86.6 MCH 26.5 L MCHC 30.6 L RDW 14.3 Plt Count 214 MPV 11.8 Immature Gran % 2.1 Seg Neutrophils % 81.8 Lymphocytes % 7.9 Monocytes % 6.5 Eosinophils % 1.2 Basophils % 0.5 Neutrophils # 14.9 H Lymphocytes # 1.4 Monocytes # 1.2 Eosinophils # 0.2 Basophils # 0.1 Sodium 142 Potassium 3.6 Chloride 101 Carbon Dioxide 29 BUN 35 H Creatinine 1.07 Est GFR ( Amer) > 60 Est GFR (Non-Af Amer) > 60 BUN/Creatinine Ratio 33 H Glucose 177 H POC Glucose 184 H Calculated Osmolality 306 H Calcium 9.7 04/19/18 07:44 WBC RBC Hgb Hct MCV MCH MCHC RDW Plt Count MPV Immature Gran % Seg Neutrophils % Lymphocytes % Monocytes % Eosinophils % Basophils % Neutrophils # Lymphocytes # Monocytes # Eosinophils # Basophils # Sodium Potassium Chloride Carbon Dioxide BUN Creatinine Est GFR ( Amer) Est GFR (Non-Af Amer) BUN/Creatinine Ratio Glucose POC Glucose 153 H Calculated Osmolality Calcium - ABG Interpretation ABG results: ABG ABG pH 7.39 pH Units (7.32-7.45) 04/18/18 05:20 ABG pCO2 55 mmHg (35-45) H 04/18/18 05:20 ABG pO2 60 mmHg (85-104) L 04/18/18 05:20 ABG O2 Saturation 90 % (95-98) L 04/18/18 05:20 PT/INR, D-dimer PT 13.0 Seconds (9.4-12.1) H 04/17/18 04:00 Consult Discharge Plan - Plan Instructions: Chronic Obstructive Pulmonary Disease (ED) Referrals: Christiano Santacruz MD [Primary Care Provider] -
[2018-04-19] MEDS ORDERED: Albuterol 2.5 MG/3 ML NEBULIZER IH PRN (16:11)
[2018-04-19] MEDS ORDERED: *HR* Dextrose 50 % in Water (Syg) 50 ML SYRINGE IVP PRN (16:11)
[2018-04-19] MEDS ORDERED: Naloxone 0.4 MG/ML INJ IVP PRN (16:11)
[2018-04-19] MEDS ORDERED: D5% in Water 1,000 ML IVC PRN (16:11)
[2018-04-19] MEDS ORDERED: Dextrose Gel 15 GM/37.5 ML TUBE PO PRN ×2 (16:11)
[2018-04-19] MEDS ORDERED: Ondansetron 4 MG/2 ML VIAL IVP PRN (16:11)
[2018-04-19] MEDS: Insulin DETEMIR 100 UNIT/ML X5UNITS SQ SCH (21:54)
[2018-04-20] MEDS: Ipratropium/Albuterol Neb 3 ML IH SCH ×6 (04:13→23:45)
[2018-04-20] MEDS: *HR* Heparin 5,000 UNIT/ML VIAL SQ SCH ×3 (06:43→21:38)
[2018-04-20] MEDS: Budesonide/Formoterol 160/4.5 1 PUFF INH IH SCH ×2 (08:03→19:45)
[2018-04-20] MEDS: Nystatin SUSP 5 ML UD.LIQ PO SCH ×2 (09:04→21:39)
[2018-04-20] MEDS: Aspirin 81 MG TAB.CHEW PO SCH (09:04)
[2018-04-20] MEDS: amLODIPine 5 MG TABLET PO SCH (09:04)
[2018-04-20] MEDS: Lisinopril 20 MG TABLET PO SCH (09:05)
[2018-04-20] MEDS: Sennosides/Docusate Sodium TABLET PO SCH ×2 (09:05→21:38)
[2018-04-20] MEDS: Isosorbide MONOnitrate (24 HR) 60 MG TAB.ER.24H PO SCH (09:05)
[2018-04-20] MEDS: Multivit/Ca/Min/Fe/FA 1 TAB TABLET PO SCH (09:06)
[2018-04-20] MEDS: Loratadine 10 MG TABLET PO SCH (09:06)
[2018-04-20] MEDS: Nicotine 21 MG PATCH.TD24 TD SCH (09:07)
[2018-04-20] MEDS: Furosemide 40 MG/4 ML VIAL IVP SCH (09:07)
[2018-04-20] MEDS: hydrALAZINE 10 MG TABLET PO SCH ×4 (09:07→21:39)
[2018-04-20] MEDS: Levofloxacin 750 MG/150 ML 750 MG/150 ML BAG IVPB SCH (09:08)
[2018-04-20] MEDS: Fluticasone Propionate Nasal 50 MCG/SPRAY BOTTLE NS SCH (09:09)
[2018-04-20] MEDS: Insulin LISPRO 300 UNITS/3 ML VIAL SQ SCH ×4 (09:15→21:39)
--- NOTE | 2018-04-20 09:19 | Internal Med Progress Note ---
Hospitalist Progress Note - Encounter Date of Encounter: 04/20/18 Time of Encounter: 09:30 - Subjective Interval History: No acute events overnight. Transferred from the ICU to the floor - Exam Vitals: Temp Pulse Resp BP Pulse Ox 98.6 F 108 18 176/88 93 04/20/18 06:51 04/20/18 06:51 04/20/18 08:13 04/20/18 06:51 04/20/18 08:13 Exam: Vitals: Reviewed General: Obese man, sitting up in bed, on high flow oxygen via nasal cannula Skin: Flushed face, no lesions or ulcers. HEENT: Moist mucous membranes. No conjunctivae pallor. Neck: No lymphadenopathy. No palpable thyroid. Chest: Diminished thoracic expansion. Reduced breath sounds bilaterally with scattered wheezes. Heart: Normal S1 & S2; rhythmic. Abdomen: distended, soft and non-tender to palpation. Extremities: (+) clubbing, 1+ pitting edema. Neurological: Awake, alert and oriented to person, place and time. No focal deficits. Psych: Affect appropriate. - Assessment and Plan (1) Acute respiratory failure with hypoxia Current Visit: Yes Status: Acute Assessment and Plan: Acute respiratory failure with hypoxia and hypercapnia. Likely due to COPD exacerbation. Patient extubated 04/18. Transferred to the floor on 04/19 Weaned down from 10L to 6L high flow nasal cannula this am and maintaining sats above 93%. Continue to wean off oxygen as tolerated Continue duonebs Continue fluticasone. PT assessing and follow pT and palliative recs forr disposition (2) Acute exacerbation of chronic obstructive airways disease Current Visit: Yes Status: Acute Assessment and Plan: Patient was extubated to BIPAP on 04/18 Saturating at 94% on FiO2 of 50% Small BL pleural effusions on CT may be 2/2 PNA ABG on 04/18 shows pH 7.39, pCO2 55, PO2 60, HCO3 33 Repeat blood culture shows no growth to date Sputum culture shows no growth Duonebs and fluticasone Continue IV levaquin - 1st dose 04/19 (3) CAD (coronary artery disease) Current Visit: Yes Status: Chronic Assessment and Plan: Stable. Will continue antiplatelet therapy and statin and beta blockers (4) Obesity (BMI 30-39.9) Current Visit: Yes Status: Chronic Assessment and Plan: Diet and exercise (5) Tobacco dependence due to cigarettes Current Visit: Yes Status: Chronic Assessment and Plan: Counseled extensively on the need to quit; resources made available to assist. (6) Acute kidney injury Current Visit: Yes Status: Resolved Assessment and Plan: Resolved (7) Acute diastolic (congestive) heart failure Current Visit: Yes Status: Acute Assessment and Plan: Continue on IV lasix daily (8) DVT prophylaxis Current Visit: Yes Status: Acute Assessment and Plan: On heparin sc - Time Spent with Patient Total time spent is greater than 50% in coordination of care (as documented) at patient's floor/unit and/or counseling patient: Internal Medicine: Result - Labs CBC & Chem 7: 04/19/18 04:00 04/19/18 04:00 - ABG Interpretation ABG results: ABG ABG pH 7.39 pH Units (7.32-7.45) 04/18/18 05:20 ABG pCO2 55 mmHg (35-45) H 04/18/18 05:20 ABG pO2 60 mmHg (85-104) L 04/18/18 05:20 ABG O2 Saturation 90 % (95-98) L 04/18/18 05:20 PT/INR, D-dimer PT 13.0 Seconds (9.4-12.1) H 04/17/18 04:00 - VTE Documentation of Mechanical Device: Intermittent pneumatic compression device Consult Discharge Plan - Plan Instructions: Chronic Obstructive Pulmonary Disease (ED) Referrals: Christiano Santacruz MD [Primary Care Provider] - (3) CAD (coronary artery disease) Qualifiers: Coronary Disease-Associated Artery/Lesion type: [place] artery [place] vs. transplanted heart: [place] heart Associated angina: without angina Qualified Code(s): I25.10 - Atherosclerotic heart disease of [place] coronary artery without angina pectoris
--- NOTE | 2018-04-20 11:49 | Palliative Progress Note ---
Date of Encounter: 04/20/18 Time of Encounter: 11:40 - Assessment and plan (1) Anxiety Current Visit: Yes Status: Acute Assessment and plan: Has IV Lorazepam ordered PRN - has utilized x1 last 24 hours. Will transition to po since he passed swallow eval. Monitor (2) Goals of care, counseling/discussion Current Visit: Yes Status: Acute Assessment and plan: Discussed plan with patient - he confirmed DNR/DNI status, but wants supportive management. Discussed that he is very weak, and needs therapy prior to going home. Discussed rehab, which he denies that he will need and states "I just need a few more days here, then I can go home". States he is on 10L oxygen at home, however, daughter did not think he had this in place. D/W social media developer who will confirm. I believe he will need rehab, but likely to refuse. I do not think that he will agree to hospice enrollment - he would not discuss this today, however, does not appear he has safe home environment, or anyone that is able to provide care for him. Will f/u in am and again discuss with social work. (3) Acute and chronic respiratory failure with hypercapnia Current Visit: Yes Status: Acute (4) Acute exacerbation of chronic obstructive airways disease Current Visit: Yes Status: Acute - Time Spent With Patient Total time spent is greater than 50% in coordination of care (as documented) at patient's floor/unit and/or counseling patient: 25 - 35 minutes - Subjective Interval history: Patient awake and alert, drinking from cup. States he is feeling better, but upset that his oxygen was turned down. Speech cleared for diet and he has been taking po. Appears very weak. No visitors present. - Constitutional Vitals: Abnormal lab results WBC 18.2 K/mcL (4.3-11.1) H 04/19/18 04:00 MCH 26.5 pg (28.0-33.3) L 04/19/18 04:00 MCHC 30.6 g/dL (31.6-35.5) L 04/19/18 04:00 Neutrophils # 14.9 K/mcL (1.6-8.9) H 04/19/18 04:00 PT 13.0 Seconds (9.4-12.1) H 04/17/18 04:00 ABG pCO2 55 mmHg (35-45) H 04/18/18 05:20 ABG pO2 60 mmHg (85-104) L 04/18/18 05:20 ABG HCO3 33 mEq/L (21-27) H 04/18/18 05:20 ABG Total CO2 35 mEq/L (20-26) H 04/18/18 05:20 ABG O2 Saturation 90 % (95-98) L 04/18/18 05:20 ABG Base Excess 7 mEq/L (-2 to 3) H 04/18/18 05:20 VBG pCO2 61 mmHg (41-51) H 04/13/18 04:50 VBG pO2 89 mmHg (25-50) H 04/13/18 04:50 VBG HCO3 37 mEq/L (21-27) H 04/13/18 04:50 BUN 35 mg/dL (8-23) H 04/19/18 04:00 BUN/Creatinine Ratio 33 (6-26) H 04/19/18 04:00 Glucose 177 mg/dL (70-105) H 04/19/18 04:00 POC Glucose 196 mg/dL (70-99) H 04/19/18 21:13 Calculated Osmolality 306 (280-300) H 04/19/18 04:00 Venous Ioniz Calcium 1.07 mmol/L (1.15-1.35) L 04/16/18 04:24 Serum Total Protein 5.6 g/dL (6.4-8.9) L 04/14/18 16:49 Albumin 3.1 g/dL (3.5-5.7) L 04/14/18 16:49 Urine Protein 30 mg/dL (Neg-Trace) H 04/14/18 02:25 Urine Microscopic WBC 3-5 per hpf (0-3) H 04/14/18 02:25 Ur Squamous Epith Cells Many per lpf (None-Few) H 04/14/18 02:25 Vancomycin Trough 11 mcg/mL (5-10) H 04/17/18 19:50 Entero/Rhino (PCR) DETECTED (Not Detect) A 04/07/18 15:03 General appearance: Present: no acute distress - Respiratory Respiratory exam: Present: decreased breath sounds - Cardiovascular Cardiovascular exam: Present: +S1, +S2 - GI/Abdominal GI/Abdominal exam: Present: normal bowel sounds, soft - Extremities Exam Extremities exam: Present: normal capillary refill, normal inspection - Neurological Exam Neurological exam: Present: alert, oriented X3, strengths equal and symetr throughout - Skin Skin exam: Present: dry, warm Palliative Quality Palliative Quality: Screen for Code Status: Yes, Screen for Goals of Care: Yes, Screen for Pain: Yes, If Pain Regimen Started, Initiate Bowel Regimen: NA, Screen for Nausea/Vomitting: Yes Code Status: 04/18/18 15:00 DNR [Resuscitation Status: Active] [RES] Routine Comment: Resuscitation Status: [id number] - Labs CBC & Chem 7: 04/19/18 04:00 04/19/18 04:00 Labs: Laboratory Results - last 24 hr 04/19/18 04/19/18 04/19/18 12:12 16:27 21:13 POC Glucose 157 H 152 H 196 H - ABG Interpretation ABG results: ABG ABG pH 7.39 pH Units (7.32-7.45) 04/18/18 05:20 ABG pCO2 55 mmHg (35-45) H 04/18/18 05:20 ABG pO2 60 mmHg (85-104) L 04/18/18 05:20 ABG O2 Saturation 90 % (95-98) L 04/18/18 05:20 PT/INR, D-dimer PT 13.0 Seconds (9.4-12.1) H 04/17/18 04:00 Consult Discharge Plan - Plan Instructions: Chronic Obstructive Pulmonary Disease (ED) Referrals: Christiano Santacruz MD [Primary Care Provider] -
[2018-04-20] MEDS: Insulin DETEMIR 100 UNIT/ML X5UNITS SQ SCH (21:38)
[2018-04-21] MEDS: Ipratropium/Albuterol Neb 3 ML IH SCH ×7 (04:19→23:43)
[2018-04-21 06:05] LABS: Basophils # 0.1 K/mcL (0.0-0.2); Basophils % 0.6 %; Eosinophils # 0.1 K/mcL (0.0-0.6); Eosinophils % 1.2 %; Hematocrit 51.3 % (37.5-50.1); Hemoglobin 15.2 g/dL (12.9-16.9); Immature Granulocytes % 1.4 % (0-4); Lymphocytes # 1.5 K/mcL (0.6-4.6); Lymphocytes % 13.2 %; Mean Corpuscular HGB Conc 29.6 g/dL (31.6-35.5); Mean Corpuscular Hemoglobin 25.7 pg (28.0-33.3); Mean Corpuscular Volume 86.8 fL (83.0-100.0); Mean Platelet Volume 11.2 fL (9.4-12.4); Monocytes # 0.8 K/mcL (0.0-1.3); Monocytes % 7.1 %; Neutrophils # 8.5 K/mcL (1.6-8.9); Platelet Count 252 K/mcL (140-400); Red Blood Count 5.91 M/mcL (4.19-5.50); Red Cell Distribution Width 15.5 % (11.5-14.5); Segmented Neutrophils % 76.5 %
[2018-04-21 06:27] LABS: BUN/Creatinine Ratio 38 (6-26); Blood Urea Nitrogen 49 mg/dL (8-23); Calcium 9.8 mg/dL (8.6-10.3); Carbon Dioxide 30 mEq/L (23-29); Chloride 102 mEq/L (98-107); Glucose 209 mg/dL (70-105); Osmolality,Calculated 321 (280-300); Potassium 3.2 mEq/L (3.5-5.1); Sodium 146 mEq/L (136-145); eGFR For Non-African Americans 57 (> 60)
[2018-04-21] MEDS: *HR* Heparin 5,000 UNIT/ML VIAL SQ SCH ×3 (06:44→21:36)
[2018-04-21] MEDS: Budesonide/Formoterol 160/4.5 1 PUFF INH IH SCH ×2 (07:44→20:12)
[2018-04-21] MEDS: Levofloxacin 750 MG/150 ML 750 MG/150 ML BAG IVPB SCH (08:01)
[2018-04-21] MEDS: Insulin LISPRO 300 UNITS/3 ML VIAL SQ SCH ×4 (08:03→21:36)
[2018-04-21] MEDS: Aspirin 81 MG TAB.CHEW PO SCH (08:05)
[2018-04-21] MEDS: Loratadine 10 MG TABLET PO SCH (08:05)
[2018-04-21] MEDS: Fluticasone Propionate Nasal 50 MCG/SPRAY BOTTLE NS SCH (08:05)
[2018-04-21] MEDS: Nystatin SUSP 5 ML UD.LIQ PO SCH ×2 (08:06→21:32)
[2018-04-21] MEDS: hydrALAZINE 10 MG TABLET PO SCH ×4 (08:06→21:32)
[2018-04-21] MEDS: Isosorbide MONOnitrate (24 HR) 60 MG TAB.ER.24H PO SCH (08:06)
[2018-04-21] MEDS: Furosemide 40 MG/4 ML VIAL IVP SCH (08:06)
[2018-04-21] MEDS: Nicotine 21 MG PATCH.TD24 TD SCH (08:06)
[2018-04-21] MEDS: amLODIPine 5 MG TABLET PO SCH (08:09)
[2018-04-21] MEDS: Multivit/Ca/Min/Fe/FA 1 TAB TABLET PO SCH (08:09)
[2018-04-21] MEDS: Sennosides/Docusate Sodium TABLET PO SCH ×2 (08:09→21:32)
[2018-04-21] MEDS: Lisinopril 20 MG TABLET PO SCH (08:10)
[2018-04-21] MEDS ORDERED: Potassium Chloride Elixir 20 MEQ/15 ML UDC PO SCH (09:45)
--- NOTE | 2018-04-21 09:48 | Internal Med Progress Note ---
Hospitalist Progress Note - Encounter Date of Encounter: 04/21/18 Time of Encounter: 09:00 - Subjective Interval History: No acute events overnight. Transferred from the ICU to the floor - Exam Vitals: Temp Pulse Resp BP Pulse Ox 97.8 F 106 20 167/102 91 04/21/18 06:31 04/21/18 06:31 04/21/18 07:50 04/21/18 06:31 04/21/18 07:50 Exam: Vitals: Reviewed General: Obese man, sitting up in bed, on high flow oxygen via nasal cannula Skin: Flushed face, no lesions or ulcers. HEENT: Moist mucous membranes. No conjunctivae pallor. Neck: No lymphadenopathy. No palpable thyroid. Chest: Diminished thoracic expansion. Reduced breath sounds bilaterally with scattered wheezes. Heart: Normal S1 & S2; rhythmic. Abdomen: distended, soft and non-tender to palpation. Extremities: (+) clubbing, 1+ pitting edema. Neurological: Awake, alert and oriented to person, place and time. No focal deficits. Psych: Affect appropriate. - Assessment and Plan (1) Acute respiratory failure with hypoxia Current Visit: Yes Status: Acute Assessment and Plan: Acute respiratory failure with hypoxia and hypercapnia. Likely due to COPD exacerbation. Patient extubated 04/18. Transferred to the floor on 04/19 Weaned down from 10L to 6L high flow nasal cannula this am and maintaining sats above 93%. Continue to wean off oxygen as tolerated Continue duonebs Continue fluticasone. PT assessing and follow pT and palliative recs forr disposition (2) Acute exacerbation of chronic obstructive airways disease Current Visit: Yes Status: Acute Assessment and Plan: Patient was extubated to BIPAP on 04/18 Saturating at 94% on FiO2 of 50% Small BL pleural effusions on CT may be 2/2 PNA ABG on 04/18 shows pH 7.39, pCO2 55, PO2 60, HCO3 33 Repeat blood culture shows no growth to date Sputum culture shows no growth Duonebs and fluticasone Continue IV levaquin - 1st dose 04/19 (3) CAD (coronary artery disease) Current Visit: Yes Status: Chronic Assessment and Plan: Stable. Will continue antiplatelet therapy and statin and beta blockers (4) Obesity (BMI 30-39.9) Current Visit: Yes Status: Chronic Assessment and Plan: Diet and exercise (5) Tobacco dependence due to cigarettes Current Visit: Yes Status: Chronic Assessment and Plan: Counseled extensively on the need to quit; resources made available to assist. (6) Acute kidney injury Current Visit: Yes Status: Resolved Assessment and Plan: Resolved (7) Acute diastolic (congestive) heart failure Current Visit: Yes Status: Acute Assessment and Plan: Continue on IV lasix daily (8) DVT prophylaxis Current Visit: Yes Status: Acute Assessment and Plan: On heparin sc - Time Spent with Patient Total time spent is greater than 50% in coordination of care (as documented) at patient's floor/unit and/or counseling patient: Internal Medicine: Result - Labs CBC & Chem 7: 04/21/18 05:49 04/21/18 05:49 Labs: Short CBC 04/21/18 Range/Units 05:49 WBC 11.1 (4.3-11.1) K/mcL Hgb 15.2 (12.9-16.9) g/dL Hct 51.3 H (37.5-50.1) % Plt Count 252 (140-400) K/mcL Neutrophils # 8.5 (1.6-8.9) K/mcL BMP 04/21/18 05:49 Sodium 146 H Potassium 3.2 L Chloride 102 Carbon Dioxide 30 H BUN 49 H Creatinine 1.28 Glucose 209 H Calcium 9.8 - ABG Interpretation ABG results: ABG ABG pH 7.39 pH Units (7.32-7.45) 04/18/18 05:20 ABG pCO2 55 mmHg (35-45) H 04/18/18 05:20 ABG pO2 60 mmHg (85-104) L 04/18/18 05:20 ABG O2 Saturation 90 % (95-98) L 04/18/18 05:20 PT/INR, D-dimer PT 13.0 Seconds (9.4-12.1) H 04/17/18 04:00 - VTE Documentation of Mechanical Device: Intermittent pneumatic compression device Consult Discharge Plan - Plan Instructions: Chronic Obstructive Pulmonary Disease (ED) Referrals: Chirstiano Santacruz MD [Primary Care Provider] - (3) CAD (coronary artery disease) Qualifiers: Coronary Disease-Associated Artery/Lesion type: [place] artery [place] vs. transplanted heart: [place] heart Associated angina: without angina Qualified Code(s): I25.10 - Atherosclerotic heart disease of [place] coronary artery without angina pectoris
[2018-04-21] MEDS: Insulin DETEMIR 100 UNIT/ML X5UNITS SQ SCH (21:33)
[2018-04-22] MEDS: Ipratropium/Albuterol Neb 3 ML IH SCH ×4 (04:07→16:03)
[2018-04-22] MEDS: *HR* Heparin 5,000 UNIT/ML VIAL SQ SCH ×2 (05:40→13:13)
[2018-04-22 06:25] LABS: Basophils # 0.1 K/mcL (0.0-0.2); Basophils % 0.4 %; Eosinophils # 0.2 K/mcL (0.0-0.6); Hematocrit 51.4 % (37.5-50.1); Hemoglobin 15.2 g/dL (12.9-16.9); Immature Granulocytes % 1.2 % (0-4); Lymphocytes % 16.4 %; Mean Corpuscular HGB Conc 29.6 g/dL (31.6-35.5); Mean Corpuscular Hemoglobin 25.9 pg (28.0-33.3); Mean Corpuscular Volume 87.4 fL (83.0-100.0); Mean Platelet Volume 10.7 fL (9.4-12.4); Monocytes # 0.8 K/mcL (0.0-1.3); Monocytes % 6.8 %; Neutrophils # 8.9 K/mcL (1.6-8.9); Platelet Count 271 K/mcL (140-400); Red Blood Count 5.88 M/mcL (4.19-5.50); Red Cell Distribution Width 14.8 % (11.5-14.5); Segmented Neutrophils % 73.2 %
[2018-04-22 06:49] LABS: Calcium 9.6 mg/dL (8.6-10.3); Potassium 3.6 mEq/L (3.5-5.1)
[2018-04-22 06:51] LABS: Magnesium 2.2 mg/dL (1.6-2.6); Phosphorous 4.4 mg/dL (2.7-4.5)
[2018-04-22] MEDS: Budesonide/Formoterol 160/4.5 1 PUFF INH IH SCH (07:42)
[2018-04-22] MEDS: Levofloxacin 750 MG/150 ML 750 MG/150 ML BAG IVPB SCH (07:47)
[2018-04-22] MEDS: Insulin LISPRO 300 UNITS/3 ML VIAL SQ SCH ×3 (07:49→16:53)
[2018-04-22] MEDS: Nicotine 21 MG PATCH.TD24 TD SCH (07:51)
[2018-04-22] MEDS: Fluticasone Propionate Nasal 50 MCG/SPRAY BOTTLE NS SCH (07:52)
[2018-04-22] MEDS: Loratadine 10 MG TABLET PO SCH (07:52)
[2018-04-22] MEDS: Aspirin 81 MG TAB.CHEW PO SCH (07:52)
[2018-04-22] MEDS: Isosorbide MONOnitrate (24 HR) 60 MG TAB.ER.24H PO SCH (07:53)
[2018-04-22] MEDS: Nystatin SUSP 5 ML UD.LIQ PO SCH (07:53)
[2018-04-22] MEDS: hydrALAZINE 10 MG TABLET PO SCH ×3 (07:53→16:58)
[2018-04-22] MEDS: amLODIPine 5 MG TABLET PO SCH (07:53)
[2018-04-22] MEDS: Sennosides/Docusate Sodium TABLET PO SCH (07:54)
[2018-04-22] MEDS: Multivit/Ca/Min/Fe/FA 1 TAB TABLET PO SCH (07:54)
[2018-04-22] MEDS: Lisinopril 20 MG TABLET PO SCH (07:54)
--- NOTE | 2018-04-22 09:39 | Internal Med Progress Note ---
Hospitalist Progress Note - Encounter Date of Encounter: 04/22/18 Time of Encounter: 09:40 - Subjective Interval History: No acute events overnight. - Exam Vitals: Temp Pulse Resp BP Pulse Ox 97.5 F L 101 16 125/71 94 04/22/18 07:26 04/22/18 07:26 04/22/18 07:26 04/22/18 07:26 04/22/18 07:26 Exam: Vitals: Reviewed General: Obese man, sitting up in bed, on high flow oxygen via nasal cannula Skin: Flushed face, no lesions or ulcers. HEENT: Moist mucous membranes. No conjunctivae pallor. Neck: No lymphadenopathy. No palpable thyroid. Chest: Diminished thoracic expansion. Reduced breath sounds bilaterally with scattered wheezes. Heart: Normal S1 & S2; rhythmic. Abdomen: distended, soft and non-tender to palpation. Extremities: (+) clubbing, 1+ pitting edema. Neurological: Awake, alert and oriented to person, place and time. No focal deficits. Psych: Affect appropriate. - Assessment and Plan (1) Acute respiratory failure with hypoxia Current Visit: Yes Status: Acute Assessment and Plan: Acute respiratory failure with hypoxia and hypercapnia. Likely due to COPD exacerbation. Patient extubated 04/18. Transferred to the floor on 04/19 Weaned down from 10L to 4L high flow nasal cannula and maintaining sats above 93%. Continue to wean off oxygen as tolerated Continue duonebs Continue fluticasone. PT assessing and follow pT and palliative recs for disposition. Plan for discharge to rehab (2) Acute exacerbation of chronic obstructive airways disease Current Visit: Yes Status: Acute Assessment and Plan: Patient was extubated to BIPAP on 04/18 Saturating at 94% on FiO2 of 50% Small BL pleural effusions on CT may be 2/2 PNA ABG on 04/18 shows pH 7.39, pCO2 55, PO2 60, HCO3 33 Repeat blood culture shows no growth to date Sputum culture shows no growth Duonebs and fluticasone Completed course of levaquin (3) CAD (coronary artery disease) Current Visit: Yes Status: Chronic Assessment and Plan: Stable. Will continue antiplatelet therapy and statin and beta blockers (4) Obesity (BMI 30-39.9) Current Visit: Yes Status: Chronic Assessment and Plan: Diet and exercise (5) Tobacco dependence due to cigarettes Current Visit: Yes Status: Chronic Assessment and Plan: Counseled extensively on the need to quit; resources made available to assist. (6) Acute kidney injury Current Visit: Yes Status: Resolved Assessment and Plan: Resolved (7) Acute diastolic (congestive) heart failure Current Visit: Yes Status: Acute Assessment and Plan: Continue on IV lasix daily (8) DVT prophylaxis Current Visit: Yes Status: Acute Assessment and Plan: On heparin sc - Time Spent with Patient Total time spent is greater than 50% in coordination of care (as documented) at patient's floor/unit and/or counseling patient: Internal Medicine: Result - Labs CBC & Chem 7: 04/22/18 04:00 04/22/18 04:00 Labs: Short CBC 04/22/18 Range/Units 04:00 WBC 12.1 H (4.3-11.1) K/mcL Hgb 15.2 (12.9-16.9) g/dL Hct 51.4 H (37.5-50.1) % Plt Count 271 (140-400) K/mcL Neutrophils # 8.9 (1.6-8.9) K/mcL BMP 04/22/18 04:00 Sodium 146 H Potassium 3.6 Chloride 107 Carbon Dioxide 28 BUN 58 H Creatinine 1.57 H Glucose 165 H Calcium 9.6 - ABG Interpretation ABG results: ABG ABG pH 7.39 pH Units (7.32-7.45) 04/18/18 05:20 ABG pCO2 55 mmHg (35-45) H 04/18/18 05:20 ABG pO2 60 mmHg (85-104) L 04/18/18 05:20 ABG O2 Saturation 90 % (95-98) L 04/18/18 05:20 PT/INR, D-dimer PT 13.0 Seconds (9.4-12.1) H 04/17/18 04:00 - VTE Documentation of Mechanical Device: Intermittent pneumatic compression device Consult Discharge Plan - Plan Instructions: Chronic Obstructive Pulmonary Disease (ED) Referrals: Christiano Santacruz MD [Primary Care Provider] - (3) CAD (coronary artery disease) Qualifiers: Coronary Disease-Associated Artery/Lesion type: [place] artery [place] vs. transplanted heart: [place] heart Associated angina: without angina Qualified Code(s): I25.10 - Atherosclerotic heart disease of [place] coronary artery without angina pectoris
--- NOTE | 2018-04-22 09:54 | Event Note ---
Date of Encounter: 04/22/18 Time of Encounter: 09:25 Patient had agreed to rehab at [facility] and social work has made referral. He is refusing to wear bipap - high risk for resp decompensation. He did sign DNR/ DNI state form yesterday and confirmed his code status. Palliative will follow at a distance.
[2018-04-22 14:19] VITALS: BP 95/60
--- NOTE | 2018-04-22 16:10 | Discharge Summary ---
Orders not resulted at time of discharge: Pending orders 04/16/18 04:00 ABG [Arterial Blood Gas] AM 0400 04/17/18 04:00 ABG [Arterial Blood Gas] AM 0400 04/17/18 23:59 Culture,Blood [BC] Stat 04/18/18 04:00 ABG [Arterial Blood Gas] AM 0400 04/23/18 04:00 Basic Metabolic Panel AM 0400 CBC [Complete Blood Count] [HEME] AM 0400 Magnesium AM 0400 Phosphorous AM 0400 04/24/18 04:00 Basic Metabolic Panel AM 0400 CBC [Complete Blood Count] [HEME] AM 0400 Magnesium AM 0400 Phosphorous AM 0400 04/25/18 04:00 Basic Metabolic Panel AM 0400 CBC [Complete Blood Count] [HEME] AM 0400 Magnesium AM 0400 Phosphorous AM 0400 04/26/18 04:00 Basic Metabolic Panel AM 0400 CBC [Complete Blood Count] [HEME] AM 0400 Magnesium AM 0400 Phosphorous AM 0400 04/27/18 04:00 Magnesium AM 0400 Phosphorous AM 0400 Date of Encounter: 04/22/18 Time of Encounter: 16:00 - Discharge Diagnosis (1) Acute respiratory failure with hypoxia Priority: Primary Status: Acute Assessment and Plan: 62 year old morbidly obese man with long-standing tobacco dependence with resultant severe COPD, hypertension, diabetes, hyperlipidemia, CAD s/p stent and currently being managed for bladder cancer s/p transurethral resection in 2017. He continues to smoke about pack a day or less and presented with severe difficulty breathing with excessive wheezing that had been worsening over the past weeks and on arrival was saturating 67%. He improved with supplemental oxygen therapy and nebulizer, going up to the high 80s. His exam was remarkable for wheezing in bilateral posterior lung clark. He received 125mg of methylprednisolone and was admitted for further care. He was assessed with acute respiratory failure with hypoxia and hypercapnia likely due to COPD exacerbation and, acute worsening of chronic diastolic CHF and was started on nebs, steroids and antibiotics, lasix and placed on BIPAP. He declined and became more hypoxic and hypercapnic due to a refusal to wear his BIPAP. He was intubated on 04/06 due to worsening respiratory failure and transferred to the ICU for further management. He was managed supportively in the ICU and successfully extubated on 04/18 to BIPAP. He was transferred to the floor on 04/19 and successfully weaned down from 10L high flow nasal cannula to 4L nasal cannula and maintained sats above 93%. He also completed a course of IV levaquin on the floor. He had been on vam, cefepime and meropenem in the ICU. He was able to tolerate a diet and particpate in physical therapy. He was seen by palliative care and wants to be DNR/ DNI. He also declines BIPAP at this time. He was slightly overdiuresed and his lasix will be held for 3 days post discharge. He can resume taking po lasix on wednesday. He will need a close follow up with pulmonary outpatient. He was discharged in a stable condition. 35minutes was spent discharging this patient (2) Acute exacerbation of chronic obstructive airways disease Priority: Primary Status: Acute (3) CAD (coronary artery disease) Priority: Secondary Status: Chronic Qualifiers: Coronary Disease-Associated Artery/Lesion type: [place] artery [place] vs. transplanted heart: [place] heart Associated angina: without angina Qualified Code(s): I25.10 - Atherosclerotic heart disease of [place] coronary artery without angina pectoris (4) Obesity (BMI 30-39.9) Priority: Secondary Status: Chronic (5) Tobacco dependence due to cigarettes Priority: Secondary Status: Chronic (6) Acute kidney injury Priority: Secondary Status: Resolved (7) Acute diastolic (congestive) heart failure Priority: Primary Status: Acute (8) DVT prophylaxis Priority: Primary Status: Acute Hospital course: Mr. Chase is a 62 year old male - Time Spent with Patient Total time spent providing and/or coordinating discharge services: - Discharge Medications Prescriptions: Aspirin 81 mg PO DAILY 30 Days #30 tab.chew Furosemide [Lasix] 20 mg PO DAILY 30 Days #30 tablet Isosorbide MONOnitrate (24 HR) [Imdur] 60 mg PO DAILY 30 Days #30 tab.er.24h Nicotine Patch [Nicoderm] 21 mg TD DAILY 30 Days #30 patch.td24 Quetiapine Fumarate [Seroquel] 25 mg PO BID 30 Days #60 tablet Home Medications: Albuterol Neb [Proventil Neb] 2.5 mg IH Q4HR PRN 10/23/15 [History] Atorvastatin [Lipitor] 40 mg PO DAILY 10/23/15 [History] Carvedilol [Coreg] 6.25 mg PO BIDWM 10/23/15 [History] Clopidogrel [Plavix] 75 mg PO DAILY 10/23/15 [History] Insulin Glargine,Hum.rec.anlog [Lantus Solostar] 50 unit SQ DAILY 10/23/15 [ History] Multivitamin [Multi-Day Vitamins] 1 each PO DAILY 10/23/15 [History] Nitroglycerin [Nitrostat] 0.4 mg SL DAILY PRN 10/23/15 [History] amLODIPine [Norvasc] 10 mg PO DAILY 10/23/15 [History] Albuterol Sulfate [Ventolin Hfa] 2 puff IH Q4H PRN 04/05/17 [History] Budesonide/Formoterol 160/4.5 [Symbicort 160/4.5] 2 puff IH BIDR 04/05/17 [ History] Acetaminophen [Non-Aspirin Extra Strength] 500 mg PO Q6HR PRN 04/22/17 [History] Fluticasone Propionate Nasal [Flonase] 50 mcg NS DAILY PRN 04/22/17 [History] [place]-3/Dha/Epa/Fish Oil [Fish Oil Conc 1,000 mg Softgel] 1,000 mg PO DAILY [History] Sertraline [Zoloft] 50 mg PO DAILY 04/22/17 [History] OxyCODONE/APAP 5/325 [Percocet 5/325 MG] 1 tab PO BID PRN 09/06/17 [History] Cetirizine HCl [Zyrtec] 10 mg PO DAILY 04/06/18 [History] Insulin LISPRO [Humalog Kwikpen U-100] 15 - 20 unit SQ TID 04/06/18 [History] Lisinopril [Zestril] 40 mg PO DAILY 04/06/18 [History] Tiotropium [place] [Spiriva Respimat] 2 puff IH DAILY 04/06/18 [History] Aspirin 81 mg PO DAILY 30 Days #30 tab.chew 04/22/18 [Rx] Furosemide [Lasix] 20 mg PO DAILY 30 Days #30 tablet 04/22/18 [Rx] Isosorbide MONOnitrate (24 HR) [Imdur] 60 mg PO DAILY 30 Days #30 tab.er.24h [Rx] Nicotine Patch [Nicoderm] 21 mg TD DAILY 30 Days #30 patch.td24 04/22/18 [Rx] Quetiapine Fumarate [Seroquel] 25 mg PO BID 30 Days #60 tablet 04/22/18 [Rx] Allergies/Adverse Reactions: 3 Allergy/AdvReac Type Severity Reaction Status Date / Time No Known Allergies Allergy Verified 09/06/17 10:09 Date of admission: 04/06/18 10:42 Primary care physician: Christiano Santacruz MD Consults: 04/07/18 10:29 consult to noc analyst [Consult to Nutrition] [CONS] Stat Comment: Consulting Provider: NUTRITION Reason for Dietary Consult: Tube Feed Start & Manage 04/15/18 10:31 Consult to Palliative Care [CONS] Routine Comment: Consulting Provider: Palliative Care Jolene Reason for Consult: to discuss tracheostomy with family and patient Call Completed: Yes 04/19/18 10:54 Consult to Data Integration Analyst [CONS] Routine Reason for SW Consult: Patient may be candidate for hospice. He has threatened to leave AMA. He is on BIPAP and desaturates every time we try to wean him off. 04/20/18 09:20 Consult to Physical Therapy [CONS] Routine Comment: Evaluate, develop and implement POC Reason for Consult: weakness Does patient have active BEDREST order?: No Is patient medically & hemodynamically stable?: Yes Patient assessed for mobility or mobilized this visit?: No - Constitutional Vitals: Temp Pulse Resp BP Pulse Ox 98.0 F 88 23 95/60 95 04/22/18 14:00 04/22/18 14:00 04/22/18 14:00 04/22/18 14:00 04/22/18 14:00 Exam: Vitals: Reviewed General: Obese man, sitting up in bed, on high flow oxygen via nasal cannula Skin: Flushed face, no lesions or ulcers. HEENT: Moist mucous membranes. No conjunctivae pallor. Neck: No lymphadenopathy. No palpable thyroid. Chest: mildly decreased breath sounds Heart: Normal S1 & S2; rhythmic. Abdomen: distended, soft and non-tender to palpation. Extremities: (+) clubbing, 1+ pitting edema. Neurological: Awake, alert and oriented to person, place and time. No focal deficits. Psych: Affect appropriate. - Patient Status Disposition: Transfer Inpatient Rehab Fac Condition: Good - Discharge Instructions Instructions: Chronic Obstructive Pulmonary Disease (ED) Follow Up With: Christiano Santacruz MD [Primary Care Provider] - - VTE Documentation of Mechanical Device: Intermittent pneumatic compression device
--- NOTE | 2018-04-22 16:17 | Physician Discharge Referral ---
- Diagnosis (1) Acute respiratory failure with hypoxia Priority: Primary Status: Acute (2) Acute exacerbation of chronic obstructive airways disease Priority: Primary Status: Acute (3) CAD (coronary artery disease) Priority: Secondary Status: Chronic (4) Obesity (BMI 30-39.9) Priority: Secondary Status: Chronic (5) Tobacco dependence due to cigarettes Priority: Secondary Status: Chronic (6) Acute kidney injury Priority: Secondary Status: Resolved (7) Acute diastolic (congestive) heart failure Priority: Primary Status: Acute (8) DVT prophylaxis Priority: Secondary Status: Acute Prognosis: Good - Transfer Medications Prescriptions: Aspirin 81 mg PO DAILY 30 Days #30 tab.chew Furosemide [Lasix] 20 mg PO DAILY 30 Days #30 tablet Isosorbide MONOnitrate (24 HR) [Imdur] 60 mg PO DAILY 30 Days #30 tab.er.24h Nicotine Patch [Nicoderm] 21 mg TD DAILY 30 Days #30 patch.td24 Quetiapine Fumarate [Seroquel] 25 mg PO BID 30 Days #60 tablet Home Medications: Albuterol Neb [Proventil Neb] 2.5 mg IH Q4HR PRN 10/23/15 [History] Atorvastatin [Lipitor] 40 mg PO DAILY 10/23/15 [History] Carvedilol [Coreg] 6.25 mg PO BIDWM 10/23/15 [History] Clopidogrel [Plavix] 75 mg PO DAILY 10/23/15 [History] Insulin Glargine,Hum.rec.anlog [Lantus Solostar] 50 unit SQ DAILY 10/23/15 [ History] Multivitamin [Multi-Day Vitamins] 1 each PO DAILY 10/23/15 [History] Nitroglycerin [Nitrostat] 0.4 mg SL DAILY PRN 10/23/15 [History] amLODIPine [Norvasc] 10 mg PO DAILY 10/23/15 [History] Albuterol Sulfate [Ventolin Hfa] 2 puff IH Q4H PRN 04/05/17 [History] Budesonide/Formoterol 160/4.5 [Symbicort 160/4.5] 2 puff IH BIDR 04/05/17 [ History] Acetaminophen [Non-Aspirin Extra Strength] 500 mg PO Q6HR PRN 04/22/17 [History] Fluticasone Propionate Nasal [Flonase] 50 mcg NS DAILY PRN 04/22/17 [History] [place]-3/Dha/Epa/Fish Oil [Fish Oil Conc 1,000 mg Softgel] 1,000 mg PO DAILY [History] Sertraline [Zoloft] 50 mg PO DAILY 04/22/17 [History] OxyCODONE/APAP 5/325 [Percocet 5/325 MG] 1 tab PO BID PRN 09/06/17 [History] Cetirizine HCl [Zyrtec] 10 mg PO DAILY 04/06/18 [History] Insulin LISPRO [Humalog Kwikpen U-100] 15 - 20 unit SQ TID 04/06/18 [History] Lisinopril [Zestril] 40 mg PO DAILY 04/06/18 [History] Tiotropium [place] [Spiriva Respimat] 2 puff IH DAILY 04/06/18 [History] Aspirin 81 mg PO DAILY 30 Days #30 tab.chew 04/22/18 [Rx] Furosemide [Lasix] 20 mg PO DAILY 30 Days #30 tablet 04/22/18 [Rx] Isosorbide MONOnitrate (24 HR) [Imdur] 60 mg PO DAILY 30 Days #30 tab.er.24h [Rx] Nicotine Patch [Nicoderm] 21 mg TD DAILY 30 Days #30 patch.td24 04/22/18 [Rx] Quetiapine Fumarate [Seroquel] 25 mg PO BID 30 Days #60 tablet 04/22/18 [Rx] Allergies/Adverse Reactions: 3 Allergy/AdvReac Type Severity Reaction Status Date / Time No Known Allergies Allergy Verified 09/06/17 10:09 - Respiratory Orders Smoking Cessation: Smoking cessation has been advised. For more information, call the [place] Tobacco Quit Line at 2-090-GLFZ-NOW. CERTIFICATION: I certify that the transfer of the above named patient to an Extended Care Facility is necessary for the continuing treatment of the diagnosis listed. The above information is true and accurate reflection of patient's current condition. Confidential - Redisclosure prohibited without a patient's written consent.
== END 2018-04-22 18:57 | DRG 207 ==
LOC: EMEROOARM 23:41 → 3BNU 23:41 → ICNU 04-06 10:24 → 3ANU 04-19 15:45
PROVIDERS: ADMIT Family Medicine; ATTEND Family Medicine

== ENCOUNTER 2018-12-09 10:00 | Observation (INO) ==
--- NOTE | 2018-12-09 10:23 | Emergency Department Note ---
Disposition Clinical Impression: Acute exacerbation of congestive heart failure, Systolic heart failure Disposition: Admitted As Inpatient Condition: Fair SOB HPI - General Chief Complaint: ED Shortness of Breath/Dyspnea Stated Complaint: shortness of breath Time Seen by Provider: 12/09/18 10:12 Source: EMS Limitations: physical limitation Nursing Notes Reviewed: Yes Vital Signs Reviewed: Yes - History of Present Illness 63-year-old male presented with a chief complaint of shortness of breath. Onset several weeks ago, worse today, worse with exertion and lying flat, was given Lasix and albuterol at the nursing facility which did not help. He reports a 14 pound weight gain over one week and a 3 pound weight gain since yesterday, denies chest pain, reports productive cough with clear to yellow sputum. Patient denies chest pain. Patient has multiple recent hospitalizations, in mid September for inferior STEMI and at the end of September for COPD exacerbation. There was concern for necrotizing fasciitis at most recent admission so he was trans ferred to [facility]. Patient reports there was no necrotizing fasciitis and he was treated for COPD exacerbation and [facility] He has a history of coronary artery disease, COPD, heart failure. Most recent echocardiogram was done in September showing ejection fraction 40-45%. - Related Data Home Medications Medication Instructions Recorded Confirmed Albuterol Neb [Proventil Neb] 2.5 mg IH 6XD PRN 10/23/15 12/09/18 Insulin Glargine,Hum.rec.anlog 50 unit SQ DAILY 10/23/15 12/09/18 [Lantus Solostar] Budesonide/Formoterol 160/4.5 2 puff IH BID 04/05/17 12/09/18 [Symbicort 160/4.5] Fluticasone Propionate Nasal 2 spray NS DAILY 04/22/17 12/09/18 [Flonase] Cetirizine HCl [Zyrtec] 10 mg PO HS 04/06/18 12/09/18 Insulin LISPRO [Humalog Kwikpen 12 unit SQ QID PRN 04/06/18 12/09/18 U-100] Clopidogrel [Plavix] 75 mg PO DAILY 11/11/18 12/09/18 Aspirin Enteric Coated [Aspirin EC] 81 mg PO DAILY 12/09/18 12/09/18 Atorvastatin [Lipitor] 40 mg PO HS 12/09/18 12/09/18 Furosemide [Lasix] 40 mg PO BID 12/09/18 12/09/18 Nicotine Patch [Nicoderm] 21 mg TD DAILY 12/09/18 12/09/18 Pantoprazole Sodium [Protonix] 40 mg PO DAILY 12/09/18 12/09/18 Quetiapine Fumarate [Seroquel] 25 mg PO HS 12/09/18 12/09/18 predniSONE [PredniSONE] 40 mg PO DAILY 12/09/18 12/09/18 Previous Rx's Medication Instructions Recorded Metoprolol XL (24 HR) Succ [Toprol 12.5 mg PO DAILY #30 tab.er.24h 11/12/18 Xl] Allergies Allergy/AdvReac Type Severity Reaction Status Date / Time No Known Allergies Allergy Verified 09/06/17 10:09 All systems ED: reviewed and negative except as stated. Review of Systems: As Per HPI Past Medical History - Past Medical History Medical history: Reports: COPD, coronary artery disease, diabetes, hyperlipidemia, hypertension, myocardial infarction, other Surgical history: Reports: angioplasty/stent, herniorrhaphy, vasectomy Psychiatric history: Reports: no psych history - Social History Smoking Status: Current every day smoker Smokeless Tobacco Status: No Alcohol use: Reports: occasionally Drug use: Reports: none Physical Exam - General Limitations: physical limitation General appearance: alert, in no apparent distress - Head Head exam: atraumatic, normocephalic - Eye Eye exam: Present: normal appearance, PERRL, EOMI - Neck Neck exam: Present: normal inspection, full ROM, trachea midline - Chest Chest inspection: Present: symmetric chest wall rise - Respiratory Respiratory exam: Present: wheezes, other (Tachypnea, poor expansion, diffuse end expiratory wheeze,) - Cardiovascular Cardiovascular exam: Present: regular rate, normal rhythm, normal heart sounds - Expanded Cardiovascular Exam Peripheral pulses: 1+: dorsalis pedis (R), dorsalis pedis (L), 2+: radial (R), radial (L) - Abdominal Exam Abdominal exam: Present: soft, Non-Tender - Extremities Exam Extremities exam: Present: pedal edema, other (Bilateral 2+ lower extremity edema with chronic venous stasis skin changes and fluid blisters present on the dorsum of both feet.). Absent: tenderness - Back Exam Back exam: Present: other (There is a golf ball sized mass present on the right upper back that is freely movable, soft, not indurated or erythematous) - Neurological Exam Neurological exam: Present: alert, oriented X3 - Psychiatric Psychiatric exam: Present: normal affect - Skin Skin exam: Present: warm, dry Course Course Narrative: Patient with chief complaint shortness of breath. Based on history and presenting complaint this is most likely heart failure exacerbation however we will rule out ACS. We will start with chest x-ray, EKG, troponin, CBC, BMP, BNP. - Reevaluation(s) Reevaluation #1: Reevaluated the patient. He is comfortable sitting up in bed. However transitioning to a standing position and back to lying down causes him significant dyspnea. Time: 12:18 Vital Signs Temperature 98.4 F 12/09/18 10:04 Pulse Rate 97 12/09/18 10:04 Respiratory Rate 18 12/09/18 10:04 Blood Pressure 106/66 12/09/18 10:04 O2 Sat by Pulse Oximetry 96 12/09/18 10:04 Temperature 98.4 F 12/09/18 15:26 Pulse Rate 89 12/09/18 15:26 Respiratory Rate 18 12/09/18 15:26 Blood Pressure 157/76 12/09/18 15:26 O2 Sat by Pulse Oximetry 92 12/09/18 15:54 Oxygen Delivery Oxygen Delivery Nasal Cannula Shortness of Breath/Dyspnea - [facility] Narrative Medical decision making narrative: Patient with clinical signs and symptoms of heart failure exacerbation. He received 40 mg IV Lasix prior to arrival, he also states he was receiving Lasix at the nursing facility. He continues to have shortness of breath with minimal exertion despite dose of IV Lasix and breathing treatment. Chest x-ray with prominent pulmonary vasculature indicative of heart failure exacerbation. CBC negative, BNP elevated in the 300s. Troponin minimally elevated at 0.05 however EKG shows no changes from previous and troponin appears to be chronically elevated based on previous admissions. Discussed with admitting hospitalist Dr. Martinez who admitted the patient to the medicine service for management of acute heart failure exacerbation. - Lab Data Lab results reviewed: Yes I reviewed the patient's lab results. Result diagrams: 12/09/18 12:36 12/09/18 10:42 Lab Results 12/09/18 12/09/18 12/09/18 Range/Units 10:42 10:42 12:36 WBC 8.0 (4.3-11.1) K/mcL RBC 3.91 L (4.19-5.50) M/mcL Hgb 9.9 L (12.9-16.9) g/dL Hct 34.0 L (37.5-50.1) % MCV 87.0 (83.0-100.0) fL MCH 25.3 L (28.0-33.3) pg MCHC 29.1 L (31.6-35.5) g/dL RDW 15.9 H (11.5-14.5) % Plt Count 175 (140-400) K/mcL MPV 10.5 (9.4-12.4) fL Immature Gran % 0.4 (0-4) % Seg Neutrophils % 74.4 % Lymphocytes % 14.7 % Monocytes % 7.4 % Eosinophils % 2.8 % Basophils % 0.3 % Neutrophils # 6.0 (1.6-8.9) K/mcL Lymphocytes # 1.2 (0.6-4.6) K/mcL Monocytes # 0.6 (0.0-1.3) K/mcL Eosinophils # 0.2 (0.0-0.6) K/mcL Basophils # 0.0 (0.0-0.2) K/mcL Sodium 143 (136-145) mEq/L Potassium 4.0 (3.5-5.1) mEq/L Chloride 101 (98-107) mEq/L Carbon Dioxide 35 H (23-29) mEq/L BUN 20 (8-23) mg/dL Creatinine 1.33 H (0.70-1.30) mg/dL Est GFR ( Amer) > 60 (> 60) Est GFR (Non-Af Amer) 54 L (> 60) BUN/Creatinine Ratio 15 (6-26) Glucose 252 H (70-105) mg/dL Calculated Osmolality 307 H (280-300) Calcium 8.4 L (8.6-10.3) mg/dL Troponin I 0.05 H* (< 0.04) ng/mL B-Natriuretic Peptide 328 H (Less than 100) pg/mL - Radiology Data Radiology results reviewed: Yes I reviewed the patient's radiology results. Chest X-Ray 12/09/18 10:22 IMPRESSION: Cardiomegaly with pulmonary vascular congestion. D/ / Skip Riley / Skip Riley Interpreting Provider: Skip Riley - EKG Data EKG attestation: Yes I reviewed and interpreted this EKG. EKG results narrative: EKG performed 12/09/18 for shortness of breath. Review by myself and the attending. Sinus rhythm with T-wave inversion in leads V5 and V6 which were present on comparison from September 2018.
--- NOTE | 2018-12-09 10:30 | Emergency Department Note ---
Disposition Clinical Impression: Acute exacerbation of congestive heart failure Qualifiers: Heart failure type: unspecified Qualified Code(s): I50.9 - Heart failure, unspecified Systolic heart failure Qualifiers: Heart failure chronicity: unspecified Qualified Code(s): I50.20 - Unspecified systolic (congestive) heart failure Disposition: Admitted As Inpatient Condition: Fair General Adult HPI - General Chief complaint: ED Shortness of Breath/Dyspnea Stated complaint: shortness of breath Time Seen by Provider: 12/09/18 10:12 Source: EMS Limitations: physical limitation - History of Present Illness Pain Scale: 0 - Related Data Home Medications Medication Instructions Recorded Confirmed Albuterol Neb [Proventil Neb] 2.5 mg IH 6XD PRN 10/23/15 12/09/18 Insulin Glargine,Hum.rec.anlog 50 unit SQ DAILY 10/23/15 12/09/18 [Lantus Solostar] Budesonide/Formoterol 160/4.5 2 puff IH BID 04/05/17 12/09/18 [Symbicort 160/4.5] Fluticasone Propionate Nasal 2 spray NS DAILY 04/22/17 12/09/18 [Flonase] Cetirizine HCl [Zyrtec] 10 mg PO HS 04/06/18 12/09/18 Insulin LISPRO [Humalog Kwikpen 12 unit SQ QID PRN 04/06/18 12/09/18 U-100] Clopidogrel [Plavix] 75 mg PO DAILY 11/11/18 12/09/18 Aspirin Enteric Coated [Aspirin EC] 81 mg PO DAILY 12/09/18 12/09/18 Atorvastatin [Lipitor] 40 mg PO HS 12/09/18 12/09/18 Furosemide [Lasix] 40 mg PO BID 12/09/18 12/09/18 Nicotine Patch [Nicoderm] 21 mg TD DAILY 12/09/18 12/09/18 Pantoprazole Sodium [Protonix] 40 mg PO DAILY 12/09/18 12/09/18 Quetiapine Fumarate [Seroquel] 25 mg PO HS 12/09/18 12/09/18 predniSONE [PredniSONE] 40 mg PO DAILY 12/09/18 12/09/18 Previous Rx's Medication Instructions Recorded Metoprolol XL (24 HR) Succ [Toprol 12.5 mg PO DAILY #30 tab.er.24h 11/12/18 Xl] Allergies Allergy/AdvReac Type Severity Reaction Status Date / Time No Known Allergies Allergy Verified 09/06/17 10:09 Past Medical History - Past Medical History Medical history: Reports: COPD, coronary artery disease, diabetes, hyperlipidemia, hypertension, myocardial infarction, other Surgical history: Reports: angioplasty/stent, herniorrhaphy, vasectomy Psychiatric history: Reports: no psych history - Social History Smoking Status: Current every day smoker Smokeless Tobacco Status: No Alcohol use: Reports: occasionally Drug use: Reports: none Physical Exam - General Limitations: physical limitation General appearance: alert, in no apparent distress Course Vital Signs Temperature 98.4 F 12/09/18 10:04 Pulse Rate 97 12/09/18 10:04 Respiratory Rate 18 12/09/18 10:04 Blood Pressure 106/66 12/09/18 10:04 O2 Sat by Pulse Oximetry 96 12/09/18 10:04 Temperature 98.4 F 12/09/18 15:26 Pulse Rate 89 12/09/18 15:26 Respiratory Rate 18 12/09/18 15:26 Blood Pressure 157/76 12/09/18 15:26 O2 Sat by Pulse Oximetry 92 12/09/18 15:54 Oxygen Delivery Oxygen Delivery Nasal Cannula Medical Decision Making - Lab Data Result diagrams: 12/09/18 12:36 12/09/18 10:42 Lab Results 12/09/18 12/09/18 12/09/18 Range/Units 10:42 10:42 12:36 WBC 8.0 (4.3-11.1) K/mcL RBC 3.91 L (4.19-5.50) M/mcL Hgb 9.9 L (12.9-16.9) g/dL Hct 34.0 L (37.5-50.1) % MCV 87.0 (83.0-100.0) fL MCH 25.3 L (28.0-33.3) pg MCHC 29.1 L (31.6-35.5) g/dL RDW 15.9 H (11.5-14.5) % Plt Count 175 (140-400) K/mcL MPV 10.5 (9.4-12.4) fL Immature Gran % 0.4 (0-4) % Seg Neutrophils % 74.4 % Lymphocytes % 14.7 % Monocytes % 7.4 % Eosinophils % 2.8 % Basophils % 0.3 % Neutrophils # 6.0 (1.6-8.9) K/mcL Lymphocytes # 1.2 (0.6-4.6) K/mcL Monocytes # 0.6 (0.0-1.3) K/mcL Eosinophils # 0.2 (0.0-0.6) K/mcL Basophils # 0.0 (0.0-0.2) K/mcL Sodium 143 (136-145) mEq/L Potassium 4.0 (3.5-5.1) mEq/L Chloride 101 (98-107) mEq/L Carbon Dioxide 35 H (23-29) mEq/L BUN 20 (8-23) mg/dL Creatinine 1.33 H (0.70-1.30) mg/dL Est GFR ( Amer) > 60 (> 60) Est GFR (Non-Af Amer) 54 L (> 60) BUN/Creatinine Ratio 15 (6-26) Glucose 252 H (70-105) mg/dL Calculated Osmolality 307 H (280-300) Calcium 8.4 L (8.6-10.3) mg/dL Troponin I 0.05 H* (< 0.04) ng/mL B-Natriuretic Peptide 328 H (Less than 100) pg/mL Attestation Statement - Attestation Attestation: I examined this patient and my medical decision-making was reviewed with the WAITER/WAITRESS COUNTER/PA/Advanced Practice Nurse/Resident Physician. I agree with the documented findings, disposition and treatment plan as described except to the extent set forth below. I did see the patient is spoke with him and he has 14 pounds of weight gain over the last 1 week, dyspnea with exertion, orthopnea and peripheral edema and he do es have generalized wheezing on his exam and at this point findings most consistent with heart failure and the patient was evaluated further with chest x-ray, EKG, labs and likely admitted. Did receive 40 mg IV Lasix from the paramedics en route 1030 I did review the EKG showing normal sinus rhythm with rate of 89 and T-wave inversion laterally which was present on a previous EKG from several weeks ago 1156
[2018-12-09 11:17] LABS: Blood Urea Nitrogen 20 mg/dL (8-23); Carbon Dioxide 35 mEq/L (23-29); Chloride 101 mEq/L (98-107); Sodium 143 mEq/L (136-145)
[2018-12-09 11:18] LABS: BUN/Creatinine Ratio 15 (6-26); Calcium 8.4 mg/dL (8.6-10.3); Glucose 252 mg/dL (70-105); Osmolality,Calculated 307 (280-300); eGFR For Non-African Americans 54 (> 60)
[2018-12-09 11:22] LABS: Troponin I 0.05 ng/mL (< 0.04)
[2018-12-09] MEDS ORDERED: Nitroglycerin 1 INCH/GM PACKET TP ONE (12:11)
[2018-12-09] MEDS ORDERED: Ipratropium/Albuterol Neb 3 ML IH ONE (12:11)
[2018-12-09 12:48] LABS: Basophils % 0.3 %; Eosinophils # 0.2 K/mcL (0.0-0.6); Eosinophils % 2.8 %; Hemoglobin 9.9 g/dL (12.9-16.9); Immature Granulocytes % 0.4 % (0-4); Lymphocytes # 1.2 K/mcL (0.6-4.6); Lymphocytes % 14.7 %; Mean Corpuscular HGB Conc 29.1 g/dL (31.6-35.5); Mean Corpuscular Hemoglobin 25.3 pg (28.0-33.3); Mean Platelet Volume 10.5 fL (9.4-12.4); Monocytes # 0.6 K/mcL (0.0-1.3); Monocytes % 7.4 %; Platelet Count 175 K/mcL (140-400); Red Blood Count 3.91 M/mcL (4.19-5.50); Red Cell Distribution Width 15.9 % (11.5-14.5); Segmented Neutrophils % 74.4 %
[2018-12-09] MEDS ORDERED: INSULIN LISPRO 12 UNIT SQ PRN (14:30)
[2018-12-09] MEDS ORDERED: Ipratropium/Albuterol Neb 3 ML IH PRN (14:33)
[2018-12-09] MEDS ORDERED: Acetaminophen 325 MG TABLET PO PRN (14:34)
[2018-12-09] MEDS ORDERED: Naloxone 0.4 MG/ML INJ IVP PRN (14:34)
[2018-12-09] MEDS ORDERED: traMADol 50 MG TABLET PO PRN (14:34)
[2018-12-09] MEDS ORDERED: *HR* Promethazine 25 MG/ML VIAL IVP PRN (14:34)
[2018-12-09] MEDS ORDERED: Ondansetron 4 MG/2 ML VIAL IVP PRN (14:34)
[2018-12-09] MEDS ORDERED: MOM Conc 10 ML UD.LIQ PO PRN (14:34)
[2018-12-09] MEDS ORDERED: Mag Hydrox/Al Hydrox/Simeth 30 ML UDC PO PRN (14:34)
--- NOTE | 2018-12-09 14:40 | Internal Med History&Physical ---
Date of Encounter: 12/09/18 Time of Encounter: 14:37 Internal Medicine - H&P: HPI Admitted From: Long-term Nursing Facility Plans for Post Hospital Care: Transfer [facility] History of present illness: Mr. Chase is a 63-year-old male presented with a chief complaint of shortness of breath. Onset several weeks ago, worse today, worse with exertion and lying flat, was given Lasix and albuterol at the nursing facility which did not help. He reports a 14 pound weight gain over one week and a 3 pound weight gain since yesterday, denies chest pain, reports productive cough with clear to yellow sputum. Patient denies chest pain. Patient has multiple recent hospitalizations, in mid September for inferior STEMI and at the end of September for COPD exacerbation. There was concern for necrotizing fasciitis at most recent admission so he was transferred to [facility]. Patient reports there was no necrotizing fasciitis and he was treated for COPD exacerbation and sent to [facility]. At the ED, patient vital signs were stable, labs showed elevated BNP and borderline troponin, chest x-ray showed prominent pulmonary vascular congestion. He received 1 dose of nitroglycerin and ipratropium nebulizer, he will be admitted for further evaluation and management. CODE STATUS discussed with patient, he wishes to be full code. Past Med Surg Social Fam HX - Past Medical History Medical history: COPD, coronary artery disease, diabetes, hyperlipidemia, hypertension, myocardial infarction, other Additional medical history: bladder tumor. STD's. CKD STAGE 3. NSTEMI. SMOKER Psychiatric history: no psych history - Past Surgical History Surgical History: angioplasty/stent, herniorrhaphy, vasectomy Additional surgical history: hernia stomach. bilateral carpal tunnel release - Social History Smoking Status: Current every day smoker Smokeless Tobacco Status: No Alcohol use: occasionally Drug use: none - Family History Father Living Status: Hx Family Cardiac Disorders: Yes (CAD) Internal Medicine - H&P: Meds Albuterol Neb [Proventil Neb] 2.5 mg IH 6XD PRN 10/23/15 [History] Insulin Glargine,Hum.rec.anlog [Lantus Solostar] 50 unit SQ DAILY 10/23/15 [History] Albuterol Sulfate [Ventolin Hfa] 2 puff IH Q4H PRN 04/05/17 [History] Budesonide/Formoterol 160/4.5 [Symbicort 160/4.5] 2 puff IH BID 04/05/17 [History] Acetaminophen [Non-Aspirin Extra Strength] 500 mg PO Q6HR PRN 04/22/17 [History] Fluticasone Propionate Nasal [Flonase] 2 spray NS DAILY 04/22/17 [History] OxyCODONE/APAP 5/325 [Percocet 5/325 MG] 1 tab PO BID PRN 09/06/17 [History] Cetirizine HCl [Zyrtec] 10 mg PO HS 04/06/18 [History] Insulin LISPRO [Humalog Kwikpen U-100] 12 unit SQ QID PRN 04/06/18 [History] Tiotropium [place] [Spiriva Respimat] 2 puff IH DAILY 04/06/18 [History] Quetiapine Fumarate [Seroquel] 25 mg PO BID 30 Days #60 tablet 04/22/18 [Rx] Clopidogrel [Plavix] 75 mg PO DAILY 11/11/18 [History] Furosemide [Lasix] 20 mg PO DAILY #30 tablet 11/12/18 [Rx] Lisinopril [Zestril] 2.5 mg PO DAILY #30 tablet 11/12/18 [Rx] Metoprolol XL (24 HR) Succ [Toprol Xl] 12.5 mg PO DAILY #30 tab.er.24h 11/12/18 [Rx] Aspirin Enteric Coated [Aspirin EC] 81 mg PO DAILY 12/09/18 [History] Atorvastatin [Lipitor] 40 mg PO HS 12/09/18 [History] Nicotine Patch [Nicoderm] 7 mg TD DAILY 12/09/18 [History] Nicotine Patch [Nicoderm] 14 mg TD DAILY 12/09/18 [History] Nicotine Patch [Nicoderm] 21 mg TD DAILY 12/09/18 [History] Pantoprazole Sodium [Protonix] 40 mg PO DAILY 12/09/18 [History] predniSONE [PredniSONE] 40 mg PO DAILY 12/09/18 [History] Allergy/AdvReac Type Severity Reaction Status Date / Time No Known Allergies Allergy Verified 09/06/17 10:09 All Systems PM: A 10-system review of systems was performed and is negative for pertinent findings except as documented above in the HPI. Review of systems: REVIEW OF SYSTEMS: CONSTITUTIONAL: No weight loss, fever, chills, weakness or fatigue. HEENT: Eyes: No visual loss, blurred vision, double vision or yellow sclerae. Ears, Nose, Throat: No hearing loss, sneezing, congestion, runny nose or sore throat. SKIN: No rash or itching. CARDIOVASCULAR: see HPI. RESPIRATORY: No shortness of breath, cough or sputum. GASTROINTESTINAL: No anorexia, nausea, vomiting or diarrhea. No abdominal pain or blood. GENITOURINARY: No dysuria, urgency, or frequency. NEUROLOGICAL: No headache, dizziness, syncope, paralysis, ataxia, numbness or tingling in the extremities. No change in bowel or bladder control. MUSCULOSKELETAL: No muscle, back pain, joint pain or stiffness. HEMATOLOGIC: No anemia, bleeding or bruising. LYMPHATICS: No enlarged nodes. No history of splenectomy. PSYCHIATRIC: No history of depression or anxiety. ENDOCRINOLOGIC: No reports of sweating, cold or heat intolerance. No polyuria or polydipsia. - Constitutional Vitals: Temp Pulse Resp BP Pulse Ox 98.4 F 99 16 148/80 97 12/09/18 10:04 12/09/18 14:20 12/09/18 14:20 12/09/18 14:20 12/09/18 14:20 General appearance: Present: A&O X 3 Exam: PHYSICAL EXAMINATION: GENERAL APPEARANCE: The patient is alert, oriented and in no acute distress. HEENT: Head is normocephalic. The sinuses are nontender. Pupils are equal and reactive. The nares are patent. Oropharynx clear without lesions. NECK: Supple without lymphadenopathy. HEART: Regular rate and rhythm. LUNGS: No crackles or wheezes are heard. ABDOMEN: Soft, nontender, nondistended with good bowel sounds heard. Inguinal area is normal. EXTREMITIES: 2-3 + pitting edema at BLE. NEUROLOGICAL: Gross nonfocal. SKIN: Warm and dry without any rash. Internal Med - H&P Results - Labs CBC & Chem 7: 12/09/18 12:36 12/09/18 10:42 Labs: Short CBC 12/09/18 Range/Units 12:36 WBC 8.0 (4.3-11.1) K/mcL Hgb 9.9 L (12.9-16.9) g/dL Hct 34.0 L (37.5-50.1) % Plt Count 175 (140-400) K/mcL Neutrophils # 6.0 (1.6-8.9) K/mcL BMP 12/09/18 10:42 Sodium 143 Potassium 4.0 Chloride 101 Carbon Dioxide 35 H BUN 20 Creatinine 1.33 H Glucose 252 H Calcium 8.4 L Cardiac Enzymes 12/09/18 Range/Units 10:42 Troponin I 0.05 H* (< 0.04) ng/mL - Impressions ITS Impressions Chest X-Ray 12/09/18 10:22 IMPRESSION: Cardiomegaly with pulmonary vascular congestion. D/ / Skip Riley / Skip Riley Interpreting Provider: Skip Riley - Assessment and Plan (1) CHF (congestive heart failure) Current Visit: Yes Status: Acute Assessment and plan: Presented with volume overload, manifested as leg selling, pulmonary congestion, and SOB. Home lasix 20 mg daily. Recent echo 10/2018 LV EF40-45%, global LV systolic dysfunction. Mildly elevated troponin and levated BNP. - change po lasix to IV 20 mg BID. - continue other home meds including BB and ACEI. - may repeat echo if indicated. Qualifiers: Heart failure type: combined systolic and diastolic Heart failure chronicity: acute on chronic Qualified Code(s): I50.43 - Acute on chronic combined systolic (congestive) and diastolic (congestive) heart failure (2) CAD (coronary artery disease) Current Visit: No Status: Chronic Assessment and plan: Mildly elevated troponin, likely chronic, No chest pain or EKG changes. continue cycling troponin, tele, and ekg as needed. Continue home meds including DAPT. Qualifiers: Coronary Disease-Associated Artery/Lesion type: [place] artery [place] vs. transplanted heart: [place] heart Associated angina: with unstable angina Qualified Code(s): I25.110 - Atherosclerotic heart disease of [place] coronary artery with unstable angina pectoris (3) Obesity (BMI 30-39.9) Current Visit: No Status: Chronic Assessment and plan: weight control counselled. (4) Tobacco dependence due to cigarettes Current Visit: No Status: Chronic Assessment and plan: Nicotine patch. (5) Diabetes Current Visit: No Status: Chronic Assessment and plan: continue home insulin dose + sliding scale. 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 Duoneb as needed. Qualifiers: COPD type: unspecified COPD Qualified Code(s): J44.9 - Chronic obstructive pulmonary disease, unspecified (7) CKD (chronic kidney disease) Current Visit: Yes Status: Acute Assessment and plan: Cr stable at baseline. continue monitoring. Qualifiers: Chronic kidney disease stage: stage 3 (moderate) Qualified Code(s): N18.3 - Chronic kidney disease, stage 3 (moderate) (8) DVT prophylaxis Current Visit: Yes Status: Acute Assessment and plan: Heparin sq. - Time Spent With Patient Total time spent is greater than 50% in coordination of care (as documented) at patient's floor/unit and/or counseling patient: Greater than 35 minutes
[2018-12-09] MEDS ORDERED: Dextrose Gel 15 GM/37.5 ML TUBE PO PRN ×2 (14:58)
[2018-12-09] MEDS ORDERED: D5% in Water 1,000 ML IVC PRN (14:58)
[2018-12-09] MEDS ORDERED: *HR* Dextrose 50 % in Water (Syg) 50 ML SYRINGE IVP PRN (14:58)
[2018-12-09] MEDS: Insulin LISPRO 300 UNITS/3 ML VIAL SQ SCH ×2 (16:59→20:05)
[2018-12-09] MEDS: Furosemide 20 MG/2 ML VIAL IVP SCH (17:05)
[2018-12-09] MEDS: *HR* Heparin 5,000 UNIT/ML VIAL SQ SCH (17:10)
[2018-12-09] MEDS: Ipratropium/Albuterol Neb 3 ML IH SCH ×3 (19:26→23:35)
[2018-12-09] MEDS: Budesonide/Formoterol 160/4.5 1 PUFF INH IH SCH (19:48)
[2018-12-09] MEDS: Loratadine 10 MG TABLET PO SCH (20:05)
[2018-12-10] MEDS: Ipratropium/Albuterol Neb 3 ML IH SCH ×5 (03:27→19:24)
[2018-12-10] MEDS: *HR* Heparin 5,000 UNIT/ML VIAL SQ SCH ×2 (05:44→17:20)
[2018-12-10 06:30] LABS: Basophils % 0.3 %; Eosinophils # 0.2 K/mcL (0.0-0.6); Eosinophils % 2.5 %; Hematocrit 32.1 % (37.5-50.1); Hemoglobin 9.5 g/dL (12.9-16.9); Immature Granulocytes % 0.6 % (0-4); Lymphocytes # 1.6 K/mcL (0.6-4.6); Lymphocytes % 18.3 %; Mean Corpuscular HGB Conc 29.6 g/dL (31.6-35.5); Mean Corpuscular Hemoglobin 25.3 pg (28.0-33.3); Mean Corpuscular Volume 85.4 fL (83.0-100.0); Mean Platelet Volume 10.5 fL (9.4-12.4); Monocytes # 0.7 K/mcL (0.0-1.3); Monocytes % 8.6 %; Platelet Count 169 K/mcL (140-400); Red Blood Count 3.76 M/mcL (4.19-5.50); Red Cell Distribution Width 15.6 % (11.5-14.5); Segmented Neutrophils % 69.7 %
[2018-12-10 06:51] LABS: BUN/Creatinine Ratio 17 (6-26); Blood Urea Nitrogen 24 mg/dL (8-23); Calcium 8.6 mg/dL (8.6-10.3); Carbon Dioxide 34 mEq/L (23-29); Chloride 98 mEq/L (98-107); Glucose 138 mg/dL (70-105); Osmolality,Calculated 302 (280-300); Potassium 3.9 mEq/L (3.5-5.1); Sodium 143 mEq/L (136-145); eGFR For Non-African Americans 51 (> 60)
[2018-12-10] MEDS: Budesonide/Formoterol 160/4.5 1 PUFF INH IH SCH ×2 (07:34→19:24)
[2018-12-10] MEDS: Tiotropium 18 MCG inhalation IH SCH (07:36)
[2018-12-10] MEDS ORDERED: Albuterol 2.5 MG/3 ML NEBULIZER IH PRN (07:41)
[2018-12-10] MEDS ORDERED: predniSONE 20 MG TABLET PO SCH (09:00)
--- NOTE | 2018-12-10 10:36 | Internal Med Progress Note ---
Hospitalist Progress Note - Encounter Date of Encounter: 12/10/18 Time of Encounter: 10:33 - Subjective Interval History: Pt seen and examined in the room. His shortness of breath and swelling/congestion are improving. Overnight, he slept well, he denies chest pain, palpitation, or syncope. - Exam Vitals: Temp Pulse Resp BP Pulse Ox 98.9 F 80 15 140/78 95 12/10/18 08:40 12/10/18 08:40 12/10/18 08:40 12/10/18 08:40 12/10/18 08:40 Exam: PHYSICAL EXAMINATION: GENERAL APPEARANCE: The patient is alert, oriented and in no acute distress. HEENT: Head is normocephalic. The sinuses are nontender. Pupils are equal and reactive. The nares are patent. Oropharynx clear without lesions. NECK: Supple without lymphadenopathy. HEART: Regular rate and rhythm. LUNGS: No crackles or wheezes are heard. ABDOMEN: Soft, nontender, nondistended with good bowel sounds heard. Inguinal area is normal. EXTREMITIES: 2-3 + pitting edema at BLE. NEUROLOGICAL: Gross nonfocal. SKIN: Warm and dry without any rash. - Assessment and Plan (1) CHF (congestive heart failure) Current Visit: Yes Status: Acute Assessment and Plan: 12/09 Presented with volume overload, manifested as leg selling, pulmonary congestion, and SOB. Home lasix 20 mg daily. Recent echo 10/2018 LV EF40-45%, global LV systolic dysfunction. Mildly elevated troponin and levated BNP. - change po lasix to IV 20 mg BID. - continue other home meds including BB and ACEI. - may repeat echo if indicated. 12/10 Symptoms are improving, however, still volume overloaded, continue current treatment. (2) CAD (coronary artery disease) Current Visit: No Status: Chronic Assessment and Plan: Mildly elevated troponin, likely chronic, No chest pain or EKG changes. continue cycling troponin, tele, and ekg as needed. Continue home meds including DAPT. (3) Obesity (BMI 30-39.9) Current Visit: No Status: Chronic Assessment and Plan: weight control counselled. (4) Tobacco dependence due to cigarettes Current Visit: No Status: Chronic Assessment and Plan: Nicotine patch. (5) Diabetes Current Visit: No Status: Chronic Assessment and Plan: continue home insulin dose + sliding scale. (6) COPD (chronic obstructive pulmonary disease) Current Visit: No Status: Chronic Assessment and Plan: continue home nebulizers. Duoneb as needed. (7) CKD (chronic kidney disease) Current Visit: No Status: Acute Assessment and Plan: Cr stable at baseline. continue monitoring. (8) DVT prophylaxis Current Visit: Yes Status: Acute Assessment and Plan: Heparin sq. - Time Spent with Patient Total time spent is greater than 50% in coordination of care (as documented) at patient's floor/unit and/or counseling patient: Greater than 35 minutes Plan of Care Discussed with: patient Internal Medicine: Result - Labs CBC & Chem 7: 12/10/18 05:26 12/10/18 05:26 Labs: Short CBC 12/09/18 12/10/18 Range/Units 12:36 05:26 WBC 8.0 8.6 (4.3-11.1) K/mcL Hgb 9.9 L 9.5 L (12.9-16.9) g/dL Hct 34.0 L 32.1 L (37.5-50.1) % Plt Count 175 169 (140-400) K/mcL Neutrophils # 6.0 6.0 (1.6-8.9) K/mcL BMP 12/09/18 12/10/18 10:42 05:26 Sodium 143 143 Potassium 4.0 3.9 Chloride 101 98 Carbon Dioxide 35 H 34 H BUN 20 24 H Creatinine 1.33 H 1.40 H Glucose 252 H 138 H Calcium 8.4 L 8.6 Cardiac Enzymes 12/09/18 12/09/18 12/09/18 Range/Units 10:42 16:27 22:18 Troponin I 0.05 H* 0.06 H* 0.07 H* (< 0.04) ng/mL 12/10/18 Range/Units 05:26 Troponin I 0.06 H* (< 0.04) ng/mL - Impressions Impressions Chest X-Ray 12/09/18 10:22 IMPRESSION: Cardiomegaly with pulmonary vascular congestion. D/ / Skip Riley / Skip Riley Interpreting Provider: Skip Riley Consult Discharge Plan - Plan Referrals: Christiano Santacruz MD [Primary Care Provider] - (1) CHF (congestive heart failure) Qualifiers: Heart failure type: combined systolic and diastolic Heart failure chronicity: acute on chronic Qualified Code(s): I50.43 - Acute on chronic combined systolic (congestive) and diastolic (congestive) heart failure (2) CAD (coronary artery disease) Qualifiers: Coronary Disease-Associated Artery/Lesion type: [place] artery [place] vs. 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
[2018-12-10] MEDS: Insulin LISPRO 300 UNITS/3 ML VIAL SQ SCH ×4 (10:38→22:11)
[2018-12-10] MEDS: Metoprolol XL (24 HR) Succ 25 MG TAB.ER.24H PO SCH (10:40)
[2018-12-10] MEDS: Furosemide 20 MG/2 ML VIAL IVP SCH ×2 (10:46→17:20)
[2018-12-10] MEDS: Nicotine 21 MG PATCH.TD24 TD SCH (10:46)
[2018-12-10] MEDS: Aspirin Enteric Coated 81 MG Tablet PO SCH (10:46)
[2018-12-10] MEDS: Insulin DETEMIR 100 UNIT/ML X5UNITS SQ SCH (10:47)
[2018-12-10] MEDS: Fluticasone Propionate Nasal 50 MCG/SPRAY BOTTLE NS SCH (10:47)
[2018-12-10] MEDS: Loratadine 10 MG TABLET PO SCH (22:11)
[2018-12-11] MEDS: Ipratropium/Albuterol Neb 3 ML IH SCH ×6 (00:45→19:48)
[2018-12-11 05:14] LABS: Basophils % 0.3 %; Eosinophils # 0.2 K/mcL (0.0-0.6); Eosinophils % 2.7 %; Hematocrit 33.3 % (37.5-50.1); Hemoglobin 9.8 g/dL (12.9-16.9); Immature Granulocytes % 0.5 % (0-4); Lymphocytes # 1.4 K/mcL (0.6-4.6); Lymphocytes % 18.4 %; Mean Corpuscular HGB Conc 29.4 g/dL (31.6-35.5); Mean Corpuscular Hemoglobin 25.5 pg (28.0-33.3); Mean Corpuscular Volume 86.7 fL (83.0-100.0); Mean Platelet Volume 10.2 fL (9.4-12.4); Monocytes # 0.7 K/mcL (0.0-1.3); Monocytes % 8.9 %; Neutrophils # 5.4 K/mcL (1.6-8.9); Platelet Count 168 K/mcL (140-400); Red Blood Count 3.84 M/mcL (4.19-5.50); Red Cell Distribution Width 15.6 % (11.5-14.5); Segmented Neutrophils % 69.2 %
[2018-12-11] MEDS: *HR* Heparin 5,000 UNIT/ML VIAL SQ SCH ×2 (05:23→16:52)
[2018-12-11 05:33] LABS: BUN/Creatinine Ratio 16 (6-26); Blood Urea Nitrogen 22 mg/dL (8-23); Calcium 8.8 mg/dL (8.6-10.3); Carbon Dioxide 35 mEq/L (23-29); Chloride 99 mEq/L (98-107); Glucose 190 mg/dL (70-105); Osmolality,Calculated 300 (280-300); Potassium 3.8 mEq/L (3.5-5.1); Sodium 141 mEq/L (136-145); eGFR For Non-African Americans 53 (> 60)
[2018-12-11] MEDS: Budesonide/Formoterol 160/4.5 1 PUFF INH IH SCH ×2 (07:32→19:48)
[2018-12-11] MEDS: Tiotropium 18 MCG inhalation IH SCH (07:38)
[2018-12-11] MEDS: Insulin DETEMIR 100 UNIT/ML X5UNITS SQ SCH (08:21)
[2018-12-11] MEDS: Aspirin Enteric Coated 81 MG Tablet PO SCH (08:22)
[2018-12-11] MEDS: Furosemide 20 MG/2 ML VIAL IVP SCH ×2 (08:22→16:51)
[2018-12-11] MEDS: Metoprolol XL (24 HR) Succ 25 MG TAB.ER.24H PO SCH (08:22)
[2018-12-11] MEDS: Fluticasone Propionate Nasal 50 MCG/SPRAY BOTTLE NS SCH (08:22)
[2018-12-11] MEDS: Nicotine 21 MG PATCH.TD24 TD SCH (08:23)
[2018-12-11] MEDS: Insulin LISPRO 300 UNITS/3 ML VIAL SQ SCH ×4 (08:23→20:54)
--- NOTE | 2018-12-11 10:42 | Internal Med Progress Note ---
Hospitalist Progress Note - Encounter Date of Encounter: 12/11/18 Time of Encounter: 10:39 - Subjective Interval History: Patient seen and examined in the room. Shortness breath and leg swelling improving. No chest pain, palpitation, or lightheadedness. - Exam Vitals: Temp Pulse Resp BP Pulse Ox 97.9 F 104 18 133/77 91 12/11/18 06:46 12/11/18 06:46 12/11/18 07:33 12/11/18 06:46 12/11/18 07:33 Exam: PHYSICAL EXAMINATION: GENERAL APPEARANCE: The patient is alert, oriented and in no acute distress. HEENT: Head is normocephalic. The sinuses are nontender. Pupils are equal and reactive. The nares are patent. Oropharynx clear without lesions. NECK: Supple without lymphadenopathy. HEART: Regular rate and rhythm. LUNGS: No crackles or wheezes are heard. ABDOMEN: Soft, nontender, nondistended with good bowel sounds heard. Inguinal area is normal. EXTREMITIES: 1 + pitting edema at BLE. NEUROLOGICAL: Gross nonfocal. SKIN: Warm and dry without any rash. - Assessment and Plan (1) CHF (congestive heart failure) Current Visit: Yes Status: Acute Assessment and Plan: 12/09 Presented with volume overload, manifested as leg selling, pulmonary congestion, and SOB. Home lasix 20 mg daily. Recent echo 10/2018 LV EF40-45%, global LV systolic dysfunction. Mildly elevated troponin and levated BNP. - change po lasix to IV 20 mg BID. - continue other home meds including BB and ACEI. - may repeat echo if indicated. 12/10 Symptoms are improving, however, still volume overloaded, continue current treatment. 12/11 Volume overload is improving, still needs IV Lasix. (2) CAD (coronary artery disease) Current Visit: No Status: Chronic Assessment and Plan: Mildly elevated troponin, likely chronic, No chest pain or EKG changes. continue cycling troponin, tele, and ekg as needed. Continue home meds including DAPT. (3) Obesity (BMI 30-39.9) Current Visit: No Status: Chronic Assessment and Plan: weight control counselled. (4) Tobacco dependence due to cigarettes Current Visit: No Status: Chronic Assessment and Plan: Nicotine patch. (5) Diabetes Current Visit: No Status: Chronic Assessment and Plan: continue home insulin dose + sliding scale. (6) COPD (chronic obstructive pulmonary disease) Current Visit: No Status: Chronic Assessment and Plan: Stable respiratory status, continue home nebulizers. Duoneb as needed. (7) CKD (chronic kidney disease) Current Visit: No Status: Acute Assessment and Plan: Cr stable at baseline. continue monitoring. (8) DVT prophylaxis Current Visit: Yes Status: Acute Assessment and Plan: Heparin sq. - Time Spent with Patient Total time spent is greater than 50% in coordination of care (as documented) at patient's floor/unit and/or counseling patient: Greater than 35 minutes Plan of Care Discussed with: patient Internal Medicine: Result - Labs CBC & Chem 7: 12/11/18 04:53 12/11/18 04:53 Labs: Short CBC 12/11/18 Range/Units 04:53 WBC 7.8 (4.3-11.1) K/mcL Hgb 9.8 L (12.9-16.9) g/dL Hct 33.3 L (37.5-50.1) % Plt Count 168 (140-400) K/mcL Neutrophils # 5.4 (1.6-8.9) K/mcL BMP 12/11/18 04:53 Sodium 141 Potassium 3.8 Chloride 99 Carbon Dioxide 35 H BUN 22 Creatinine 1.36 H Glucose 190 H Calcium 8.8 Consult Discharge Plan - Plan Referrals: Christiano Santacruz MD [Primary Care Provider] - (1) CHF (congestive heart failure) Qualifiers: Heart failure type: combined systolic and diastolic Heart failure chronicity: acute on chronic Qualified Code(s): I50.43 - Acute on chronic combined systolic (congestive) and diastolic (congestive) heart failure (2) CAD (coronary artery disease) Qualifiers: Coronary Disease-Associated Artery/Lesion type: [place] artery [place] vs. 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
[2018-12-11] MEDS: Loratadine 10 MG TABLET PO SCH (20:03)
[2018-12-12] MEDS: Ipratropium/Albuterol Neb 3 ML IH SCH ×5 (03:38→15:43)
[2018-12-12 03:44] LABS: Red Blood Count 3.67 M/mcL (4.19-5.50)
[2018-12-12 03:45] LABS: Hematocrit 32.1 % (37.5-50.1); Hemoglobin 9.2 g/dL (12.9-16.9); Mean Corpuscular HGB Conc 28.7 g/dL (31.6-35.5); Mean Corpuscular Hemoglobin 25.1 pg (28.0-33.3); Mean Corpuscular Volume 87.5 fL (83.0-100.0); Mean Platelet Volume 10.6 fL (9.4-12.4); Platelet Count 183 K/mcL (140-400); Red Cell Distribution Width 15.3 % (11.5-14.5)
[2018-12-12 04:01] LABS: BUN/Creatinine Ratio 17 (6-26); Blood Urea Nitrogen 23 mg/dL (8-23); Calcium 8.9 mg/dL (8.6-10.3); Carbon Dioxide 36 mEq/L (23-29); Chloride 98 mEq/L (98-107); Glucose 188 mg/dL (70-105); Osmolality,Calculated 301 (280-300); Potassium 4.1 mEq/L (3.5-5.1); Sodium 141 mEq/L (136-145); eGFR For Non-African Americans 53 (> 60)
[2018-12-12] MEDS: *HR* Heparin 5,000 UNIT/ML VIAL SQ SCH (05:44)
[2018-12-12] MEDS: Fluticasone Propionate Nasal 50 MCG/SPRAY BOTTLE NS SCH (06:03)
[2018-12-12] MEDS: Tiotropium 18 MCG inhalation IH SCH (07:24)
[2018-12-12] MEDS: Budesonide/Formoterol 160/4.5 1 PUFF INH IH SCH (07:24)
[2018-12-12] MEDS: Metoprolol XL (24 HR) Succ 25 MG TAB.ER.24H PO SCH (08:38)
[2018-12-12] MEDS: Insulin LISPRO 300 UNITS/3 ML VIAL SQ SCH ×3 (08:39→17:50)
[2018-12-12] MEDS: Insulin DETEMIR 100 UNIT/ML X5UNITS SQ SCH (08:39)
[2018-12-12] MEDS: Aspirin Enteric Coated 81 MG Tablet PO SCH (08:39)
[2018-12-12] MEDS: Furosemide 20 MG/2 ML VIAL IVP SCH (08:39)
[2018-12-12] MEDS: Nicotine 21 MG PATCH.TD24 TD SCH (08:41)
--- NOTE | 2018-12-12 09:02 | Discharge Summary ---
- NOTES TO OUTPATIENT PROVIDER Notes to Outpatient Provider: f/u with PCP within 2 weeks. Date of Encounter: 12/12/18 Time of Encounter: 08:58 - Discharge Diagnosis (1) CHF (congestive heart failure) Priority: Primary Status: Acute Qualifiers: Heart failure type: combined systolic and diastolic Heart failure chronicity: acute on chronic Qualified Code(s): I50.43 - Acute on chronic combined systolic (congestive) and diastolic (congestive) heart failure (2) CAD (coronary artery disease) Priority: Secondary Status: Chronic Qualifiers: Coronary Disease-Associated Artery/Lesion type: [place] artery [place] vs. 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3 - Chronic kidney disease, stage 3 (moderate) (8) DVT prophylaxis Priority: Primary Status: Acute Hospital course: Mr. Chase is a 63-year-old male presented with a chief complaint of shannan rtness of breath. Onset several weeks ago, worse today, worse with exertion and lying flat, was given Lasix and albuterol at the nursing facility which did not help. He reports a 14 pound weight gain over one week and a 3 pound weight gain since yesterday, denies chest pain, reports productive cough with clear to yellow sputum. Patient denies chest pain. Patient has multiple recent hospitalizations, in mid September for inferior STEMI and at the end of September for COPD exacerbation. There was concern for necrotizing fasciitis at most recent admission so he was transferred to [facility]. Patient reports there was no necrotizing fasciitis and he was treated for COPD exacerbation and sent to [facility]. At the ED, patient vital signs were stable, labs showed elevated BNP and borderline troponin, chest x-ray showed mild prominent pulmonary vascular congestion. He received 1 dose of nitroglycerin and ipratropium nebulizer. Patient was treated as CHF exacerbation with IV Lasix, low salt diet, and fluid restriction. After 3 days of treatment, patient volume overload has significantly improved. On the discharge day, patient is close to euvolemic, his dyspnea on exertion has improved. Patient is discharged back to [facility] today, he was instructed to strictly follow a low-salt diet with [id number] fluid restriction every day. He was instructed to weight herself on daily basis and keep weight loss, contact PCP if more than 3 pound weight gain. He also was instructed to follow-up with PCP within a week. Discharge discussed with: patient Time spent discussing smoking cessation with patient: more than 10 minutes - Time Spent with Patient Total time spent providing and/or coordinating discharge services: Time spent: Greater than 30 minutes - Discharge Medications Prescriptions: Continued Albuterol Neb [Proventil Neb] 2.5 mg IH 6XD PRN PRN Reason: Shortness Of Breath Insulin Glargine,Hum.rec.anlog [Lantus Solostar] 50 unit SQ DAILY Budesonide/Formoterol 160/4.5 [Symbicort 160/4.5] 2 puff IH BID Fluticasone Propionate Nasal [Flonase] 2 spray NS DAILY Cetirizine HCl [Zyrtec] 10 mg PO HS Insulin LISPRO [Humalog Kwikpen U-100] 12 unit SQ QID PRN PRN Reason: PER SLIDING SCALE Clopidogrel [Plavix] 75 mg PO DAILY Metoprolol XL (24 HR) Succ [Toprol Xl] 12.5 mg PO DAILY #30 tab.er.24h Aspirin Enteric Coated [Aspirin EC] 81 mg PO DAILY Atorvastatin [Lipitor] 40 mg PO HS Nicotine Patch [Nicoderm] 21 mg TD DAILY Pantoprazole Sodium [Protonix] 40 mg PO DAILY Furosemide [Lasix] 40 mg PO BID Quetiapine Fumarate [Seroquel] 25 mg PO HS Discontinued predniSONE [PredniSONE] 40 mg PO DAILY Home Medications: Albuterol Neb [Proventil Neb] 2.5 mg IH 6XD PRN 10/23/15 [History] Insulin Glargine,Hum.rec.anlog [Lantus Solostar] 50 unit SQ DAILY 10/23/15 [History] Budesonide/Formoterol 160/4.5 [Symbicort 160/4.5] 2 puff IH BID 04/05/17 [History] Fluticasone Propionate Nasal [Flonase] 2 spray NS DAILY 04/22/17 [History] Cetirizine HCl [Zyrtec] 10 mg PO HS 04/06/18 [History] Insulin LISPRO [Humalog Kwikpen U-100] 12 unit SQ QID PRN 04/06/18 [History] Clopidogrel [Plavix] 75 mg PO DAILY 11/11/18 [History] Metoprolol XL (24 HR) Succ [Toprol Xl] 12.5 mg PO DAILY #30 tab.er.24h 11/12/18 [Rx] Aspirin Enteric Coated [Aspirin EC] 81 mg PO DAILY 12/09/18 [History] Atorvastatin [Lipitor] 40 mg PO HS 12/09/18 [History] Furosemide [Lasix] 40 mg PO BID 12/09/18 [History] Nicotine Patch [Nicoderm] 21 mg TD DAILY 12/09/18 [History] Pantoprazole Sodium [Protonix] 40 mg PO DAILY 12/09/18 [History] Quetiapine Fumarate [Seroquel] 25 mg PO HS 12/09/18 [History] Allergies/Adverse Reactions: Allergy/AdvReac Type Severity Reaction Status Date / Time No Known Allergies Allergy Verified 09/06/17 10:09 Date of admission: 12/09/18 13:15 Primary care physician: Christiano Santacruz MD Consults: 12/09/18 14:34 Consult to Nurse Navigator [CONS] Routine Comment: CHF 12/12/18 08:54 Consult to Banking Center Manager [CONS] Routine Reason for SW Consult: FROM [facility]. Anticipated date of discharge: 12/12/18 - Constitutional Vitals: Temp Pulse Resp BP Pulse Ox 97.5 F L 96 20 130/77 95 12/12/18 07:49 12/12/18 07:49 12/12/18 07:49 12/12/18 07:49 12/12/18 07:49 General appearance: Present: A&O X 3 Exam: PHYSICAL EXAMINATION: GENERAL APPEARANCE: The patient is alert, oriented and in no acute distress. HEENT: Head is normocephalic. The sinuses are nontender. Pupils are equal and reactive. The nares are patent. Oropharynx clear without lesions. NECK: Supple without lymphadenopathy. HEART: Regular rate and rhythm. LUNGS: No crackles or wheezes are heard. ABDOMEN: Soft, nontender, nondistended with good bowel sounds heard. Inguinal area is normal. EXTREMITIES: 1 + pitting edema at BLE. NEUROLOGICAL: Gross nonfocal. SKIN: Warm and dry without any rash. - Patient Status Disposition: Transfer SNF Condition: Fair Functional capacity at discharge: independent ambulation Overall status at discharge: patient is progressing back to baseline - Discharge Instructions Follow Up With: Christiano Santacruz MD [Primary Care Provider] - - Diet and Activity Activity: increase activity as tolerated Diet: diabetic diet, low fat, low cholesterol, low salt diet
--- NOTE | 2018-12-12 09:43 | Electrocardiograph Report ---
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
[2018-12-12 16:54] VITALS: BP 143/82
--- NOTE | 2018-12-12 17:49 | Physician Discharge Referral ---
ExtendedCare Referral Info Provider in Charge after Transfer: Other Institutional Level of Care: Skilled - Diagnosis (1) CHF (congestive heart failure) Priority: Primary Status: Acute (2) CAD (coronary artery disease) Priority: Secondary Status: Chronic (3) Obesity (BMI 30-39.9) Priority: Secondary Status: Chronic (4) Tobacco dependence due to cigarettes Priority: Secondary Status: Chronic (5) Diabetes Priority: Secondary Status: Chronic (6) COPD (chronic obstructive pulmonary disease) Priority: Secondary Status: Chronic (7) CKD (chronic kidney disease) Priority: Secondary Status: Chronic (8) DVT prophylaxis Priority: Primary Status: Acute Prognosis: Fair Aware of Diagnosis: Patient Aware of Prognosis: Patient - Transfer Medications Home Medications: Albuterol Neb [Proventil Neb] 2.5 mg IH 6XD PRN 10/23/15 [History] Insulin Glargine,Hum.rec.anlog [Lantus Solostar] 50 unit SQ DAILY 10/23/15 [History] Budesonide/Formoterol 160/4.5 [Symbicort 160/4.5] 2 puff IH BID 04/05/17 [History] Fluticasone Propionate Nasal [Flonase] 2 spray NS DAILY 04/22/17 [History] Cetirizine HCl [Zyrtec] 10 mg PO HS 04/06/18 [History] Insulin LISPRO [Humalog Kwikpen U-100] 12 unit SQ QID PRN 04/06/18 [History] Clopidogrel [Plavix] 75 mg PO DAILY 11/11/18 [History] Metoprolol XL (24 HR) Succ [Toprol Xl] 12.5 mg PO DAILY #30 tab.er.24h 11/12/18 [Rx] Aspirin Enteric Coated [Aspirin EC] 81 mg PO DAILY 12/09/18 [History] Atorvastatin [Lipitor] 40 mg PO HS 12/09/18 [History] Furosemide [Lasix] 40 mg PO BID 12/09/18 [History] Nicotine Patch [Nicoderm] 21 mg TD DAILY 12/09/18 [History] Pantoprazole Sodium [Protonix] 40 mg PO DAILY 12/09/18 [History] Quetiapine Fumarate [Seroquel] 25 mg PO HS 12/09/18 [History] Allergies/Adverse Reactions: Allergy/AdvReac Type Severity Reaction Status Date / Time No Known Allergies Allergy Verified 09/06/17 10:09 - Respiratory Orders Smoking Cessation: Smoking cessation has been advised. For more information, call the [place] Tobacco Quit Line at 5-803-EFBN-NOW. - Advance Directives Code Status: Full Code CERTIFICATION: I certify that the transfer of the above named patient to an Extended Care Facility is necessary for the continuing treatment of the diagnosis listed. The above information is true and accurate reflection of patient's current conditio n. Confidential - Redisclosure prohibited without a patient's written consent.
== END 2018-12-12 19:16 ==
LOC: 3BNU 10:00 → EMEROOARM 10:00 → 3BNU 14:52
PROVIDERS: ADMIT Internal Medicine Nephrology; ATTEND Internal Medicine Nephrology

== ENCOUNTER 2018-12-20 23:21 | Inpatient (IN) ==
[2018-12-20] MEDS ORDERED: Furosemide 40 MG/4 ML VIAL IVP ONE (23:32)
[2018-12-20] MEDS ORDERED: methylPREDNISolone 125 MG/2 ML VIAL IVP ONE (23:32)
[2018-12-21 00:15] LABS: VBG HCO3 38 mEq/L (21-27); VBG PCO2 85 mmHg (41-51); VBG PH 7.25 pH Units (7.32-7.42); VBG PO2 45 mmHg (25-50)
[2018-12-21 00:17] LABS: Basophils % 0.4 %; Eosinophils # 0.1 K/mcL (0.0-0.6); Hematocrit 38.4 % (37.5-50.1); Hemoglobin 10.9 g/dL (12.9-16.9); Immature Granulocytes % 0.5 % (0-4); Lymphocytes # 1.2 K/mcL (0.6-4.6); Lymphocytes % 10.4 %; Mean Corpuscular HGB Conc 28.4 g/dL (31.6-35.5); Mean Corpuscular Hemoglobin 25.1 pg (28.0-33.3); Mean Corpuscular Volume 88.5 fL (83.0-100.0); Mean Platelet Volume 10.1 fL (9.4-12.4); Monocytes # 0.7 K/mcL (0.0-1.3); Platelet Count 306 K/mcL (140-400); Red Blood Count 4.34 M/mcL (4.19-5.50); Red Cell Distribution Width 15.8 % (11.5-14.5); Segmented Neutrophils % 81.7 %
--- NOTE | 2018-12-21 00:18 | Emergency Department Note ---
Disposition Clinical Impression: CHF (congestive heart failure) Qualifiers: Heart failure type: unspecified Heart failure chronicity: acute on chronic Qualified Code(s): I50.9 - Heart failure, unspecified Disposition: Admitted As Inpatient Condition: Fair Referrals: NONE,PCP [Primary Care Provider] - Forms: Work/School Release, ED Satisfaction Letter Time of Disposition: 01:55 General Adult HPI - General Chief complaint: ED General Medical Stated complaint: resp distress Time Seen by Provider: 12/20/18 23:25 Source: patient Mode of arrival: private vehicle Limitations: no limitations Nursing Notes Reviewed: Yes Vital Signs Reviewed: Yes - History of Present Illness HPI Narrative: 63-year-old male presents emergency department for evaluation of shortness of breath, difficulty breathing that started a couple days ago. Patient states he is on a concentrator home on 4 L, he uses this all the time. He is still smoking, he states he smoked "about 4 cigarettes" today. Patient states he has had increasing edema to bilateral long-term user last couple days. Denies fever, chills, coughing, wheezing, rhinorrhea, Susy pain, nausea, vomiting. He states that he is taking medicines though they are not any particular order because "multiple doctors that given the multiple orders and I do not know which is which". Patient was recently admitted here for the same, he was discharged to an ECF where he completed therapy and was discharged home. Per EMS patient lives in a tiny little box or sleeping room, it is very dirty, does not appear to have appropriate resources. Onset (ago): day(s) Pain Severity: severe, similar to prior episodes Quality: other (Shortness of breath) Consistency: constant, Worsening Improves with: nothing Worsens with: other (Exertion, smoking, not taking his medicines, not using his oxygen, eating salty foods) Associated symptoms: Reports: shortness of breath, other. Denies: confusion, chest pain, cough, diaphoresis, fever/chills, headaches, loss of appetite, malaise, nausea/vomiting, rash, seizure, syncope, weakness Treatments Prior to Arrival: none - Related Data Home Medications Medication Instructions Recorded Confirmed Albuterol Neb [Proventil Neb] 2.5 mg IH 6XD PRN 10/23/15 12/09/18 Insulin Glargine,Hum.rec.anlog 50 unit SQ DAILY 10/23/15 12/09/18 [Lantus Solostar] Budesonide/Formoterol 160/4.5 2 puff IH BID 04/05/17 12/09/18 [Symbicort 160/4.5] Fluticasone Propionate Nasal 2 spray NS DAILY 04/22/17 12/09/18 [Flonase] Cetirizine HCl [Zyrtec] 10 mg PO HS 04/06/18 12/09/18 Insulin LISPRO [Humalog Kwikpen 12 unit SQ QID PRN 04/06/18 12/09/18 U-100] Clopidogrel [Plavix] 75 mg PO DAILY 11/11/18 12/09/18 Aspirin Enteric Coated [Aspirin EC] 81 mg PO DAILY 12/09/18 12/09/18 Atorvastatin [Lipitor] 40 mg PO HS 12/09/18 12/09/18 Furosemide [Lasix] 40 mg PO BID 12/09/18 12/09/18 Nicotine Patch [Nicoderm] 21 mg TD DAILY 12/09/18 12/09/18 Pantoprazole Sodium [Protonix] 40 mg PO DAILY 12/09/18 12/09/18 Quetiapine Fumarate [Seroquel] 25 mg PO HS 12/09/18 12/09/18 Previous Rx's Medication Instructions Recorded Metoprolol XL (24 HR) Succ [Toprol 12.5 mg PO DAILY #30 tab.er.24h 11/12/18 Xl] Allergies Allergy/AdvReac Type Severity Reaction Status Date / Time No Known Allergies Allergy Verified 09/06/17 10:09 All systems ED: reviewed and negative except as stated. Review of Systems: As Per HPI Past Medical History - Past Medical History Attestation: Yes The following information was validated with the patient. Source: patient, old records reviewed Medical history: Reports: COPD, coronary artery disease, diabetes, hyperlipidemia, hypertension, myocardial infarction, other Surgical history: Reports: angioplasty/stent, herniorrhaphy, vasectomy Psychiatric history: Reports: no psych history - Social History Smoking Status: Current every day smoker Smokeless Tobacco Status: No Alcohol use: Reports: occasionally Drug use: Reports: none Physical Exam - General Limitations: no limitations General appearance: anxious - Head Head exam: atraumatic, normocephalic, normal inspection - Eye Eye exam: Present: normal appearance - ENT ENT exam: mucous membranes moist - Neck Neck exam: Present: normal inspection, full ROM, trachea midline - Chest Chest inspection: Present: normal inspection, symmetric chest wall rise - Respiratory Respiratory exam: Present: other (Decreased breath sounds throughout) - Cardiovascular Cardiovascular exam: Present: regular rate, normal rhythm, normal heart sounds - Abdominal Exam Abdominal exam: Present: soft, Non-Tender, normal bowel sounds. Absent: distention, guarding, organomegaly - Extremities Exam Extremities exam: Present: normal inspection, full ROM, other (Bilateral lower extremity edema) - Neurological Exam Neurological exam: Present: alert, oriented X3 - Psychiatric Psychiatric exam: Present: normal affect, normal mood - Skin Skin exam: Present: warm, dry, intact, normal color Course Course Narrative: Well-developed male in moderate amount of distress related to anxiety and shortness of breath. Patient sitting upright, he is not tripoding, is mouth breathing. Patient is utilize abdominal muscles to assist with breathing. Minimal conversational dyspnea. His PO2 on 4 L 100%. Once patient is calm and sitting in the bed respirations are considerably easier. EKG completed at 00:13:51 reveals a sinus rhythm with a ventricular rate of 91 bpm, VT interval 202 ms, QTC 5 from 14 ms. There is no evidence of ischemic morphology or ectopy. Noted with edema in bilateral lower shortest. Concern for acute exacerbation COPD, CHF. Patient without complaints of pain. This is shortness of breath, there is edema and patient known with oxygen as well as continuing to smoke. Patient also discloses that he eats fast food which also would exacerbate the CHF. We will obtain basic labs, chest x-ray, given patient's history he will most likely require admission to the hospital for management. Per EMS and patient's living conditions and do feel there is a lso social component as patient did just most recently complete rehabilitation but then went home to an environment where he is really not able to care for self, he is disheveled and dirty, he is not able to take his medications as prescribed, he is not completing his treatments nor being compliant. Patient will most likely need placement to an ECF versus home health, should he stay in the hospital social media strategist will need to get involved. - Reevaluation(s) Reevaluation #1: Patient has been resting quietly, he states breathing remains the same. He co ntinues to be pretty anxious. Chest x-ray reveals pulmonary edema, creatinine slightly elevated, troponin is 0.04 though this is most likely demand ischemia as patient is chronically elevated, BNP is 379. I do feel patient will need admitted. I do not see any infectious etiology, no complaints of infectious etiology, no fevers, chills, white count. Most likely acute exacerbation CHF. We will page hospitalist at this time as patient is agreeable with this plan of care. Time: 01:23 Reevaluation #2: Spoke with the hospitalist Dr. Hansen, agreeable to except to inpatient status for management of CHF. Patient remains agreeable to plan of care. We will monitor patient will transition to inpatient status. Time: 01:56 Reevaluation #3: Patient was moved from room 28 222, he was doing well and the nurse had hooked him back up to monitors, he rolled to his right side to become comfortable and he started desaturating, he became fonseca in color and started sweating, he was having difficulty breathing. Patient in obvious respiratory distress. Pulse oximetry was registering in single digits though this was not a good waveform. We did immediately apply nonrebreather while we obtained a BiPAP, within 1 minute of applying the BiPAP patient saturation back in the 90s, patient is alert again and he states "this feels better". Patient is tolerating the BiPAP well and is maintaining saturation. There has been no other change in vital signs, patient is back to baseline. We will get ABGs. Hospitalist has been paged to notify of updates as patient had not transitioned to the inpatient unit yet. 0320--hospitalist has been updated to status, ABG reveals a pH of 7.15, PCO2 108. Time: 02:56 Vital Signs Temperature 98.3 F 12/21/18 00:18 Pulse Rate 83 12/21/18 00:18 Respiratory Rate 30 12/21/18 00:18 Blood Pressure 128/80 12/21/18 00:18 O2 Sat by Pulse Oximetry 100 12/21/18 00:18 Temperature 98.3 F 12/21/18 00:18 Pulse Rate 82 12/21/18 02:10 Respiratory Rate 27 12/21/18 02:52 Blood Pressure 115/75 12/21/18 02:10 O2 Sat by Pulse Oximetry 100 12/21/18 02:52 Oxygen Delivery Oxygen Delivery Nasal Cannula Medical Decision Making - Medical Records Medical records reviewed: Yes I reviewed the patient's medical records. - Lab Data Lab results reviewed: Yes I reviewed the patient's lab results. Result diagrams: 12/20/18 23:50 12/20/18 23:50 Lab Results 12/20/18 12/20/18 12/20/18 Range/Units 23:50 23:50 23:50 WBC 11.1 D (4.3-11.1) K/mcL RBC 4.34 (4.19-5.50) M/mcL Hgb 10.9 L D (12.9-16.9) g/dL Hct 38.4 (37.5-50.1) % MCV 88.5 (83.0-100.0) fL MCH 25.1 L (28.0-33.3) pg MCHC 28.4 L (31.6-35.5) g/dL RDW 15.8 H (11.5-14.5) % Plt Count 306 D (140-400) K/mcL MPV 10.1 (9.4-12.4) fL Immature Gran % 0.5 (0-4) % Seg Neutrophils % 81.7 % Lymphocytes % 10.4 % Monocytes % 6.0 % Eosinophils % 1.0 % Basophils % 0.4 % Neutrophils # 9.1 H (1.6-8.9) K/mcL Lymphocytes # 1.2 (0.6-4.6) K/mcL Monocytes # 0.7 (0.0-1.3) K/mcL Eosinophils # 0.1 (0.0-0.6) K/mcL Basophils # 0.0 (0.0-0.2) K/mcL Platelet Estimate Normal (Normal) Hypochromasia Present A (Not Present) Sample Site ABG pH (7.32-7.45) pH Units ABG pCO2 (35-45) mmHg ABG pO2 (85-104) mmHg ABG HCO3 (21-27) mEq/L ABG Total CO2 (20-26) mEq/L ABG O2 Saturation (95-98) % ABG Base Excess (-2 to 3) mEq/L [place] Test VBG pH (7.32-7.42) pH Units VBG pCO2 (41-51) mmHg VBG pO2 (25-50) mmHg VBG HCO3 (21-27) mEq/L O2 Delivery Device Blood Gas Modality Inspired O2 (1-15=lpm [id number]=%) PEEP cm H2O Sodium 143 (136-145) mEq/L Potassium 4.2 (3.5-5.1) mEq/L Chloride 99 (98-107) mEq/L Carbon Dioxide 35 H (23-29) mEq/L BUN 30 H (8-23) mg/dL Creatinine 1.36 H (0.70-1.30) mg/dL Est GFR ( Amer) > 60 (> 60) Est GFR (Non-Af Amer) 53 L (> 60) BUN/Creatinine Ratio 22 (6-26) Glucose 103 (70-105) mg/dL Calculated Osmolality 302 H (280-300) Calcium 9.3 (8.6-10.3) mg/dL Troponin I 0.04 H* (< 0.04) ng/mL B-Natriuretic Peptide 379 H (Less than 100) pg/mL Person Notif of Crit 12/21/18 12/21/18 Range/Units 00:08 03:10 WBC (4.3-11.1) K/mcL RBC (4.19-5.50) M/mcL Hgb (12.9-16.9) g/dL Hct (37.5-50.1) % MCV (83.0-100.0) fL MCH (28.0-33.3) pg MCHC (31.6-35.5) g/dL RDW (11.5-14.5) % Plt Count (140-400) K/mcL MPV (9.4-12.4) fL Immature Gran % (0-4) % Seg Neutrophils % % Lymphocytes % % Monocytes % % Eosinophils % % Basophils % % Neutrophils # (1.6-8.9) K/mcL Lymphocytes # (0.6-4.6) K/mcL Monocytes # (0.0-1.3) K/mcL Eosinophils # (0.0-0.6) K/mcL Basophils # (0.0-0.2) K/mcL Platelet Estimate (Normal) Hypochromasia (Not Present) Sample Site L Radial ABG pH 7.16 L* (7.32-7.45) pH Units ABG pCO2 108 H* (35-45) mmHg ABG pO2 256 H (85-104) mmHg ABG HCO3 38 H (21-27) mEq/L ABG Total CO2 41 H (20-26) mEq/L ABG O2 Saturation 100 H (95-98) % ABG Base Excess 5 H (-2 to 3) mEq/L [place] Test N/A VBG pH 7.25 L (7.32-7.42) pH Units VBG pCO2 85 H* (41-51) mmHg VBG pO2 45 (25-50) mmHg VBG HCO3 38 H (21-27) mEq/L O2 Delivery Device BiPAP Blood Gas Modality BiLevel Inspired O2 100.0 (1-15=lpm [id number]=%) PEEP 8 cm H2O Sodium (136-145) mEq/L Potassium (3.5-5.1) mEq/L Chloride (98-107) mEq/L Carbon Dioxide (23-29) mEq/L BUN (8-23) mg/dL Creatinine (0.70-1.30) mg/dL Est GFR ( Amer) (> 60) Est GFR (Non-Af Amer) (> 60) BUN/Creatinine Ratio (6-26) Glucose (70-105) mg/dL Calculated Osmolality (280-300) Calcium (8.6-10.3) mg/dL Troponin I (< 0.04) ng/mL B-Natriuretic Peptide (Less than 100) pg/mL Person Notif of Otoniel Hernandez - Radiology Data Radiology results reviewed: Yes I reviewed the patient's radiology results. Chest X-Ray 12/20/18 23:32 IMPRESSION: Findings most compatible with pulmonary edema. Correlate with any clinical evidence of superimposed pneumonia. D/ / Cedrick Westbrook MD / Cedrick Westbrook MD Interpreting Provider: Cedrick Westbrook MD
[2018-12-21 00:21] LABS: Neutrophils # 9.1 K/mcL (1.6-8.9)
[2018-12-21 00:30] LABS: BUN/Creatinine Ratio 22 (6-26); Blood Urea Nitrogen 30 mg/dL (8-23); Calcium 9.3 mg/dL (8.6-10.3); Carbon Dioxide 35 mEq/L (23-29); Chloride 99 mEq/L (98-107); Glucose 103 mg/dL (70-105); Osmolality,Calculated 302 (280-300); Potassium 4.2 mEq/L (3.5-5.1); Sodium 143 mEq/L (136-145); eGFR For Non-African Americans 53 (> 60)
[2018-12-21 00:44] LABS: Hypochromasia Present (Not Present); Platelet Estimate Normal (Normal)
[2018-12-21 00:49] LABS: Troponin I 0.04 ng/mL (< 0.04)
[2018-12-21 03:20] LABS: ABG Base Excess 5 mEq/L (-2 to 3); ABG HCO3 38 mEq/L (21-27); ABG Oxygen Saturation 100 % (95-98); ABG PCO2 108 mmHg (35-45); ABG PH 7.16 pH Units (7.32-7.45); ABG PO2 256 mmHg (85-104); ABG TCO2 41 mEq/L (20-26); Blood Gas Modality BiLevel; Blood Gas PEEP 8 cm H2O
--- NOTE | 2018-12-21 05:58 | Emergency Department Note ---
Disposition Clinical Impression: CHF (congestive heart failure) Qualifiers: Heart failure type: unspecified Heart failure chronicity: acute on chronic Qualified Code(s): I50.9 - Heart failure, unspecified Disposition: Admitted As Inpatient Condition: Fair Time of Disposition: 05:57 General Adult HPI - General Chief complaint: ED Shortness of Breath/Dyspnea Stated complaint: resp distress Time Seen by Provider: 12/20/18 23:25 Source: patient Mode of arrival: private vehicle Limitations: no limitations - History of Present Illness Pain Scale: 0 Quality: other (Shortness of breath) Improves with: nothing Worsens with: other (Exertion, smoking, not taking his medicines, not using his oxygen, eating salty foods) Associated symptoms: Reports: shortness of breath, other. Denies: confusion, chest pain, cough, diaphoresis, fever/chills, headaches, loss of appetite, malaise, nausea/vomiting, rash, seizure, syncope, weakness Treatments Prior to Arrival: none - Related Data Home Medications Medication Instructions Recorded Confirmed Albuterol Neb [Proventil Neb] 2.5 mg IH 6XD PRN 10/23/15 12/09/18 Insulin Glargine,Hum.rec.anlog 50 unit SQ DAILY 10/23/15 12/09/18 [Lantus Solostar] Budesonide/Formoterol 160/4.5 2 puff IH BID 04/05/17 12/09/18 [Symbicort 160/4.5] Fluticasone Propionate Nasal 2 spray NS DAILY 04/22/17 12/09/18 [Flonase] Cetirizine HCl [Zyrtec] 10 mg PO HS 04/06/18 12/09/18 Insulin LISPRO [Humalog Kwikpen 12 unit SQ QID PRN 04/06/18 12/09/18 U-100] Clopidogrel [Plavix] 75 mg PO DAILY 11/11/18 12/09/18 Aspirin Enteric Coated [Aspirin EC] 81 mg PO DAILY 12/09/18 12/09/18 Atorvastatin [Lipitor] 40 mg PO HS 12/09/18 12/09/18 Furosemide [Lasix] 40 mg PO BID 12/09/18 12/09/18 Nicotine Patch [Nicoderm] 21 mg TD DAILY 12/09/18 12/09/18 Pantoprazole Sodium [Protonix] 40 mg PO DAILY 12/09/18 12/09/18 Quetiapine Fumarate [Seroquel] 25 mg PO HS 12/09/18 12/09/18 Previous Rx's Medication Instructions Recorded Metoprolol XL (24 HR) Succ [Toprol 12.5 mg PO DAILY #30 tab.er.24h 11/12/18 Xl] Allergies Allergy/AdvReac Type Severity Reaction Status Date / Time No Known Allergies Allergy Verified 09/06/17 10:09 Past Medical History - Past Medical History Medical history: Reports: COPD, coronary artery disease, diabetes, hyperlipidemia, hypertension, myocardial infarction, other Surgical history: Reports: angioplasty/stent, herniorrhaphy, vasectomy Psychiatric history: Reports: no psych history - Social History Smoking Status: Current every day smoker Smokeless Tobacco Status: No Alcohol use: Reports: occasionally Drug use: Reports: none Physical Exam - General Limitations: no limitations General appearance: anxious Course Vital Signs Temperature 98.3 F 12/21/18 00:18 Pulse Rate 83 12/21/18 00:18 Respiratory Rate 30 12/21/18 00:18 Blood Pressure 128/80 12/21/18 00:18 O2 Sat by Pulse Oximetry 100 12/21/18 00:18 Temperature 98.3 F 12/21/18 00:18 Pulse Rate 84 12/21/18 05:00 Respiratory Rate 14 12/21/18 05:00 Blood Pressure 112/72 12/21/18 05:00 O2 Sat by Pulse Oximetry 100 12/21/18 05:00 Oxygen Delivery Oxygen Delivery Bipap Medical Decision Making - Lab Data Result diagrams: 12/20/18 23:50 12/20/18 23:50 Lab Results 12/20/18 12/20/18 12/20/18 Range/Units 23:50 23:50 23:50 WBC 11.1 D (4.3-11.1) K/mcL RBC 4.34 (4.19-5.50) M/mcL Hgb 10.9 L D (12.9-16.9) g/dL Hct 38.4 (37.5-50.1) % MCV 88.5 (83.0-100.0) fL MCH 25.1 L (28.0-33.3) pg MCHC 28.4 L (31.6-35.5) g/dL RDW 15.8 H (11.5-14.5) % Plt Count 306 D (140-400) K/mcL MPV 10.1 (9.4-12.4) fL Immature Gran % 0.5 (0-4) % Seg Neutrophils % 81.7 % Lymphocytes % 10.4 % Monocytes % 6.0 % Eosinophils % 1.0 % Basophils % 0.4 % Neutrophils # 9.1 H (1.6-8.9) K/mcL Lymphocytes # 1.2 (0.6-4.6) K/mcL Monocytes # 0.7 (0.0-1.3) K/mcL Eosinophils # 0.1 (0.0-0.6) K/mcL Basophils # 0.0 (0.0-0.2) K/mcL Platelet Estimate Normal (Normal) Hypochromasia Present A (Not Present) Sample Site ABG pH (7.32-7.45) pH Units ABG pCO2 (35-45) mmHg ABG pO2 (85-104) mmHg ABG HCO3 (21-27) mEq/L ABG Total CO2 (20-26) mEq/L ABG O2 Saturation (95-98) % ABG Base Excess (-2 to 3) mEq/L [place] Test VBG pH (7.32-7.42) pH Units VBG pCO2 (41-51) mmHg VBG pO2 (25-50) mmHg VBG HCO3 (21-27) mEq/L O2 Delivery Device Blood Gas Modality Inspired O2 (1-15=lpm [id number]=%) PEEP cm H2O Sodium 143 (136-145) mEq/L Potassium 4.2 (3.5-5.1) mEq/L Chloride 99 (98-107) mEq/L Carbon Dioxide 35 H (23-29) mEq/L BUN 30 H (8-23) mg/dL Creatinine 1.36 H (0.70-1.30) mg/dL Est GFR ( Amer) > 60 (> 60) Est GFR (Non-Af Amer) 53 L (> 60) BUN/Creatinine Ratio 22 (6-26) Glucose 103 (70-105) mg/dL Calculated Osmolality 302 H (280-300) Calcium 9.3 (8.6-10.3) mg/dL Troponin I 0.04 H* (< 0.04) ng/mL B-Natriuretic Peptide 379 H (Less than 100) pg/mL Person Notif of Crit 12/21/18 12/21/18 Range/Units 00:08 03:10 WBC (4.3-11.1) K/mcL RBC (4.19-5.50) M/mcL Hgb (12.9-16.9) g/dL Hct (37.5-50.1) % MCV (83.0-100.0) fL MCH (28.0-33.3) pg MCHC (31.6-35.5) g/dL RDW (11.5-14.5) % Plt Count (140-400) K/mcL MPV (9.4-12.4) fL Immature Gran % (0-4) % Seg Neutrophils % % Lymphocytes % % Monocytes % % Eosinophils % % Basophils % % Neutrophils # (1.6-8.9) K/mcL Lymphocytes # (0.6-4.6) K/mcL Monocytes # (0.0-1.3) K/mcL Eosinophils # (0.0-0.6) K/mcL Basophils # (0.0-0.2) K/mcL Platelet Estimate (Normal) Hypochromasia (Not Present) Sample Site L Radial ABG pH 7.16 L* (7.32-7.45) pH Units ABG pCO2 108 H* (35-45) mmHg ABG pO2 256 H (85-104) mmHg ABG HCO3 38 H (21-27) mEq/L ABG Total CO2 41 H (20-26) mEq/L ABG O2 Saturation 100 H (95-98) % ABG Base Excess 5 H (-2 to 3) mEq/L [place] Test N/A VBG pH 7.25 L (7.32-7.42) pH Units VBG pCO2 85 H* (41-51) mmHg VBG pO2 45 (25-50) mmHg VBG HCO3 38 H (21-27) mEq/L O2 Delivery Device BiPAP Blood Gas Modality BiLevel Inspired O2 100.0 (1-15=lpm [id number]=%) PEEP 8 cm H2O Sodium (136-145) mEq/L Potassium (3.5-5.1) mEq/L Chloride (98-107) mEq/L Carbon Dioxide (23-29) mEq/L BUN (8-23) mg/dL Creatinine (0.70-1.30) mg/dL Est GFR ( Amer) (> 60) Est GFR (Non-Af Amer) (> 60) BUN/Creatinine Ratio (6-26) Glucose (70-105) mg/dL Calculated Osmolality (280-300) Calcium (8.6-10.3) mg/dL Troponin I (< 0.04) ng/mL B-Natriuretic Peptide (Less than 100) pg/mL Person Notif of Otoniel Hernandez Attestation Statement - Attestation Attestation: For this encounter, I have reviewed the DEPUTY TREASURER or PA documentation, treatment plan, and medical decision making; and I have had face to face time with this patient. Patient 63-year-old gentleman who presents to emergency department with chief complaint of increasing shortness of breath. Patient was recently admitted to the hospital for similar symptoms but returns after being noncompliant with his treatment regimen. Physical exam patient is initially resting comfortably in the room without any respiratory difficulty Assessment and plan patient findings are consistent with congestive heart failure. While waiting to go upstairs the patient rolled onto his side and became extremely short of breath. The patient was requiring additional important that time and the patient was placed on BiPAP and had significant improvement in his symptoms.
[2018-12-21] MEDS ORDERED: Naloxone 0.4 MG/ML INJ IVP PRN (07:56)
[2018-12-21] MEDS ORDERED: Acetaminophen 325 MG TABLET PO PRN (07:56)
[2018-12-21] MEDS ORDERED: Albuterol 2.5 MG/3 ML NEBULIZER IH PRN (09:00)
[2018-12-21 09:20] LABS: ABG Base Excess 5 mEq/L (-2 to 3); ABG HCO3 35 mEq/L (21-27); ABG Oxygen Saturation 95 % (95-98); ABG PCO2 78 mmHg (35-45); ABG PH 7.26 pH Units (7.32-7.45); ABG PO2 89 mmHg (85-104); ABG TCO2 37 mEq/L (20-26); Blood Gas PEEP 8 cm H2O; Blood Gas Pressure Support 7 cm H2O; Blood Gas Respiration Rate 10; Blood Gas VT 500 cc
[2018-12-21] MEDS: methylPREDNISolone 125 MG/2 ML VIAL IVP SCH ×2 (10:28→15:51)
--- NOTE | 2018-12-21 11:38 | Internal Med History&Physical ---
Date of Encounter: 12/21/18 Time of Encounter: 10:30 Internal Medicine - H&P: HPI Chief complaint: Shortness of breath Admitted From: Emergency Dept Plans for Post Hospital Care: Transfer Assisted Facility History of present illness: Mr. Chase is a 63 year old male patient with history of COPD, congestive he art failure who presented to the ER with complaints of worsening shortness of breath for the past couple of days. Patient had been discharged from the hospital about 10 days back after hospitalization for acute congestive heart failure. He was treated with Lasix and was placed on fluid restriction and low- salt diet. He was discharged to skilled rehabilitation. He apparently left the facility 3 days back. Since then he has not been compliant with his fluid restriction. He has also noted increased swelling in his lower extremities. At baseline, he is on 4 L home oxygen. He denies any chest pain or palpitations. No nausea or vomiting. He denies any fevers or chills. In the ER, he was noted to be very hypoxic and was placed on BiPAP. Since then his symptoms have improved. Past Med Surg Social Fam HX - Past Medical History Attestation: Yes The following information was validated with the patient. Source: old records reviewed Medical history: COPD, coronary artery disease, diabetes, hyperlipidemia, hypertension, myocardial infarction, other Additional medical history: bladder tumor. STD's. CKD STAGE 3. NSTEMI. SMOKER Psychiatric history: no psych history - Past Surgical History Surgical History: angioplasty/stent, herniorrhaphy, vasectomy Additional surgical history: hernia stomach. bilateral carpal tunnel release - Social History Smoking Status: Current every day smoker Smokeless Tobacco Status: No Alcohol use: occasionally Drug use: none - Family History Father Living Status: Hx Family Cardiac Disorders: Yes (CAD) Hx Family Neurologic Disorders: Yes Internal Medicine - H&P: Meds Albuterol Neb [Proventil Neb] 2.5 mg IH 6XD PRN 10/23/15 [History] Insulin Glargine,Hum.rec.anlog [Lantus Solostar] 50 unit SQ DAILY 10/23/15 [History] Budesonide/Formoterol 160/4.5 [Symbicort 160/4.5] 2 puff IH BID 04/05/17 [History] Fluticasone Propionate Nasal [Flonase] 2 spray NS DAILY 04/22/17 [History] Cetirizine HCl [Zyrtec] 10 mg PO HS 04/06/18 [History] Insulin LISPRO [Humalog Kwikpen U-100] 12 unit SQ QID PRN 04/06/18 [History] Clopidogrel [Plavix] 75 mg PO DAILY 11/11/18 [History] Metoprolol XL (24 HR) Succ [Toprol Xl] 12.5 mg PO DAILY #30 tab.er.24h 11/12/18 [Rx] Aspirin Enteric Coated [Aspirin EC] 81 mg PO DAILY 12/09/18 [History] Atorvastatin [Lipitor] 40 mg PO HS 12/09/18 [History] Furosemide [Lasix] 40 mg PO BID 12/09/18 [History] Nicotine Patch [Nicoderm] 21 mg TD DAILY 12/09/18 [History] Pantoprazole Sodium [Protonix] 40 mg PO DAILY 12/09/18 [History] Quetiapine Fumarate [Seroquel] 25 mg PO HS 12/09/18 [History] Allergy/AdvReac Type Severity Reaction Status Date / Time No Known Allergies Allergy Verified 09/06/17 10:09 All Systems PM: A 10-system review of systems was performed and is negative for pertinent findings except as documented above in the HPI. - Constitutional Constitutional: malaise, no chills, no fever(s), no night sweats - EENT Eyes: no change in vision, no discharge, no pain, no photophobia Ears: no ear discharge, no ear pain, no tinnitus Nose, mouth and throat: no dysphagia, no nasal discharge, no neck pain, no sore throat - Cardiovascular Cardiovascular ROS IM: dyspnea on exertion, edema, no chest pain, no diaphoresis, no dyspnea, no lightheadedness, no palpitations, no syncope - Respiratory Respiratory: dyspnea, no cough, no wheezing, no excessive phlegm production - Gastrointestinal Gastrointestinal: no abdominal pain, no diarrhea, no hematemesis, no hematochezia, no melena, no nausea, no vomiting - Musculoskeletal Musculoskeletal ROS IM: no numbness, no tingling - Integumentary Integumentary IM: no rash, no unusual bruising - Neurological Neurological ROS: no confusion, no convulsions, no focal weakness, no numbness, no tingling, no tremor(s) - Hematologic/Lymphatic Hematologic/Lymphatic: no easy bruising - Constitutional Vitals: Temp Pulse Resp BP Pulse Ox 96.6 F L 86 22 103/51 97 12/21/18 11:03 12/21/18 11:03 12/21/18 11:03 12/21/18 11:03 12/21/18 11:03 General appearance: Present: cooperative, A&O X 3 Exam: General: Patient is alert, moderate distress, oriented x 3 Head: atraumatic, normocephalic, ENT: Mucous membranes moist, BiPAP mask in place Eye: normal appearance, PERRL, no scleral icterus, no conjunctival injection Neck: normal inspection, trachea midline, full ROM, no carotid bruits Chest: normal inspection, symmetric chest rise Respiratory: diminished breath sounds bilaterally. End-expiratory wheezing and prolonged expiratory phase Normal breath sounds. No wheezing or crackles. Cardiovascular: Regular rate and rhythm. s1 and s2 normal No clicks, rubs, gallops, or murmurs. Bilateral pedal edema Abdomen: Abdomen is soft, nontender. Bowel sounds are present Musculoskeletal: Spontaneously moving all extremities Skin: warm, dry, intact. Neuro: Alert oriented x 3 normal cranial nerves, no focal deficits Psych: Patient's affect is normal Internal Med - H&P Results - Labs CBC & Chem 7: 12/20/18 23:50 12/20/18 23:50 Labs: Short CBC 12/20/18 Range/Units 23:50 WBC 11.1 D (4.3-11.1) K/mcL Hgb 10.9 L D (12.9-16.9) g/dL Hct 38.4 (37.5-50.1) % Plt Count 306 D (140-400) K/mcL Neutrophils # 9.1 H (1.6-8.9) K/mcL BMP 12/20/18 23:50 Sodium 143 Potassium 4.2 Chloride 99 Carbon Dioxide 35 H BUN 30 H Creatinine 1.36 H Glucose 103 Calcium 9.3 Cardiac Enzymes 12/20/18 Range/Units 23:50 Troponin I 0.04 H* (< 0.04) ng/mL - ABG Interpretation ABG results: 12/21/18 12/21/18 12/21/18 00:08 03:10 09:14 ABG pH 7.16 L* 7.26 L ABG pCO2 108 H* 78 H* ABG pO2 256 H 89 ABG HCO3 38 H 35 H ABG Total CO2 41 H 37 H ABG O2 Saturation 100 H 95 ABG Base Excess 5 H 5 H VBG pH 7.25 L VBG pCO2 85 H* VBG pO2 45 VBG HCO3 38 H - Impressions ITS Impressions Chest X-Ray 12/20/18 23:32 IMPRESSION: Findings most compatible with pulmonary edema. Correlate with any clinical evidence of superimposed pneumonia. D/ / Cedrick Westbrook MD / Cedrick Westbrook MD Interpreting Provider: Cedrick Westbrook MD - Assessment and Plan (1) Acute on chronic respiratory failure with hypoxia and hypercapnia Current Visit: No Status: Acute Assessment and plan: Patient with acute on chronic hypoxia with hypercapnia. Initial set of ABGs showed respiratory acidosis with a pH of 7.16, PCO2 of 108. With BiPAP, this has improved and repeat set of ABG shows pH of 7.26 with PCO2 of 78. Continue treating COPD exacerbation and CHF. Continue BiPAP use. (2) CAD (coronary artery disease) Current Visit: Yes Status: Chronic Assessment and plan: Patient currently denies any chest pain. We will resume home medications Once they are confirmed. Continue aspirin, statin Qualifiers: Coronary Disease-Associated Artery/Lesion type: [place] artery [place] vs. transplanted heart: [place] heart Associated angina: with unstable angina Qualified Code(s): I25.110 - Atherosclerotic heart disease of [place] coronary artery with unstable angina pectoris (3) CHF (congestive heart failure) Current Visit: Yes Status: Acute Assessment and plan: Patient has combined heart failure. Per last echocardiogram, EF was 40-45%. He does have pedal edema and patient has not been compliant with his fluid restriction recently. Chest x-ray shows pulmonary edema. Patient received Lasix in the ER. So far he has had good response to it. Creatinine is at baseline. Will monitor renal function. Monitor input and output. Qualifiers: Heart failure type: combined systolic and diastolic Heart failure chronicity: acute on chronic Qualified Code(s): I50.43 - Acute on chronic combined systolic (congestive) and diastolic (congestive) heart failure (4) COPD (chronic obstructive pulmonary disease) Current Visit: Yes Status: Chronic Assessment and plan: Patient also appears to be having acute COPD exacerbation. Continue bronchodilators, systemic steroids. We will also place patient on azithromycin for 5 days. Qualifiers: COPD type: unspecified COPD Qualified Code(s): J44.9 - Chronic obstructive pulmonary disease, unspecified (5) Diabetes Current Visit: Yes Status: Chronic Assessment and plan: Uncontrolled. Monitor blood sugars. Continue sliding scale regimen along with Levemir. Will adjust insulin regimen based on blood sugars. I expect rise in blood sugars with use of steroids. Qualifiers: Diabetes mellitus type: type 2 Diabetes mellitus jail insulin use: with jail use Diabetes mellitus complication status: with hyperglycemia Qualified Code(s): E11.65 - Type 2 diabetes mellitus with hyperglycemia; Z79.4 - jail (current) use of insulin (6) CKD (chronic kidney disease) Current Visit: Yes Status: Chronic Assessment and plan: Creatinine is at baseline. Will monitor renal function closely especially as patient will be on intravenous Lasix. Qualifiers: Chronic kidney disease stage: stage 3 (moderate) Qualified Code(s): N18.3 - Chronic kidney disease, stage 3 (moderate) - Time Spent With Patient Total time spent is greater than 50% in coordination of care (as documented) at patient's floor/unit and/or counseling patient:
[2018-12-21] MEDS: Ipratropium/Albuterol Neb 3 ML IH SCH ×3 (11:43→20:04)
[2018-12-21] MEDS ORDERED: Dextrose Gel 15 GM/37.5 ML TUBE PO PRN ×2 (12:23)
[2018-12-21] MEDS ORDERED: D5% in Water 1,000 ML IVC PRN (12:23)
[2018-12-21] MEDS ORDERED: *HR* Dextrose 50 % in Water (Syg) 50 ML SYRINGE IVP PRN (12:23)
--- NOTE | 2018-12-21 12:38 | Electrocardiograph Report ---
[address] [address] Test Date: 2018-12-21 Pat Name: Larry Chase Department: [id number] Room: 2NE18 Gender: M Dehydration Unit Operator: : [id number] Requested By: Ashley Hernandez Order Number: [id number] Reading MD: Alton Oliver Measurements Intervals [place] Rate: 91 P: 66 AK: 202 QRS: -69 QRSD: 114 T: 43 QT: 417 QTc: 514 Interpretive Statements Sinus rhythm ventricular premature complexes Prolonged QT interval Electronically Signed On 12-21-2018 12:36:56 EDT by Alton Oliver
[2018-12-21] MEDS: *HR* OxyCODONE/APAP 5/325 TABLET PO PRN ×2 (12:41→18:22)
[2018-12-21] MEDS: Azithromycin 500 MG in D5% in Water 250 ML IVPB SCH (14:25)
[2018-12-21] MEDS ORDERED: methylPREDNISolone 125 MG/2 ML VIAL IVP SCH (16:00)
[2018-12-21 16:57] LABS: Estimated Average Glucose 174 mg/dl; Hemoglobin A1C 7.7 %
[2018-12-21] MEDS: Insulin LISPRO 300 UNITS/3 ML VIAL SQ SCH ×2 (16:57→22:05)
[2018-12-21] MEDS ORDERED: Furosemide 40 MG/4 ML VIAL IVP SCH (17:00)
[2018-12-21] MEDS: *HR* Heparin 5,000 UNIT/ML VIAL SQ SCH (18:22)
[2018-12-21] MEDS: Insulin DETEMIR 100 UNIT/ML X5UNITS SQ SCH (22:04)
[2018-12-22] MEDS: Ipratropium/Albuterol Neb 3 ML IH SCH ×6 (00:10→19:57)
[2018-12-22] MEDS: methylPREDNISolone 125 MG/2 ML VIAL IVP SCH ×2 (01:21→09:09)
[2018-12-22 05:14] LABS: Mean Platelet Volume 10.2 fL (9.4-12.4); Red Cell Distribution Width 15.6 % (11.5-14.5)
[2018-12-22] MEDS: *HR* Heparin 5,000 UNIT/ML VIAL SQ SCH ×2 (05:14→16:57)
[2018-12-22 05:16] LABS: Hematocrit 32.4 % (37.5-50.1); Hemoglobin 9.4 g/dL (12.9-16.9); Immature Granulocytes % 0.4 % (0-4); Lymphocytes # 0.5 K/mcL (0.6-4.6); Lymphocytes % 6.7 %; Mean Corpuscular Hemoglobin 25.1 pg (28.0-33.3); Mean Corpuscular Volume 86.6 fL (83.0-100.0); Monocytes # 0.2 K/mcL (0.0-1.3); Monocytes % 2.9 %; Neutrophils # 6.2 K/mcL (1.6-8.9); Platelet Count 276 K/mcL (140-400); Red Blood Count 3.74 M/mcL (4.19-5.50)
[2018-12-22 05:32] LABS: Calcium 8.5 mg/dL (8.6-10.3); Potassium 4.9 mEq/L (3.5-5.1)
[2018-12-22 05:45] LABS: Hypochromasia Present (Not Present); Platelet Estimate Normal (Normal)
[2018-12-22] MEDS ORDERED: Loratadine 10 MG TABLET PO PRN (08:31)
[2018-12-22] MEDS: Aspirin Enteric Coated 81 MG Tablet PO SCH (09:09)
[2018-12-22] MEDS: Metoprolol XL (24 HR) Succ 25 MG TAB.ER.24H PO SCH (09:09)
[2018-12-22] MEDS: Insulin LISPRO 300 UNITS/3 ML VIAL SQ SCH ×5 (09:10→21:31)
[2018-12-22] MEDS: Insulin DETEMIR 100 UNIT/ML X5UNITS SQ SCH ×2 (09:11→21:32)
[2018-12-22] MEDS: Fluticasone Propionate Nasal 50 MCG/SPRAY BOTTLE NS SCH (09:26)
[2018-12-22] MEDS: Budesonide/Formoterol 160/4.5 1 PUFF INH IH SCH ×2 (11:07→19:57)
[2018-12-22] MEDS: *HR* OxyCODONE/APAP 5/325 TABLET PO PRN ×2 (11:20→18:11)
[2018-12-22] MEDS ORDERED: Insulin DETEMIR 100 UNIT/ML X5UNITS SQ ONE (13:00)
--- NOTE | 2018-12-22 13:11 | Internal Med Progress Note ---
Hospitalist Progress Note - Encounter Date of Encounter: 12/22/18 Time of Encounter: 09:50 - Subjective Interval History: Patient sitting up in bed. Feels much better compared to yesterday. He is concerned about his discharge plan as he feels that he is not able to manage by himself at home and would definitely need help. His blood pressure was recorded as being low this morning but patient feels fine. He is able to stand up without any dizziness or lightheadedness. - Exam Vitals: Temp Pulse Resp BP Pulse Ox 98.2 F 75 17 78/46 92 12/22/18 07:07 12/22/18 07:07 12/22/18 11:08 12/22/18 07:07 12/22/18 11:08 Exam: General: Patient is alert, mild distress, oriented x 3 ENT: Mucous membranes moist Respiratory: Good respiratory effort. Normal breath sounds. No wheezing or crackles. Cardiovascular: Regular rate and rhythm. s1 and s2 normal No clicks, rubs, gallops, or murmurs. No pedal edema Abdomen: Abdomen is soft, nontender. Bowel sounds are present Musculoskeletal: Spontaneously moving all extremities Skin: warm, dry, intact. Neuro: Alert oriented x 3 normal cranial nerves, no focal deficits - Assessment and Plan (1) Acute on chronic respiratory failure with hypoxia and hypercapnia Current Visit: No Status: Acute (2) CAD (coronary artery disease) Current Visit: Yes Status: Chronic (3) CHF (congestive heart failure) Current Visit: Yes Status: Acute (4) COPD (chronic obstructive pulmonary disease) Current Visit: Yes Status: Chronic (5) Diabetes Current Visit: Yes Status: Chronic (6) CKD (chronic kidney disease) Current Visit: Yes Status: Chronic DVT Prophylaxis: On subcutaneous heparin - Summary of Assessment and Plan Summary of Assessment and Plan: Acute on chronic respiratory failure with hypoxia and hypercapnia: Improving. Continue O2 supplementation via nasal cannula. Patient currently on 4 L nasal cannula. Acute on chronic combined systolic and diastolic congestive heart failure: Continue patient has responded well to Lasix. Lower extremity edema has pretty much subsided. We will switch to oral Lasix especially as his renal function is worsening. Chronic kidney disease stage III: Creatinine slightly above baseline due to Lasix use. Will continue to monitor. Diabetes mellitus type 2: Uncontrolled. We will increase Levemir dosage. Continue sliding scale coverage at high dose. COPD exacerbation and chronic respiratory failure: We will begin to taper steroids. Continue bronchodilators. Pro-calcitonin slightly elevated. Continue azithromycin. - Time Spent with Patient Total time spent is greater than 50% in coordination of care (as documented) at patient's floor/unit and/or counseling patient: Internal Medicine: Result - Labs CBC & Chem 7: 12/22/18 04:21 12/22/18 04:21 Labs: Short CBC 12/22/18 Range/Units 04:21 WBC 6.9 (4.3-11.1) K/mcL Hgb 9.4 L D (12.9-16.9) g/dL Hct 32.4 L (37.5-50.1) % Plt Count 276 (140-400) K/mcL Neutrophils # 6.2 (1.6-8.9) K/mcL BMP 12/22/18 04:21 Sodium 140 Potassium 4.9 Chloride 97 L Carbon Dioxide 36 H BUN 54 H Creatinine 1.60 H Glucose 279 H Calcium 8.5 L - ABG Interpretation ABG results: ABG ABG pH 7.26 pH Units (7.32-7.45) L 12/21/18 09:14 ABG pCO2 78 mmHg (35-45) H* 12/21/18 09:14 ABG pO2 89 mmHg (85-104) 12/21/18 09:14 ABG O2 Saturation 95 % (95-98) 12/21/18 09:14 Consult Discharge Plan - Plan Referrals: NONE,PCP [Primary Care Provider] - (2) CAD (coronary artery disease) Qualifiers: Coronary Disease-Associated Artery/Lesion type: [place] artery [place] vs. transplanted heart: [place] heart Associated angina: with unstable angina Qualified Code(s): I25.110 - Atherosclerotic heart disease of [place] coronary artery with unstable angina pectoris (3) CHF (congestive heart failure) Qualifiers: Heart failure type: combined systolic and diastolic Heart failure chronicity: acute on chronic Qualified Code(s): I50.43 - Acute on chronic combined systolic (congestive) and diastolic (congestive) heart failure (4) COPD (chronic obstructive pulmonary disease) Qualifiers: COPD type: unspecified COPD Qualified Code(s): J44.9 - Chronic obstructive pulmonary disease, unspecified (5) Diabetes Qualifiers: Diabetes mellitus type: type 2 Diabetes mellitus [place] insulin use: with [place] use Diabetes mellitus complication status: with hyperglycemia Qualified Code(s): E11.65 - Type 2 diabetes mellitus with hyperglycemia; Z79.4 - intermediate (current) use of insulin (6) CKD (chronic kidney disease) Qualifiers: Chronic kidney disease stage: stage 3 (moderate) Qualified Code(s): N18.3 - Chronic kidney disease, stage 3 (moderate)
[2018-12-22] MEDS: Azithromycin 500 MG in D5% in Water 250 ML IVPB SCH (14:08)
[2018-12-22] MEDS ORDERED: D5% in Water 1,000 ML IVC PRN (20:14)
[2018-12-22] MEDS ORDERED: Dextrose Gel 15 GM/37.5 ML TUBE PO PRN (20:14)
[2018-12-23] MEDS: *HR* OxyCODONE/APAP 5/325 TABLET PO PRN ×3 (00:19→22:31)
[2018-12-23] MEDS: Ipratropium/Albuterol Neb 3 ML IH SCH ×7 (00:38→23:41)
[2018-12-23] MEDS: *HR* Heparin 5,000 UNIT/ML VIAL SQ SCH ×2 (05:23→17:01)
[2018-12-23 06:40] LABS: Mean Corpuscular HGB Conc 28.8 g/dL (31.6-35.5); Mean Corpuscular Hemoglobin 24.8 pg (28.0-33.3); Monocytes % 7.7 %; Red Cell Distribution Width 15.8 % (11.5-14.5)
[2018-12-23 06:41] LABS: Hematocrit 32.3 % (37.5-50.1); Hemoglobin 9.3 g/dL (12.9-16.9); Immature Granulocytes % 0.4 % (0-4); Lymphocytes # 1.2 K/mcL (0.6-4.6); Lymphocytes % 11.1 %; Mean Corpuscular Volume 86.1 fL (83.0-100.0); Mean Platelet Volume 10.1 fL (9.4-12.4); Monocytes # 0.8 K/mcL (0.0-1.3); Neutrophils # 8.4 K/mcL (1.6-8.9); Platelet Count 284 K/mcL (140-400); Red Blood Count 3.75 M/mcL (4.19-5.50); Segmented Neutrophils % 80.8 %
[2018-12-23 07:00] LABS: Calcium 8.8 mg/dL (8.6-10.3); Potassium 4.4 mEq/L (3.5-5.1)
[2018-12-23] MEDS: Budesonide/Formoterol 160/4.5 1 PUFF INH IH SCH ×2 (07:26→19:44)
[2018-12-23 07:44] LABS: Anisocytosis 1+ (Not Present); Hypochromasia Present (Not Present); Platelet Estimate Normal (Normal)
[2018-12-23] MEDS: Fluticasone Propionate Nasal 50 MCG/SPRAY BOTTLE NS SCH (08:35)
[2018-12-23] MEDS: Aspirin Enteric Coated 81 MG Tablet PO SCH (08:36)
[2018-12-23] MEDS: Furosemide 40 MG TABLET PO SCH ×2 (08:36→16:54)
[2018-12-23] MEDS: predniSONE 20 MG TABLET PO SCH (08:36)
[2018-12-23] MEDS: Insulin LISPRO 300 UNITS/3 ML VIAL SQ SCH ×7 (08:41→22:32)
[2018-12-23] MEDS: Insulin DETEMIR 100 UNIT/ML X5UNITS SQ SCH ×2 (08:43→22:32)
[2018-12-23] MEDS: Metoprolol XL (24 HR) Succ 25 MG TAB.ER.24H PO SCH (09:10)
[2018-12-23] MEDS ORDERED: Saline Nasal Spray 44 ML BOTTLE NS PRN (12:01)
[2018-12-23] MEDS: Azithromycin 500 MG in D5% in Water 250 ML IVPB SCH (13:08)
[2018-12-23] MEDS: Loratadine 10 MG TABLET PO SCH (13:13)
[2018-12-23] MEDS ORDERED: Sennosides 8.6 MG TABLET PO PRN (14:00)
--- NOTE | 2018-12-23 14:00 | Palliative - Consult Note ---
<AlbaroCortesEz A - Last Filed: 12/23/18 14:56> Date of Encounter: 12/23/18 Time of Encounter: 11:15 - Assessment and Plan (1) Goals of care, counseling/discussion Current Visit: Yes Status: Acute Assessment and plan: Discussed pt's current clinical status as well as his overall poor prognosis with advancing COPD and CHF. Pt is aware he has been worsening as his ability to ambulate and care for himself at home has diminished. He reports he has resided at both [facility] and [facility] previously for rehab, but would prefer [facility] if he is to be recommended for ECF placement on discharge. Pt states he knows he cannot care for himself completely at this time and is agreeable to ECF/rehab placement. Discussed overall goals with pt. He reports at this point he wishes to be comfortable. States he knows he is not going to recover completely, but remains optimistic that he may be able to regain some functional independence over time. Also discussed hospice services for this patient on discharge. After discussion pt states he would like to pursue hospice care, but wants to speak to his daughter first who is a RN. Will place referral accordingly for COPD and CHF. Also discussed CODE STATUS. Pt reports he was previously a DNR, but revoked this when he was having cystoscopic procedures for bladder cancer. He reports he no longer wishes to pursue those treatments. Pt reports he wishes to not have chest compressions, be intubated, or have other aggressive procedures performed. Pt ultimately elected to change to DNR-CC status. State form filled out and order placed. (2) Palliative care encounter Current Visit: Yes Status: Acute (3) CHF (congestive heart failure) Current Visit: Yes Status: Chronic Assessment and plan: Echocardiogram from 11/07/18 showed LVEF 40-45% with global LV systolic dysfunction. Management per primary Qualifiers: Heart failure type: combined systolic and diastolic Heart failure chronicity: acute on chronic Qualified Code(s): I50.43 - Acute on chronic combined systolic (congestive) and diastolic (congestive) heart failure (4) COPD (chronic obstructive pulmonary disease) Current Visit: Yes Status: Acute Assessment and plan: Currently receiving Azithromycin, Prednisone, and scheduled nebs. Also continuing to use bipap Management per primary Qualifiers: COPD type: COPD with acute exacerbation Qualified Code(s): J44.1 - Chronic obstructive pulmonary disease with (acute) exacerbation Palliative-CN HPI - Data of Consult Consult date: 12/23/18 Requesting Physician: Latosha Dean MD Primary Care Provider: PCP NONE - Consult Narrative Reason for consult: Goals of care and Hospice evaluation History of present illness: Mr. Chase is a 63 year old male with PMH of COPD, CHF, CAD, DM2, HTN, HLD, and CKD. He was admitted on 12/21/18 for complaints of shortness of breath. Pt reports he has been in the hospital multiple times in the past few months. Review of chart shows 2 previous admission and 1 previous visit at [facility] ER. Pt also reports a hospitalization at [facility] as well. Pt denied any chest pain, abdominal pain, nausea, vomiting, fever, or chills. Did complain of LE swelling. CXR from the ED showed pulmonary edema vs superimposed pneumonia. EKG from the ED showed sinus rhythm with rate of 91, with no ischemic changes noted. ABG in the ED showed pH of 7.16, with elevated pCO2 of 108 consistent with respiratory acidosis. Of note pt was placed on BiPAP in the ED to assist with respiratory status and for hypoxia. He was also given 40mg Lasix at the time. On admission he was started on Azithromycin, scheduled nebs, and steroids for COPD exacerbation. Pt improved slightly, but remains largely BiPAP dependent. Palliative care team was consulted for further goals of care discussion, as well as evaluation for possible hospice. Pt seen and examined at bedside. He was sitting on the side of the bed with BIPAP in place. Reports his breathing is largely unchanged from yesterday. States his hip in bothering him "but it always is". States he does occasionally take percocet at home which he also notices relieve in shortness of breath with the medication. Reports he has had great difficulty ambulating recently and is unable to make it to the restroom or his refrigerator. CC: Latosha Dean MD - Time Spent with Patient Time: Total time spent is greater than 50% in coordination of care (as documented) at patient's floor/unit and/or counseling patient: Past Med Surg Social Fam HX - Past Medical History Medical history: COPD, coronary artery disease, diabetes, hyperlipidemia, hypertension, myocardial infarction, other Additional medical history: bladder tumor. STD's. CKD STAGE 3. NSTEMI. SMOKER Psychiatric history: no psych history - Past Surgical History Surgical History: angioplasty/stent, herniorrhaphy, vasectomy Additional surgical history: hernia stomach. bilateral carpal tunnel release - Social History Smoking Status: Current every day smoker Smokeless Tobacco Status: No Alcohol use: occasionally Drug use: none - Family History Father Living Status: Hx Family Cardiac Disorders: Yes (CAD) Hx Family Neurologic Disorders: Yes Medications and Allergies Albuterol Neb [Proventil Neb] 2.5 mg IH 6XD PRN 10/23/15 [History] Insulin Glargine,Hum.rec.anlog [Lantus Solostar] 50 unit SQ DAILY 10/23/15 [History] Budesonide/Formoterol 160/4.5 [Symbicort 160/4.5] 2 puff IH BID 04/05/17 [History] Fluticasone Propionate Nasal [Flonase] 2 spray NS DAILY 04/22/17 [History] Cetirizine HCl [Zyrtec] 10 mg PO HS PRN 04/06/18 [History] Insulin LISPRO [Humalog Kwikpen U-100] 0 unit SQ TIDWM PRN 04/06/18 [History] Clopidogrel [Plavix] 75 mg PO DAILY 11/11/18 [History] Aspirin Enteric Coated [Aspirin EC] 81 mg PO DAILY 12/09/18 [History] Atorvastatin [Lipitor] 40 mg PO HS 12/09/18 [History] Furosemide [Lasix] 40 mg PO BID 12/09/18 [History] Quetiapine Fumarate [Seroquel] 25 mg PO HS PRN 12/09/18 [History] Albuterol Sulfate [Ventolin Hfa] 2 puff IH Q6H PRN 12/21/18 [History] Ibuprofen [Motrin Ib] 200 mg PO TID PRN 12/21/18 [History] Multivitamin [One Daily Multivitamin] 1 each PO DAILY 12/21/18 [History] Tiotropium [place] [Spiriva Respimat] 2 puff IH DAILY 12/21/18 [History] Allergy/AdvReac Type Severity Reaction Status Date / Time No Known Allergies Allergy Verified 12/21/18 16:11 All systems: reviewed and no additional remarkable complaints except as stated - Cardiovascular Cardiovascular ROS: dyspnea on exertion, leg edema - Respiratory Respiratory: dyspnea, dyspnea on exertion Palliative Care-Exam - Constitutional Vitals: Temp Pulse Resp BP Pulse Ox 96.8 F L 91 26 122/81 97 12/23/18 07:13 12/23/18 11:28 12/23/18 11:28 12/23/18 11:28 12/23/18 11:28 General appearance: Present: obese - Head Head Exam: Present: atraumatic, normal inspection, normocephalic - Eye Eye exam: Present: normal appearance, PERRL - ENT ENT exam: Present: mucous membranes moist - Respiratory Respiratory exam: Present: decreased breath sounds, respiratory distress, tachypnea. Absent: rales, rhonchi, wheezes - Cardiovascular Cardiovascular exam: Present: RRR, +S1, +S2, tachycardia - Extremities Exam Extremities exam: Present: pedal edema (+1 pitting bilaterally ). Absent: calf tenderness, tenderness Additional comments: Chronic venous stasis changes to bilateral LEs - Back Exam Back exam: Present: normal inspection. Absent: rash noted, tenderness - Neurological Exam Neurological exam: Present: alert, oriented X3. Absent: pronater drift, facial droop, speech deficit - Skin Skin exam: Present: dry, intact, normal color, warm Internal Medicine - CN: Reslt - Labs CBC & Chem 7: 12/23/18 06:14 12/23/18 06:14 Labs: Short CBC 12/23/18 Range/Units 06:14 WBC 10.4 D (4.3-11.1) K/mcL Hgb 9.3 L (12.9-16.9) g/dL Hct 32.3 L (37.5-50.1) % Plt Count 284 (140-400) K/mcL Neutrophils # 8.4 (1.6-8.9) K/mcL BMP 12/23/18 06:14 Sodium 139 Potassium 4.4 Chloride 98 Carbon Dioxide 35 H BUN 53 H Creatinine 1.45 H Glucose 213 H Calcium 8.8 - ABG Interpretation ABG results: ABG ABG pH 7.26 pH Units (7.32-7.45) L 12/21/18 09:14 ABG pCO2 78 mmHg (35-45) H* 12/21/18 09:14 ABG pO2 89 mmHg (85-104) 12/21/18 09:14 ABG O2 Saturation 95 % (95-98) 12/21/18 09:14 - Impressions Impressions Chest X-Ray 12/23/18 11:47 IMPRESSION: 1. Stable pulmonary edema with small bilateral pleural effusions and associated bibasilar atelectasis. D/ / 12/23/2018 12:34:34 Eddie Braga MD / truong Interpreting Provider: Eddie Braga MD Consult Discharge Plan - Plan Referrals: NONE,PCP [Primary Care Provider] - Palliative Quality Palliative Quality: Screen for Code Status: Yes, Screen for Goals of Care: Yes, Screen for Pain: Yes, If Pain Regimen Started, Initiate Bowel Regimen: Yes, Screen for Nausea/Vomitting: Yes Code Status: 12/21/18 07:56 Resuscitation Status: Active [RES] Routine Comment: Resuscitation Status: Full Code 12/23/18 13:09 Resuscitation Status: Active [RES] Routine Comment: Resuscitation Status: DNR-Comfort Care Palliative Scale - Palliative Performance Scale How ambulatory is this patient?: Reduced What is patient's level of activity and evidence of disease?: Unable to do any work, Extensive disease How much self-care assistance does patient require?: Considerable assistance required How much oral intake does the patient have?: Normal or reduced What is this patient's level of consciousness?: Full Palliative Performance Score: 70 % <YomiDebora aRlph - Last Filed: 12/23/18 16:20> Date of Encounter: 12/23/18 Palliative-CN HPI - Data of Consult Requesting Physician: Latosha Dean MD Primary Care Provider: PCP NONE - Consult Narrative History of present illness: Mr. Chase is a 63 year old male CC: Latosha Dean MD - Time Spent with Patient Time: Total time spent is greater than 50% in coordination of care (as documented) at patient's floor/unit and/or counseling patient: Palliative Care-Exam - Constitutional Vitals: Temp Pulse Resp BP Pulse Ox 96.8 F L 91 26 122/81 97 12/23/18 07:13 12/23/18 11:28 12/23/18 11:28 12/23/18 11:28 12/23/18 11:28 Internal Medicine - CN: Reslt - Labs CBC & Chem 7: 12/23/18 06:14 12/23/18 06:14 Labs: Short CBC 12/23/18 Range/Units 06:14 WBC 10.4 D (4.3-11.1) K/mcL Hgb 9.3 L (12.9-16.9) g/dL Hct 32.3 L (37.5-50.1) % Plt Count 284 (140-400) K/mcL Neutrophils # 8.4 (1.6-8.9) K/mcL BMP 12/23/18 06:14 Sodium 139 Potassium 4.4 Chloride 98 Carbon Dioxide 35 H BUN 53 H Creatinine 1.45 H Glucose 213 H Calcium 8.8 - ABG Interpretation ABG results: ABG ABG pH 7.26 pH Units (7.32-7.45) L 12/21/18 09:14 ABG pCO2 78 mmHg (35-45) H* 12/21/18 09:14 ABG pO2 89 mmHg (85-104) 12/21/18 09:14 ABG O2 Saturation 95 % (95-98) 12/21/18 09:14 - Impressions Impressions Chest X-Ray 12/23/18 11:47 IMPRESSION: 1. Stable pulmonary edema with small bilateral pleural effusions and associated bibasilar atelectasis. D/ / 12/23/2018 12:34:34 Eddie Braga MD / truong Interpreting Provider: Eddie Braga MD - Attending Attestation I performed a history and physical examination of the patient and discussed his management with the resident. I reviewed the residents note and agree with the documented findings and plan of care, except as follow: 12:00-12:30 This is a 63 y/o male with recurrent admissions due to end stage COPD and CHF. Patient functional status is now greatly reduced due to SOB and desaturation with minimal exertion. Patient has 1 daughter and lives alone, he is aware he can no longer care for self at home. Discussed pt's current clinical status as well as his overall poor prognosis with advancing COPD and CHF. He reports he has resided at both [facility] and [facility] previously for rehab, but would prefer [facility] if he is to be recommended for ECF placement on discharge. Discussed overall goals, patient wishes to be comfortable. States he knows he is not going to recover completely, but remains optimistic that he may be able to regain some functional independence over time. Explained hospice services and philosophy, pt agreeable, but wants to discuss with daughter. Additional 20 minutes advanced care planning: Pt was previously a DNR, but revoked to have cystoscopic procedures for bladder cancer. He no longer wishes to continue cancer treatment. Pt ultimately elected to change to DNR-CC status. State form filled out and order placed. [id number]: Met with patient's daughter Asuncion at the bedside. Discussed current medical condition, patient's goals and decisions. Asuncion is fully supportive, and agrees with SNF placement and hospice. [facility] forms filled and copies given to patient. Referral called to [facility] for admission once discharge finalized, likely Wednesday. Palliative Quality Code Status: 12/21/18 07:56 Resuscitation Status: Active [RES] Routine Comment: Resuscitation Status: Full Code 12/23/18 13:09 Resuscitation Status: Active [RES] Routine Comment: Resuscitation Status: DNR-Comfort Care
--- NOTE | 2018-12-23 14:16 | Internal Med Progress Note ---
Hospitalist Progress Note - Encounter Date of Encounter: 12/23/18 Time of Encounter: 10:10 - Subjective Interval History: Patient complains of nasal congestion and worsening shortness of breath. He is concerned that he worked with physical therapy yesterday and his oxygen saturations dropped to 70s. He does not want to do physical therapy anymore. He just wishes to avoid getting short of breath. He denies any chest pain or palpitations. He does take Zyrtec as outpatient for an allergic rhinitis. He is also on Flonase. He was on BiPAP earlier this morning but felt that his mouth was getting dry. He is presently on 4 L nasal cannula. - Exam Vitals: Temp Pulse Resp BP Pulse Ox 96.8 F L 91 26 122/81 97 12/23/18 07:13 12/23/18 11:28 12/23/18 11:28 12/23/18 11:28 12/23/18 11:28 Exam: General: Patient is alert, moderate distress, oriented x 3 ENT: Mucous membranes moist Respiratory: Diminished breath sounds bilaterally. Cardiovascular: Regular rate and rhythm. s1 and s2 normal No clicks, rubs, gallops, or murmurs. Pedal edema has subsided Abdomen: Abdomen is soft, nontender. Bowel sounds are present Musculoskeletal: Spontaneously moving all extremities Skin: warm, dry, intact. Neuro: Alert oriented x 3 normal cranial nerves, no focal deficits - Assessment and Plan (1) Acute on chronic respiratory failure with hypoxia and hypercapnia Current Visit: Yes Status: Acute (2) CHF (congestive heart failure) Current Visit: Yes Status: Chronic (3) COPD (chronic obstructive pulmonary disease) Current Visit: Yes Status: Chronic (4) CKD (chronic kidney disease) Current Visit: Yes Status: Chronic (5) Diabetes Current Visit: Yes Status: Chronic DVT Prophylaxis: Subcutaneous heparin - Summary of Assessment and Plan Summary of Assessment and Plan: Acute on chronic respiratory failure with hypoxia and hypercapnia: Worsened today. Patient is back on BiPAP. We will continue bronchodilators. Continue systemic steroids. Chest x-ray done today does not show any significant changes. Patient does have pulmonary edema and bilateral atelectasis. Acute on chronic combined systolic and diastolic congestive heart failure: Lasix held yesterday due to worsening renal function. Resume Lasix today as renal function is improving. Lower extremity edema has subsided. Chest x-ray still shows some pulmonary edema. Allergic rhinitis/sinusitis: Symptomatic treatment. Continue Flonase and loratadine. Patient on azithromycin also. Chronic kidney disease stage III: Creatinine trending down to baseline. Diabetes mellitus type 2: Further increase insulin regimen as blood sugars remain elevated. COPD exacerbation and chronic respiratory failure: Continue systemic steroids, azithromycin and bronchodilators. BiPAP use as needed. Goals of care and counseling: Patient does not wish to partake in further physical therapy. Discussed what he wishes to be done for his long-term care, he states that he wants to be comfortable without the feeling of gasping for air. Discussed subject of hospice. Patient seems interested. Will call palliative care. - Time Spent with Patient Total time spent is greater than 50% in coordination of care (as documented) at patient's floor/unit and/or counseling patient: Internal Medicine: Result - Labs CBC & Chem 7: 12/23/18 06:14 12/23/18 06:14 Labs: Short CBC 12/23/18 Range/Units 06:14 WBC 10.4 D (4.3-11.1) K/mcL Hgb 9.3 L (12.9-16.9) g/dL Hct 32.3 L (37.5-50.1) % Plt Count 284 (140-400) K/mcL Neutrophils # 8.4 (1.6-8.9) K/mcL BMP 12/23/18 06:14 Sodium 139 Potassium 4.4 Chloride 98 Carbon Dioxide 35 H BUN 53 H Creatinine 1.45 H Glucose 213 H Calcium 8.8 - ABG Interpretation ABG results: ABG ABG pH 7.26 pH Units (7.32-7.45) L 12/21/18 09:14 ABG pCO2 78 mmHg (35-45) H* 12/21/18 09:14 ABG pO2 89 mmHg (85-104) 12/21/18 09:14 ABG O2 Saturation 95 % (95-98) 12/21/18 09:14 - Impressions Impressions Chest X-Ray 12/23/18 11:47 IMPRESSION: 1. Stable pulmonary edema with small bilateral pleural effusions and associated bibasilar atelectasis. D/ / 12/23/2018 12:34:34 Eddie Braga MD / truong Interpreting Provider: Eddie Braga MD Consult Discharge Plan - Plan Referrals: NONE,PCP [Primary Care Provider] - (2) CHF (congestive heart failure) Qualifiers: Heart failure type: combined systolic and diastolic Heart failure chronicity: acute on chronic Qualified Code(s): I50.43 - Acute on chronic combined systolic (congestive) and diastolic (congestive) heart failure (3) COPD (chronic obstructive pulmonary disease) Qualifiers: COPD type: unspecified COPD Qualified Code(s): J44.9 - Chronic obstructive pulmonary disease, unspecified (4) CKD (chronic kidney disease) Qualifiers: Chronic kidney disease stage: stage 3 (moderate) Qualified Code(s): N18.3 - Chronic kidney disease, stage 3 (moderate) (5) Diabetes Qualifiers: Diabetes mellitus type: type 2 Diabetes mellitus long term care pharmacist insulin use: with long term care pharmacist use Diabetes mellitus complication status: with hyperglycemia Qualified Code(s): E11.65 - Type 2 diabetes mellitus with hyperglycemia; 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
[2018-12-24] MEDS: Ipratropium/Albuterol Neb 3 ML IH SCH ×6 (03:34→23:17)
[2018-12-24] MEDS: *HR* Heparin 5,000 UNIT/ML VIAL SQ SCH ×2 (05:14→16:34)
[2018-12-24 05:32] LABS: Immature Granulocytes % 0.3 % (0-4)
[2018-12-24 05:33] LABS: Basophils % 0.1 %; Eosinophils % 0.1 %; Hematocrit 33.3 % (37.5-50.1); Hemoglobin 9.5 g/dL (12.9-16.9); Lymphocytes # 1.7 K/mcL (0.6-4.6); Lymphocytes % 17.5 %; Mean Corpuscular HGB Conc 28.5 g/dL (31.6-35.5); Mean Corpuscular Hemoglobin 24.7 pg (28.0-33.3); Mean Corpuscular Volume 86.7 fL (83.0-100.0); Monocytes # 0.8 K/mcL (0.0-1.3); Neutrophils # 7.1 K/mcL (1.6-8.9); Platelet Count 264 K/mcL (140-400); Red Blood Count 3.84 M/mcL (4.19-5.50); Red Cell Distribution Width 15.9 % (11.5-14.5)
[2018-12-24 05:51] LABS: Platelet Estimate Normal (Normal)
[2018-12-24 05:52] LABS: Hypochromasia Present (Not Present)
[2018-12-24 06:01] LABS: BUN/Creatinine Ratio 34 (6-26); Blood Urea Nitrogen 47 mg/dL (8-23); Calcium 8.9 mg/dL (8.6-10.3); Carbon Dioxide 40 mEq/L (23-29); Chloride 96 mEq/L (98-107); Glucose 192 mg/dL (70-105); Osmolality,Calculated 305 (280-300); Potassium 4.2 mEq/L (3.5-5.1); Sodium 139 mEq/L (136-145); eGFR For Non-African Americans 52 (> 60)
[2018-12-24] MEDS: Budesonide/Formoterol 160/4.5 1 PUFF INH IH SCH ×2 (07:45→20:09)
[2018-12-24] MEDS: *HR* OxyCODONE/APAP 5/325 TABLET PO PRN ×2 (08:31→20:49)
[2018-12-24] MEDS: Metoprolol XL (24 HR) Succ 25 MG TAB.ER.24H PO SCH (08:32)
[2018-12-24] MEDS: Aspirin Enteric Coated 81 MG Tablet PO SCH (08:32)
[2018-12-24] MEDS: predniSONE 20 MG TABLET PO SCH (08:33)
[2018-12-24] MEDS: Loratadine 10 MG TABLET PO SCH (08:33)
[2018-12-24] MEDS: Furosemide 40 MG TABLET PO SCH ×2 (08:33→15:54)
[2018-12-24] MEDS: Insulin LISPRO 300 UNITS/3 ML VIAL SQ SCH ×7 (08:33→21:08)
[2018-12-24] MEDS: Fluticasone Propionate Nasal 50 MCG/SPRAY BOTTLE NS SCH (08:38)
[2018-12-24] MEDS: Insulin DETEMIR 100 UNIT/ML X5UNITS SQ SCH ×2 (08:40→21:10)
--- NOTE | 2018-12-24 12:24 | Palliative Progress Note ---
Date of Encounter: 12/24/18 Time of Encounter: 10:00 - Assessment and plan (1) Congestive heart failure Current Visit: No Status: Chronic Qualifiers: Heart failure type: systolic Heart failure chronicity: chronic Qualified Code(s): I50.22 - Chronic systolic (congestive) heart failure (2) Goals of care, counseling/discussion Current Visit: Yes Status: Acute Assessment and plan: Completed follow-up with patient today. Patient reports his decision has been made regarding correction placement with hospice care. Patient awaits report from social work that he has been accepted. (3) COPD (chronic obstructive pulmonary disease) Current Visit: Yes Status: Acute Assessment and plan: Oxygen saturation 100% on 4 L. Qualifiers: COPD type: COPD with acute exacerbation Qualified Code(s): J44.1 - Chronic obstructive pulmonary disease with (acute) exacerbation (4) Palliative care encounter Current Visit: Yes Status: Acute (5) Dyspnea Current Visit: Yes Status: Acute Assessment and plan: Patient reports dyspnea under control. Patient reports Percocet helps with the difficulty breathing. Patient has received 3 doses of Percocet in the last 24 hours. Qualifiers: Dyspnea type: unspecified Qualified Code(s): R06.00 - Dyspnea, unspecified - Time Spent With Patient Total time spent is greater than 50% in coordination of care (as documented) at patient's floor/unit and/or counseling patient: - Subjective Interval history: Patient sitting up at bedside upon arrival her assessment. No family present at bedside. Patient alert and oriented 3. Patient denies pain, anxiety, nausea and vomiting. Patient reports dyspnea under control. Patient reports" I have already made my decision and am going to hospice despite my daughter disagreeing." - Constitutional Vitals: Abnormal lab results RBC 3.84 M/mcL (4.19-5.50) L 12/24/18 05:18 Hgb 9.5 g/dL (12.9-16.9) L 12/24/18 05:18 Hct 33.3 % (37.5-50.1) L 12/24/18 05:18 MCH 24.7 pg (28.0-33.3) L 12/24/18 05:18 MCHC 28.5 g/dL (31.6-35.5) L 12/24/18 05:18 RDW 15.9 % (11.5-14.5) H 12/24/18 05:18 9.1 K/mcL (1.6-8.9) H 12/20/18 23:50 0.5 K/mcL (0.6-4.6) L 12/22/18 04:21 Present (Not Present) A 12/24/18 05:18 1+ (Not Present) A 12/23/18 06:14 ABG pH 7.26 pH Units (7.32-7.45) L 12/21/18 09:14 ABG pCO2 78 mmHg (35-45) H* 12/21/18 09:14 ABG pO2 256 mmHg (85-104) H 12/21/18 03:10 ABG HCO3 35 mEq/L (21-27) H 12/21/18 09:14 ABG Total CO2 37 mEq/L (20-26) H 12/21/18 09:14 ABG O2 Saturation 100 % (95-98) H 12/21/18 03:10 ABG Base Excess 5 mEq/L (-2 to 3) H 12/21/18 09:14 VBG pH 7.25 pH Units (7.32-7.42) L 12/21/18 00:08 VBG pCO2 85 mmHg (41-51) H* 12/21/18 00:08 VBG HCO3 38 mEq/L (21-27) H 12/21/18 00:08 Chloride 96 mEq/L (98-107) L 12/24/18 05:18 Carbon Dioxide 40 mEq/L (23-29) H* 12/24/18 05:18 BUN 47 mg/dL (8-23) H 12/24/18 05:18 1.37 mg/dL (0.70-1.30) H 12/24/18 05:18 Est GFR ( Amer) 59 (> 60) L 12/23/18 06:14 Est GFR (Non-Af Amer) 52 (> 60) L 12/24/18 05:18 34 (6-26) H 12/24/18 05:18 Glucose 192 mg/dL (70-105) H 12/24/18 05:18 POC Glucose 217 mg/dL (70-99) H 12/23/18 20:58 7.7 % (-5.6) H 12/21/18 15:03 305 (280-300) H 12/24/18 05:18 Calcium 8.5 mg/dL (8.6-10.3) L 12/22/18 04:21 0.04 ng/mL (< 0.04) H* 12/20/18 23:50 B-Natriuretic Peptide 379 pg/mL (Less than 100) H 12/20/18 23:50 0.28 ng/mL (0.00-0.15) H 12/21/18 15:03 General appearance: Present: cooperative, no acute distress - Head Head exam: Present: atraumatic, normal inspection - Eye Eye exam: Present: EOMI, normal appearance. Absent: periorbital swelling, periorbital tenderness Pupils: Present: normal accommodation - ENT ENT exam: Present: mucous membranes dry, normal external ear exam - Neck Neck exam: Present: full ROM, normal inspection - Respiratory Respiratory exam: Present: accessory muscle use, rhonchi. Absent: respiratory distress - Cardiovascular Cardiovascular exam: Present: +S1, +S2 - GI/Abdominal GI/Abdominal exam: Present: normal bowel sounds, soft. Absent: tenderness - Rectal Rectal exam: Present: deferred - Extremities Exam Extremities exam: Present: normal inspection - Back Exam Back exam: Present: normal inspection - Neurological Exam Neurological exam: Present: alert, oriented X3, strengths equal and symetr throughout. Absent: altered - Psychiatric Psychiatric exam: Present: normal affect, normal mood - Skin Skin exam: Present: intact, normal color, warm Palliative Quality Palliative Quality: Screen for Code Status: Yes, Screen for Goals of Care: Yes, Screen for Pain: Yes, If Pain Regimen Started, Initiate Bowel Regimen: Yes, Screen for Nausea/Vomitting: Yes Code Status: 12/21/18 07:56 Resuscitation Status: Active [RES] Routine Comment: Resuscitation Status: Full Code 12/23/18 13:09 Resuscitation Status: Active [RES] Routine Comment: Resuscitation Status: DNR-Comfort Care - Labs CBC & Chem 7: 12/24/18 05:18 12/24/18 05:18 Labs: Laboratory Results - last 24 hr 12/23/18 12/23/18 12/23/18 11:30 16:29 20:58 WBC RBC Hgb Hct MCV MCH MCHC RDW Plt Count MPV Immature Gran % Seg Neutrophils % Lymphocytes % Monocytes % Eosinophils % Basophils % Neutrophils # Lymphocytes # Monocytes # Eosinophils # Basophils # Platelet Estimate Hypochromasia Sodium Potassium Chloride Carbon Dioxide BUN Creatinine Est GFR ( Amer) Est GFR (Non-Af Amer) BUN/Creatinine Ratio Glucose POC Glucose 317 H 392 H 217 H Calculated Osmolality Calcium 12/24/18 12/24/18 05:18 05:18 WBC 9.6 RBC 3.84 L Hgb 9.5 L Hct 33.3 L MCV 86.7 MCH 24.7 L MCHC 28.5 L RDW 15.9 H Plt Count 264 MPV 10.0 Immature Gran % 0.3 Seg Neutrophils % 74.0 Lymphocytes % 17.5 Monocytes % 8.0 Eosinophils % 0.1 Basophils % 0.1 Neutrophils # 7.1 Lymphocytes # 1.7 Monocytes # 0.8 Eosinophils # 0.0 Basophils # 0.0 Platelet Estimate Normal Hypochromasia Present A Sodium 139 Potassium 4.2 Chloride 96 L Carbon Dioxide 40 H* BUN 47 H Creatinine 1.37 H Est GFR ( Amer) > 60 Est GFR (Non-Af Amer) 52 L BUN/Creatinine Ratio 34 H Glucose 192 H POC Glucose Calculated Osmolality 305 H Calcium 8.9 - Impressions Impressions Chest X-Ray 12/23/18 11:47 IMPRESSION: 1. Stable pulmonary edema with small bilateral pleural effusions and associated bibasilar atelectasis. D/ / 12/23/2018 12:34:34 Eddie Braga MD / [email or web address] Interpreting Provider: Eddie Braga MD - ABG Interpretation ABG results: ABG ABG pH 7.26 pH Units (7.32-7.45) L 12/21/18 09:14 ABG pCO2 78 mmHg (35-45) H* 12/21/18 09:14 ABG pO2 89 mmHg (85-104) 12/21/18 09:14 ABG O2 Saturation 95 % (95-98) 12/21/18 09:14 Palliative Scale - Palliative Performance Scale How ambulatory is this patient?: Reduced What is patient's level of activity and evidence of disease?: Unable to do any work, Extensive disease How much self-care assistance does patient require?: Considerable assistance required How much oral intake does the patient have?: Normal or reduced What is this patient's level of consciousness?: Full Palliative Performance Score: 70 % Consult Discharge Plan - Plan Referrals: NONE,PCP [Primary Care Provider] -
--- NOTE | 2018-12-24 14:45 | Internal Med Progress Note ---
Hospitalist Progress Note - Encounter Date of Encounter: 12/24/18 Time of Encounter: 14:36 - Subjective Interval History: Evaluated patient earlier today. He feels much better overall. Currently wearing BiPAP mask. He states that his pain is better controlled. Denies any fevers or chills overnight. No chest pain or palpitations. - Exam Vitals: Temp Pulse Resp BP Pulse Ox 97.9 F 105 24 137/78 100 12/24/18 07:02 12/24/18 07:02 12/24/18 11:51 12/24/18 07:02 12/24/18 11:51 Exam: General: Patient is alert, mild distress, oriented x 3 ENT: Mucous membranes moist; BiPAP mask in place Respiratory: Improved air entry bilaterally. Prolonged expiratory phase. Mild wheezing. Cardiovascular: Regular rate and rhythm. s1 and s2 normal No clicks, rubs, gallops, or murmurs. No pedal edema Abdomen: Abdomen is soft, nontender. Bowel sounds are present Musculoskeletal: Spontaneously moving all extremities Skin: warm, dry, intact. Neuro: Alert oriented x 3 normal cranial nerves, no focal deficits - Assessment and Plan (1) Goals of care, counseling/discussion Current Visit: Yes Status: Acute (2) CHF (congestive heart failure) Current Visit: Yes Status: Chronic (3) COPD (chronic obstructive pulmonary disease) Current Visit: Yes Status: Acute (4) Palliative care encounter Current Visit: Yes Status: Acute - Summary of Assessment and Plan Summary of Assessment and Plan: Acute on chronic respiratory failure with hypoxia and hypercapnia: Overall patient is feeling better today. Most likely his acute episode yesterday was related to sinusitis/rhinitis flareup. Responded well to Claritin. Continue O2 supplementation via nasal cannula and use BiPAP as needed. Patient's CODE STATUS has been changed to DNR/DNI per palliative care. Acute on chronic combined systolic and diastolic congestive heart failure: Continue oral Lasix. Renal function stable. Allergic rhinitis/sinusitis: On Flonase and Claritin. Symptoms have improved. Chronic kidney disease stage III: Creatinine continues to trend down. Diabetes mellitus type 2: Improving. Continue current insulin regimen COPD exacerbation and chronic respiratory failure: Continue prednisone, bronchodilators. Use BiPAP as needed. Moderate risk for complications. Patient wishes to longterm with hospice when medically stable. - Time Spent with Patient Total time spent is greater than 50% in coordination of care (as documented) at patient's floor/unit and/or counseling patient: Internal Medicine: Result - Labs CBC & Chem 7: 12/24/18 05:18 12/24/18 05:18 Labs: Short CBC 12/24/18 Range/Units 05:18 WBC 9.6 (4.3-11.1) K/mcL Hgb 9.5 L (12.9-16.9) g/dL Hct 33.3 L (37.5-50.1) % Plt Count 264 (140-400) K/mcL Neutrophils # 7.1 (1.6-8.9) K/mcL BMP 12/24/18 05:18 Sodium 139 Potassium 4.2 Chloride 96 L Carbon Dioxide 40 H* BUN 47 H Creatinine 1.37 H Glucose 192 H Calcium 8.9 - ABG Interpretation ABG results: ABG ABG pH 7.26 pH Units (7.32-7.45) L 12/21/18 09:14 ABG pCO2 78 mmHg (35-45) H* 12/21/18 09:14 ABG pO2 89 mmHg (85-104) 12/21/18 09:14 ABG O2 Saturation 95 % (95-98) 12/21/18 09:14 Consult Discharge Plan - Plan Referrals: NONE,PCP [Primary Care Provider] - ___ (2) CHF (congestive heart failure) Qualifiers: Heart failure type: combined systolic and diastolic Heart failure chronicity: acute on chronic Qualified Code(s): I50.43 - Acute on chronic combined systolic (congestive) and diastolic (congestive) heart failure (3) COPD (chronic obstructive pulmonary disease) Qualifiers: COPD type: COPD with acute exacerbation Qualified Code(s): J44.1 - Chronic obstructive pulmonary disease with (acute) exacerbation
[2018-12-24] MEDS: Azithromycin 500 MG in D5% in Water 250 ML IVPB SCH (15:54)
[2018-12-25] MEDS: Ipratropium/Albuterol Neb 3 ML IH SCH ×6 (03:31→23:07)
[2018-12-25] MEDS: *HR* Heparin 5,000 UNIT/ML VIAL SQ SCH ×2 (05:29→17:01)
[2018-12-25] MEDS: Budesonide/Formoterol 160/4.5 1 PUFF INH IH SCH ×2 (07:25→19:51)
[2018-12-25] MEDS: Aspirin Enteric Coated 81 MG Tablet PO SCH (08:55)
[2018-12-25] MEDS: predniSONE 20 MG TABLET PO SCH (08:55)
[2018-12-25] MEDS: Metoprolol XL (24 HR) Succ 25 MG TAB.ER.24H PO SCH (08:55)
[2018-12-25] MEDS: Furosemide 40 MG TABLET PO SCH ×2 (08:55→17:08)
[2018-12-25] MEDS: *HR* OxyCODONE/APAP 5/325 TABLET PO PRN ×3 (08:57→22:33)
[2018-12-25] MEDS: Insulin LISPRO 300 UNITS/3 ML VIAL SQ SCH ×7 (08:57→21:08)
[2018-12-25] MEDS: Loratadine 10 MG TABLET PO SCH (08:57)
[2018-12-25] MEDS: Insulin DETEMIR 100 UNIT/ML X5UNITS SQ SCH ×2 (09:03→21:05)
[2018-12-25] MEDS: Fluticasone Propionate Nasal 50 MCG/SPRAY BOTTLE NS SCH (09:03)
--- NOTE | 2018-12-25 10:45 | Palliative Progress Note ---
Date of Encounter: 12/25/18 Time of Encounter: 09:50 - Assessment and plan (1) Congestive heart failure Current Visit: No Status: Chronic Qualifiers: Heart failure type: systolic Heart failure chronicity: chronic Qualified Code(s): I50.22 - Chronic systolic (congestive) heart failure (2) Goals of care, counseling/discussion Current Visit: Yes Status: Acute Assessment and plan: Patient awaiting discharge to [facility] with hospice care, pending SW. (3) COPD (chronic obstructive pulmonary disease) Current Visit: Yes Status: Acute Assessment and plan: Oxygen saturation 99% on BiPAP. Qualifiers: COPD type: COPD with acute exacerbation Qualified Code(s): J44.1 - Chronic obstructive pulmonary disease with (acute) exacerbation (4) Palliative care encounter Current Visit: Yes Status: Acute (5) Dyspnea Current Visit: Yes Status: Acute Assessment and plan: Patient reports dyspnea under control. Patient reports Percocet helps with the difficulty breathing. Patient has received 2 doses of Percocet in the last 24 hours. Qualifiers: Dyspnea type: unspecified Qualified Code(s): R06.00 - Dyspnea, unspecified - Time Spent With Patient Total time spent is greater than 50% in coordination of care (as documented) at patient's floor/unit and/or counseling patient: - Subjective Interval history: Patient lying in bed with BiPAP on, in standby mode, upon arrival for assessment with oxygen saturation 76%. Activated BiPAP and oxygen saturation rebounded to 99%. Patient alert and oriented times 3. Denies pain, anxiety, nausea, and vomiting. Reports dyspnea improved with BiPAP. - Constitutional Vitals: Abnormal lab results RBC 3.84 M/mcL (4.19-5.50) L 12/24/18 05:18 Hgb 9.5 g/dL (12.9-16.9) L 12/24/18 05:18 Hct 33.3 % (37.5-50.1) L 12/24/18 05:18 MCH 24.7 pg (28.0-33.3) L 12/24/18 05:18 MCHC 28.5 g/dL (31.6-35.5) L 12/24/18 05:18 RDW 15.9 % (11.5-14.5) H 12/24/18 05:18 9.1 K/mcL (1.6-8.9) H 12/20/18 23:50 0.5 K/mcL (0.6-4.6) L 12/22/18 04:21 Present (Not Present) A 12/24/18 05:18 1+ (Not Present) A 12/23/18 06:14 ABG pH 7.26 pH Units (7.32-7.45) L 12/21/18 09:14 ABG pCO2 78 mmHg (35-45) H* 12/21/18 09:14 ABG pO2 256 mmHg (85-104) H 12/21/18 03:10 ABG HCO3 35 mEq/L (21-27) H 12/21/18 09:14 ABG Total CO2 37 mEq/L (20-26) H 12/21/18 09:14 ABG O2 Saturation 100 % (95-98) H 12/21/18 03:10 ABG Base Excess 5 mEq/L (-2 to 3) H 12/21/18 09:14 VBG pH 7.25 pH Units (7.32-7.42) L 12/21/18 00:08 VBG pCO2 85 mmHg (41-51) H* 12/21/18 00:08 VBG HCO3 38 mEq/L (21-27) H 12/21/18 00:08 Chloride 96 mEq/L (98-107) L 12/24/18 05:18 Carbon Dioxide 40 mEq/L (23-29) H* 12/24/18 05:18 BUN 47 mg/dL (8-23) H 12/24/18 05:18 1.37 mg/dL (0.70-1.30) H 12/24/18 05:18 Est GFR ( Amer) 59 (> 60) L 12/23/18 06:14 Est GFR (Non-Af Amer) 52 (> 60) L 12/24/18 05:18 34 (6-26) H 12/24/18 05:18 Glucose 192 mg/dL (70-105) H 12/24/18 05:18 POC Glucose 199 mg/dL (70-99) H 12/25/18 07:44 7.7 % (-5.6) H 12/21/18 15:03 305 (280-300) H 12/24/18 05:18 Calcium 8.5 mg/dL (8.6-10.3) L 12/22/18 04:21 0.04 ng/mL (< 0.04) H* 12/20/18 23:50 B-Natriuretic Peptide 379 pg/mL (Less than 100) H 12/20/18 23:50 0.28 ng/mL (0.00-0.15) H 12/21/18 15:03 General appearance: Present: cooperative, no acute distress - Head Head exam: Present: atraumatic, normal inspection - Eye Eye exam: Present: normal appearance, PERRL. Absent: periorbital swelling, periorbital tenderness Pupils: Present: normal accommodation - ENT ENT exam: Present: mucous membranes dry, normal external ear exam - Neck Neck exam: Present: normal inspection - Respiratory Respiratory exam: Present: accessory muscle use, decreased breath sounds - Cardiovascular Cardiovascular exam: Present: +S1, +S2 - GI/Abdominal GI/Abdominal exam: Present: hypoactive bowel sounds, soft. Absent: tenderness - Rectal Rectal exam: Present: deferred - Extremities Exam Extremities exam: Present: normal inspection, pedal edema - Back Exam Back exam: Present: normal inspection - Neurological Exam Neurological exam: Present: alert, oriented X3, strengths equal and symetr throughout. Absent: altered, facial droop, speech deficit - Psychiatric Psychiatric exam: Present: normal affect, normal mood - Skin Skin exam: Present: dry, intact, normal color, warm Palliative Quality Palliative Quality: Screen for Code Status: Yes, Screen for Goals of Care: Yes, Screen for Pain: Yes, If Pain Regimen Started, Initiate Bowel Regimen: Yes, Screen for Nausea/Vomitting: Yes Code Status: 12/21/18 07:56 Resuscitation Status: Active [RES] Routine Comment: Resuscitation Status: Full Code 12/23/18 13:09 Resuscitation Status: Active [RES] Routine Comment: Resuscitation Status: DNR-Comfort Care - Labs CBC & Chem 7: 12/24/18 05:18 12/24/18 05:18 Labs: Laboratory Results - last 24 hr 12/24/18 12/24/18 12/24/18 07:02 11:24 16:15 POC Glucose 157 H 158 H 234 H 12/24/18 12/25/18 21:06 07:44 POC Glucose 238 H 199 H - ABG Interpretation ABG results: ABG ABG pH 7.26 pH Units (7.32-7.45) L 12/21/18 09:14 ABG pCO2 78 mmHg (35-45) H* 12/21/18 09:14 ABG pO2 89 mmHg (85-104) 12/21/18 09:14 ABG O2 Saturation 95 % (95-98) 12/21/18 09:14 Palliative Scale - Palliative Performance Scale How ambulatory is this patient?: Reduced What is patient's level of activity and evidence of disease?: Unable to do any work, Extensive disease How much self-care assistance does patient require?: Considerable assistance required How much oral intake does the patient have?: Normal or reduced What is this patient's level of consciousness?: Full Palliative Performance Score: 70 % Consult Discharge Plan - Plan Referrals: NONE,PCP [Primary Care Provider] -
--- NOTE | 2018-12-25 11:14 | Internal Med Progress Note ---
Hospitalist Progress Note - Encounter Date of Encounter: 12/25/18 Time of Encounter: 11:11 - Subjective Interval History: Patient lying down in bed. Comfortable but using BiPAP. States it helps with his breathing. Tolerating well. No chest pain. No palpitations. Tolerating diet. Has been tolerating 4 L nasal cannula while his sitting up and awake. - Exam Vitals: Temp Pulse Resp BP Pulse Ox 96.6 F L 82 13 121/80 99 12/25/18 07:40 12/25/18 07:40 12/25/18 07:40 12/25/18 07:40 12/25/18 07:40 Exam: General: Patient is alert, mild distress, oriented x 3, morbidly obese ENT: Mucous membranes moist BiPAP mask in place Respiratory: Good respiratory effort. Normal breath sounds. No wheezing or crackles. Cardiovascular: Regular rate and rhythm. s1 and s2 normal No clicks, rubs, gallops, or murmurs. No pedal edema Abdomen: Abdomen is soft, nontender. Bowel sounds are present Musculoskeletal: Spontaneously moving all extremities Skin: warm, dry, intact. Neuro: Alert oriented x 3 normal cranial nerves, no focal deficits - Assessment and Plan (1) CHF (congestive heart failure) Current Visit: Yes Status: Chronic (2) COPD (chronic obstructive pulmonary disease) Current Visit: Yes Status: Acute (3) Goals of care, counseling/discussion Current Visit: Yes Status: Acute (4) Palliative care encounter Current Visit: Yes Status: Acute DVT Prophylaxis: Continue subcutaneous heparin - Summary of Assessment and Plan Summary of Assessment and Plan: Acute on chronic respiratory failure with hypoxia and hypercapnia: Continue O2 supplementation as needed. BiPAP use as needed. Clinically feels better. Continue treating underlying conditions. Acute on chronic combined systolic and diastolic congestive heart failure: Responded well to Lasix. Continue oral Lasix. Allergic rhinitis/sinusitis: On Flonase and Claritin. Symptoms have improved. Chronic kidney disease stage III: Will recheck basic panel tomorrow. Diabetes mellitus type 2: Blood sugars intermittently elevated. We will in crease long-acting insulin regimen COPD exacerbation and chronic respiratory failure: Continue prednisone taper. Continue bronchodilators and use BiPAP as needed. On azithromycin. Moderate risk for complications. Patient wishes to halfway with hospice when medically stable. Palliative care following. - Time Spent with Patient Total time spent is greater than 50% in coordination of care (as documented) at patient's floor/unit and/or counseling patient: Internal Medicine: Result - Labs CBC & Chem 7: 12/24/18 05:18 12/24/18 05:18 - ABG Interpretation ABG results: ABG ABG pH 7.26 pH Units (7.32-7.45) L 12/21/18 09:14 ABG pCO2 78 mmHg (35-45) H* 12/21/18 09:14 ABG pO2 89 mmHg (85-104) 12/21/18 09:14 ABG O2 Saturation 95 % (95-98) 12/21/18 09:14 Consult Discharge Plan - Plan Referrals: NONE,PCP [Primary Care Provider] - (1) CHF (congestive heart failure) Qualifiers: Heart failure type: combined systolic and diastolic Heart failure chronicity: acute on chronic Qualified Code(s): I50.43 - Acute on chronic combined systolic (congestive) and diastolic (congestive) heart failure (2) COPD (chronic obstructive pulmonary disease) Qualifiers: COPD type: COPD with acute exacerbation Qualified Code(s): J44.1 - Chronic obstructive pulmonary disease with (acute) exacerbation
[2018-12-25] MEDS: Azithromycin 250 MG TABLET PO SCH (14:02)
[2018-12-26] MEDS: Ipratropium/Albuterol Neb 3 ML IH SCH ×4 (03:24→15:14)
[2018-12-26] MEDS: *HR* Heparin 5,000 UNIT/ML VIAL SQ SCH (05:29)
[2018-12-26] MEDS: *HR* OxyCODONE/APAP 5/325 TABLET PO PRN ×2 (05:32→14:03)
[2018-12-26] MEDS: Budesonide/Formoterol 160/4.5 1 PUFF INH IH SCH (07:39)
[2018-12-26 08:00] LABS: BUN/Creatinine Ratio 40 (6-26); Blood Urea Nitrogen 55 mg/dL (8-23); Carbon Dioxide 40 mEq/L (23-29); Chloride 95 mEq/L (98-107); Glucose 187 mg/dL (70-105); Osmolality,Calculated 312 (280-300); Potassium 4.1 mEq/L (3.5-5.1); Sodium 141 mEq/L (136-145); eGFR For Non-African Americans 52 (> 60)
[2018-12-26] MEDS: Insulin LISPRO 300 UNITS/3 ML VIAL SQ SCH ×4 (08:16→12:00)
[2018-12-26] MEDS: Fluticasone Propionate Nasal 50 MCG/SPRAY BOTTLE NS SCH (08:17)
[2018-12-26] MEDS: Aspirin Enteric Coated 81 MG Tablet PO SCH (08:18)
[2018-12-26] MEDS: Loratadine 10 MG TABLET PO SCH (08:18)
[2018-12-26] MEDS: Metoprolol XL (24 HR) Succ 25 MG TAB.ER.24H PO SCH (08:18)
[2018-12-26] MEDS: Furosemide 40 MG TABLET PO SCH (08:18)
[2018-12-26] MEDS: predniSONE 20 MG TABLET PO SCH (08:19)
[2018-12-26] MEDS: Insulin DETEMIR 100 UNIT/ML X5UNITS SQ SCH (08:26)
[2018-12-26] MEDS: Azithromycin 250 MG TABLET PO SCH (14:03)
--- NOTE | 2018-12-26 14:08 | Palliative Progress Note ---
Date of Encounter: 12/26/18 Time of Encounter: 12:30 - Assessment and plan (1) Generalized pain Current Visit: No Status: Acute Assessment and plan: On percocet prn, about 3 doses in 4 hrs (2) Anxiety Current Visit: No Status: Acute Assessment and plan: seroquel qhs, will add Ativan prn on discharge (3) Dyspnea Current Visit: Yes Status: Acute Assessment and plan: Dyspnea improved at rest, pt today spent more time off BiPAP. Percocet prn O2 per nc and BiPAP prn. Qualifiers: Dyspnea type: unspecified Qualified Code(s): R06.00 - Dyspnea, unspecified (4) Goals of care, counseling/discussion Current Visit: Yes Status: Acute Assessment and plan: Plan remains for discharge to [facility] with [facility]. Referral made, patient was seen today by [facility] hospice nurse Macy. Comfort meds prescriptions: Percocet prn, Ativan prn and senna were sent to pharmacy. (5) Palliative care encounter Current Visit: Yes Status: Acute (6) Acute exacerbation of chronic obstructive airways disease Current Visit: No Status: Resolved Assessment and plan: Patient to continue O2 nc 3L/min and BIPAP prn Continue steroid taper, bronchodilators. On Azithromycin, Day #5 antibiotics, to finish 10 days course. (7) Acute respiratory failure with hypoxia Current Visit: No Status: Acute Assessment and plan: management as above (8) Congestive heart failure Current Visit: No Status: Chronic Assessment and plan: periferal edema responded well to lasix po per primary team. Qualifiers: Heart failure type: systolic Heart failure chronicity: chronic Qualified Code(s): I50.22 - Chronic systolic (congestive) heart failure (9) Bladder cancer Current Visit: No Status: Acute - Time Spent With Patient Total time spent is greater than 50% in coordination of care (as documented) at patient's floor/unit and/or counseling patient: 25 - 35 minutes - Subjective Interval history: Patient was awake, walked a few steps in the room and returned to chair, afterward he needed few minutes to catch his breath. He is feeling better today, and ready for discharge. pain is well controlled by percocet prn, and he noticed an improvement in dyspnea with the percocet as well. - Constitutional Vitals: Abnormal lab results RBC 3.84 M/mcL (4.19-5.50) L 12/24/18 05:18 Hgb 9.5 g/dL (12.9-16.9) L 12/24/18 05:18 Hct 33.3 % (37.5-50.1) L 12/24/18 05:18 MCH 24.7 pg (28.0-33.3) L 12/24/18 05:18 MCHC 28.5 g/dL (31.6-35.5) L 12/24/18 05:18 RDW 15.9 % (11.5-14.5) H 12/24/18 05:18 9.1 K/mcL (1.6-8.9) H 12/20/18 23:50 0.5 K/mcL (0.6-4.6) L 12/22/18 04:21 Present (Not Present) A 12/24/18 05:18 1+ (Not Present) A 12/23/18 06:14 ABG pH 7.26 pH Units (7.32-7.45) L 12/21/18 09:14 ABG pCO2 78 mmHg (35-45) H* 12/21/18 09:14 ABG pO2 256 mmHg (85-104) H 12/21/18 03:10 ABG HCO3 35 mEq/L (21-27) H 12/21/18 09:14 ABG Total CO2 37 mEq/L (20-26) H 12/21/18 09:14 ABG O2 Saturation 100 % (95-98) H 12/21/18 03:10 ABG Base Excess 5 mEq/L (-2 to 3) H 12/21/18 09:14 VBG pH 7.25 pH Units (7.32-7.42) L 12/21/18 00:08 VBG pCO2 85 mmHg (41-51) H* 12/21/18 00:08 VBG HCO3 38 mEq/L (21-27) H 12/21/18 00:08 Chloride 95 mEq/L (98-107) L 12/26/18 07:04 Carbon Dioxide 40 mEq/L (23-29) H* 12/26/18 07:04 BUN 55 mg/dL (8-23) H 12/26/18 07:04 1.37 mg/dL (0.70-1.30) H 12/26/18 07:04 Est GFR ( Amer) 59 (> 60) L 12/23/18 06:14 Est GFR (Non-Af Amer) 52 (> 60) L 12/26/18 07:04 40 (6-26) H 12/26/18 07:04 Glucose 187 mg/dL (70-105) H 12/26/18 07:04 POC Glucose 206 mg/dL (70-99) H 12/25/18 19:07 7.7 % (-5.6) H 12/21/18 15:03 312 (280-300) H 12/26/18 07:04 Calcium 8.5 mg/dL (8.6-10.3) L 12/22/18 04:21 0.04 ng/mL (< 0.04) H* 12/20/18 23:50 B-Natriuretic Peptide 379 pg/mL (Less than 100) H 12/20/18 23:50 0.28 ng/mL (0.00-0.15) H 12/21/18 15:03 Exam: General appearance: Present: obese - Head Head Exam: Present: atraumatic, normal inspection, normocephalic - Eye Eye exam: Present: normal appearance, PERRL - ENT ENT exam: Present: mucous membranes moist - Respiratory Respiratory exam: Present: decreased breath sounds, respiratory distress, tachypnea. Absent: rales, rhonchi, wheezes - Cardiovascular Cardiovascular exam: Present: RRR, +S1, +S2, tachycardia - Extremities Exam Extremities exam: Present: pedal edema (+1 pitting bilaterally ). Absent: calf tenderness, tenderness Additional comments: Chronic venous stasis changes to bilateral LEs - Back Exam Back exam: Present: normal inspection. Absent: rash noted, tenderness - Neurological Exam Neurological exam: Present: alert, oriented X3. Absent: pronater drift, facial droop, speech deficit - Skin Skin exam: Present: dry, intact, normal color, warm Palliative Quality Palliative Quality: Screen for Code Status: Yes, Screen for Goals of Care: Yes, Screen for Pain: Yes, If Pain Regimen Started, Initiate Bowel Regimen: Yes, Screen for Nausea/Vomitting: Yes Code Status: 12/21/18 07:56 Resuscitation Status: Active [RES] Routine Comment: Resuscitation Status: Full Code 12/23/18 13:09 Resuscitation Status: Active [RES] Routine Comment: Resuscitation Status: DNR-Comfort Care - Labs CBC & Chem 7: 12/24/18 05:18 12/26/18 07:04 Labs: Laboratory Results - last 24 hr 12/25/18 12/25/18 12/25/18 11:25 16:27 19:07 Sodium Potassium Chloride Carbon Dioxide BUN Creatinine Est GFR ( Amer) Est GFR (Non-Af Amer) BUN/Creatinine Ratio Glucose POC Glucose 178 H 158 H 206 H Calculated Osmolality Calcium 12/26/18 07:04 Sodium 141 Potassium 4.1 Chloride 95 L Carbon Dioxide 40 H* BUN 55 H Creatinine 1.37 H Est GFR ( Amer) > 60 Est GFR (Non-Af Amer) 52 L BUN/Creatinine Ratio 40 H Glucose 187 H POC Glucose Calculated Osmolality 312 H Calcium 9.0 - ABG Interpretation ABG results: ABG ABG pH 7.26 pH Units (7.32-7.45) L 12/21/18 09:14 ABG pCO2 78 mmHg (35-45) H* 12/21/18 09:14 ABG pO2 89 mmHg (85-104) 12/21/18 09:14 ABG O2 Saturation 95 % (95-98) 12/21/18 09:14 Palliative Scale - Palliative Performance Scale How ambulatory is this patient?: Reduced What is patient's level of activity and evidence of disease?: Unable to do any work, Extensive disease How much self-care assistance does patient require?: Considerable assistance required How much oral intake does the patient have?: Normal or reduced What is this patient's level of consciousness?: Full Palliative Performance Score: 70 % Consult Discharge Plan - Plan Referrals: NONE,PCP [Primary Care Provider] - Prescriptions: LORazepam [Ativan] 0.5 mg PO Q4HR PRN 3 Days #18 tablet PRN Reason: Anxiety Oxycodone HCl/Acetaminophen [Percocet 5-325 mg Tablet] 1 each PO Q4H PRN 3 Days #18 tablet PRN Reason: Pain Sennosides/Docusate Sodium [Senna Plus] 2 each PO BID #12 tablet
--- NOTE | 2018-12-26 15:01 | Discharge Summary ---
- NOTES TO OUTPATIENT PROVIDER Notes to Outpatient Provider: Patient with a history of COPD, CHF who was hospitalized here with acute on chronic respiratory failure with hypoxia and hypercapnia related to CHF and COPD exacerbation. Patient was treated with intravenous Lasix along with steroids, bronchodilators and azithromycin. His symptoms improved but while discussing patient's long-term plans of care and goals of care, he understands his chronic medical conditions and wished to discuss further with palliative care about hospice. After discussion with palliative care, patient's CODE STATUS has been changed to DNR comfort care and he wishes to go to [place] with hospice. Patient will be discharged there today and will enrolled in hospice. Date of Encounter: 12/26/18 Time of Encounter: 14:55 - Discharge Diagnosis (1) CHF (congestive heart failure) Priority: Primary Status: Chronic Qualifiers: Heart failure type: combined systolic and diastolic Heart failure chronicity: acute on chronic Qualified Code(s): I50.43 - Acute on chronic combined systolic (congestive) and diastolic (congestive) heart failure (2) COPD (chronic obstructive pulmonary disease) Priority: Secondary Status: Acute Qualifiers: COPD type: COPD with acute exacerbation Qualified Code(s): J44.1 - Chronic obstructive pulmonary disease with (acute) exacerbation (3) Goals of care, counseling/discussion Priority: Secondary Status: Acute (4) Palliative care encounter Priority: Secondary Status: Acute (5) CKD (chronic kidney disease) Priority: Secondary Status: Chronic Qualifiers: Chronic kidney disease stage: stage 3 (moderate) Qualified Code(s): N18.3 - Chronic kidney disease, stage 3 (moderate) (6) Diabetes Priority: Secondary Status: Chronic Qualifiers: Diabetes mellitus type: type 2 Diabetes mellitus senior care insulin use: with senior care use Diabetes mellitus complication status: with hyperglycemia Qualified Code(s): E11.65 - Type 2 diabetes mellitus with hyperglycemia; Z79.4 - terminal superintendent (current) use of insulin Hospital course: Mr. Chase is a 63 year old male Patient with a history of COPD, CHF who was hospitalized here with acute on chronic respiratory failure with hypoxia and hypercapnia related to CHF and COPD exacerbation. Patient was treated with intravenous Lasix along with steroids, bronchodilators and azithromycin. His symptoms improved but while discussing patient's long-term plans of care and goals of care, he understands his chronic medical conditions and wished to discuss further with palliative care about hospice. After discussion with palliative care, patient's CODE STATUS has been changed to DNR comfort care and he wishes to go to [place] with hospice. Patient will be discharged there today and will be enrolled in hospice. Discharge discussed with: patient, nurse, case management, foreign legal consultant - Time Spent with Patient Total time spent providing and/or coordinating discharge services: Time spent: Greater than 30 minutes (40 min) - Discharge Medications Prescriptions: New LORazepam [Ativan] 0.5 mg PO Q4HR PRN 3 Days #18 tablet PRN Reason: Anxiety Oxycodone HCl/Acetaminophen [Percocet 5-325 mg Tablet] 1 each PO Q4H PRN 3 Days #18 tablet PRN Reason: Pain Sennosides/Docusate Sodium [Senna Plus] 2 each PO BID #12 tablet Continued Albuterol Neb [Proventil Neb] 2.5 mg IH 6XD PRN PRN Reason: Shortness Of Breath Insulin Glargine,Hum.rec.anlog [Lantus Solostar] 50 unit SQ DAILY Budesonide/Formoterol 160/4.5 [Symbicort 160/4.5] 2 puff IH BID Fluticasone Propionate Nasal [Flonase] 2 spray NS DAILY Cetirizine HCl [Zyrtec] 10 mg PO HS PRN PRN Reason: allergies Insulin LISPRO [Humalog Kwikpen U-100] 0 unit SQ TIDWM PRN PRN Reason: per sliding scale Clopidogrel [Plavix] 75 mg PO DAILY Aspirin Enteric Coated [Aspirin EC] 81 mg PO DAILY Atorvastatin [Lipitor] 40 mg PO HS Furosemide [Lasix] 40 mg PO BID Quetiapine Fumarate [Seroquel] 25 mg PO HS PRN PRN Reason: Insomnia Multivitamin [One Daily Multivitamin] 1 each PO DAILY Albuterol Sulfate [Ventolin Hfa] 2 puff IH Q6H PRN PRN Reason: Wheezing Tiotropium Phelps [Spiriva Respimat] 2 puff IH DAILY Discontinued Ibuprofen [Motrin Ib] 200 mg PO TID PRN PRN Reason: hip pain Home Medications: Albuterol Neb [Proventil Neb] 2.5 mg IH 6XD PRN 10/23/15 [History] Insulin Glargine,Hum.rec.anlog [Lantus Solostar] 50 unit SQ DAILY 10/23/15 [History] Budesonide/Formoterol 160/4.5 [Symbicort 160/4.5] 2 puff IH BID 04/05/17 [His tory] Fluticasone Propionate Nasal [Flonase] 2 spray NS DAILY 04/22/17 [History] Cetirizine HCl [Zyrtec] 10 mg PO HS PRN 04/06/18 [History] Insulin LISPRO [Humalog Kwikpen U-100] 0 unit SQ TIDWM PRN 04/06/18 [History] Clopidogrel [Plavix] 75 mg PO DAILY 11/11/18 [History] Aspirin Enteric Coated [Aspirin EC] 81 mg PO DAILY 12/09/18 [History] Atorvastatin [Lipitor] 40 mg PO HS 12/09/18 [History] Furosemide [Lasix] 40 mg PO BID 12/09/18 [History] Quetiapine Fumarate [Seroquel] 25 mg PO HS PRN 12/09/18 [History] Albuterol Sulfate [Ventolin Hfa] 2 puff IH Q6H PRN 12/21/18 [History] Multivitamin [One Daily Multivitamin] 1 each PO DAILY 12/21/18 [History] Tiotropium Phelps [Spiriva Respimat] 2 puff IH DAILY 12/21/18 [History] LORazepam [Ativan] 0.5 mg PO Q4HR PRN 3 Days #18 tablet 12/26/18 [Rx] Oxycodone HCl/Acetaminophen [Percocet 5-325 mg Tablet] 1 each PO Q4H PRN 3 Days #18 tablet 12/26/18 [Rx] Sennosides/Docusate Sodium [Senna Plus] 2 each PO BID #12 tablet 12/26/18 [Rx] Allergies/Adverse Reactions: Allergy/AdvReac Type Severity Reaction Status Date / Time No Known Allergies Allergy Verified 12/21/18 16:11 Date of admission: 12/21/18 09:10 Primary care physician: PCP NONE Consults: 12/21/18 06:55 Consult to Oil Well Directional Surveyor [CONS] Routine Reason for SW Consult: Pt lives at home by himself and will need help when he returns. 12/21/18 12:29 Consult to Cardiac Rehabilitation-Phase1 [CONS] Routine Comment: Reason for Consult: heart failure Call Completed: Yes Consult to Nurse Navigator [CONS] Routine Comment: 12/23/18 11:58 Consult to Palliative Care [CONS] Routine Comment: Consulting Provider: Palliative Care Jolene Reason for Consult: Patient with COPD and chronic resp failure. Failed Rehab outpatient. Considering hospice if his condition does not improve Call Completed: Yes Discharging clinician: Latosha Dean Anticipated date of discharge: 12/26/18 - Constitutional Vitals: Temp Pulse Resp BP Pulse Ox 98.2 F 84 16 121/77 95 12/26/18 10:35 12/26/18 10:35 12/26/18 11:41 12/26/18 10:35 12/26/18 11:41 General appearance: Present: cooperative, A&O X 3, pleasant, obese, answers questions appropriately Exam: General: Patient is alert, no acute distress, oriented x 3 ENT: Mucous membranes moist Respiratory: Prolonged expiratory phase, improved air entry at bases. Cardiovascular: Regular rate and rhythm. s1 and s2 normal No clicks, rubs, gallops, or murmurs. Mild pedal edema bilaterally Abdomen: Abdomen is soft, nontender. Bowel sounds are present Musculoskeletal: Spontaneously moving all extremities Skin: warm, dry, intact. Neuro: Alert oriented x 3 normal cranial nerves, no focal deficits - Patient Status Disposition: Hospice - Medical Facility Condition: Fair Functional capacity at discharge: wheelchair bound Overall status at discharge: patient is progressing back to baseline - Discharge Instructions Follow Up With: NONE,PCP [Primary Care Provider] - - Diet and Activity Activity: increase activity as tolerated, wear oxygen at all times Diet: diabetic diet, low fat, low cholesterol, low salt diet
[2018-12-26 15:31] VITALS: BP 138/91
--- NOTE | 2018-12-26 16:16 | Physician Discharge Referral ---
ExtendedCare Referral Info Provider in Charge after Transfer: PCP Institutional Level of Care: Skilled - Diagnosis (1) CHF (congestive heart failure) Priority: Primary Status: Chronic (2) COPD (chronic obstructive pulmonary disease) Priority: Secondary Status: Acute (3) Goals of care, counseling/discussion Priority: Secondary Status: Acute (4) Palliative care encounter Priority: Secondary Status: Acute (5) CKD (chronic kidney disease) Priority: Secondary Status: Chronic (6) Diabetes Priority: Secondary Status: Chronic Prognosis: Fair Aware of Diagnosis: Patient Aware of Prognosis: Patient - Transfer Medications Prescriptions: LORazepam [Ativan] 0.5 mg PO Q4HR PRN 3 Days #18 tablet PRN Reason: Anxiety Oxycodone HCl/Acetaminophen [Percocet 5-325 mg Tablet] 1 each PO Q4H PRN 3 Days #18 tablet PRN Reason: Pain Sennosides/Docusate Sodium [Senna Plus] 2 each PO BID #12 tablet Home Medications: Albuterol Neb [Proventil Neb] 2.5 mg IH 6XD PRN 10/23/15 [History] Insulin Glargine,Hum.rec.anlog [Lantus Solostar] 50 unit SQ DAILY 10/23/15 [History] Budesonide/Formoterol 160/4.5 [Symbicort 160/4.5] 2 puff IH BID 04/05/17 [History] Fluticasone Propionate Nasal [Flonase] 2 spray NS DAILY 04/22/17 [History] Cetirizine HCl [Zyrtec] 10 mg PO HS PRN 04/06/18 [History] Insulin LISPRO [Humalog Kwikpen U-100] 0 unit SQ TIDWM PRN 04/06/18 [History] Clopidogrel [Plavix] 75 mg PO DAILY 11/11/18 [History] Aspirin Enteric Coated [Aspirin EC] 81 mg PO DAILY 12/09/18 [History] Atorvastatin [Lipitor] 40 mg PO HS 12/09/18 [History] Furosemide [Lasix] 40 mg PO BID 12/09/18 [History] Quetiapine Fumarate [Seroquel] 25 mg PO HS PRN 12/09/18 [History] Albuterol Sulfate [Ventolin Hfa] 2 puff IH Q6H PRN 12/21/18 [History] Multivitamin [One Daily Multivitamin] 1 each PO DAILY 12/21/18 [History] Tiotropium [place] [Spiriva Respimat] 2 puff IH DAILY 12/21/18 [History] LORazepam [Ativan] 0.5 mg PO Q4HR PRN 3 Days #18 tablet 12/26/18 [Rx] Oxycodone HCl/Acetaminophen [Percocet 5-325 mg Tablet] 1 each PO Q4H PRN 3 Days #18 tablet 12/26/18 [Rx] Sennosides/Docusate Sodium [Senna Plus] 2 each PO BID #12 tablet 12/26/18 [Rx] Allergies/Adverse Reactions: Allergy/AdvReac Type Severity Reaction Status Date / Time No Known Allergies Allergy Verified 12/21/18 16:11 - Respiratory Orders Oxygen / L per min (3-4), Other (Use BiPAP while lying down and as needed) Smoking Cessation: Smoking cessation has been advised. For more information, call the [employer] Tobacco Quit Line at 6-861-ZPVV-NOW. - Ancillary Orders May consult with Dentist, Legal Transcriptionist, Restaurant Assistant PRN - Advance Directives Code Status: DNR-Comfort Care - Mobility Orders Other (As tolerated) - Diet Orders Mechanical Soft (Diabetic), Cardiac CERTIFICATION: I certify that the transfer of the above named patient to an Extended Care Facility is necessary for the continuing treatment of the diagnosis listed. The above information is true and accurate reflection of patient's current condition. Confidential - Redisclosure prohibited without a patient's written consent.
== END 2018-12-26 23:35 | disposition hospice, inpatient (51) | DRG 291 ==
LOC: 2NENU 23:21 → EMEROOARM 23:21 → SUATTDRO 12-21 04:26 → 2NENU 12-21 06:50
PROVIDERS: ADMIT Pediatrics; ATTEND Internal Medicine